=== PATIENT | female | born 1940 | race Caucasian/White ===

== ENCOUNTER 2017-04-16 10:50 | Day surgery (SDC) | payer MEDICARE ==
[2017-04-13 14:11] VITALS: BMI 27.4
[~2017-04-16 10:50] MED LIST: ALPRAZolam 0.25 MG TAB PO PRN; ALPRAZolam 0.5 MG TAB PO PRN; ASPIRIN 325 MG TAB PO STA; ATORVASTATIN 80 MG TAB PO STA; NITROGLYCERIN SL TABS 0.4 MG TAB SUBLINGUAL PRN; SODIUM CHLORIDE 0.9% 1,000 ML in EMPTY BAG 1 BAG IV ONE
[2017-04-16 11:07] VITALS: TEMP 98.1
[2017-04-16] MEDS ORDERED: ADENOSINE 3 MG/ML 2 ML VIAL IVP STA (11:08)
[2017-04-16 11:29] LABS: Anion Gap 12 mmol/L; Blood Urea Nitrogen 22 mg/dL (7-17); Carbon Dioxide 26 mmol/L (22-30); Chloride 99 mmol/L (98-107); Glucose 92 mg/dL (74-99); Non-African American GFR(MDRD) 54 (>60 ml/min/1.73 sqM); Potassium 4.7 mmol/L (3.5-5.1); Sodium 137 mmol/L (137-145)
[2017-04-16] MEDS ORDERED: SODIUM CHLORIDE 0.9% IV ONE ×6 (11:30→12:45)
[2017-04-16] MEDS ORDERED: ADENOSINE IV ONE ×6 (11:30→12:45)
[2017-04-16 11:34] LABS: Basophils % (A) 0 %; CH 30.4; CHCM 33.7; Eosinophils # (A) 0.1 k/uL (0-0.7); Eosinophils % (A) 1 %; HCT 34.5 % (34.0-46.0); HDW 2.39; HGB 12.2 gm/dL (11.4-16.0); Luc # (Auto) 0.23; Luc % (Auto) 3; Lymphocytes # (A) 1.6 k/uL (1.0-4.8); Lymphocytes % (A) 19 %; MCH 32.1 pg (25.0-35.0); MCHC 35.4 g/dL (31.0-37.0); MCV 90.5 fL (80.0-100.0); Mean Platelet Volume 7.3; Monocytes # (A) 0.4 k/uL (0-1.0); Monocytes % (A) 5 %; Neutrophils # (A) 6.4 k/uL (1.3-7.7); Neutrophils % (A) 73 %; RBC 3.82 m/uL (3.80-5.40); RDW 13.9 % (11.5-15.5); WBC 8.7 k/uL (3.8-10.6); WBC (Perox) 9.07
[2017-04-16] MEDS ORDERED: IV FLUID CONTINUATION 1,000 ML IV ONE (11:59)
[2017-04-16] MEDS ORDERED: LIDOCAINE 2% INJ 20 MG/ML (20 ML MDV) ONE (12:09)
[2017-04-16] MEDS ORDERED: fentaNYL (PF) 50 MCG/ML 2 ML AMP ONE (12:11)
[2017-04-16] MEDS ORDERED: MIDAZOLAM 2 MG/2 ML VIAL ONE (12:11)
[2017-04-16] MEDS ORDERED: LIDOCAINE 2% INJ 20 MG/ML SQ ONE (12:26)
[2017-04-16] MEDS ORDERED: fentaNYL (PF) 50 MCG/ML 2 ML AMP IV ONE (12:28)
[2017-04-16] MEDS ORDERED: MIDAZOLAM 2 MG/2 ML VIAL IV ONE (12:28)
[2017-04-16] MEDS ORDERED: ADENOSINE 90 MG in SODIUM CHLORIDE 0.9% 60 ML IVP ONE (12:44)
[2017-04-16] MEDS ORDERED: RX INFO: IV CONTRAST WAS GIVEN 1 EACH MISC MISCELLANE PRN (13:00)
[2017-04-16] MEDS ORDERED: SODIUM CHLORIDE 0.9% 1,000 ML IV SCH (13:00)
--- NOTE | 2017-04-16 13:17 | P.PCN ---
Date of Procedure: 04/16/17 Preoperative Diagnosis: Pulmonary hypertension Postoperative Diagnosis: Mild pulmonary hypertension with positive response to vasodilator Procedure(s) Performed: Implants: Indications for Procedure: Operative Findings: Description of Procedure: The patient was brought to the lab in fasting state. She was prepped and draped in the usual fashion. Patient was given IV Versed 1 mg and fentanyl 50 g. The right groin is infiltrated with lidocaine. Right femoral vein was entered using Seldinger technique. And a 6-Bhutanese catheter was left in place. Osco-Roxana catheter was advanced to the catheter and the right heart Rate was performed under fluoroscopy. Patient tolerated the procedure well. The sheath was pulled out at the end of the procedure and manual compression was applied for hemostasis. Patient was given IV infusion of adenosine to a maximum dose of 100 mics and then were cut back to 50 mics because patient started complaining of shortness of breath. Patient's symptoms resolved after termination of infusion. Hemodynamics: #1. Baseline: Right atrial pressure is 8 /5 with a mean of 4. The right ventricular pressure 36/5 Pulmonary artery pressure 36/12 with a mean of 20. Pulmonary wedge pressure showed a mean value of 10. Cardiac output at baseline was 4.5 L with index of 2.6. Blood pressure at rest was 169/60 #2. After admission infusion: Right atrial pressure was 6/7 with a mean of 4. Right ventricular pressure 23/5 in Pulmonary artery pressure was 23/13 with a mean of 19. Pulmonary wedge pressure was 6/70 with mean of 4. Cardiac output was 5.6. Blood pressure after the infusion of the adenosine was 170/60. Pulmonary artery saturations: To be included later on.
[2017-04-16 13:18] LABS: Site PA
[2017-04-16 13:23] LABS: Site RV
[2017-04-16 13:28] LABS: Site RA
[2017-04-16 15:13] VITALS: RESP 18
[2017-04-16 16:18] VITALS: BP 126/58; PULSE 64
== END 2017-04-16 17:26 | disposition home or self-care (01) ==
LOC: CATHCVL 10:50
PROVIDERS: ATTEND Internal Medicine Cardiovascular Disease
DX: I27.2 Other secondary pulmonary hypertension (principal); I25.10 Atherosclerotic heart disease of native coronary artery without angina pectoris; I10 Essential (primary) hypertension; E78.00 Pure hypercholesterolemia, unspecified; I48.91 Unspecified atrial fibrillation; E78.5 Hyperlipidemia, unspecified; E11.9 Type 2 diabetes mellitus without complications; Z95.5 Presence of coronary angioplasty implant and graft; Z79.82 Long term (current) use of aspirin; Z79.899 Other long term (current) drug therapy; Z88.6 Allergy status to analgesic agent; Z88.5 Allergy status to narcotic agent; Z88.0 Allergy status to penicillin
CPT/HCPCS: 93451; 80048; 85018; 82810; 85025; C1769 ×2; C1894; J2001; J2250; J3010; J0153

== ENCOUNTER 2019-03-14 17:16 | Observation (INO) | payer MEDICARE ==
--- NOTE | 2019-03-14 18:04 | ED ---
General Adult HPI - General Chief complaint: Chest Pain Stated complaint: chest pain Time Seen by Provider: 03/14/19 17:20 Source: patient, EMS Mode of arrival: EMS Limitations: physical limitation - History of Present Illness Initial comments: Dictation was produced using [employer] dictation software. please excuse any grammatical, word or spelling errors. Chief Complaint: 78-year-old female presents with chief complaint of epistaxis and chest pain. History of Present Illness: Patient is 78-year-old female she presents with 2 episodes of epistaxis today and episode of chest pressure. She states that early this morning she had one episode of nosebleed in the morning. Seemed to have stopped on its own. She didn't had another episode of nosebleed that lasted for several minutes but stopped. Shortly after she had episode of chest pressure with radiation to bilateral upper extremities. She did report slight diaphoresis. She states the chest symptoms lasted for several minutes and resolved. Patient has history of coronary artery disease, myocardial infarction and multiple stents. 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 The ROS documented in this emergency department record has been reviewed and confirmed by me. Those systems with pertinent positive or negative responses have been documented in the HPI. All other systems are other negative and/or noncontributory. PHYSICAL EXAM: General Impression: Alert and oriented x3, not in acute distress HEENT: Normocephalic atraumatic, extra-ocular movements intact, pupils equal and reactive to light bilaterally, mucous membranes moist. Cardiovascular: Heart regular rate and rhythm, S1&S2 audible, no murmurs, rubs or gallops Chest: Lungs clear to auscultation bilaterally, no rhonchi, no wheeze, no rales Abdomen: Bowel sounds present, abdomen soft, non-tender, non-distended, no organomegaly Musculoskeletal: Pulses present and equal in all extremities, no peripheral edema Motor: no focal deficits noted Neurological: CN II-XII grossly intact, no focal motor or sensory deficits noted Skin: Intact with no visualized rashes Psych: Normal affect and mood ED course: 78-year-old female with a chief complaint of epistaxis and chest pain signs upon arrival are within acceptable limits. Patient's well-appearing at this time. She is not expressing any ongoing epistaxis at this time. There is suspicion of a source of bleeding in the left naris. EKG is nonacute.Laboratory evaluation obtained. CBC, coag panel, metabolic panel, cardiac enzymes are negative. Chest x-ray is nonacute. Patient's well-appearing at this time. She denies any symptoms. Patient given aspirin. Given patient's history and history of present illness there is clinical concern of acute coronary syndrome. Patient be admitted for surgical needs and cardiology consultation. EKG interpretation: Ventricular rate 55, sinus bradycardia,. Interval 198, QS 112, QTc 443. No PA prolongation, no QTC prolongation, no ST or T-wave changes noted. Overall, this EKG is unremarkable - Related Data Home Medications Medication Instructions Recorded Confirmed Omeprazole [PriLOSEC] 20 mg PO AC-BRKFST 04/15/14 03/14/19 Aspirin 81 mg PO DAILY 11/22/14 03/14/19 Doxycycline Hyclate 100 mg PO DAILY 04/15/17 03/14/19 Flecainide [Tambocor] 50 mg PO Q12HR 04/15/17 03/14/19 Tofacitinib Citrate [Xeljanz Xr] 11 mg PO DAILY 04/15/17 03/14/19 Acetaminophen [Tylenol Arthritis] 650 mg PO Q8H 03/14/19 03/14/19 Allopurinol [Zyloprim] 100 mg PO DAILY 03/14/19 03/14/19 Budesonide [Pulmicort] 0.5 mg INHALATION RT-BID 03/14/19 03/14/19 Ergocalciferol [Vitamin D2 50,000 unit PO Q14D 03/14/19 03/14/19 (DRISDOL)] Metoprolol Tartrate [Lopressor] 50 mg PO DAILY 03/14/19 03/14/19 PARoxetine HCL [Paxil Cr] 25 mg PO DAILY 03/14/19 03/14/19 Previous Rx's Medication Instructions Recorded Atorvastatin [Lipitor] 80 mg PO DAILY #80 tab 11/24/14 Nitroglycerin Sl Tabs [Nitrostat] 0.4 mg SUBLINGUAL Q5M PRN #25 tab 11/24/14 Allergies Allergy/AdvReac Type Severity Reaction Status Date / Time hydrocodone bitartrate Allergy Itching Verified 03/14/19 17:40 [From Vicodin] Review of Systems ROS Statement: Those systems with pertinent positive or pertinent negative responses have been documented in the HPI. ROS Other: All systems not noted in ROS Statement are negative. Past Medical History Past Medical History: Eye Disorder, GERD/Reflux, Hyperlipidemia, Myocardial Infarction ([place]), Renal Disease, Rheumatoid Arthritis ([place]) Additional Past Medical History / Comment(s): diverticulosis,"PULMONARY HYPERTENSION"- SEE DR GARCIA'S HISTORY AND PHYSICAL FOR CARDIAC HISTORY, FREQUENT URINARY INFECTIONS Last Myocardial Infarction Date:: 09/2015 History of Any Multi-Drug Resistant Organisms: None Reported Past Surgical History: Cholecystectomy, Heart Catheterization With Stent, Hysterectomy, Orthopedic Surgery Additional Past Surgical History / Comment(s): KNEE ARTHROSCOPIC Past Anesthesia/Blood Transfusion Reactions: No Reported Reaction Date of Last Stent Placement:: 09/2015 Past Psychological History: Anxiety Smoking Status: Never smoker Past Alcohol Use History: None Reported Past Drug Use History: None Reported - Past Family History Mother Family Medical History: Hypertension Additional Family Medical History / Comment(s): heart attack Father Family Medical History: Cancer General Exam Limitations: physical limitation Course Vital Signs 03/14/19 17:25 Temperature 98.2 F Pulse Rate 56 L Respiratory 19 Rate Blood Pressure 164/147 O2 Sat by Pulse 94 L Oximetry Medical Decision Making - Lab Data Result diagrams: 03/14/19 17:59 03/14/19 17:59 Lab Results 03/14/19 03/14/19 03/14/19 Range/Units 17:59 17:59 17:59 WBC 8.5 (3.8-10.6) k/uL RBC 3.18 L (3.80-5.40) m/uL Hgb 9.9 L (11.4-16.0) gm/dL Hct 30.1 L (34.0-46.0) % MCV 94.5 (80.0-100.0) fL MCH 31.1 (25.0-35.0) pg MCHC 32.9 (31.0-37.0) g/dL RDW 15.1 (11.5-15.5) % Plt Count 313 (150-450) k/uL Neutrophils % 85 % Lymphocytes % 8 % Monocytes % 5 % Eosinophils % 1 % Basophils % 0 % Neutrophils # 7.3 (1.3-7.7) k/uL Lymphocytes # 0.7 L (1.0-4.8) k/uL Monocytes # 0.4 (0-1.0) k/uL Eosinophils # 0.1 (0-0.7) k/uL Basophils # 0.0 (0-0.2) k/uL PT 10.8 (9.0-12.0) sec INR 1.0 (<1.2) APTT 19.2 L (22.0-30.0) sec Sodium 136 L (137-145) mmol/L Potassium 5.0 (3.5-5.1) mmol/L Chloride 101 (98-107) mmol/L Carbon Dioxide 27 (22-30) mmol/L Anion Gap 8 mmol/L BUN 32 H (7-17) mg/dL Creatinine 0.96 (0.52-1.04) mg/dL Est GFR (CKD-EPI)AfAm 66 (>60 ml/min/1.73 sqM) Est GFR (CKD-EPI)NonAf 57 (>60 ml/min/1.73 sqM) Glucose 112 H (74-99) mg/dL Calcium 9.1 (8.4-10.2) mg/dL Magnesium 2.0 (1.6-2.3) mg/dL Total Bilirubin 0.6 (0.2-1.3) mg/dL AST 31 (14-36) U/L ALT 21 (9-52) U/L Alkaline Phosphatase 79 (38-126) U/L Troponin I (0.000-0.034) ng/mL Total Protein 6.6 (6.3-8.2) g/dL Albumin 4.2 (3.5-5.0) g/dL 03/14/19 Range/Units 17:59 WBC (3.8-10.6) k/uL RBC (3.80-5.40) m/uL Hgb (11.4-16.0) gm/dL Hct (34.0-46.0) % MCV (80.0-100.0) fL MCH (25.0-35.0) pg MCHC (31.0-37.0) g/dL RDW (11.5-15.5) % Plt Count (150-450) k/uL Neutrophils % % Lymphocytes % % Monocytes % % Eosinophils % % Basophils % % Neutrophils # (1.3-7.7) k/uL Lymphocytes # (1.0-4.8) k/uL Monocytes # (0-1.0) k/uL Eosinophils # (0-0.7) k/uL Basophils # (0-0.2) k/uL PT (9.0-12.0) sec INR (<1.2) APTT (22.0-30.0) sec Sodium (137-145) mmol/L Potassium (3.5-5.1) mmol/L Chloride (98-107) mmol/L Carbon Dioxide (22-30) mmol/L Anion Gap mmol/L BUN (7-17) mg/dL Creatinine (0.52-1.04) mg/dL Est GFR (CKD-EPI)AfAm (>60 ml/min/1.73 sqM) Est GFR (CKD-EPI)NonAf (>60 ml/min/1.73 sqM) Glucose (74-99) mg/dL Calcium (8.4-10.2) mg/dL Magnesium (1.6-2.3) mg/dL Total Bilirubin (0.2-1.3) mg/dL AST (14-36) U/L ALT (9-52) U/L Alkaline Phosphatase (38-126) U/L Troponin I <0.012 (0.000-0.034) ng/mL Total Protein (6.3-8.2) g/dL Albumin (3.5-5.0) g/dL Disposition Clinical Impression: Chest pain Disposition: ADMITTED IP TO THIS [facility] Condition: Fair Referrals: Yobany Chaudhry MD [Primary Care Provider] - 1-2 days Decision Time: 18:57
[2019-03-14 18:08] LABS: Basophils % (A) 0 %; Eosinophils # (A) 0.1 k/uL (0-0.7); Eosinophils % (A) 1 %; HCT 30.1 % (34.0-46.0); HGB 9.9 gm/dL (11.4-16.0); Lymphocytes # (A) 0.7 k/uL (1.0-4.8); Lymphocytes % (A) 8 %; MCH 31.1 pg (25.0-35.0); MCHC 32.9 g/dL (31.0-37.0); MCV 94.5 fL (80.0-100.0); Mean Platelet Volume 7.4; Monocytes # (A) 0.4 k/uL (0-1.0); Monocytes % (A) 5 %; Neutrophils # (A) 7.3 k/uL (1.3-7.7); Neutrophils % (A) 85 %; Platelet Count 313 k/uL (150-450); RBC 3.18 m/uL (3.80-5.40); RDW 15.1 % (11.5-15.5); WBC 8.5 k/uL (3.8-10.6)
[2019-03-14 18:19] LABS: Albumin 4.2 g/dL (3.5-5.0); Calcium 9.1 mg/dL (8.4-10.2); Total Bilirubin 0.6 mg/dL (0.2-1.3); Total Protein 6.6 g/dL (6.3-8.2)
--- NOTE | 2019-03-14 18:34 | XR ---
EXAMINATION TYPE: XR chest 2V DATE OF EXAM: 03/14/2019 COMPARISON: 11/03/2015 HISTORY: Chest pain TECHNIQUE: Frontal and lateral views of the chest are obtained. FINDINGS: There is mild coarsening of the interstitial markings. There is no pleural effusion. Bony thorax is intact. There is no gross heart failure. IMPRESSION: Pulmonary interstitial fibrosis without change. No heart failure.
[2019-03-14 18:39] LABS: Prothrombin Time 10.8 sec (9.0-12.0)
[2019-03-14 18:42] LABS: Partial Thromboplastin Time 19.2 sec (22.0-30.0)
[2019-03-14] MEDS ORDERED: ASPIRIN 81 MG PO STA (18:56)
[2019-03-14] MEDS ORDERED: NITROGLYCERIN SL TABS 0.4 MG TAB SUBLINGUAL PRN ×2 (18:57→20:11)
[2019-03-14 20:30] VITALS: BMI 30.3
[2019-03-14] MEDS: ACETAMINOPHEN TAB 325 MG TAB PO SCH (20:38)
[2019-03-14] MEDS: FLECAINIDE 50 MG TAB PO SCH (20:38)
[2019-03-15 01:28] LABS: Cholesterol 161 mg/dL (<200); HDL Cholesterol 51 mg/dL (40-60); LDL Cholesterol,Calculated 75 mg/dL (0-99); Triglycerides 174 mg/dL (<150)
[2019-03-15] MEDS: ACETAMINOPHEN TAB 325 MG TAB PO SCH ×3 (06:09→20:34)
[2019-03-15] MEDS: PANTOPRAZOLE 40 MG TABLET PO SCH (06:15)
[2019-03-15] MEDS: BUDESONIDE 0.5 MG/2 ML NEBU INHALATION SCH ×2 (07:56→20:22)
--- NOTE | 2019-03-15 08:16 | P.CRDCN ---
History of Present Illness Consult date: 03/15/19 Requesting physician: Castro Merchant Consult reason: chest pain Chief complaint: Epistaxis chest pain History of present illness: This is a pleasant 78-year-old female with history of hypertension, hyperlipidemia, diabetes, rheumatoid arthritis, coronary artery disease who underwent LAD stenting of the proximal and mid in 2014, she follows with Dr. Garcia in the office. She presents to the hospital on this admission with symptoms of chest pressure and heaviness. Prior to that patient states she had 2 episodes of nosebleeds. At the time she was experiencing a chest pressure she states that she did have some radiation to both upper arms and had some mild diaphoresis. Overall she has not been experiencing any chest discomfort at home. Chest x-ray shows pulmonary interstitial fibrosis with no acute heart failure. EKG shows a sinus bradycardia with ST T wave changes noted in the anterior lateral leads. Prior EKGs to show some similar changes in the past. On review of old records, is also noted that the patient has had atrial fibrillation in the past, currently in normal sinus rhythm. Not on anticoagulation. At the time of my examination this morning she is currently chest pain-free. Blood pressure 127/60 with a heart rate in the 60s, 96% on room air. Blood cell count 8.5, hemoglobin 9.9, platelet count 313. Sodium 136, potassium 5.0, BUN 32 and creatinine 0.9. Troponins negative 3. Past Medical History Past Medical History: Eye Disorder, GERD/Reflux, Hyperlipidemia, Myocardial Infarction ([place]), Renal Disease, Rheumatoid Arthritis ([place]) Additional Past Medical History / Comment(s): diverticulosis,"PULMONARY HYPERTENSION"- SEE DR GARCIA'S HISTORY AND PHYSICAL FOR CARDIAC HISTORY, FREQUENT URINARY INFECTIONS Last Myocardial Infarction Date:: 09/2015 History of Any Multi-Drug Resistant Organisms: None Reported Past Surgical History: Cholecystectomy, Heart Catheterization With Stent, Hysterectomy, Orthopedic Surgery Additional Past Surgical History / Comment(s): KNEE ARTHROSCOPIC Past Anesthesia/Blood Transfusion Reactions: No Reported Reaction Date of Last Stent Placement:: 09/2015 Smoking Status: Never smoker - Past Family History Mother Family Medical History: Hypertension Additional Family Medical History / Comment(s): heart attack Father Family Medical History: Cancer Medications and Allergies Home Medications Medication Instructions Recorded Confirmed Type Omeprazole [PriLOSEC] 20 mg PO AC-BRKFST 04/15/14 03/14/19 History Aspirin 81 mg PO DAILY 11/22/14 03/14/19 History Atorvastatin [Lipitor] 80 mg PO DAILY #80 tab 11/24/14 03/14/19 Rx Nitroglycerin Sl Tabs [Nitrostat] 0.4 mg SUBLINGUAL Q5M PRN #25 tab 11/24/14 03/14/19 Rx Doxycycline Hyclate 100 mg PO DAILY 04/15/17 03/14/19 History Flecainide [Tambocor] 50 mg PO Q12HR 04/15/17 03/14/19 History Tofacitinib Citrate [Xeljanz Xr] 11 mg PO DAILY 04/15/17 03/14/19 History Acetaminophen [Tylenol Arthritis] 650 mg PO Q8H 03/14/19 03/14/19 History Allopurinol [Zyloprim] 100 mg PO DAILY 03/14/19 03/14/19 History Budesonide [Pulmicort] 0.5 mg INHALATION RT-BID 03/14/19 03/14/19 History Ergocalciferol [Vitamin D2 50,000 unit PO Q14D 03/14/19 03/14/19 History (DRISDOL)] Metoprolol Tartrate [Lopressor] 50 mg PO DAILY 03/14/19 03/14/19 History PARoxetine HCL [Paxil Cr] 25 mg PO DAILY 03/14/19 03/14/19 History Allergies Allergy/AdvReac Type Severity Reaction Status Date / Time hydrocodone bitartrate Allergy Itching Verified 03/14/19 17:40 [From Vicodin] Physical Exam Vitals: Vital Signs Temp Pulse Pulse Resp BP BP Pulse Ox 03/15/19 07:55 98.4 F 63 16 127/60 96 03/15/19 04:00 57 L 18 146/75 97 03/15/19 00:00 98.1 F 55 L 18 110/58 99 03/14/19 20:00 99.2 F 55 L 18 130/59 96 03/14/19 18:30 55 L 17 127/61 96 03/14/19 18:00 114/80 97 03/14/19 17:25 98.2 F 56 L 19 164/147 94 L Intake and Output 03/14/19 03/15/19 03/15/19 22:59 06:59 14:59 Other: Voiding Method Toilet Toilet # Voids 1 1 # Bowel Movements 1 Weight 75.206 kg 71.4 kg PHYSICAL EXAMINATION: GENERAL: 78-year-old female in no acute distress at the time of my examination HEENT: Head is atraumatic, normocephalic. Pupils equal, round. Sclera anicteric. Conjunctiva are clear. Mucous membranes of the mouth are moist. Neck is supple. There is no elevated jugular venous pressure. No carotid bruit is heard. HEART EXAMINATION: Heart S1, S2 normal. No murmur or gallop heard. CHEST EXAMINATION: Lungs are clear to auscultation and precussion. No chest wall tenderness is noted on palpation or with deep breathing. ABDOMEN: Soft, nontender. Bowel sounds are heard. No organomegaly noted. EXTREMITIES: 2+ peripheral pulses with no evidence of peripheral edema and no calf tenderness noted. NEUROLOGIC patient is awake, alert and oriented 3 . Results 03/14/19 17:59 03/14/19 17:59 Cardiac Enzymes 03/14/19 03/14/19 03/15/19 Range/Units 17:59 17:59 00:09 AST 31 (14-36) U/L Troponin I <0.012 <0.012 (0.000-0.034) ng/mL 03/15/19 Range/Units 06:18 AST (14-36) U/L Troponin I <0.012 (0.000-0.034) ng/mL Coagulation 03/14/19 Range/Units 17:59 PT 10.8 (9.0-12.0) sec APTT 19.2 L (22.0-30.0) sec Lipids 03/14/19 Range/Units 17:59 Triglycerides 174 H (<150) mg/dL Cholesterol 161 (<200) mg/dL HDL Cholesterol 51 (40-60) mg/dL CBC 03/14/19 Range/Units 17:59 WBC 8.5 (3.8-10.6) k/uL RBC 3.18 L (3.80-5.40) m/uL Hgb 9.9 L (11.4-16.0) gm/dL Hct 30.1 L (34.0-46.0) % Plt Count 313 (150-450) k/uL Comprehensive Metabolic Panel 03/14/19 Range/Units 17:59 Sodium 136 L (137-145) mmol/L Potassium 5.0 (3.5-5.1) mmol/L Chloride 101 (98-107) mmol/L Carbon Dioxide 27 (22-30) mmol/L BUN 32 H (7-17) mg/dL Creatinine 0.96 (0.52-1.04) mg/dL Glucose 112 H (74-99) mg/dL Calcium 9.1 (8.4-10.2) mg/dL AST 31 (14-36) U/L ALT 21 (9-52) U/L Alkaline Phosphatase 79 (38-126) U/L Total Protein 6.6 (6.3-8.2) g/dL Albumin 4.2 (3.5-5.0) g/dL Current Medications Generic Name Dose Route Start Last Admin Trade Name Freq PRN Reason Stop Dose Admin Acetaminophen 650 mg 03/14/19 20:15 03/15/19 06:09 Tylenol Tab PO Not Given Q8H [facility] Allopurinol 100 mg 03/15/19 09:00 Zyloprim PO DAILY [facility] Aspirin 325 mg 03/15/19 09:00 Aspirin PO DAILY [facility] Atorvastatin Calcium 80 mg 03/15/19 09:00 Lipitor PO DAILY [facility] Budesonide 0.5 mg 03/15/19 08:00 03/15/19 07:56 Pulmicort INHALATION 0.5 mg RT-BID KATHARINA Administration Doxycycline Monohydrate 100 mg 03/15/19 09:00 Vibramycin PO DAILY [facility] Ergocalciferol 50,000 unit 03/15/19 09:00 Vitamin D2 PO Q14D [facility] Flecainide Acetate 50 mg 03/14/19 21:00 03/14/19 20:38 Tambocor PO 50 mg Q12HR [facility] Administration Metoprolol Tartrate 50 mg 03/15/19 09:00 Lopressor PO DAILY [facility] Nitroglycerin 0.4 mg 03/14/19 18:57 Nitrostat SUBLINGUAL Q5M PRN Chest Pain (Tofacitinib Citrate 11 mg 03/15/19 09:00 [Xeljanz Xr] 11 Mg) PO DAILY [facility] Pantoprazole Sodium 40 mg 03/15/19 07:30 03/15/19 06:15 Protonix PO 40 mg AC-BRKFST KATHARINA Administration Paroxetine HCl 20 mg 03/15/19 09:00 Paxil PO DAILY KATHARINA Intake and Output 03/14/19 03/15/19 03/15/19 22:59 06:59 14:59 Other: Voiding Method Toilet Toilet # Voids 1 1 # Bowel Movements 1 Weight 75.206 kg 71.4 kg 03/14/19 17:59 03/14/19 17:59 EKG Interpretations (text) EKG shows a sinus bradycardia with ST-T wave changes noted in the anterior lateral leads. Assessment and Plan Plan: Assessment and plan #1 symptoms of chest pressure and heaviness with radiation into bilateral upper arms, associated diaphoresis,. Troponins are negative 3. EKG shows a sinus bradycardia with ST-T wave changes noted in the anterior lateral leads #2 known history of coronary artery disease with prior proximal and mid LAD stenting in 2014 #3 hypertension #4 diabetes #5 hyperlipidemia #6 2 episodes of epistaxis, hemoglobin 9.9 #7 paroxysmal H or fibrillation, patient was noted to have atrial fibrillation on her admission in 2014. Not on anticoagulation Plan We will obtain an echocardiogram with Doppler study. Patient was advised to undergo cardiac catheterization, the risks and the benefits were explained to the patient in detail and she is willing to proceed. Further recommendations will be based on these findings and the patient's clinical course. DNP note has been reviewed, I agree with a documented findings and plan of care. Patient was seen and examined.
[2019-03-15] MEDS ORDERED: ASPIRIN 325 MG TAB PO SCH ×2 (09:00)
[2019-03-15] MEDS ORDERED: ERGOCALCIFEROL 50,000 UNIT CAP PO SCH (09:00)
[2019-03-15] MEDS ORDERED: METOPROLOL TARTRATE 50 MG TAB PO SCH (09:00)
[2019-03-15] MEDS ORDERED: SODIUM CHLORIDE 0.9% 1,000 ML in EMPTY BAG 1 BAG IV ONE (09:18)
[2019-03-15] MEDS ORDERED: NITROGLYCERIN SL TABS 0.4 MG TAB SUBLINGUAL PRN (09:18)
[2019-03-15] MEDS ORDERED: ATORVASTATIN 80 MG TAB PO STA (09:18)
[2019-03-15] MEDS ORDERED: ALPRAZolam 0.5 MG TAB PO PRN (09:18)
[2019-03-15] MEDS ORDERED: ASPIRIN 325 MG TAB PO STA (09:18)
[2019-03-15] MEDS ORDERED: ALPRAZolam 0.25 MG TAB PO PRN (09:18)
[2019-03-15] MEDS ORDERED: METOPROLOL TARTRATE 25 MG TAB PO STA (09:38)
[2019-03-15] MEDS: ALLOPURINOL 100 MG TAB PO SCH (09:47)
[2019-03-15] MEDS: FLECAINIDE 50 MG TAB PO SCH ×2 (09:47→20:34)
[2019-03-15] MEDS: ASPIRIN 81 MG PO SCH (09:47)
[2019-03-15] MEDS: DOXYCYCLINE 100 MG CAP PO SCH (09:47)
[2019-03-15] MEDS: PARoxetine 20 MG TAB PO SCH (09:48)
[2019-03-15] MEDS: ATORVASTATIN 80 MG TAB PO SCH (09:55)
[2019-03-15 13:38] LABS: Glucose,Whole Blood 101 mg/dL (75-99)
[2019-03-15 14:30] LABS: HCT 28.6 % (34.0-46.0); MCH 30.6 pg (25.0-35.0); MCHC 31.4 g/dL (31.0-37.0); MCV 97.3 fL (80.0-100.0); Mean Platelet Volume 6.8; Platelet Count 295 k/uL (150-450); RBC 2.94 m/uL (3.80-5.40); RDW 14.9 % (11.5-15.5); WBC 7.2 k/uL (3.8-10.6)
[2019-03-15] MEDS ORDERED: VERAPAMIL 2.5 MG/ML 2 ML AMP ONE (16:23)
[2019-03-15] MEDS ORDERED: LIDOCAINE 1% INJ 10MG/ML (20 ML MDV) ONE (16:23)
[2019-03-15] MEDS ORDERED: HEPARIN SODIUM 1,000 UN/ML (10ML VL) ONE (16:47)
[2019-03-15] MEDS ORDERED: fentaNYL (PF) 50 MCG/ML 2 ML AMP ONE (16:47)
--- NOTE | 2019-03-15 16:48 | HP ---
HISTORY AND PHYSICAL DATE OF ADMISSION: 03/14/2019 DATE OF SERVICE: 03/15/2019 PRESENTING COMPLAINT: Chest pain. HISTORY OF PRESENTING COMPLAINT: This is a very pleasant 78-year-old patient of Dr. Chauhdry. Chronic stable medical conditions include GERD, hyperlipidemia, rheumatoid arthritis, diverticulosis, secondary pulmonary hypertension. Patient had a coronary stent placed in 2014 and is normally active around the house. Yesterday evening she had a large bout of epistaxis and another two bouts the following morning (that is yesterday) on the day of presentation. According to her granddaughter at the bedside, large towels were soaked in the same. Yesterday late in the afternoon she was doing her laundry and she developed pain across the chest going down both the arms and broke out in a sweat. Symptoms lasted for a good 15 minutes. There was no dizziness. No lightheadedness. She does feel weak and tired and she presented to the ER. Troponins were negative. She was admitted with a diagnosis of unstable angina. REVIEW OF SYSTEMS: CONSTITUTIONAL: Tired. HEENT: Decreased hearing. RESPIRATORY: None. CARDIOVASCULAR: As above. GASTROINTESTINAL: Heartburn. GENITOURINARY: None. MUSCULOSKELETAL: Some pain in the joints. DERMATOLOGICAL: None. HEMATOLOGICAL: None. LYMPHATICS: None. PSYCHIATRY: None. NEUROLOGICAL: None. PAST MEDICAL HISTORY: 1. GERD. 2. Hyperlipidemia. 3. Rheumatoid arthritis. 4. Diverticulosis. 5. Pulmonary hypertension. 6. Coronary artery disease with stent. PAST SURGICAL HISTORY: 1. Cholecystectomy. 2. Coronary stent. 3. Hysterectomy. 4. Orthopedic surgery. SOCIAL HISTORY: No smoking. No alcohol. Lives by herself. FAMILY HISTORY: Cancer, heart attack. HOME MEDICATIONS: 1. Xeljanz XR 11 mg p.o. daily. 2. Paxil CR 25 mg p.o. daily. 3. Prilosec 20 mg p.o. with breakfast. 4. Nitrostat 0.4 sublingually q.5 p.r.n. 5. Lopressor 50 mg p.o. daily. 6. Flecainide 50 mg q.12. 7. B12 . 8. Doxycycline 100 mg p.o. daily. 9. Pulmicort 0.5 mg b.i.d. 10.Lipitor 80 mg p.o. daily. 11.Aspirin 81 mg p.o. daily. 12.Allopurinol 100 mg p.o. daily. 13.Tylenol Arthritis 650 mg q.8. ALLERGIES: VICODIN. PHYSICAL EXAMINATION: VITAL SIGNS ON PRESENTATION: Temperature 98.2, pulse 56, respiration 16, blood pressure 164/147. Repeat blood pressure was 144/80. Pulse ox 94% on room air. GENERAL APPEARANCE: Average build. Lying in bed. Awake. EYES: Pupils equal. Conjunctivae normal. HEENT: External appearance of nose and ears normal. Oral cavity normal. Decreased hearing. NECK: JVD not raised. Mass not palpable. RESPIRATORY: Effort normal. LUNGS: Fair air entry. CARDIOVASCULAR: First and second sounds normal. No edema. ABDOMEN: Soft, non-tender. Liver and spleen not palpable. LYMPHATIC: No lymph node palpable in neck or axillae. PSYCHIATRY: Alert and oriented x3. Mood and affect normal. NEUROLOGICAL: Pupils equal. Cranial nerves grossly intact. Power and sensation grossly intact. INVESTIGATIONS: White count 8.5, hemoglobin 9.9. Potassium 5.0. BUN 32, creatinine 0.96. Troponin x3 negative. EKG showing ST-segment depression in V1 through V6. Chest x-ray film, personally reviewed by me, shows cardiomegaly, questionable venous prominence. ASSESSMENT: 1. Unstable angina in a patient with known coronary artery disease who presented with severe epistaxis that was spontaneous, now resolved. 2. Acute epistaxis, now resolved. 3. Acute blood loss anemia. Hemoglobin is 9.9. I do not have a baseline, though patient's hemoglobin was 10.2 on 01/17/2019. 4. Gastroesophageal reflux disease. 5. Hyperlipidemia. 6. Rheumatoid arthritis. 7. Colonic diverticulosis. 8. Secondary pulmonary hypertension. 9. Coronary artery disease with prior history of stent. PLAN: Serial cardiac enzymes are negative. Cardiology was consulted, who is going to proceed with a cardiac catheterization. Care was discussed the patient and daughter at the bedside. Questions were answered. Will repeat a CBC this morning. MMODL / IJN: [id number] /
[2019-03-15] MEDS ORDERED: fentaNYL (PF) 50 MCG/ML 2 ML AMP IVP ONE (16:50)
[2019-03-15] MEDS ORDERED: LIDOCAINE 1% INJ 10MG/ML (20 ML MDV) SQ ONE (16:51)
[2019-03-15] MEDS ORDERED: VERAPAMIL SYRINGE (5 MG/10 ML) INTRAARTER ONE (16:52)
[2019-03-15] MEDS ORDERED: MIDAZOLAM (PF) 2 MG/2 ML VIAL IVP ONE (16:54)
[2019-03-15] MEDS ORDERED: HEPARIN SODIUM 1,000 UN/ML (10ML VL) IV ONE (17:02)
[2019-03-15] MEDS ORDERED: IOPAMIDOL-370 100ML BTL INJ ONE (17:08)
[2019-03-15] MEDS ORDERED: IV FLUID CONTINUATION 1,000 ML IV ONE (17:09)
[2019-03-15] MEDS ORDERED: SODIUM CHLORIDE 0.9% 1,000 ML IV SCH (17:15)
[2019-03-15] MEDS ORDERED: RX INFO: IV CONTRAST WAS GIVEN 1 EACH MISC MISCELLANE PRN (17:15)
--- NOTE | 2019-03-15 18:54 | CC ---
CARDIAC CATHETERIZATION REPORT Mrs. Cummings is a 78-year-old female with known history of hypertension, hyperlipidemia and a known history of coronary artery disease, status post stenting of the LAD in 2015. She presented with symptoms of chest discomfort reminding her of the symptoms she had at the time of intervention. In view of that, recommendation was made regarding cardiac catheterization. The procedure, its risks and complications were discussed with the patient, who was in full understanding and agreement. PROCEDURE DESCRIPTION: Patient was brought to the open hearth laborer in a fasting, semi-sedated state after receiving fentanyl and Benadryl and achieving moderate conscious sedated state. Using Xylocaine anesthesia and Seldinger technique, a 6-Ghanaian sheath was introduced in the right radial artery. Selective right and left coronary angiography was performed using 5- Ghanaian 3-1/2 bend right and left Radames catheters. Multiple views were taken of the coronary artery arteries, including hemiaxial views. Following that, a 5-Ghanaian tight pigtail catheter was introduced into the left ventricle and a 30-degree KNIGHT view of the left ventricle was obtained. Following that, catheter and sheath were removed. Hemostasis was obtained with deployment of a TR band. There was no immediate complication. Patient was returned to her room in stable condition. Of note, the patient received 4000 units of intravenous heparin as well as intra-arterial Verapamil. FINDINGS: LEFT MAIN: This is a large-sized vessel trifurcating into left circumflex, left anterior descending artery and ramus intermedius. Left main coronary artery has no evidence of high-grade stenosis. LEFT ANTERIOR DESCENDING ARTERY: This is a large-sized vessel reaching toward the apex, giving rise to a large diagonal branch. The stented segment in the proximal LAD is patent. It has a 10% to 20% plaque. The distal vessel has minimal intimal disease without any evidence of high-grade stenosis. LEFT CIRCUMFLEX: This is a nondominant vessel giving rise to 2 obtuse marginal branches. The left circumflex in the mid segment has intimal disease of 30% to 40% plaque without any evidence of high-grade stenosis. RAMUS INTERMEDIUS: This is a small-sized vessel that has a 50% plaque at the takeoff. The rest of the vessel has no high-grade stenosis. RIGHT CORONARY ARTERY: This is a large dominant vessel bifurcating distally into PDA and posterolateral segment and branches. The right coronary artery in mid segment has 20% to 30% plaque. There is a plaque in the PDA of mild degree. The rest of the vessel has no high-grade stenosis. LEFT VENTRICULOGRAM: Left ventriculogram was performed in 30-degree KNIGHT view and revealed normal left ventricular size and systolic function, ejection fraction 60%. There was no significant mitral regurgitation. HEMODYNAMICS: There was no gradient across the aortic valve. The left ventricular end-diastolic pressure was 10 mmHg. CONCLUSION: 1. Mild triple-vessel coronary artery disease with no evidence of re-stenosis in the stented segment of the left anterior descending coronary artery. 2. Normal left ventricular size and systolic function. RECOMMENDATIONS: In view of findings and anatomy, I have recommended continued medical therapy with aggressive coronary risk modifications that have been initiated. Those findings and recommendation were discussed with the patient and her family, who are in full understanding and agreement. Duration of procedure was 20 minutes. KIRILL / MARITA: [id number] /
[2019-03-15] MEDS: METOPROLOL TARTRATE 25 MG TAB PO SCH (20:34)
[2019-03-16] MEDS: PANTOPRAZOLE 40 MG TABLET PO SCH (06:08)
[2019-03-16] MEDS: ACETAMINOPHEN TAB 325 MG TAB PO SCH ×2 (06:08→11:29)
[2019-03-16 06:41] LABS: Calcium 8.7 mg/dL (8.4-10.2); Potassium 4.6 mmol/L (3.5-5.1)
[2019-03-16] MEDS: BUDESONIDE 0.5 MG/2 ML NEBU INHALATION SCH (07:17)
[2019-03-16] MEDS: FLECAINIDE 50 MG TAB PO SCH (09:27)
[2019-03-16] MEDS: ALLOPURINOL 100 MG TAB PO SCH (09:27)
[2019-03-16] MEDS: ASPIRIN 81 MG PO SCH (09:27)
[2019-03-16] MEDS: DOXYCYCLINE 100 MG CAP PO SCH (09:27)
[2019-03-16] MEDS: ATORVASTATIN 80 MG TAB PO SCH (09:27)
[2019-03-16] MEDS: METOPROLOL TARTRATE 25 MG TAB PO SCH (09:27)
[2019-03-16] MEDS: PARoxetine 20 MG TAB PO SCH (09:27)
[2019-03-16 11:29] VITALS: BP 105/58; PULSE 62; RESP 16; TEMP 97.9
--- NOTE | 2019-03-16 16:24 | P.PN ---
Subjective Progress Note Date: 03/16/19 This is a pleasant 78-year-old female with history of hypertension, hyperlipidemia, diabetes, rheumatoid arthritis, coronary artery disease who underwent LAD stenting of the proximal and mid in 2014, she follows with Dr. Beckham in the office. She presents to the hospital on this admission with symptoms of chest pressure and heaviness. Prior to that patient states she had 2 episodes of nosebleeds. At the time she was experiencing a chest pressure she states that she did have some radiation to both upper arms and had some mild diaphoresis. Overall she has not been experiencing any chest discomfort at home. Chest x-ray shows pulmonary interstitial fibrosis with no acute heart failure. EKG shows a sinus bradycardia with ST T wave changes noted in the anterior lateral leads. Prior EKGs to show some similar changes in the past. On review of old records, is also noted that the patient has had atrial fibrillation in the past, currently in normal sinus rhythm. Not on anticoagu lation. At the time of my examination this morning she is currently chest pain- free. Blood pressure 127/60 with a heart rate in the 60s, 96% on room air. Blood cell count 8.5, hemoglobin 9.9, platelet count 313. Sodium 136, potassium 5.0, BUN 32 and creatinine 0.9. Troponins negative 3. 03/16/2019 Patient was seen and examined this morning, doing well, denies any chest pain or difficulty in breathing. She did undergo cardiac catheterization yesterday which revealed mild triple-vessel coronary artery disease with no evidence of restenosis in the stented segment of the LAD. Today she is hemodynamically stable. Objective - Vital Signs Vital signs: Vital Signs Temp 97.9 F 03/16/19 11:29 Pulse 62 03/16/19 11:29 Resp 16 03/16/19 11:29 BP 105/58 03/16/19 11:29 Pulse Ox 97 03/16/19 11:29 Intake & Output 03/15/19 03/16/19 03/16/19 18:59 06:59 18:59 Intake Total 768.4 200 Output Total 0 Balance 768.4 200 Weight 70.9 kg Intake: IV 528.4 Sodium Chloride 0.9% 1, 428.4 000 ml In Empty Bag 1 bag @ 1 ML/KG/HR 71.4 mls/hr IV .Q14H1M ONE Rx#: [id number] Oral 240 200 Output: Urine 0 Other: Voiding Method Toilet Toilet Toilet # Voids 4 1 # Bowel Movements 2 - Exam PHYSICAL EXAMINATION: GENERAL: 78-year-old female in no acute distress at the time of my examination HEENT: Head is atraumatic, normocephalic. Pupils equal, round. Sclera anicte epifanio. Conjunctiva are clear. Mucous membranes of the mouth are moist. Neck is supple. There is no elevated jugular venous pressure.No Carotid bruit is heard. HEART EXAMINATION: Heart S1, S2 normal. No murmur or gallop heard. CHEST EXAMINATION: Lungs are clear to auscultation and precussion. No chest wall tenderness is noted on palpation or with deep breathing. ABDOMEN: Soft, nontender. Bowel sounds are heard. No organomegaly noted. EXTREMITIES: 2+ peripheral pulses with no evidence of peripheral edema and no calf tenderness noted. Right radial site clean and dry, good distal pulse. NEUROLOGIC patient is awake, alert and oriented 3 . . - Labs CBC & Chem 7: 03/15/19 14:08 03/16/19 06:14 Labs: Abnormal Lab Results - Last 24 Hours (Table) 03/16/19 Range/Units 06:14 Sodium 136 L (137-145) mmol/L BUN 25 H (7-17) mg/dL Creatinine 1.06 H (0.52-1.04) mg/dL Assessment and Plan Plan: Assessment and plan #1 symptoms of chest pressure and heaviness with radiation into bilateral upper arms, associated diaphoresis,. Troponins are negative 3. EKG shows a sinus bradycardia with ST-T wave changes noted in the anterior lateral leads #2 known history of coronary artery disease with prior proximal and mid LAD stenting in 2014 #3 hypertension #4 diabetes #5 hyperlipidemia #6 2 episodes of epistaxis, hemoglobin 9.9 #7 paroxysmal H or fibrillation, patient was noted to have atrial fibrillation on her admission in 2014. Not on anticoagulation Plan Patient did undergo cardiac catheterization which revealed mild triple-vessel coronary artery disease with a patent prior stented segment in the LAD. She may be able to go home today from cardiology's perspective, a follow-up appointment will be made in the office with Dr. francoise sterling discharge. DNP note has been reviewed, I agree with a documented findings and plan of care. Patient was seen and examined.
--- NOTE | 2019-03-17 12:21 | DS ---
DISCHARGE SUMMARY DATE OF ADMISSION: 03/15/2019 DATE OF DISCHARGE: 03/16/2019 FINAL DIAGNOSES: 1. Unstable angina in a patient with known coronary artery disease precipitated by blood loss anemia. 2. Acute epistaxis, resolved. 3. Acute blood loss anemia from severe epistaxis. 4. Gastroesophageal reflux disease. 5. Hyperlipidemia. 6. Rheumatoid arthritis. 7. Colonic diverticulosis. 8. Secondary pulmonary hypertension. 9. Coronary artery prior history of stent. PROCEDURE: Cardiac catheterization. HOSPITAL COURSE: This patient had severe epistaxis 3 episodes at home, quite a lot of loss of blood. When presented here hemoglobin was down to 9. The patient is having significant chest pain at home. Troponins were negative. Because of the presentation, some EKG changes. Patient is taken to the cardiac catheterization by Dr. Reich. No significant disease was found except for no restenosis in the stented segments. It was felt that the patient's angina was precipitated by patient's acute blood loss anemia. The patient is stable. No further episodes. PHYSICAL EXAMINATION: Temperature 97.9, pulse 62. pressure 105/58. LUNGS: Clear. CARDIOVASCULAR: First and second sounds are normal. INVESTIGATION: Hemoglobin is 9. Care was discussed with the patient. CONSULTATION: Dr. Reich from Cardiology. DISCHARGE MEDICATIONS: 1. Prilosec 20 mg before breakfast. 2. Aspirin 81 mg a day. 3. Lipitor 80 mg p.o. daily. 4. Nitrostat 0.4 sublingual q.5 p.r.n. 5. Doxycycline course. 6. Tambocor 50 mg p.o. q.12. 7. Xeljanz 11 mg p.o. daily. 8. Allopurinol 100 mg daily. 9. Pulmicort 0.5 mg b.i.d. 10.Vitamin D2 fifty thousand units p.o. q. 14 days. 11.Paxil 25 mg p.o. daily. 12.Tylenol 650 mg q.6 p.r.n. 13.Iron 65 mg 325 p.o. b.i.d. 14.Lopressor 25 p.o. b.i.d. Follow up with Dr. Chaudhry on 03/18/2019. Follow up with Dr. Beckham on 03/28/2019. MMODL / IJN: [id number] /
== END 2019-03-16 14:29 | disposition home or self-care (01) ==
LOC: EC 17:16 → 3SCARD 18:57
PROVIDERS: ADMIT Hospitalist; ATTEND Hospitalist
DX: I25.110 Atherosclerotic heart disease of native coronary artery with unstable angina pectoris (principal); K21.9 Gastro-esophageal reflux disease without esophagitis; E78.5 Hyperlipidemia, unspecified; K57.30 Diverticulosis of large intestine without perforation or abscess without bleeding; M06.9 Rheumatoid arthritis, unspecified; Z95.5 Presence of coronary angioplasty implant and graft; R04.0 Epistaxis; D62 Acute posthemorrhagic anemia; E11.9 Type 2 diabetes mellitus without complications; I10 Essential (primary) hypertension; I27.29 Other secondary pulmonary hypertension; Z87.440 Personal history of urinary (tract) infections; I25.2 Old myocardial infarction; Z79.82 Long term (current) use of aspirin; Z79.899 Other long term (current) drug therapy; Z90.710 Acquired absence of both cervix and uterus; Z90.49 Acquired absence of other specified parts of digestive tract; Z82.49 Family history of ischemic heart disease and other diseases of the circulatory system; Z80.9 Family history of malignant neoplasm, unspecified; Z88.5 Allergy status to narcotic agent
CPT/HCPCS: 99285; 36415; 94640 ×3; 94760; 93005; 93306; 93458; 83880; 80061; 80053; 80048; 83735; 84484 ×2; 85025; 85027; 85610; 85730; 71046; G0378 ×3; C1894; C1769; J2001; J3010; J1644; Q9967; J2250

== ENCOUNTER 2019-03-19 04:12 | Emergency (ER) | payer MEDICARE ==
[2019-03-19 04:21] VITALS: TEMP 97.6
[2019-03-19] MEDS ORDERED: cloNIDine HCL 0.2 MG TAB PO STA (04:29)
[2019-03-19] MEDS ORDERED: OXYMETAZOLINE 0.05% NASL SPRAY 1 SPRAY BOTTLE NASAL STA (04:29)
[2019-03-19 05:02] LABS: Basophils % (A) 0 %; Eosinophils # (A) 0.1 k/uL (0-0.7); Eosinophils % (A) 1 %; HCT 25.8 % (34.0-46.0); HGB 8.4 gm/dL (11.4-16.0); Lymphocytes # (A) 0.6 k/uL (1.0-4.8); Lymphocytes % (A) 10 %; MCH 31.4 pg (25.0-35.0); MCHC 32.7 g/dL (31.0-37.0); Mean Platelet Volume 7.4; Monocytes # (A) 0.3 k/uL (0-1.0); Monocytes % (A) 6 %; Neutrophils # (A) 4.8 k/uL (1.3-7.7); Neutrophils % (A) 80 %; Platelet Count 305 k/uL (150-450); RBC 2.69 m/uL (3.80-5.40); RDW 15.6 % (11.5-15.5)
[2019-03-19 05:12] LABS: Prothrombin Time 10.4 sec (9.0-12.0)
[2019-03-19 05:14] LABS: Partial Thromboplastin Time 20.7 sec (22.0-30.0)
--- NOTE | 2019-03-19 06:33 | ED ---
ENT HPI - General Chief complaint: ENT Stated complaint: Nosebleed Time Seen by Provider: 03/19/19 04:15 Source: patient, EMS Mode of arrival: EMS - History of Present Illness MD complaint: epistaxis Onset/Timin -: hour(s) Location: nose Severity: moderate Consistency: now resolved Improves with: none Worsens with: none - Related Data Home Medications Medication Instructions Recorded Confirmed Omeprazole [PriLOSEC] 20 mg PO AC-BRKFST 04/15/14 03/14/19 Aspirin 81 mg PO DAILY 11/22/14 03/14/19 Doxycycline Hyclate 100 mg PO DAILY 04/15/17 03/14/19 Flecainide [Tambocor] 50 mg PO Q12HR 04/15/17 03/14/19 Tofacitinib Citrate [Xeljanz Xr] 11 mg PO DAILY 04/15/17 03/14/19 Allopurinol [Zyloprim] 100 mg PO DAILY 03/14/19 03/14/19 Budesonide [Pulmicort] 0.5 mg INHALATION RT-BID 03/14/19 03/14/19 Ergocalciferol [Vitamin D2 50,000 unit PO Q14D 03/14/19 03/14/19 (DRISDOL)] PARoxetine HCL [Paxil Cr] 25 mg PO DAILY 03/14/19 03/14/19 Previous Rx's Medication Instructions Recorded Atorvastatin [Lipitor] 80 mg PO DAILY #80 tab 11/24/14 Nitroglycerin Sl Tabs [Nitrostat] 0.4 mg SUBLINGUAL Q5M PRN #25 tab 11/24/14 Acetaminophen [Acetaminophen ER] 650 mg PO Q6H PRN #1 tablet.er 03/16/19 Ferrous Sulfate [Iron (65 MG 325 mg PO BID #1 tab 03/16/19 Elemental)] Metoprolol Tartrate [Lopressor] 25 mg PO BID #0 03/16/19 Allergies Allergy/AdvReac Type Severity Reaction Status Date / Time hydrocodone bitartrate Allergy Itching Verified 03/19/19 04:21 [From Vicodin] Review of Systems ROS Statement: Those systems with pertinent positive or pertinent negative responses have been documented in the HPI. ROS Other: All systems not noted in ROS Statement are negative. Constitutional: Denies: fever, chills Eyes: Denies: eye pain, vision change ENT: Reports: epistaxis Respiratory: Denies: cough, dyspnea Cardiovascular: Denies: chest pain, palpitations, edema, syncope Gastrointestinal: Denies: abdominal pain, vomiting Neurological: Denies: headache, weakness Hematological/Lymphatic: Denies: easy bleeding Past Medical History Past Medical History: Eye Disorder, GERD/Reflux, Hyperlipidemia, Myocardial Infarction ([place]), Renal Disease, Rheumatoid Arthritis ([place]) Additional Past Medical History / Comment(s): diverticulosis,"PULMONARY H YPERTENSION"- SEE DR GARCIA'S HISTORY AND PHYSICAL FOR CARDIAC HISTORY, FREQUENT URINARY INFECTIONS Last Myocardial Infarction Date:: 09/2015 History of Any Multi-Drug Resistant Organisms: None Reported Past Surgical History: Cholecystectomy, Heart Catheterization With Stent, Hysterectomy, Orthopedic Surgery Additional Past Surgical History / Comment(s): KNEE ARTHROSCOPIC Past Anesthesia/Blood Transfusion Reactions: No Reported Reaction Date of Last Stent Placement:: 09/2015 Past Psychological History: Anxiety Smoking Status: Never smoker Past Alcohol Use History: None Reported Past Drug Use History: None Reported - Past Family History Mother Family Medical History: Hypertension Additional Family Medical History / Comment(s): heart attack Father Family Medical History: Cancer General Exam General appearance: alert, in no apparent distress Head exam: Present: atraumatic, normocephalic Eye exam: Present: normal appearance, PERRL, EOMI. Absent: scleral icterus, conjunctival injection ENT exam: Present: normal oropharynx, mucous membranes moist, other (Large clot left nare) Respiratory exam: Present: normal lung sounds bilaterally. Absent: respiratory distress, wheezes, rales, rhonchi, stridor Cardiovascular Exam: Present: regular rate, normal rhythm, normal heart sounds. Absent: systolic murmur, diastolic murmur, rubs, gallop Neurological exam: Present: alert Skin exam: Present: warm, dry, intact, normal color. Absent: rash Course Vital Signs 03/19/19 04:13 Temperature 97.6 F Pulse Rate 59 L Respiratory 19 Rate Blood Pressure 179/71 O2 Sat by Pulse 98 Oximetry Medical Decision Making - Medical Decision Making Patient is a 78-year-old woman with epistaxis. I did apply Afrin nasal spray and further pressure. Following this there was no further bleeding. I did have the patient blow clots from the left naris and no source of bleeding is visualized. There is no further bleeding. The patient is observed for a prolonged period with no bleeding. The patient does have some chronic anemia and today's level is only minimally lower. She is not currently having worse jany symptoms of anemia. Further care for epistaxis as well as return parameters are discussed. All questions answered. - Lab Data Result diagrams: 03/19/19 04:50 Lab Results 03/19/19 03/19/19 Range/Units 04:50 04:50 WBC 6.0 (3.8-10.6) k/uL RBC 2.69 L (3.80-5.40) m/uL Hgb 8.4 L (11.4-16.0) gm/dL Hct 25.8 L (34.0-46.0) % MCV 96.0 (80.0-100.0) fL MCH 31.4 (25.0-35.0) pg MCHC 32.7 (31.0-37.0) g/dL RDW 15.6 H (11.5-15.5) % Plt Count 305 (150-450) k/uL Neutrophils % 80 % Lymphocytes % 10 % Monocytes % 6 % Eosinophils % 1 % Basophils % 0 % Neutrophils # 4.8 (1.3-7.7) k/uL Lymphocytes # 0.6 L (1.0-4.8) k/uL Monocytes # 0.3 (0-1.0) k/uL Eosinophils # 0.1 (0-0.7) k/uL Basophils # 0.0 (0-0.2) k/uL PT 10.4 (9.0-12.0) sec INR 1.0 (<1.2) APTT 20.7 L (22.0-30.0) sec Disposition Clinical Impression: Epistaxis, Anemia Disposition: HOME SELF-CARE Condition: Good Instructions (If sedation given, give patient instructions): Nosebleed (ED) Is patient prescribed a controlled substance at d/c from ED?: No Referrals: Yobany Chaudhry MD [Primary Care Provider] - 1-2 days Mehran Mayberry MD [STAFF PHYSICIAN] - 1-2 days
[2019-03-19 07:01] VITALS: BP 119/58; PULSE 72; RESP 16
== END 2019-03-19 06:59 | disposition home or self-care (01) ==
LOC: EC 04:12
DX: R04.0 Epistaxis (principal); D64.9 Anemia, unspecified; K21.9 Gastro-esophageal reflux disease without esophagitis; I25.2 Old myocardial infarction; F41.9 Anxiety disorder, unspecified; M06.9 Rheumatoid arthritis, unspecified; Z79.82 Long term (current) use of aspirin; Z79.51 Long term (current) use of inhaled steroids; Z79.899 Other long term (current) drug therapy; Z88.5 Allergy status to narcotic agent; Z88.6 Allergy status to analgesic agent; Z95.5 Presence of coronary angioplasty implant and graft
CPT/HCPCS: 36415; 85025; 85610; 85730; 99283

== ENCOUNTER 2020-12-30 21:14 | Inpatient (IN) | payer MEDICARE ==
[2020-12-30] MEDS ORDERED: ASPIRIN 81 MG PO STA (21:59)
[2020-12-30] MEDS ORDERED: DILTIAZEM 5 MG/ML 5 ML VIAL IVP STA (22:03)
--- NOTE | 2020-12-30 22:05 | ED ---
General Adult HPI - General Chief complaint: Arrhythmia/Palpitations Stated complaint: Afib Time Seen by Provider: 12/30/20 21:51 Source: patient, EMS, old records reviewed Mode of arrival: EMS Limitations: no limitations - History of Present Illness Initial comments: Patient was transferred to our ED from the [facility] ED by ambulance. Per [facility] ED physician's report, the patient presented there complaining of having rapid heart palpitations for the past 4 days, and she was found to be in atrial fibrillation with a heart rate in the 150s to 180s. Per ED physician, the patient was given a dose of IV Cardizem, and her heart rate improved to 50s to 90s. Per ED physician, the patient's chest x-ray showed findings of CHF and her BNP level was elevated. 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 Patient states that her palpitations have now improved, and she denies having any symptoms at this time. Patient denies fever or chills, headache, focal neuro deficit, chest pain or pressure, dyspnea, cough or cold symptoms, dizziness, syncope, abdominal pain, nausea/vomiting/diarrhea, dysuria or urinary symptoms, leg or calf swelling or pain, or any other symptoms or complaints. - Related Data Home Medications Medication Instructions Recorded Confirmed Omeprazole [PriLOSEC] 20 mg PO AC-BRKFST 04/15/14 12/30/20 Flecainide [Tambocor] 50 mg PO Q12HR 04/15/17 12/30/20 Ergocalciferol [Vitamin D2 50,000 unit PO Q14D 03/14/19 12/30/20 (DRISDOL)] allopurinoL [Zyloprim] 100 mg PO DAILY 03/14/19 12/30/20 Aspirin 81 mg PO HS 12/30/20 12/30/20 Atorvastatin [Lipitor] 80 mg PO HS 12/30/20 12/30/20 Magnesium (Unknown Strength) 1 tab PO HS 12/30/20 12/30/20 Metoprolol Tartrate [Lopressor] 50 mg PO DAILY 12/30/20 12/30/20 Previous Rx's Medication Instructions Recorded Ferrous Sulfate [Iron (65 MG 325 mg PO BID #1 tab 03/16/19 Elemental)] Allergies Allergy/AdvReac Type Severity Reaction Status Date / Time hydrocodone bitartrate Allergy Itching Verified 12/30/20 22:24 [From Vicodin] Review of Systems ROS Statement: Those systems with pertinent positive or pertinent negative responses have been documented in the HPI. ROS Other: All systems not noted in ROS Statement are negative. Past Medical History Past Medical History: Eye Disorder, GERD/Reflux, Hyperlipidemia, Myocardial Infarction ([place]), Renal Disease, Rheumatoid Arthritis ([place]) Additional Past Medical History / Comment(s): diverticulosis,"PULMONARY HYPERTENSION"- SEE DR GARCIA'S HISTORY AND PHYSICAL FOR CARDIAC HISTORY, FREQUENT URINARY INFECTIONS Last Myocardial Infarction Date:: 09/2015 History of Any Multi-Drug Resistant Organisms: None Reported Past Surgical History: Cholecystectomy, Heart Catheterization With Stent, Hysterectomy, Orthopedic Surgery Additional Past Surgical History / Comment(s): KNEE ARTHROSCOPIC Past Anesthesia/Blood Transfusion Reactions: No Reported Reaction Date of Last Stent Placement:: 09/2015 Past Psychological History: Anxiety Past Alcohol Use History: None Reported Past Drug Use History: None Reported - Past Family History Mother Family Medical History: Hypertension Additional Family Medical History / Comment(s): heart attack Father Family Medical History: Cancer General Exam Limitations: no limitations General appearance: alert, in no apparent distress Head exam: Present: atraumatic, normocephalic Eye exam: Present: normal appearance, EOMI ENT exam: Present: mucous membranes moist Neck exam: Present: other (Trachea is in midline) Respiratory exam: Present: normal lung sounds bilaterally. Absent: respiratory distress, wheezes, rales, rhonchi, stridor Cardiovascular Exam: Present: tachycardia, irregular rhythm, normal heart sounds, other (Normal radial pulses bilaterally) GI/Abdominal exam: Present: soft. Absent: distended, tenderness, guarding Extremities exam: Absent: tenderness, pedal edema, calf tenderness Neurological exam: Present: alert, oriented X3. Absent: motor sensory deficit Psychiatric exam: Present: normal affect, normal mood Skin exam: Present: warm, dry, intact, normal color Course Vital Signs 12/30/20 12/30/20 12/30/20 21:21 22:06 22:39 Temperature 98.1 F Pulse Rate 106 H 138 H 106 H Respiratory 18 18 18 Rate Blood Pressure 120/72 108/76 108/76 O2 Sat by Pulse 98 96 98 Oximetry - Reevaluation(s) Reevaluation #1: 12/30/20 22:35 Case, H&P, EKG findings and outside hospital test results were discussed with Dr. Merchant. He accepts hospital admission. He recommends anticoagulation with IV heparin drip. He also recommends cardiology consultation. He has no further recommendations at this time. 12/30/20 23:25 Patient denies development of any new symptoms while in the ED. Patient remains in atrial fibrillation on the ekg monitor tech and her heart rate has now improved to the 90s. Patient is aware of her test results, and she agrees with hospital admission at this time. EKG Findings - EKG Comments: EKG Findings:: Atrial fibrillation with rapid ventricular response, ventricular rate of 114 bpm, normal QRS duration, normal QT interval, normal axis, inferolateral ST and T-wave abnormality Medical Decision Making - Medical Decision Making Patient's outside hospital ED records and test results were reviewed myself and a paper copy has been added to the patient's chart. Patient has been in atrial fibrillation with a labile heart rate. Patient's troponin levels have also been minimally elevated and trending upward. Patient's BNP is also elevated. Patient has been treated with IV Cardizem for rate control, and her heart rate has now improved. Patient was also treated with IV Lasix, IV heparin and oral aspirin. Will admit the patient to the hospital for further evaluation and car diac monitoring. Dr. Merchant has accepted hospital admission. - Lab Data Result diagrams: 12/30/20 22:03 12/30/20 22:03 Lab Results 12/30/20 12/30/20 12/30/20 Range/Units 22:03 22:03 22:03 WBC 9.8 (3.8-10.6) k/uL RBC 3.87 (3.80-5.40) m/uL Hgb 11.9 (11.4-16.0) gm/dL Hct 36.3 (34.0-46.0) % MCV 93.8 (80.0-100.0) fL MCH 30.8 (25.0-35.0) pg MCHC 32.8 (31.0-37.0) g/dL RDW 14.7 (11.5-15.5) % Plt Count 391 (150-450) k/uL MPV 7.1 Neutrophils % 75 % Lymphocytes % 14 % Monocytes % 6 % Eosinophils % 3 % Basophils % 0 % Neutrophils # 7.3 (1.3-7.7) k/uL Lymphocytes # 1.4 (1.0-4.8) k/uL Monocytes # 0.6 (0-1.0) k/uL Eosinophils # 0.3 (0-0.7) k/uL Basophils # 0.0 (0-0.2) k/uL PT 10.8 (9.0-12.0) sec INR 1.0 (<1.2) APTT 22.2 (22.0-30.0) sec Sodium 135 L (137-145) mmol/L Potassium 4.8 (3.5-5.1) mmol/L Chloride 100 (98-107) mmol/L Carbon Dioxide 25 (22-30) mmol/L Anion Gap 10 mmol/L BUN 16 (7-17) mg/dL Creatinine 1.02 (0.52-1.04) mg/dL Est GFR (CKD-EPI)AfAm 61 (>60 ml/min/1.73 sqM) Est GFR (CKD-EPI)NonAf 53 (>60 ml/min/1.73 sqM) Glucose 99 (74-99) mg/dL Calcium 9.2 (8.4-10.2) mg/dL Magnesium 1.9 (1.6-2.3) mg/dL Total Bilirubin 0.5 (0.2-1.3) mg/dL AST 25 (14-36) U/L ALT 12 (4-34) U/L Alkaline Phosphatase 137 H (38-126) U/L Troponin I (0.000-0.034) ng/mL Total Protein 7.4 (6.3-8.2) g/dL Albumin 3.9 (3.5-5.0) g/dL Coronavirus (PCR) (Not Detectd) 12/30/20 12/30/20 Range/Units 22:03 22:39 WBC (3.8-10.6) k/uL RBC (3.80-5.40) m/uL Hgb (11.4-16.0) gm/dL Hct (34.0-46.0) % MCV (80.0-100.0) fL MCH (25.0-35.0) pg MCHC (31.0-37.0) g/dL RDW (11.5-15.5) % Plt Count (150-450) k/uL MPV Neutrophils % % Lymphocytes % % Monocytes % % Eosinophils % % Basophils % % Neutrophils # (1.3-7.7) k/uL Lymphocytes # (1.0-4.8) k/uL Monocytes # (0-1.0) k/uL Eosinophils # (0-0.7) k/uL Basophils # (0-0.2) k/uL PT (9.0-12.0) sec INR (<1.2) APTT (22.0-30.0) sec Sodium (137-145) mmol/L Potassium (3.5-5.1) mmol/L Chloride (98-107) mmol/L Carbon Dioxide (22-30) mmol/L Anion Gap mmol/L BUN (7-17) mg/dL Creatinine (0.52-1.04) mg/dL Est GFR (CKD-EPI)AfAm (>60 ml/min/1.73 sqM) Est GFR (CKD-EPI)NonAf (>60 ml/min/1.73 sqM) Glucose (74-99) mg/dL Calcium (8.4-10.2) mg/dL Magnesium (1.6-2.3) mg/dL Total Bilirubin (0.2-1.3) mg/dL AST (14-36) U/L ALT (4-34) U/L Alkaline Phosphatase (38-126) U/L Troponin I 0.101 H* (0.000-0.034) ng/mL Total Protein (6.3-8.2) g/dL Albumin (3.5-5.0) g/dL Coronavirus (PCR) Not Detected (Not Detectd) - Radiology Data Radiology results: report reviewed (Chest x-ray: Pulmonary interstitial fibrosis, no significant change compared to old exam) Disposition Clinical Impression: Atrial fibrillation, CHF (congestive heart failure), Elevated troponin Disposition: ADMITTED IP TO THIS [facility] Condition: Stable Is patient prescribed a controlled substance at d/c from ED?: No Referrals: Yobany Chaudhry MD [Primary Care Provider] - 1-2 days Time of Disposition: 22:50
[2020-12-30] MEDS ORDERED: FUROSEMIDE 10 MG/ML 4 ML VIAL IV STA (22:13)
[2020-12-30 22:25] LABS: Basophils % (A) 0 %; Eosinophils # (A) 0.3 k/uL (0-0.7); Eosinophils % (A) 3 %; HCT 36.3 % (34.0-46.0); HGB 11.9 gm/dL (11.4-16.0); Lymphocytes # (A) 1.4 k/uL (1.0-4.8); Lymphocytes % (A) 14 %; MCH 30.8 pg (25.0-35.0); MCHC 32.8 g/dL (31.0-37.0); MCV 93.8 fL (80.0-100.0); Mean Platelet Volume 7.1; Monocytes # (A) 0.6 k/uL (0-1.0); Monocytes % (A) 6 %; Neutrophils # (A) 7.3 k/uL (1.3-7.7); Neutrophils % (A) 75 %; Platelet Count 391 k/uL (150-450); RBC 3.87 m/uL (3.80-5.40); RDW 14.7 % (11.5-15.5); WBC 9.8 k/uL (3.8-10.6)
[2020-12-30 22:42] LABS: Partial Thromboplastin Time 22.2 sec (22.0-30.0); Prothrombin Time 10.8 sec (9.0-12.0)
[2020-12-30] MEDS ORDERED: HEPARIN SODIUM,PORCINE 5,000 UNIT/ML 1 ML VIAL IV ONE (22:48)
[2020-12-30] MEDS ORDERED: HEPARIN SODIUM,PORCINE 5,000 UNIT/ML 1 ML VIAL IV PRN (22:48)
[2020-12-30 22:58] LABS: Albumin 3.9 g/dL (3.5-5.0); Calcium 9.2 mg/dL (8.4-10.2); Magnesium 1.9 mg/dL (1.6-2.3); Potassium 4.8 mmol/L (3.5-5.1); Total Bilirubin 0.5 mg/dL (0.2-1.3); Total Protein 7.4 g/dL (6.3-8.2)
[2020-12-30] MEDS ORDERED: HEPARIN SOD,PORK IN 0.45% NACL 25,000 UNIT in 0.45% NACL 1 250ML.BAG IV SCH (23:00)
--- NOTE | 2020-12-30 23:00 | XR ---
EXAMINATION TYPE: XR chest 2V DATE OF EXAM: 12/30/2020 COMPARISON: 12/30/2020 and 03/14/2019 HISTORY: Dysrhythmia TECHNIQUE: 2 views FINDINGS: There is no heart failure nor confluent pneumonic infiltrate. There is coarse interstitial density in the lungs. Heart is slightly enlarged. There are chest leads. Bony thorax is intact. IMPRESSION: Pulmonary interstitial fibrosis. No significant change compared to old exam. No gross hea rt failure.
[2020-12-31 05:40] LABS: Basophils # (A) 0.1 k/uL (0-0.2); Basophils % (A) 1 %; Eosinophils # (A) 0.3 k/uL (0-0.7); Eosinophils % (A) 3 %; HCT 40.2 % (34.0-46.0); Lymphocytes # (A) 1.5 k/uL (1.0-4.8); Lymphocytes % (A) 14 %; MCH 30.3 pg (25.0-35.0); MCHC 32.4 g/dL (31.0-37.0); MCV 93.6 fL (80.0-100.0); Mean Platelet Volume 7.1; Monocytes # (A) 0.6 k/uL (0-1.0); Monocytes % (A) 6 %; Neutrophils # (A) 7.8 k/uL (1.3-7.7); Neutrophils % (A) 75 %; Platelet Count 404 k/uL (150-450); RBC 4.29 m/uL (3.80-5.40); WBC 10.4 k/uL (3.8-10.6)
[2020-12-31 06:27] LABS: Albumin 4.2 g/dL (3.5-5.0); Calcium 9.2 mg/dL (8.4-10.2); Total Bilirubin 0.6 mg/dL (0.2-1.3); Total Protein 7.9 g/dL (6.3-8.2)
[2020-12-31] MEDS ORDERED: METOPROLOL TARTRATE 50 MG TAB PO SCH ×2 (09:00→21:00)
[2020-12-31] MEDS ORDERED: METOPROLOL TARTRATE 25 MG TAB PO STA (09:03)
[2020-12-31] MEDS: METOPROLOL TARTRATE 50 MG TAB PO SCH ×2 (10:04→20:55)
[2020-12-31] MEDS: FLECAINIDE 50 MG TAB PO SCH ×2 (10:04→20:55)
[2020-12-31] MEDS ORDERED: APIXABAN 5 MG TAB PO SCH (13:00)
--- NOTE | 2020-12-31 14:15 | P.CRDCN ---
History of Present Illness Consult date: 12/31/20 History of present illness: HISTORY OF PRESENT ILLNESS: This is a 80-year-old female with a past medical history significant for coronary artery disease with previous PCI to LAD, paroxysmal atrial fibrillation, hyperlipidemia, and GERD. Patient follows in the office with Dr. Garcia. We have been asked to see the patient in consultation for atrial fibrillation. Patient examined at the bedside. Patient reports she was experiencing palpitations intermittently over the last 2 days. She denies any shortness of breath. She denies chest pain or pressure. Patient was found to be in A. fib with RVR. The patient does have a history of atrial fibrillation however she has not been on anticoagulation. The reason is unknown. She denies history of GI bleeding or anemia. EKG reveals atrial fibrillation with RVR Chest xray pulmonary interstitial fibrosis. No gross heart failure. Laboratory data: WBC 10.4. Hemoglobin 13.0. Platelet count 404. Sodium 135. Potassium 4.0. BUN 17. Creatinine 1.15. Magnesium 1.9. Troponin 0.101. 0. 134. 0.128. Current home cardiac medications include aspirin 81 mg daily, metoprolol 50 mg daily, flecainide 50 mg twice a day, and Lipitor 80 mg daily Most recent echocardiogram obtained in 2019 revealed ejection fraction 55-60% Cardiac catheterization history: Patient underwent cardiac catheterization in 2019 revealing mild triple vessel disease REVIEW OF SYSTEMS: At the time of my exam: CONSTITUTIONAL: Denies fever or chills. HEENT: Denies blurred vision, vision changes, or eye pain. Denies hemoptysis CARDIOVASCULAR: Denies chest pain. Denies orthopnea. Denies PND. Denies palpitations RESPIRATORY: Denies shortness of breath. GASTROINTESTINAL: Denies abdominal pain. Denies nausea or vomiting. HEMATOLOGIC: Denies bleeding disorders. GENITOURINARY: Denies any blood in urine. SKIN: Denies pruitis. Denies rash. PHYSICAL EXAM: VITAL SIGNS: Reviewed. GENERAL: Well-developed in no acute distress. HEENT: Head is normocephalic. Pupils are equal, round. Sclerae anicteric. Mucous membranes of the mouth are moist. Neck supple. No JVD or thyromegaly LUNGS: Respirations even and unlabored. Lungs essentially clear to auscultation bilaterally. HEART: Irregular rate and rhythm. S1 and S2 heard. Tachycardic. ABDOMEN: Soft. Nondistended. Nontender. EXTREMITIES: Normal range of motion. No clubbing or cyanosis. Peripheral pulses intact. No lower extremity edema NEUROLOGIC: Awake and alert. Oriented x 3. ASSESSMENT: Paroxysmal atrial fibrillation with RVR Coronary artery disease with previous PCI to LAD, 2014 Abnormal troponins, secondary to A. fib with RVR, Hyperlipidemia GERD PLAN: Obtain 2-D echo to assess cardiac structure and function Discontinue IV heparin Begin Eliquis 5 mg twice a day Increase metoprolol to twice a day dosing Continue telemetry monitoring Further recommendations pending patient course Nurse practitioner note has been reviewed by physician. Signing provider agrees with the documented findings, assessment, and plan of care. Past Medical History Past Medical History: Eye Disorder, GERD/Reflux, Hyperlipidemia, Myocardial Infarction (NM), Renal Disease, Rheumatoid Arthritis (RA) Additional Past Medical History / Comment(s): Diverticulosis,"PULMONARY HYPE RTENSION"- SEE DR GARCIA'S HISTORY AND PHYSICAL FOR CARDIAC HISTORY, FREQUENT URINARY INFECTIONS Last Myocardial Infarction Date:: 09/2015 History of Any Multi-Drug Resistant Organisms: None Reported Past Surgical History: Cholecystectomy, Heart Catheterization With Stent, Hysterectomy, Orthopedic Surgery Additional Past Surgical History / Comment(s): KNEE ARTHROSCOPIC Past Anesthesia/Blood Transfusion Reactions: No Reported Reaction Date of Last Stent Placement:: 09/2015 Past Psychological History: Anxiety Smoking Status: Never smoker Past Alcohol Use History: None Reported Past Drug Use History: None Reported - Past Family History Mother Family Medical History: Hypertension Additional Family Medical History / Comment(s): heart attack Father Family Medical History: Cancer Medications and Allergies Home Medications Medication Instructions Recorded Confirmed Type Omeprazole [PriLOSEC] 20 mg PO AC-BRKFST 04/15/14 12/30/20 History Flecainide [Tambocor] 50 mg PO Q12HR 04/15/17 12/30/20 History Ergocalciferol [Vitamin D2 50,000 unit PO Q14D 03/14/19 12/30/20 History (DRISDOL)] allopurinoL [Zyloprim] 100 mg PO DAILY 03/14/19 12/30/20 History Ferrous Sulfate [Iron (65 MG 325 mg PO BID #1 tab 03/16/19 12/30/20 Rx Elemental)] Aspirin 81 mg PO HS 12/30/20 12/30/20 History Atorvastatin [Lipitor] 80 mg PO HS 12/30/20 12/30/20 History Magnesium (Unknown Strength) 1 tab PO HS 12/30/20 12/30/20 History Metoprolol Tartrate [Lopressor] 50 mg PO DAILY 12/30/20 12/30/20 History Apixaban [Eliquis] 5 mg PO BID #60 tab 12/31/20 Rx Allergies Allergy/AdvReac Type Severity Reaction Status Date / Time hydrocodone bitartrate Allergy Itching Verified 12/30/20 22:24 [From Vicodin] Physical Exam Vitals: Vital Signs Temp Pulse Pulse Resp BP BP Pulse Ox 12/31/20 08:00 98.1 F 101 H 18 130/57 95 12/31/20 04:00 97.9 F 114 H 17 116/71 94 L 12/31/20 02:00 16 12/31/20 01:24 16 12/31/20 00:30 98.1 F 104 H 16 128/74 95 12/31/20 00:03 98.2 F 98 18 105/66 98 12/30/20 22:39 106 H 18 108/76 98 12/30/20 22:06 138 H 18 108/76 96 12/30/20 21:21 98.1 F 106 H 18 120/72 98 Intake and Output 12/30/20 12/31/20 12/31/20 22:59 06:59 14:59 Intake Total 44.958 Balance 44.958 Intake: Intake, IV Titration 44.958 Amount Heparin Sod,Pork in 0.45% 44.958 NaCl 25,000 unit In 0.45 % NaCl 1 250ml.bag @ 12 UNITS/KG/HR 7.62 mls/hr IV .Q24H [facility] Rx#: [id number] Other: Voiding Method Toilet Toilet Diaper Diaper Incontinent # Voids 2 1 Weight 63.503 kg 61.9 kg Results 12/31/20 05:02 12/31/20 05:02 Cardiac Enzymes 12/30/20 12/30/20 12/31/20 Range/Units 22:03 22:03 00:51 AST 25 (14-36) U/L Troponin I 0.101 H* 0.134 H* (0.000-0.034) ng/mL 12/31/20 12/31/20 Range/Units 05:02 05:02 AST 31 (14-36) U/L Troponin I 0.128 H* (0.000-0.034) ng/mL Coagulation 12/30/20 12/31/20 Range/Units 22:03 05:02 PT 10.8 (9.0-12.0) sec APTT 22.2 54.0 H (22.0-30.0) sec CBC 12/30/20 12/31/20 Range/Units 22:03 05:02 WBC 9.8 10.4 (3.8-10.6) k/uL RBC 3.87 4.29 (3.80-5.40) m/uL Hgb 11.9 13.0 (11.4-16.0) gm/dL Hct 36.3 40.2 (34.0-46.0) % Plt Count 391 404 (150-450) k/uL Comprehensive Metabolic Panel 12/30/20 12/31/20 Range/Units 22:03 05:02 Sodium 135 L 135 L (137-145) mmol/L Potassium 4.8 4.0 (3.5-5.1) mmol/L Chloride 100 99 (98-107) mmol/L Carbon Dioxide 25 29 (22-30) mmol/L BUN 16 17 (7-17) mg/dL Creatinine 1.02 1.15 H (0.52-1.04) mg/dL Glucose 99 108 H (74-99) mg/dL Calcium 9.2 9.2 (8.4-10.2) mg/dL AST 25 31 (14-36) U/L ALT 12 13 (4-34) U/L Alkaline Phosphatase 137 H 160 H (38-126) U/L Total Protein 7.4 7.9 (6.3-8.2) g/dL Albumin 3.9 4.2 (3.5-5.0) g/dL Current Medications Generic Name Dose Route Start Last Admin Trade Name Freq PRN Reason Stop Dose Admin Apixaban 5 mg 12/31/20 13:00 Apixaban 5 Mg Tab PO BID KATHARINA Atorvastatin Calcium 80 mg 12/31/20 21:00 Atorvastatin 80 Mg Tab PO HS [facility] Flecainide Acetate 50 mg 12/31/20 09:00 12/31/20 10:04 Flecainide 50 Mg Tab PO 50 mg Q12HR KATHARINA Administration Metoprolol Tartrate 50 mg 12/31/20 10:03 12/31/20 10:04 Metoprolol Tartrate 50 Mg Tab PO 50 mg BID KATHARINA Administration Intake and Output 12/30/20 12/31/20 12/31/20 22:59 06:59 14:59 Intake Total 44.958 Balance 44.958 Intake: Intake, IV Titration 44.958 Amount Heparin Sod,Pork in 0.45% 44.958 NaCl 25,000 unit In 0.45 % NaCl 1 250ml.bag @ 12 UNITS/KG/HR 7.62 mls/hr IV .Q24H [facility] Rx#: [id number] Other: Voiding Method Toilet Toilet Diaper Diaper Incontinent # Voids 2 1 Weight 63.503 kg 61.9 kg 12/31/20 05:02 12/31/20 05:02
[2020-12-31] MEDS: APIXABAN 5 MG TAB PO SCH ×2 (15:57→20:55)
--- NOTE | 2020-12-31 20:00 | P.HPIM ---
History of Present Illness H&P Date: 12/31/20 Chief Complaint: Heart racing History of presenting complaint: This is a pleasant 80-year-old patient who follows with Dr. Chaudhry. Chronic stable medical conditions include GERD, hyperlipidemia, rheumatoid arthritis, colonic diverticulosis, secondary pulmonary hypertension, hydrocodone stent placed and is on 15th. Patient for 2 days has been noticing increasing palpitations dizziness tired rundown. Finally decided to come down to the ER. Patient's found to be in atrial fibrillation with rapid ventricular rate. Patient is given IV Cardizem and IV heparin. This morning feels a bit better. Tired. Atrial fibrillation remained uncontrolled Review of systems: GEN.: Tired EYES: None HEENT: None NECK: None RESPIRATORY: As above CARDIOVASCULAR: As above GASTROINTESTINAL: None GENITOURINARY: None MUSCULOSKELETAL: [Joint pains LYMPHATICS: None HEMATOLOGICAL: None PSYCHIATRY: Some anxiety NEUROLOGICAL: None Past medical history to include: GERD, hyperlipidemia, [place], rheumatoid arthritis, colonic diverticulosis, secondary pulmonary hypertension, coronary artery disease with stent, anxiety Social history: Does not smoke or drink alcohol. Lives alone. Physical examination: VITAL SIGNS: 98.1, 106, 18, 120/72, 98% room air GENERAL: BMI 25.8, declining in bed, slightly anxious. EYES: Pupils equal. Conjunctiva normal. HEENT: External appearance of nose and ears normal, oral cavity grossly normal. NECK: JVD not raised; masses not palpable. HEART: Heart sounds irregular; mild edema. LUNGS: Respiratory rate increased basal crackles. ABDOMEN: Soft, nontender, liver spleen not palpable, no masses palpable. PSYCH: [Alert and oriented x3; mood and affect anxious l. NEUROLOGICAL: Cranial nerves grossly intact; no facial asymmetry, power and sensation grossly intact. LYMPHATICS: No lymph nodes palpable in the axilla and neck INVESTIGATIONS, reviewed in the clinical context: White count 10.4 hemoglobin 13 platelets 404 potassium 4 creatinine 1.15 Troponin I 0.101, 0.134, 0.128 TSH 2.3 EKG tracing personally reviewed by atrial fibrillation, some ST segment depression -leads 3 aVF and leads V3 to be 6. Chest x-ray film personally reviewed by me-interstitial prominence. Reported to be no different than previous film Assessment and plan: -New onset of atrial fibrillation with a rapid ventricular rate, symptomatic. Patient on Lopressor, flecainide . Also eliquis continued -GERD continue on Prilosec -Hyperlipidemia on Lipitor -Chronic rheumatoid arthritis -Colonic diverticulosis, asymptomatic -Secondary pulmonary hypertension follow clinically -Coronary artery disease with stent with PTCA to LAD in 2014, continue with aspirin, Lopressor Lipitor Patient admitted. Cardiology consulted Given the complexity and severity of patient's condition expect the patient to be in the hospital at least for 2 overnights. Past Medical History Past Medical History: Eye Disorder, GERD/Reflux, Hyperlipidemia, Myocardial Infarction (ME), Renal Disease, Rheumatoid Arthritis (RA) Additional Past Medical History / Comment(s): Diverticulosis,"PULMONARY HYPERTENSION"- SEE DR GARCIA'S HISTORY AND PHYSICAL FOR CARDIAC HISTORY, FREQUENT URINARY INFECTIONS Last Myocardial Infarction Date:: 09/2015 History of Any Multi-Drug Resistant Organisms: None Reported Past Surgical History: Cholecystectomy, Heart Catheterization With Stent, Hysterectomy, Orthopedic Surgery Additional Past Surgical History / Comment(s): KNEE ARTHROSCOPIC Past Anesthesia/Blood Transfusion Reactions: No Reported Reaction Date of Last Stent Placement:: 09/2015 Past Psychological History: Anxiety Smoking Status: Never smoker Past Alcohol Use History: None Reported Past Drug Use History: None Reported - Past Family History Mother Family Medical History: Hypertension Additional Family Medical History / Comment(s): heart attack Father Family Medical History: Cancer Medications and Allergies Home Medications Medication Instructions Recorded Confirmed Type Omeprazole [PriLOSEC] 20 mg PO AC-BRKFST 04/15/14 12/30/20 History Flecainide [Tambocor] 50 mg PO Q12HR 04/15/17 12/30/20 History Ergocalciferol [Vitamin D2 50,000 unit PO Q14D 03/14/19 12/30/20 History (DRISDOL)] allopurinoL [Zyloprim] 100 mg PO DAILY 03/14/19 12/30/20 History Ferrous Sulfate [Iron (65 MG 325 mg PO BID #1 tab 03/16/19 12/30/20 Rx Elemental)] Aspirin 81 mg PO HS 12/30/20 12/30/20 History Atorvastatin [Lipitor] 80 mg PO HS 12/30/20 12/30/20 History Magnesium (Unknown Strength) 1 tab PO HS 12/30/20 12/30/20 History Metoprolol Tartrate [Lopressor] 50 mg PO DAILY 12/30/20 12/30/20 History Apixaban [Eliquis] 5 mg PO BID #60 tab 12/31/20 Rx Allergies Allergy/AdvReac Type Severity Reaction Status Date / Time hydrocodone bitartrate Allergy Itching Verified 12/30/20 22:24 [From Vicodin] Physical Exam Vitals: Vital Signs Temp Pulse Pulse Resp BP BP Pulse Ox 12/31/20 08:00 98.1 F 101 H 18 130/57 95 12/31/20 04:00 97.9 F 114 H 17 116/71 94 L 12/31/20 02:00 16 12/31/20 01:24 16 12/31/20 00:30 98.1 F 104 H 16 128/74 95 12/31/20 00:03 98.2 F 98 18 105/66 98 12/30/20 22:39 106 H 18 108/76 98 12/30/20 22:06 138 H 18 108/76 96 12/30/20 21:21 98.1 F 106 H 18 120/72 98 Intake and Output 12/30/20 12/31/20 12/31/20 22:59 06:59 14:59 Intake Total 44.958 Balance 44.958 Intake: Intake, IV Titration 44.958 Amount Heparin Sod,Pork in 0.45% 44.958 NaCl 25,000 unit In 0.45 % NaCl 1 250ml.bag @ 12 UNITS/KG/HR 7.62 mls/hr IV .Q24H [facility] Rx#: [id number] Other: Voiding Method Toilet Toilet Diaper Diaper Incontinent # Voids 2 1 Weight 63.503 kg 61.9 kg Results CBC & Chem 7: 12/31/20 05:02 12/31/20 05:02 Labs: Abnormal Lab Results - Last 24 Hours (Table) 12/30/20 12/30/20 12/31/20 Range/Units 22:03 22:03 00:51 Neutrophils # (1.3-7.7) k/uL APTT (22.0-30.0) sec Sodium 135 L (137-145) mmol/L Creatinine (0.52-1.04) mg/dL Glucose (74-99) mg/dL Alkaline Phosphatase 137 H (38-126) U/L Troponin I 0.101 H* 0.134 H* (0.000-0.034) ng/mL 12/31/20 12/31/20 12/31/20 Range/Units 05:02 05:02 05:02 Neutrophils # 7.8 H (1.3-7.7) k/uL APTT (22.0-30.0) sec Sodium 135 L (137-145) mmol/L Creatinine 1.15 H (0.52-1.04) mg/dL Glucose 108 H (74-99) mg/dL Alkaline Phosphatase 160 H (38-126) U/L Troponin I 0.128 H* (0.000-0.034) ng/mL 12/31/20 Range/Units 05:02 Neutrophils # (1.3-7.7) k/uL APTT 54.0 H (22.0-30.0) sec Sodium (137-145) mmol/L Creatinine (0.52-1.04) mg/dL Glucose (74-99) mg/dL Alkaline Phosphatase (38-126) U/L Troponin I (0.000-0.034) ng/mL Thrombosis Risk Factor Assmnt - Choose All That Apply Each Risk Factor Represents 3 Points: Age 75 years or older Thrombosis Risk Factor Assessment Total Risk Factor Score: 3 Thrombosis Risk Factor Assessment Level: Moderate Risk
[2020-12-31] MEDS: ATORVASTATIN 80 MG TAB PO SCH (20:55)
[2021-01-01 06:10] LABS: Glucose,Whole Blood 118 mg/dL (75-99)
--- NOTE | 2021-01-01 07:12 | CT ---
EXAMINATION TYPE: CT brain cspine wo con DATE OF EXAM: 01/01/2021 COMPARISON: CT brain April 14, 2014 HISTORY: Fall, head trauma with headache and neck pain. CT DLP: 1292.6 mGycm. Automated Exposure Control for Dose Reduction was Utilized. TECHNIQUE: CT scan of the head and cervical spine are performed without contrast. FINDINGS: There is no acute intracranial hemorrhage or midline shift identified. Mild ventricular a nd sulcal prominence. More moderate to severe low-attenuation in the periventricular deep white matte r. The calvarium is intact. Cerumen noted right external auditory canal. The globes are intact and t he visualized sinuses are clear. Cervical spine is visualized in its entirety from C1 through upper thoracic levels and demonstrates s light scoliotic curvature without evidence of acute fracture or dislocation. Prevertebral soft tissu e appears within normal limits. The C1-C2 articulation is within normal limits for images. Vertebra l body heights are maintained. [id number] multilevel disc space narrowing. Spinal canal preserv ed. Multilevel uncovertebral facet degenerative changes bilaterally on axial images. Peripheral fibro tic change noted in the visualized upper lungs. IMPRESSION: 1. There is no acute fracture or dislocation evident in the cervical spine. 2. No acute intracranial hemorrhage or midline shift is seen.
[2021-01-01] MEDS: APIXABAN 5 MG TAB PO SCH (10:00)
[2021-01-01] MEDS: METOPROLOL TARTRATE 50 MG TAB PO SCH ×2 (10:19→21:40)
[2021-01-01] MEDS: FLECAINIDE 50 MG TAB PO SCH ×3 (10:23→21:40)
--- NOTE | 2021-01-01 11:00 | ECHOF ---
Referral Reason:lv function MEASUREMENTS -------- HEIGHT: 152.4 cm WEIGHT: 61.7 kg BP: IVSd: 0.9 cm (0.6 - 1.1) LVIDd: 3.6 cm (3.9 - 5.3) LVPWd: 1.1 cm (0.6 - 1.1) IVSs: 1.3 cm LVIDs: 3.2 cm LVPWs: 1.3 cm LAESV Index (A-L): 33.36 ml/m Ao Diam: 3.1 cm (2.0 - 3.7) AV Cusp: 2.0 cm (1.5 - 2.6) MV EXCURSION: 17.007 mm (> 18.000) MV EF SLOPE: 80 mm/s (70 - 150) EPSS: 0.5 cm AR PHT: 584 ms RAP: 5.00 mmHg RVSP: 33.57 mmHg FINDINGS -------- Atrial fibrillation. This was a technically adequate study. The left ventricular size is normal. There is borderline concentric left ventricular hypertrophy. Overall left ventricular systolic function is low-normal with, an EF between 50 - 55 %. The right ventricle is normal in size. LA is midly dilated 29-33ml/m2. The right atrial size is normal. There is mild aortic valve sclerosis. There is mild aortic regurgitation. Mild mitral annular calcification present. Moderate mitral regurgitation is present. Moderate tricuspid regurgitation present. Right ventricular systolic pressure is normal at < 35 mmH g. The right ventricular systolic pressure, as measured by Doppler, is 33.57mmHg. Trace/mild (physiologic) pulmonic regurgitation. The aortic root size is normal. There is no pericardial effusion. CONCLUSIONS -------- 1. Atrial fibrillation. 2. There is borderline concentric left ventricular hypertrophy. 3. Overall left ventricular systolic function is low-normal with, an EF between 50 - 55 %. 4. LA is midly dilated 29-33ml/m2. 5. There is mild aortic valve sclerosis. 6. There is mild aortic regurgitation. 7. Mild mitral annular calcification present. 8. Moderate mitral regurgitation is present. 9. Moderate tricuspid regurgitation present. 10. Trace/mild (physiologic) pulmonic regurgitation. 11. There is no pericardial effusion. OVEREDGER: Anny Monk RDCS
--- NOTE | 2021-01-01 13:48 | P.PN ---
Subjective Progress Note Date: 01/01/21 HISTORY OF PRESENT ILLNESS: 12/31/2020 This is a 80-year-old female with a past medical history significant for coronary artery disease with previous PCI to LAD, paroxysmal atrial fib rillation, hyperlipidemia, and GERD. Patient follows in the office with Dr. Beckham. We have been asked to see the patient in consultation for atrial fibrillation. Patient examined at the bedside. Patient reports she was experiencing palpitations intermittently over the last 2 days. She denies any shortness of breath. She denies chest pain or pressure. Patient was found to be in A. fib with RVR. The patient does have a history of atrial fibrillation however she has not been on anticoagulation. The reason is unknown. She denies history of GI bleeding or anemia. EKG reveals atrial fibrillation with RVR Chest xray pulmonary interstitial fibrosis. No gross heart failure. Laboratory data: WBC 10.4. Hemoglobin 13.0. Platelet count 404. Sodium 135. Potassium 4.0. BUN 17. Creatinine 1.15. Magnesium 1.9. Troponin 0.101. 0.134. 0.128. Current home cardiac medications include aspirin 81 mg daily, metoprolol 50 mg daily, flecainide 50 mg twice a day, and Lipitor 80 mg daily Most recent echocardiogram obtained in 2019 revealed ejection fraction 55-60% Cardiac catheterization history: Patient underwent cardiac catheterization in 2019 revealing mild triple vessel disease 01/01/2021 Patient examined this morning the bedside. She denies chest pain or pressure. Denies shortness of breath. Patient remains in atrial fibrillation with mildly uncontrolled ventricular rates. Patient was started on Eliquis yesterday. According to the nurse the patient got up to the bathroom this morning and was found on the floor by nursing. Brain CT was completed without evidence of acute fracture or dislocation in the cervical spine. No hemorrhage or midline shift seen. Echocardiogram completed revealed ejection fraction 50-55%, mild aortic regurgitation, moderate mitral regurgitation, and moderate tricuspid regurgitation. PHYSICAL EXAM: VITAL SIGNS: Reviewed. GENERAL: Well-developed in no acute distress. HEENT: Head is normocephalic. Pupils are equal, round. Sclerae anicteric. Mucous membranes of the mouth are moist. Neck supple. No JVD or thyromegaly LUNGS: Respirations even and unlabored. Lungs essentially clear to auscultation bilaterally. HEART: Irregular rate and rhythm. S1 and S2 heard. ABDOMEN: Soft. Nondistended. Nontender. EXTREMITIES: Normal range of motion. No clubbing or cyanosis. Peripheral pulses intact. No lower extremity edema NEUROLOGIC: Awake and alert. Oriented x 3. ASSESSMENT: Paroxysmal atrial fibrillation with RVR Coronary artery disease with previous PCI to LAD, 2014 Abnormal troponins, secondary to A. fib with RVR, Hyperlipidemia GERD Status post fall PLAN: Continue telemetry monitoring Discontinue Eliquis secondary to patient falls Increase flecainide to 100 mg twice a day Continue metoprolol 50 mg twice a day Check orthostatic blood pressures Further recommendations pending patient course Nurse practitioner note has been reviewed by physician. Signing provider agrees with the documented findings, assessment, and plan of care. Objective - Vital Signs Vital signs: Vital Signs Temp 97.6 F 01/01/21 10:05 Pulse 123 H 01/01/21 10:15 Resp 16 01/01/21 10:05 BP 90/57 01/01/21 10:15 Pulse Ox 94 L 01/01/21 10:05 Intake & Output 12/31/20 01/01/21 01/01/21 18:59 06:59 18:59 Intake Total 480 420 Output Total 200 Balance 480 220 Weight 70 kg Intake: Oral 480 420 Output: Urine 200 Other: Voiding Method Toilet Toilet Toilet Diaper Diaper Diaper Incontinent Incontinent Incontinent # Voids 1 1 - Labs CBC & Chem 7: 12/31/20 05:02 12/31/20 05:02 Labs: Abnormal Lab Results - Last 24 Hours (Table) 01/01/21 01/01/21 Range/Units 06:10 06:48 APTT 21.5 L (22.0-30.0) sec POC Glucose (mg/dL) 118 H (75-99) mg/dL
[2021-01-01] MEDS ORDERED: ACETAMINOPHEN TAB 325 MG TAB PO STA (13:55)
[2021-01-01] MEDS ORDERED: ENOXAPARIN 40 MG/0.4 ML SYRINGE SQ SCH (16:00)
--- NOTE | 2021-01-01 20:51 | P.PN ---
Progress Note - Text Progress Note Date: 01/01/21 Chief Complaint: Heart racing History of presenting complaint: This is a pleasant 80-year-old patient who follows with Dr. Chaudhry. Chronic stable medical conditions include GERD, hyperlipidemia, rheumatoid arthritis, colonic diverticulosis, secondary pulmonary hypertension, hydrocodone stent placed and is on 15th. Patient for 2 days has been noticing increasing palpitations dizziness tired rundown. Finally decided to come down to the ER. Patient's found to be in atrial fibrillation with rapid ventricular rate. Patient is given IV Cardizem and IV heparin. This morning feels a bit better. Tired. Atrial fibrillation remained uncontrolled Admitted with uncontrolled atrial fibrillation. Atrial fibrillation. Remains on the higher side with about rate of 120s. Feels a bit tired. Patient early hours of today felt dizzy and temporally past with the bathroom. Computed tomography scan of the head was negative. Feels better this afternoon. Review of systems: Was done for constitutional, cardiovascular, GI, pulmonary. relevant finding as above Active Medications Aspirin (Aspirin 81 Mg) 81 mg PO [facility] Atorvastatin Calcium (Atorvastatin 80 Mg Tab) 80 mg PO [facility] Last Admin: 12/31/20 20:55 Dose: 80 mg Documented by: Enoxaparin Sodium (Enoxaparin 40 Mg/0.4 Ml Syringe) 40 mg SQ DAILY@1600 [facility], [facility]1983 Last Admin: 01/01/21 17:41 Dose: 40 mg Documented by: Flecainide Acetate (Flecainide 50 Mg Tab) 100 mg PO Q12HR [facility] Last Admin: 01/01/21 10:35 Dose: 100 mg Documented by: Metoprolol Tartrate (Metoprolol Tartrate 50 Mg Tab) 50 mg PO BID [facility] Last Admin: 01/01/21 10:19 Dose: 50 mg Documented by: Past medical history to include: GERD, hyperlipidemia, [place], rheumatoid arthritis, colonic diverticulosis, secondary pulmonary hypertension, coronary artery disease with stent, anxiety Social history: Does not smoke or drink alcohol. Lives alone. Physical examination: VITAL SIGNS: 98.2, 111, 16, 90/66, 95% room air GENERAL: Sitting up in bed, awake EYES: Pupils equal. Conjunctiva normal. HEENT: External appearance of nose and ears normal, oral cavity grossly normal. NECK: JVD not raised; masses not palpable. HEART: Heart sounds irregular; mild edema. LUNGS: Respiratory rate increased, improved air entry. ABDOMEN: Soft, nontender, liver spleen not palpable, no masses palpable. PSYCH: [Alert and oriented x3; mood and affect anxious l. INVESTIGATIONS, reviewed in the clinical context: White count 10.4 hemoglobin 13 platelets 404 potassium 4 creatinine 1.15 Troponin I 0.101, 0.134, 0.128 TSH 2.3 EKG tracing personally reviewed by atrial fibrillation, some ST segment depression -leads 3 aVF and leads V3 to be 6. Chest x-ray film personally reviewed by me-interstitial prominence. Reported to be no different than previous film Assessment and plan: -New onset of atrial fibrillation with a rapid ventricular rate, symptomatic.- Uncontrolled Patient on Lopressor, flecainide . [ Eliquis discontinued because of the fall] -GERD continue on Prilosec -Hyperlipidemia on Lipitor -Chronic rheumatoid arthritis -Colonic diverticulosis, asymptomatic -Secondary pulmonary hypertension follow clinically -Coronary artery disease with stent with PTCA to LAD in 2014, continue with aspirin, Lopressor Lipitor Lovenox for DVT prophylaxis. Continue current medications. Discussed with patient
[2021-01-01] MEDS ORDERED: FLECAINIDE 50 MG TAB PO SCH (21:00)
[2021-01-01] MEDS ORDERED: ASPIRIN 81 MG PO SCH (21:00)
[2021-01-01] MEDS: ATORVASTATIN 80 MG TAB PO SCH (21:41)
[2021-01-02 07:40] VITALS: BP 136/61; RESP 18; TEMP 97.8
[2021-01-02] MEDS: METOPROLOL TARTRATE 50 MG TAB PO SCH (07:41)
[2021-01-02] MEDS: FLECAINIDE 50 MG TAB PO SCH (07:41)
[2021-01-02 10:42] VITALS: PULSE 82
--- NOTE | 2021-01-02 14:00 | P.PN ---
Subjective Progress Note Date: 01/02/21 HISTORY OF PRESENT ILLNESS: 12/31/2020 This is a 80-year-old female with a past medical history significant for coronary artery disease with previous PCI to LAD, paroxysmal atrial fib rillation, hyperlipidemia, and GERD. Patient follows in the office with Dr. Beckham. We have been asked to see the patient in consultation for atrial fibrillation. Patient examined at the bedside. Patient reports she was experiencing palpitations intermittently over the last 2 days. She denies any shortness of breath. She denies chest pain or pressure. Patient was found to be in A. fib with RVR. The patient does have a history of atrial fibrillation however she has not been on anticoagulation. The reason is unknown. She denies history of GI bleeding or anemia. EKG reveals atrial fibrillation with RVR Chest xray pulmonary interstitial fibrosis. No gross heart failure. Laboratory data: WBC 10.4. Hemoglobin 13.0. Platelet count 404. Sodium 135. Potassium 4.0. BUN 17. Creatinine 1.15. Magnesium 1.9. Troponin 0.101. 0.134. 0.128. Current home cardiac medications include aspirin 81 mg daily, metoprolol 50 mg daily, flecainide 50 mg twice a day, and Lipitor 80 mg daily Most recent echocardiogram obtained in 2019 revealed ejection fraction 55-60% Cardiac catheterization history: Patient underwent cardiac catheterization in 2019 revealing mild triple vessel disease 01/01/2021 Patient examined this morning the bedside. She denies chest pain or pressure. Denies shortness of breath. Patient remains in atrial fibrillation with mildly uncontrolled ventricular rates. Patient was started on Eliquis yesterday. According to the nurse the patient got up to the bathroom this morning and was found on the floor by nursing. Brain CT was completed without evidence of acute fracture or dislocation in the cervical spine. No hemorrhage or midline shift seen. Echocardiogram completed revealed ejection fraction 50-55%, mild aortic regurgitation, moderate mitral regurgitation, and moderate tricuspid regurgitation. 01/02/2021 Patient examined this morning at the bedside. Patient denies chest pain or pressure. She denies shortness of breath. She denies palpitations. She remains in atrial fibrillation with controlled ventricular response. Orthostatic blood pressures obtained yesterday were negative. PHYSICAL EXAM: VITAL SIGNS: Reviewed. GENERAL: Well-developed in no acute distress. HEENT: Head is normocephalic. Pupils are equal, round. Sclerae anicteric. Mucous membranes of the mouth are moist. Neck supple. No JVD or thyromegaly LUNGS: Respirations even and unlabored. Lungs essentially clear to auscultation bilaterally. HEART: Irregular rate and rhythm. S1 and S2 heard. ABDOMEN: Soft. Nondistended. Nontender. EXTREMITIES: Normal range of motion. No clubbing or cyanosis. Peripheral pulses intact. No lower extremity edema NEUROLOGIC: Awake and alert. Oriented x 3. ASSESSMENT: Paroxysmal atrial fibrillation with RVR Coronary artery disease with previous PCI to LAD, 2014 Abnormal troponins, secondary to A. fib with RVR Hyperlipidemia GERD Status post fall PLAN: Continue current cardiac medications No anticoagulation secondary to falls Patient is stable for discharge home today from a cardiac standpoint. Patient to follow up outpatient. Nurse practitioner note has been reviewed by physician. Signing provider agrees with the documented findings, assessment, and plan of care. Objective - Vital Signs Vital signs: Vital Signs Temp 97.8 F 01/02/21 07:38 Pulse 77 01/02/21 08:00 Resp 18 01/02/21 07:38 BP 136/61 01/02/21 07:38 Pulse Ox 99 01/02/21 07:38 Intake & Output 01/01/21 01/02/21 01/02/21 18:59 06:59 18:59 Intake Total 1868 220 10 Output Total 200 Balance 1668 220 10 Weight 69.7 kg Intake: IV 10 20 10 Invasive Line 3 10 20 10 Oral 1858 200 Output: Urine 200 Other: Voiding Method Toilet Toilet Toilet Diaper Diaper Diaper Incontinent Incontinent Incontinent # Voids 2 2 # Bowel Movements 1 - Labs CBC & Chem 7: 12/31/20 05:02 12/31/20 05:02
--- NOTE | 2021-01-03 13:43 | CDI ---
Documentation Clarification Form Date: 01/03/21 From: Alesia Johnson Phone: Admit Date: 12/30/2020 10:46:00 PM Patient Name: Angelika Cummings Visit Number: [id number] Discharge Date: 01/02/2021 11:13:00 AM ATTENTION: The Clinical Documentation Specialists (CDI) and [facility] Coding Staff appreciate your assistance in clarifying documentation. Please respond to the clarification below the line at the bottom and electronically sign. The CDI & [facility] Coding staff will review the response and follow-up if needed. Please note: Queries are made part of the Legal Health Record. If you have any questions, please contact the author of this message via ITS. Dr. Castro Merchant, Hx of CHF/heart failure is documented in the ED note. History/Risk Factors: PAF, secondary pulm htn, RA, CAD, S/P heart stents Clinical Indicators: She received IV Lasix 40mg on 12/30 one time stat. VS/Pulse OX: P-106, R-18, BP-120/72, O2 sat-98 room air BNP: none available Echocardiogram Results: There is borderline concentric left ventricular hypertrophy. 3.Overall left ventricular systolic function is low-normal with, an EF between 50 - 55 %. 12/30/20 Chest X Ray: Pulmonary interstitial fibrosis. No significant change compared to old exam. No gross heart failure. In your professional opinion, can you please clarify the acuity and type of CHF if known? TYPE Systolic Heart Failure Diastolic Heart Failure Systolic & Diastolic Heart Failure ACUITY Acute Chronic Acute on Chronic Heart Failure Unable to Determine Other, please specify NO CHF MTDD
--- NOTE | 2021-01-03 19:16 | P.DS ---
Providers Date of admission: 12/30/20 22:46 Expected date of discharge: 01/02/21 Attending physician: Castro Merchant Consults: 12/30/20 22:37 Consult Physician Urgent Consulting Provider: Andrez Winchester Consult Reason/Comments: Atrial fibrillation, elevated troponin Do you want consulting provider notified?: Yes Primary care physician: [facility] Course: Chief Complaint: Heart racing History of presenting complaint: This is a pleasant 80-year-old patient who follows with Dr. Chaudhry. Chronic stable medical conditions include GERD, hyperlipidemia, rheumatoid arthritis, colonic diverticulosis, secondary pulmonary hypertension, hydrocodone stent placed and is on . Patient for 2 days has been noticing increasing palpitations dizziness tired rundown. Finally decided to come down to the ER. Patient's found to be in atrial fibrillation with rapid ventricular rate. Patient is given IV Cardizem and IV heparin. This morning feels a bit better. Tired. Atrial fibrillation remained uncontrolled Admitted with uncontrolled atrial fibrillation. Patient got dizzy and passed out. Had. Computed tomography scan of the head was negative. Today-feels much better. Heart rate controlled. No cardiac symptoms. Discussed with the patient. Cleared by cardiology Discussion and discharge planning more than 35 minutes Consultation: Dr. Gaspar from cardiology Past medical history to include: GERD, hyperlipidemia, [place], rheumatoid arthritis, colonic diverticulosis, secondary pulmonary hypertension, coronary artery disease with stent, anxiety Social history: Does not smoke or drink alcohol. Lives alone. Physical examination: VITAL SIGNS: 97.8, 77, 18, 136/61, 99% room air GENERAL: Sitting up in bed, awake EYES: Pupils equal. Conjunctiva normal. HEENT: External appearance of nose and ears normal, oral cavity grossly normal. NECK: JVD not raised; masses not palpable. HEART: Heart sounds irregular; mild edema. LUNGS: Respiratory rate increased, improved air entry. ABDOMEN: Soft, nontender, liver spleen not palpable, no masses palpable. PSYCH: [Alert and oriented x3; mood and affect anxious INVESTIGATIONS, reviewed in the clinical context: White count 10.4 hemoglobin 13 platelets 404 potassium 4 creatinine 1.15 Troponin I 0.101, 0.134, 0.128 TSH 2.3 EKG tracing personally reviewed by atrial fibrillation, some ST segment depression -leads 3 aVF and leads V3 to be 6. Chest x-ray film personally reviewed by me-interstitial prominence. Reported to be no different than previous film 2-D echocardiogram-year 50-55%. Moderate TR, moderate MR. Assessment and plan: -New onset of atrial fibrillation with a rapid ventricular rate, symptomatic.- Uncontrolled Patient on Lopressor, flecainide . [ Eliquis discontinued because of the fall]. Heart rate controlled by discharge -GERD continue on Prilosec -Hyperlipidemia on Lipitor -Chronic rheumatoid arthritis -Colonic diverticulosis, asymptomatic -Secondary pulmonary hypertension follow clinically -Coronary artery disease with stent with PTCA to LAD in 2014, continue with aspirin, Lopressor Lipitor -Troponin leak from uncontrolled atrial fibrillation. No acute coronary syndrome. -Moderate mitral and tricuspid regurgitation. Follow clinically Disposition: Home Patient Condition at Discharge: Stable Plan - Discharge Summary Discharge Rx Participant: No New Discharge Prescriptions: New Flecainide [Tambocor] 100 mg PO Q12HR #60 tab Continue Omeprazole [PriLOSEC] 20 mg PO AC-BRKFST allopurinoL [Zyloprim] 100 mg PO DAILY Ergocalciferol [Vitamin D2 (DRISDOL)] 50,000 unit PO Q14D Ferrous Sulfate [Iron (65 MG Elemental)] 325 mg PO BID #1 tab Atorvastatin [Lipitor] 80 mg PO HS Magnesium (Unknown Strength) 1 tab PO HS Aspirin 81 mg PO HS Changed Metoprolol Tartrate [Lopressor] 50 mg PO BID #60 tab Discontinued Flecainide [Tambocor] 50 mg PO Q12HR Discharge Medication List Omeprazole [PriLOSEC] 20 mg PO AC-BRKFST 04/15/14 [History] Ergocalciferol [Vitamin D2 (DRISDOL)] 50,000 unit PO Q14D 03/14/19 [History] allopurinoL [Zyloprim] 100 mg PO DAILY 03/14/19 [History] Ferrous Sulfate [Iron (65 MG Elemental)] 325 mg PO BID #1 tab 03/16/19 [Rx] Aspirin 81 mg PO HS 12/30/20 [History] Atorvastatin [Lipitor] 80 mg PO HS 12/30/20 [History] Magnesium (Unknown Strength) 1 tab PO HS 12/30/20 [History] Flecainide [Tambocor] 100 mg PO Q12HR #60 tab 01/02/21 [Rx] Metoprolol Tartrate [Lopressor] 50 mg PO BID #60 tab 01/02/21 [Rx] Follow up Appointment(s)/Referral(s): Yobany Chaudhry MD [Primary Care Provider] - 1-2 days (Office unavailable to answer the phone Please call to make an appointment) Elsi Beckham MD [STAFF PHYSICIAN] - 01/11/21 11:30 am Patient Instructions/Handouts: Heart Failure (DC), A-fib (Atrial Fibrillation) (DC) Discharge Disposition: HOME SELF-CARE
== END 2021-01-02 11:13 | disposition home or self-care (01) | DRG 310 ==
LOC: EC 21:14 → 3SCARD 22:46
PROVIDERS: ADMIT Hospitalist; ATTEND Hospitalist
DX: I48.0 Paroxysmal atrial fibrillation (principal); I27.29 Other secondary pulmonary hypertension; J84.10 Pulmonary fibrosis, unspecified; M06.9 Rheumatoid arthritis, unspecified; Z20.822 Contact with and (suspected) exposure to COVID-19; I08.3 Combined rheumatic disorders of mitral, aortic and tricuspid valves; I25.10 Atherosclerotic heart disease of native coronary artery without angina pectoris; E78.5 Hyperlipidemia, unspecified; I25.2 Old myocardial infarction; K57.30 Diverticulosis of large intestine without perforation or abscess without bleeding; R77.8 Other specified abnormalities of plasma proteins; K21.9 Gastro-esophageal reflux disease without esophagitis; Z79.82 Long term (current) use of aspirin; Z79.899 Other long term (current) drug therapy; Z87.440 Personal history of urinary (tract) infections; Z90.49 Acquired absence of other specified parts of digestive tract; Z95.5 Presence of coronary angioplasty implant and graft; Z90.710 Acquired absence of both cervix and uterus; Z87.19 Personal history of other diseases of the digestive system; Z87.42 Personal history of other diseases of the female genital tract; Z87.39 Personal history of other diseases of the musculoskeletal system and connective tissue; Z86.59 Personal history of other mental and behavioral disorders; Z86.69 Personal history of other diseases of the nervous system and sense organs; Z87.448 Personal history of other diseases of urinary system; Z98.890 Other specified postprocedural states; W19.XXXA Unspecified fall, initial encounter; Z88.5 Allergy status to narcotic agent; Z82.49 Family history of ischemic heart disease and other diseases of the circulatory system; Z80.9 Family history of malignant neoplasm, unspecified
CPT/HCPCS: 36415; 70450; 71046; 72125; 80053; 83735; 84443; 84484; 85025; 85610; 85730; 87635; 93005; 93306; 94760; 96374; 96375; 99285

== ENCOUNTER → 2021-07-24 | Outpatient (CLI) | payer MEDICARE ==
[2021-07-24 11:00] LABS: Basophils % (A) 0 %; Eosinophils # (A) 0.2 k/uL (0-0.7); Eosinophils % (A) 2 %; HCT 35.5 % (34.0-46.0); HGB 11.8 gm/dL (11.4-16.0); Lymphocytes # (A) 1.6 k/uL (1.0-4.8); Lymphocytes % (A) 23 %; MCH 32.9 pg (25.0-35.0); MCHC 33.2 g/dL (31.0-37.0); MCV 99.1 fL (80.0-100.0); Mean Platelet Volume 7.5; Monocytes # (A) 0.4 k/uL (0-1.0); Monocytes % (A) 5 %; Neutrophils # (A) 4.9 k/uL (1.3-7.7); Neutrophils % (A) 68 %; Platelet Count 327 k/uL (150-450); RBC 3.58 m/uL (3.80-5.40); RDW 13.4 % (11.5-15.5); WBC 7.2 k/uL (3.8-10.6)
[2021-07-24 11:51] LABS: Calcium 9.1 mg/dL (8.4-10.2); Potassium 4.8 mmol/L (3.5-5.1)
[2021-07-24 11:57] LABS: Appearance,Urine Clear (Clear); Bilirubin,Urine Negative (Negative); Blood,Urine Small (Negative); Color,Urine Yellow; Glucose,Urine (UA) Negative (Negative); Ketones,Urine Negative (Negative); Leukocyte Esterase,Urine Negative (Negative); Mucus,Urine Rare /hpf; Nitrite,Urine Negative (Negative); PH, Urine 5.5 (5.0-8.0); Protein,Urine Trace (Negative); RBC,Urine 4 /hpf (0-5); Specific Gravity,Urine 1.018 (1.001-1.035); Squamous Epithelial Cell,Urine 4 /hpf (0-4); Urobilinogen,Urine <2.0 mg/dL (<2.0); WBC,Urine <1 /hpf (0-5)
== END | disposition home or self-care (01) ==
LOC: LABPAT 10:03
PROVIDERS: ATTEND Urology
DX: Z01.812 Encounter for preprocedural laboratory examination (principal); N39.3 Stress incontinence (female) (male); R35.0 Frequency of micturition
CPT/HCPCS: 36415; 80048; 81001; 85025; 87086

== ENCOUNTER 2021-07-31 06:45 | Day surgery (SDC) | payer MEDICARE ==
[2021-07-29 15:24] VITALS: BMI 25.2
--- NOTE | 2021-07-30 19:50 | P.GSHP ---
History of Present Illness H&P Date: 07/30/21 80 yo femal e with mixed urinary incontinence with a strong component of yogi elizabeth comes for a pvs[lynx] graft to treat the yogi. she was diagnosed on history ,P/E and uds. SHe was treated for the urgency with limited success. She understands that she may need anticholinergics if the urgency persists. the risks and complications have been described. The mesh controversy has been discussed. Failure has been discussed Alternatives have been discussed. She comes for a PVS. - Constitutional Constitutional: Denies chills, Denies fever - EENT Eyes: denies blurred vision, denies pain Ears, nose, mouth and throat: Denies headache, Denies sore throat - Cardiovascular Cardiovascular: Denies chest pain, Denies shortness of breath - Respiratory Respiratory: Denies cough, Denies 7 - Gastrointestinal Gastrointestinal: Denies abdominal pain, Denies diarrhea, Denies nausea, Denies vomiting - Genitourinary (Female) Genitourinary: Denies dysuria, Denies hematuria - Genitourinary (Male) Genitourinary: Denies dysuria, Denies hematuria - Musculoskeletal Musculoskeletal: Denies myalgias - Integumentary Integumentary: Denies pruritus, Denies rash - Neurological Neurological: Denies numbness, Denies weakness - Psychiatric Psychiatric: Denies anxiety, Denies depression - Endocrine Endocrine: Denies fatigue, Denies weight change Past Medical History Past Medical History: Eye Disorder, GERD/Reflux, Hyperlipidemia, Myocardial Infarction (MS), Renal Disease, Rheumatoid Arthritis (RA) Additional Past Medical History / Comment(s): Diverticulosis,"PULMONARY HYPERTENSION"- SEE DR GARCIA'S HISTORY AND PHYSICAL FOR CARDIAC HISTORY, FREQUENT URINARY INFECTIONS Last Myocardial Infarction Date:: 09/2015 History of Any Multi-Drug Resistant Organisms: None Reported Past Surgical History: Cholecystectomy, Heart Catheterization With Stent, Hysterectomy, Orthopedic Surgery Additional Past Surgical History / Comment(s): KNEE ARTHROSCOPIC Past Anesthesia/Blood Transfusion Reactions: No Reported Reaction Date of Last Stent Placement:: 09/2015 Smoking Status: Never smoker - Past Family History Mother Family Medical History: Hypertension Additional Family Medical History / Comment(s): heart attack Father Family Medical History: Cancer Medications and Allergies Home Medications Medication Instructions Recorded Confirmed Type Omeprazole [PriLOSEC] 20 mg PO AC-BRKFST 04/15/14 07/29/21 History Ergocalciferol [Vitamin D2 50,000 unit PO Q14D 03/14/19 07/29/21 History (DRISDOL)] allopurinoL [Zyloprim] 100 mg PO DAILY 03/14/19 07/29/21 History Ferrous Sulfate [Iron (65 MG 325 mg PO BID #1 tab 03/16/19 07/29/21 Rx Elemental)] Aspirin 81 mg PO HS 12/30/20 07/29/21 History Atorvastatin [Lipitor] 80 mg PO HS 12/30/20 07/29/21 History Magnesium (Unknown Strength) 1 tab PO BID 12/30/20 07/29/21 History Flecainide [Tambocor] 100 mg PO Q12HR #60 tab 01/02/21 07/29/21 Rx Metoprolol Tartrate [Lopressor] 50 mg PO QAM 06/26/21 07/29/21 History PARoxetine HCL [Paxil] 30 mg PO DAILY 06/26/21 07/29/21 History Tofacitinib Citrate [Xeljanz Xr] 11 mg PO DAILY 06/26/21 07/29/21 History Allergies Allergy/AdvReac Type Severity Reaction Status Date / Time hydrocodone bitartrate Allergy Itching Verified 07/29/21 15:15 [From Vicodin] Surgical - Exam - General well developed, well nourished, no distress - Eyes PERRL - ENT no hearing loss - Neck trachea midline - Respiratory normal expansion, normal respiratory effort - Cardiovascular Rhythm: regular - Abdomen Abdomen: soft, non tender - Genitourinary yogi, positive blossom test. normal external genitalia, normal perineum - Neurologic normal coordination, normal sensation - Musculoskeletal normal gait, normal posture - Psychiatric oriented to time, oriented to person, oriented to place, speech is normal Assessment and Plan Assessment: Impression: Mixed urinary incontinence with a prominent stress compnent and low LPP Plan Cysto with PVS[lynx]
[~2021-07-31 06:45] MED LIST changes: -ALPRAZolam 0.25 MG TAB PO PRN; -ALPRAZolam 0.5 MG TAB PO PRN; +AMPICILLIN 1,000 MG in SODIUM CHLORIDE 0.9% 50 ML IVPB PRN; -ASPIRIN 325 MG TAB PO STA; -ATORVASTATIN 80 MG TAB PO STA; +GENTAMICIN 80 MG in SODIUM CHLORIDE 0.9% 100 ML IVPB PRN; -NITROGLYCERIN SL TABS 0.4 MG TAB SUBLINGUAL PRN; -SODIUM CHLORIDE 0.9% 1,000 ML in EMPTY BAG 1 BAG IV ONE
[2021-07-31] MEDS ORDERED: ONDANSETRON 4 MG/2 ML VIAL IVP ONE (06:50)
[2021-07-31] MEDS ORDERED: LIDOCAINE 1% (10MG/ML) FOR IV START INTRADERMA PRN (06:50)
[2021-07-31] MEDS ORDERED: DEXAMETHASONE SOD PHOSPHATE 4 MG/ML 1 ML VIAL IV ONE (06:50)
[2021-07-31] MEDS ORDERED: LACTATED RINGERS 1,000 ML IV SCH (06:50)
[2021-07-31] MEDS ORDERED: HYDROmorphone 0.5 MG/0.5 ML SYRINGE IVP PRN (07:00)
[2021-07-31] MEDS ORDERED: PROPOFOL 10 MG/ML 20 ML VIAL IV ONE (07:55)
[2021-07-31] MEDS ORDERED: fentaNYL (PF) 50 MCG/ML 2 ML AMP ONE (07:55)
[2021-07-31] MEDS ORDERED: LIDOCAINE 1% INJ 10MG/ML (20 ML MDV) ONE (07:55)
[2021-07-31] MEDS ORDERED: PHENYLEPHRINE-0.9% NACL SYG 1,000 MCG/10 ML SYRINGE ONE (07:55)
[2021-07-31] MEDS ORDERED: SUCCINYLCHOLINE CHLORIDE 100 MG/5 ML SYR IV ONE (07:55)
[2021-07-31] MEDS ORDERED: VASOPRESSIN 20 UNIT/ML 1 ML VIAL IM ONE (08:30)
[2021-07-31] MEDS ORDERED: GENTAMICIN 40 MG/ML 2 ML VIAL IRRIGATION ONE (08:32)
[2021-07-31] MEDS ORDERED: ONDANSETRON 4 MG/2 ML VIAL IVP PRN (08:48)
[2021-07-31] MEDS ORDERED: KETOROLAC 15 MG/ML 1 ML VIAL IVP PRN (08:48)
[2021-07-31] MEDS ORDERED: HYDROcodone/APAP 5-325MG 1 EACH TAB PO PRN (08:50)
--- NOTE | 2021-07-31 08:53 | P.OP ---
Date of Procedure: 07/31/21 Preoperative Diagnosis: Stress urinary incontinence, type III Postoperative Diagnosis: Same Procedure(s) Performed: Pubovaginal sling with cystoscopy Anesthesia: MARISEL Surgeon: Radu Leung Estimated Blood Loss (ml): 25 Pathology: none sent Condition: stable Disposition: PACU Indications for Procedure: The patient is 80. She has mixed urinary incontinence. Her stress component is significant with leak point pressures less than 70 cm water. She comes for a pubovaginal sling. Risks and complications of an outlined. Description of Procedure: Patient is brought to the operating suite. She is given a general endotracheal anesthesia. She's placed lithotomy position with a sterile prep and drape. The labia are sewn laterally with 2-0 silk ties. A vaginal speculum was introduced. A stent Pereira catheters introduced sterilely. The anterior vaginal mucosa is elevated off the submucosa with 10 mL of 20 mg of Pitressin and 200 mL of saline. A midline suburethral incision is made. I dissect lateral the bladder neck bilaterally. I make 2 incisions at the corner the pubis suprapubically. I passed the introducers retropubically into the vaginal space bilaterally. I removed the Pereira catheter and performed cystoscopy with a 22-Mongolian sheath to make sure there is no injury the bladder and there is none. The rest of the bladder is unremarkable. The ureteral orifices are normal I attached the graft to the introducers and pull the graft back suprapubically. The graft lay at the bladder neck nicely without kinking. I removed the redundant sheeting. I closed the vaginal incision with a running 2-0 Vicryl. I closed the suprapubic incision with 4-0 Monocryl. The labial stitches are removed. A vaginal packing with Kerlix in Neosporin is placed. The urine is clear. Blood loss is 25 mL. The patient tolerated the procedure well and was awakened and returned recovery room in good condition.
[2021-07-31] MEDS: ACETAMINOPHEN TAB 325 MG TAB PO PRN ×2 (13:13→21:24)
[2021-07-31] MEDS: allopurinoL 100 MG TAB PO SCH (16:55)
[2021-07-31] MEDS: TOFACITINIB CITRATE 11 MG PO SCH (16:56)
[2021-07-31] MEDS: FLECAINIDE 50 MG TAB PO SCH (20:12)
[2021-07-31] MEDS: DEXTROSE 5%-0.45% NACL 1,000 ML IV SCH (20:39)
[2021-07-31] MEDS ORDERED: ATORVASTATIN 80 MG TAB PO SCH (21:00)
[2021-08-01] MEDS: DEXTROSE 5%-0.45% NACL 1,000 ML IV SCH (02:20)
--- NOTE | 2021-08-01 06:31 | P.DS ---
Providers Attending physician: Radu Leung Primary care physician: [facility] Course: The patient is 80. She is type III stress urinary incontinence. She came yesterday for a pubovaginal sling. She underwent this without difficulty. She did well overnight. Her catheter is removed this morning. If she voids adequately she'll be discharged home later in the afternoon. Postoperative instructions been given. Diet is regular activities Limited. She'll take Tylenol for pain. She'll be seen in the office in one week. Her condition is good. Patient Condition at Discharge: Good Plan - Discharge Summary Discharge Rx Participant: No New Discharge Prescriptions: No Action Omeprazole [PriLOSEC] 20 mg PO AC-BRKFST allopurinoL [Zyloprim] 100 mg PO DAILY Ergocalciferol [Vitamin D2 (DRISDOL)] 50,000 unit PO Q14D Ferrous Sulfate [Iron (65 MG Elemental)] 325 mg PO BID #1 tab Atorvastatin [Lipitor] 80 mg PO HS Magnesium (Unknown Strength) 1 tab PO BID Aspirin 81 mg PO HS Flecainide [Tambocor] 100 mg PO Q12HR #60 tab Tofacitinib Citrate [Xeljanz Xr] 11 mg PO DAILY PARoxetine HCL [Paxil] 30 mg PO DAILY Metoprolol Tartrate [Lopressor] 50 mg PO QAM Discharge Medication List Omeprazole [PriLOSEC] 20 mg PO AC-BRKFST 04/15/14 [History] Ergocalciferol [Vitamin D2 (DRISDOL)] 50,000 unit PO Q14D 03/14/19 [History] allopurinoL [Zyloprim] 100 mg PO DAILY 03/14/19 [History] Ferrous Sulfate [Iron (65 MG Elemental)] 325 mg PO BID #1 tab 03/16/19 [Rx] Aspirin 81 mg PO HS 12/30/20 [History] Atorvastatin [Lipitor] 80 mg PO HS 12/30/20 [History] Magnesium (Unknown Strength) 1 tab PO BID 12/30/20 [History] Flecainide [Tambocor] 100 mg PO Q12HR #60 tab 01/02/21 [Rx] Metoprolol Tartrate [Lopressor] 50 mg PO QAM 06/26/21 [History] PARoxetine HCL [Paxil] 30 mg PO DAILY 06/26/21 [History] Tofacitinib Citrate [Xeljanz Xr] 11 mg PO DAILY 06/26/21 [History] Follow up Appointment(s)/Referral(s): Radu Leung MD [STAFF PHYSICIAN] - 1 Week Discharge Disposition: HOME SELF-CARE
[2021-08-01] MEDS ORDERED: PANTOPRAZOLE 40 MG TABLET PO SCH (07:30)
[2021-08-01] MEDS: allopurinoL 100 MG TAB PO SCH (08:01)
[2021-08-01] MEDS: FLECAINIDE 50 MG TAB PO SCH (08:02)
[2021-08-01] MEDS: TOFACITINIB CITRATE 11 MG PO SCH (08:04)
[2021-08-01 08:30] VITALS: BP 129/62; PULSE 61; RESP 17; TEMP 98.2
[2021-08-01] MEDS ORDERED: PARoxetine 10 MG TAB PO SCH (09:00)
[2021-08-01] MEDS ORDERED: METOPROLOL TARTRATE 50 MG TAB PO SCH (09:00)
[2021-08-01] MEDS: ACETAMINOPHEN TAB 325 MG TAB PO PRN (09:37)
== END 2021-08-01 13:28 | disposition home or self-care (01) ==
LOC: OR 06:45 → 6PED 08:57 → OR 08-01 13:28
PROVIDERS: ATTEND Urology
DX: N39.46 Mixed incontinence (principal); K21.9 Gastro-esophageal reflux disease without esophagitis; E78.5 Hyperlipidemia, unspecified; M10.9 Gout, unspecified; I25.2 Old myocardial infarction; N28.9 Disorder of kidney and ureter, unspecified; Z20.822 Contact with and (suspected) exposure to COVID-19; M06.9 Rheumatoid arthritis, unspecified; I27.20 Pulmonary hypertension, unspecified; Z86.711 Personal history of pulmonary embolism; Z90.49 Acquired absence of other specified parts of digestive tract; Z95.5 Presence of coronary angioplasty implant and graft; Z90.710 Acquired absence of both cervix and uterus; Z98.890 Other specified postprocedural states; Z82.49 Family history of ischemic heart disease and other diseases of the circulatory system; Z79.82 Long term (current) use of aspirin; Z79.899 Other long term (current) drug therapy; Z88.5 Allergy status to narcotic agent
CPT/HCPCS: 87635; 57288; C1771; J1580; J1100; J2405; J2001; J3010; J0290; J2370; J0330; J2704

== ENCOUNTER 2021-09-21 15:01 | Emergency (ER) | payer MEDICARE ==
[2021-09-21 16:07] VITALS: RESP 18
[2021-09-21] MEDS ORDERED: SODIUM CHLORIDE 0.9% 1,000 ML IV STA (18:00)
[2021-09-21 18:11] LABS: Basophils % (A) 0 %; Eosinophils # (A) 0.4 k/uL (0-0.7); Eosinophils % (A) 3 %; HGB 11.3 gm/dL (11.4-16.0); Lymphocytes # (A) 0.8 k/uL (1.0-4.8); Lymphocytes % (A) 5 %; MCH 31.4 pg (25.0-35.0); MCHC 33.2 g/dL (31.0-37.0); MCV 94.7 fL (80.0-100.0); Mean Platelet Volume 7.5; Monocytes # (A) 0.8 k/uL (0-1.0); Monocytes % (A) 6 %; Neutrophils # (A) 12.9 k/uL (1.3-7.7); Neutrophils % (A) 85 %; Platelet Count 382 k/uL (150-450); RBC 3.59 m/uL (3.80-5.40); RDW 13.9 % (11.5-15.5); WBC 15.1 k/uL (3.8-10.6)
--- NOTE | 2021-09-21 18:16 | ED ---
General Adult HPI - General Chief complaint: Nausea/Vomiting/Diarrhea Stated complaint: Possible UTI Time Seen by Provider: 09/21/21 16:53 Source: patient Mode of arrival: wheelchair Limitations: no limitations - History of Present Illness Initial comments: 80-year-old female presents to the emergency department accompanied by her granddaughter, for evaluation. States she was taking Cipro for a UTI that had to switch to Macrobid on Thursday due to the results of the culture and sensitivity. Patient states she had an isolated episode of chills on Thursday night patient, but has not felt like herself since. Patient's granddaughter reports they're concerned that the urinary tract infection is not getting any better on the current antibiotic regimen. Patient denies abdominal pain, flank pain, nausea, or vomiting. States she has had an increased congested cough that causes pain in her chest; reports she usually has a dry cough. Also states she has had a few episodes of loose stool over the past few days and took Imodium this morning because of it. Patient denies fever, headaches, dizziness, shortness of breath, difficulty breathing, palpitations, hematuria, dysuria, or frequency. - Related Data Home Medications Medication Instructions Recorded Confirmed Omeprazole [PriLOSEC] 20 mg PO DAILY 04/15/14 09/21/21 Ergocalciferol [Vitamin D2 50,000 unit PO Q14D 03/14/19 09/21/21 (DRISDOL)] allopurinoL [Zyloprim] 100 mg PO DAILY 03/14/19 09/21/21 Aspirin 81 mg PO HS 12/30/20 09/21/21 Atorvastatin [Lipitor] 80 mg PO HS 12/30/20 09/21/21 Metoprolol Tartrate [Lopressor] 50 mg PO DAILY 06/26/21 09/21/21 Tofacitinib Citrate [Xeljanz Xr] 11 mg PO DAILY 06/26/21 09/21/21 Flecainide [Tambocor] 50 mg PO BID 09/21/21 09/21/21 Nitrofurantoin Monohyd/M-Cryst 100 mg PO BID 09/21/21 09/21/21 [Macrobid] PARoxetine HCL [Paxil Cr] 37.5 mg PO DAILY 09/21/21 09/21/21 Previous Rx's Medication Instructions Recorded Ferrous Sulfate [Iron (65 MG 325 mg PO BID #1 tab 03/16/19 Elemental)] Allergies Allergy/AdvReac Type Severity Reaction Status Date / Time hydrocodone bitartrate Allergy Itching Verified 07/29/21 15:15 [From Vicodin] NSAIDS (Non-Steroidal AdvReac Unknown Verified 07/31/21 12:52 Anti-Inflamma Review of Systems ROS Statement: Those systems with pertinent positive or pertinent negative responses have been documented in the HPI. ROS Other: All systems not noted in ROS Statement are negative. Past Medical History Past Medical History: Eye Disorder, GERD/Reflux, Hyperlipidemia, Myocardial Infarction ([place]), Renal Disease, Rheumatoid Arthritis (RA) Additional Past Medical History / Comment(s): Diverticulosis,"PULMONARY HYPERTENSION"- SEE DR GARCIA'S HISTORY AND PHYSICAL FOR CARDIAC HISTORY, FREQUENT URINARY INFECTIONS Last Myocardial Infarction Date:: 09/2015 History of Any Multi-Drug Resistant Organisms: None Reported Past Surgical History: Cholecystectomy, Heart Catheterization With Stent, Hysterectomy, Orthopedic Surgery Additional Past Surgical History / Comment(s): KNEE ARTHROSCOPIC Past Anesthesia/Blood Transfusion Reactions: No Reported Reaction Date of Last Stent Placement:: 09/2015 Past Psychological History: Anxiety Smoking Status: Never smoker Past Alcohol Use History: None Reported Past Drug Use History: None Reported - Past Family History Mother Family Medical History: Hypertension Additional Family Medical History / Comment(s): heart attack Father Family Medical History: Cancer General Exam Limitations: no limitations (Well-developed, well-nourished female in no acute distress. Initial temperature 98.9, pulse 59, respirations 18 and blood pressure 107/64, pulse ox 93% on room air.) General appearance: alert, in no apparent distress Eye exam: Present: normal appearance, PERRL, EOMI. Absent: scleral icterus, conjunctival injection, periorbital swelling ENT exam: Present: normal exam, normal oropharynx, mucous membranes moist Neck exam: Present: normal inspection. Absent: tenderness, meningismus, lympha denopathy Respiratory exam: Present: normal lung sounds bilaterally, other (Strong, infrequent congested cough). Absent: respiratory distress, wheezes, rales, rhonchi, stridor Cardiovascular Exam: Present: regular rate, normal rhythm, bradycardia, normal heart sounds. Absent: systolic murmur, diastolic murmur, rubs, gallop, clicks GI/Abdominal exam: Present: soft, normal bowel sounds. Absent: distended, tenderness, guarding, rebound, rigid Extremities exam: Present: normal inspection, full ROM, normal capillary refill. Absent: tenderness, pedal edema, joint swelling, calf tenderness Back exam: Present: normal inspection. Absent: CVA tenderness (R), CVA tenderness (L), paraspinal tenderness, vertebral tenderness Neurological exam: Present: alert Psychiatric exam: Present: normal affect, normal mood Skin exam: Present: warm, dry, intact, normal color. Absent: rash Course Vital Signs 09/21/21 09/21/21 09/21/21 16:03 18:37 21:15 Temperature 98.9 F 98.7 F Pulse Rate 59 L 62 87 Respiratory 18 18 18 Rate Blood Pressure 107/64 115/71 145/74 O2 Sat by Pulse 93 L 90 L 97 Oximetry Medical Decision Making - Medical Decision Making 80-year-old female presents to the emergency department for evaluation of fatigue, weakness, and recent treatment for UTI. Family expresses concern that patient's UTI may be responding to oral antibiotics. Upon evaluation, patient is well-appearing, denies pain or discomfort. States she is a bit more fatigued than usual and has been having some loose stool and a few episodes of vomiting over the past couple of days. Patient does have an occasional strong cough, however she states this is normal for her. States she has not been taking her Xeljanz for the last month and suspects her RA flared up which often affects her lungs. Patient denies chest pain, shortness of breath, difficulty breathing, fever, and chills. Laboratory studies were reviewed. Leukocytosis is noted, however patient is afebrile and not tachycardic. Patient is mildly hyponatremic and was given 1 L of IV fluids. Urine specimen shows 1+ protein. Patient states she is feeling improved and would like to go home. Patient will be discharged home to follow up with her PCP for a recheck. Return parameters were discussed in detail. Patient and granddaughter verbalize understanding and agree with this plan. This patient's care was discussed with my attending Dr. Nj. - Lab Data Result diagrams: 09/21/21 18:05 09/21/21 18:05 Lab Results 09/21/21 09/21/21 09/21/21 Range/Units 18:05 18:05 18:05 WBC 15.1 H (3.8-10.6) k/uL RBC 3.59 L (3.80-5.40) m/uL Hgb 11.3 L (11.4-16.0) gm/dL Hct 34.0 (34.0-46.0) % MCV 94.7 (80.0-100.0) fL MCH 31.4 (25.0-35.0) pg MCHC 33.2 (31.0-37.0) g/dL RDW 13.9 (11.5-15.5) % Plt Count 382 (150-450) k/uL MPV 7.5 Neutrophils % 85 % Lymphocytes % 5 % Monocytes % 6 % Eosinophils % 3 % Basophils % 0 % Neutrophils # 12.9 H (1.3-7.7) k/uL Lymphocytes # 0.8 L (1.0-4.8) k/uL Monocytes # 0.8 (0-1.0) k/uL Eosinophils # 0.4 (0-0.7) k/uL Basophils # 0.0 (0-0.2) k/uL Sodium 133 L (137-145) mmol/L Potassium 4.0 (3.5-5.1) mmol/L Chloride 97 L (98-107) mmol/L Carbon Dioxide 24 (22-30) mmol/L Anion Gap 12 mmol/L BUN 15 (7-17) mg/dL Creatinine 0.96 (0.52-1.04) mg/dL Est GFR (CKD-EPI)AfAm 65 (>60 ml/min/1.73 sqM) Est GFR (CKD-EPI)NonAf 57 (>60 ml/min/1.73 sqM) Glucose 97 (74-99) mg/dL Calcium 8.8 (8.4-10.2) mg/dL Total Bilirubin 0.6 (0.2-1.3) mg/dL AST 23 (14-36) U/L ALT 12 (4-34) U/L Alkaline Phosphatase 165 H (38-126) U/L Troponin I (0.000-0.034) ng/mL Total Protein 7.6 (6.3-8.2) g/dL Albumin 4.0 (3.5-5.0) g/dL Lipase 80 (23-300) U/L Urine Color Yellow Urine Appearance Clear (Clear) Urine pH 6.0 (5.0-8.0) Ur Specific [place] 1.014 (1.001-1.035) Urine Protein 1+ H (Negative) Urine Glucose (UA) Negative (Negative) Urine Ketones Negative (Negative) Urine Blood Trace H (Negative) Urine Nitrite Negative (Negative) Urine Bilirubin Negative (Negative) Urine Urobilinogen <2.0 (<2.0) mg/dL Ur Leukocyte Esterase Negative (Negative) Urine RBC 5 (0-5) /hpf Urine WBC 1 (0-5) /hpf Coronavirus (PCR) (Not Detectd) 09/21/21 09/21/21 Range/Units 18:05 18:05 WBC (3.8-10.6) k/uL RBC (3.80-5.40) m/uL Hgb (11.4-16.0) gm/dL Hct (34.0-46.0) % MCV (80.0-100.0) fL MCH (25.0-35.0) pg MCHC (31.0-37.0) g/dL RDW (11.5-15.5) % Plt Count (150-450) k/uL MPV Neutrophils % % Lymphocytes % % Monocytes % % Eosinophils % % Basophils % % Neutrophils # (1.3-7.7) k/uL Lymphocytes # (1.0-4.8) k/uL Monocytes # (0-1.0) k/uL Eosinophils # (0-0.7) k/uL Basophils # (0-0.2) k/uL Sodium (137-145) mmol/L Potassium (3.5-5.1) mmol/L Chloride (98-107) mmol/L Carbon Dioxide (22-30) mmol/L Anion Gap mmol/L BUN (7-17) mg/dL Creatinine (0.52-1.04) mg/dL Est GFR (CKD-EPI)AfAm (>60 ml/min/1.73 sqM) Est GFR (CKD-EPI)NonAf (>60 ml/min/1.73 sqM) Glucose (74-99) mg/dL Calcium (8.4-10.2) mg/dL Total Bilirubin (0.2-1.3) mg/dL AST (14-36) U/L ALT (4-34) U/L Alkaline Phosphatase (38-126) U/L Troponin I <0.012 (0.000-0.034) ng/mL Total Protein (6.3-8.2) g/dL Albumin (3.5-5.0) g/dL Lipase (23-300) U/L Urine Color Urine Appearance (Clear) Urine pH (5.0-8.0) Ur Specific [place] (1.001-1.035) Urine Protein (Negative) Urine Glucose (UA) (Negative) Urine Ketones (Negative) Urine Blood (Negative) Urine Nitrite (Negative) Urine Bilirubin (Negative) Urine Urobilinogen (<2.0) mg/dL Ur Leukocyte Esterase (Negative) Urine RBC (0-5) /hpf Urine WBC (0-5) /hpf Coronavirus (PCR) Not Detected (Not Detectd) - EKG Data EKG shows normal: sinus rhythm Rate: bradycardia EKG Comments: EKG was obtained at 1644 and shows sinus bradycardia with first-degree AV block and right bundle branch block. Ventricular rate 58, SC interval 214, QRS duration 112, QT/QTc 460/459. - Radiology Data Radiology results: report reviewed, image reviewed Two-view chest x-ray was obtained. Report was reviewed in entirety. Impression per Dr. Neil is pulmonary interstitial infiltrates slightly increased compared to old exam that could be pulmonary fibrosis. No pleural fluid is seen to suggest heart failure. Disposition Clinical Impression: Fatigue, Weakness Disposition: HOME SELF-CARE Condition: Stable Instructions (If sedation given, give patient instructions): Weakness (ED) Additional Instructions: Continue taking antibiotic as prescribed by your PCP. Increase intake of fluids. Ambulate regularly. Follow-up with her primary care provider for a recheck on Thursday. Return to the emergency department with any new, worsening, or concerning symptoms. Is patient prescribed a controlled substance at d/c from ED?: No Referrals: Yobany Chaudhry MD [Primary Care Provider] - 1-2 days Time of Disposition: 20:58
[2021-09-21 18:25] LABS: Calcium 8.8 mg/dL (8.4-10.2); Total Bilirubin 0.6 mg/dL (0.2-1.3); Total Protein 7.6 g/dL (6.3-8.2)
[2021-09-21 18:36] LABS: Appearance,Urine Clear (Clear); Bilirubin,Urine Negative (Negative); Blood,Urine Trace (Negative); Color,Urine Yellow; Glucose,Urine (UA) Negative (Negative); Ketones,Urine Negative (Negative); Leukocyte Esterase,Urine Negative (Negative); Nitrite,Urine Negative (Negative); Protein,Urine 1+ (Negative); RBC,Urine 5 /hpf (0-5); Specific Gravity,Urine 1.014 (1.001-1.035); Urobilinogen,Urine <2.0 mg/dL (<2.0); WBC,Urine 1 /hpf (0-5)
--- NOTE | 2021-09-21 18:56 | XR ---
EXAMINATION TYPE: XR chest 2V DATE OF EXAM: 09/21/2021 COMPARISON: 12/30/2020 HISTORY: Chest pain TECHNIQUE: FINDINGS: There is coarse interstitial and nodular infiltrate throughout both lungs. Heart is top nor mal in size. There is no definite pleural effusion. There are no hilar masses. IMPRESSION: Pulmonary interstitial infiltrates slightly increased compared to old exam that could be pulmonary fibrosis. No pleural fluid seen to suggest heart failure.
[2021-09-21 21:17] VITALS: BP 145/74; PULSE 87; TEMP 98.7
== END 2021-09-21 21:17 | disposition home or self-care (01) ==
LOC: EC 15:01
DX: R53.1 Weakness (principal); R53.83 Other fatigue; Z20.822 Contact with and (suspected) exposure to COVID-19; E78.5 Hyperlipidemia, unspecified; K21.9 Gastro-esophageal reflux disease without esophagitis; I25.2 Old myocardial infarction; F41.9 Anxiety disorder, unspecified; M06.9 Rheumatoid arthritis, unspecified; Z79.82 Long term (current) use of aspirin; Z79.899 Other long term (current) drug therapy
CPT/HCPCS: 36415; 71046; 80053; 81001; 83690; 84484; 85025; 87635; 93005; 99284

== ENCOUNTER 2022-11-07 13:36 | Emergency (ER) | payer MEDICARE ==
[2022-11-07 13:54] VITALS: RESP 18
--- NOTE | 2022-11-07 15:24 | ED ---
Female Urogenital HPI <James Love - Last Filed: 11/07/22 16:43> - General Source: patient Mode of arrival: wheelchair Limitations: no limitations <Nette Nj - Last Filed: 11/11/22 01:29> - General Chief complaint: Urogenital Stated complaint: UTI Time Seen by Provider: 11/07/22 13:55 - History of Present Illness Initial comments: 82-year-old female with past history of GERD, chronic UTI, diverticulosis who presents emergency department reporting dysuria. States that she went to a clinic in [place] on november 01. They completed a urine sample that was positive for infection. They placed her on Macrobid. She took one dose and had hallucinations at night. She called the clinic and they switched her over to Cefuroxime. She completed the course of the antibiotics and still has burning with urination. She denies any vaginal itching or vaginal discharge. Denies diarrhea, constipation, black or bloody stools. No fevers she does follow with the urologist. Granddaughter states that she has been on Cipro several times for urinary tract infection. No alleviating, precipitating or modifying factors (Nette Nj) - Related Data Home Medications Medication Instructions Recorded Confirmed Omeprazole [PriLOSEC] 20 mg PO DAILY 04/15/14 09/21/21 Ergocalciferol [Vitamin D2 50,000 unit PO Q14D 03/14/19 09/21/21 (DRISDOL)] allopurinoL [Zyloprim] 100 mg PO DAILY 03/14/19 09/21/21 Aspirin 81 mg PO HS 12/30/20 09/21/21 Atorvastatin [Lipitor] 80 mg PO HS 12/30/20 09/21/21 Metoprolol Tartrate [Lopressor] 50 mg PO DAILY 06/26/21 09/21/21 Tofacitinib Citrate [Xeljanz Xr] 11 mg PO DAILY 06/26/21 09/21/21 Flecainide [Tambocor] 50 mg PO BID 09/21/21 09/21/21 Nitrofurantoin Monohyd/M-Cryst 100 mg PO BID 09/21/21 09/21/21 [Macrobid] PARoxetine HCL [Paxil Cr] 37.5 mg PO DAILY 09/21/21 09/21/21 Previous Rx's Medication Instructions Recorded Ferrous Sulfate [Iron (65 MG 325 mg PO BID #1 tab 03/16/19 Elemental)] Sulfamethox-Tmp 800-160Mg [Bactrim 1 tab PO Q12HR 7 Days #14 tab 11/07/22 DS 800-160 mg] Allergies Allergy/AdvReac Type Severity Reaction Status Date / Time hydrocodone bitartrate Allergy Itching Verified 11/07/22 13:54 [From Vicodin] NSAIDS (Non-Steroidal AdvReac Unknown Verified 11/07/22 13:54 Anti-Inflamma Review of Systems ROS Other: All systems not noted in ROS Statement are negative. <James Love - Last Filed: 11/07/22 16:43> ROS Other: All systems not noted in ROS Statement are negative. <Nette Nj - Last Filed: 11/11/22 01:29> ROS Statement: Those systems with pertinent positive or pertinent negative responses have been documented in the HPI. Past Medical History Past Medical History: Eye Disorder, GERD/Reflux, Hyperlipidemia, Myocardial Infarction ([place]), Renal Disease, Rheumatoid Arthritis (RA) Additional Past Medical History / Comment(s): Diverticulosis,"PULMONARY HYPERTENSION"- SEE DR GARCIA'S HISTORY AND PHYSICAL FOR CARDIAC HISTORY, FREQUENT URINARY INFECTIONS Last Myocardial Infarction Date:: 09/2015 History of Any Multi-Drug Resistant Organisms: None Reported Past Surgical History: Cholecystectomy, Heart Catheterization With Stent, Hysterectomy, Orthopedic Surgery Additional Past Surgical History / Comment(s): KNEE ARTHROSCOPIC Past Anesthesia/Blood Transfusion Reactions: No Reported Reaction Date of Last Stent Placement:: 09/2015 Past Psychological History: Anxiety Smoking Status: Never smoker Past Alcohol Use History: None Reported Past Drug Use History: None Reported - Past Family History Mother Family Medical History: Hypertension Additional Family Medical History / Comment(s): heart attack Father Family Medical History: Cancer <Nette Nj - Last Filed: 11/11/22 01:29> General Exam Limitations: no limitations General appearance: alert, in no apparent distress Head exam: Present: atraumatic, normocephalic, normal inspection Eye exam: Present: normal appearance, PERRL, EOMI. Absent: scleral icterus, conjunctival injection, periorbital swelling ENT exam: Present: normal exam, mucous membranes moist Neck exam: Present: normal inspection. Absent: tenderness, meningismus, lymphadenopathy Respiratory exam: Present: normal lung sounds bilaterally. Absent: respiratory distress, wheezes, rales, rhonchi, stridor Cardiovascular Exam: Present: regular rate, normal rhythm, normal heart sounds. Absent: systolic murmur, diastolic murmur, rubs, gallop, clicks GI/Abdominal exam: Present: soft, normal bowel sounds. Absent: distended, tenderness, guarding, rebound, rigid External exam: Present: normal external exam. Absent: erythema, swelling, lesions Extremities exam: Present: normal inspection, full ROM, normal capillary refill. Absent: tenderness, pedal edema, joint swelling, calf tenderness Back exam: Present: normal inspection Neurological exam: Present: alert, oriented X3, CN II-XII intact Psychiatric exam: Present: normal affect, normal mood Skin exam: Present: warm, dry, intact, normal color. Absent: rash <Nette Nj - Last Filed: 11/11/22 01:29> Course Vital Signs 11/07/22 11/07/22 13:51 16:59 Temperature 96.9 F L 97.6 F Pulse Rate 52 L 60 Respiratory 18 18 Rate Blood Pressure 124/70 140/67 O2 Sat by Pulse 95 95 Oximetry Medical Decision Making <James Love - Last Filed: 11/07/22 16:43> <Nette Nj - Last Filed: 11/11/22 01:29> - Medical Decision Making Patient was signed out to me pending results of urinalysis. I agree with the prior physician's workup and history. Analysis was obtained and is remarkable and concerning for UTI she does have wbc's, leuk esterase, positive nitrites. Urine culture was sent and is pending. I did discuss with the patient at this time and updated her as well as family members. We discussed at length, as she is not tolerating Macrobid well and is chronically on ciprofloxacin that she requires an additional antibiotic. We did discuss Bactrim, as on the patient's prior microbiology back in May 2020 showed susceptibility. We do not have a recent urinalysis or the culture results obtain an outside hospital. Dr. Nj did attempt to contact them for these results but they are not back yet at the other facility. Therefore we will send off for urine culture, with results pending. Patient does have family members with ALLERGIES to Bactrim but she has no known ALLERGIES to Bactrim. Therefore we will start her on this, however strict return precautions were discussed including signs of ALLERGIC reaction such as rash, difficulty breathing, nausea, vomiting. Patient was in agreement this plan. She'll be given a dose of Bactrim prior to discharge. Vital signs with neck supple limits. Patient is discharged in stable condition. I will provide the patient with a prescription for Bactrim. I instructed the patient to follow up with their PCP in the next 1-3 days. I explained that the patient should return to the emergency department if they experience any worsening symptoms. Strict return precautions were discussed with the patient. The patient expressed understanding of these instructions. I answered all questions that the patient had. The patient was discharged home in good condition with their prescriptions and follow up information. Diagnosis/symptom? @ -Urinary tract infection Acute, or Chronic, or Acute on Chronic? @ -Acute on chronic Uncomplicated (without systemic symptoms) or Complicated (systemic symptoms)? @ -Uncomplicated Side effects of treatment? @ -none Exacerbation, Progression, or Severe Exacerbation] @ -no Poses a threat to life or bodily function? @ -Result in worsening infection if not treated. Ultimately could result in significant morbidity and mortality if not treated. (James Love) Was pt. sent in by a medical professional or institution? @ -No Did you speak to anyone other than the patient for history? @ -Granddaughter Did you review nursing and triage notes? @ -Yes and I agree Were old charts reviewed? @ -I obtained the results of the patient's urinalysis from [facility] in [place] Differential Diagnosis? @ -Differential Abdominal Pain Women: Appendicitis, Cholecystitis, diverticulosis, ischemic bowel, pancreatitis, hepatitis, UTI, gastroenteritis, AAA, incarcerated hernia, bowel obstruction, constipation, inflammatory bowel, hepatitis, peptic ulcer disease, splenic infarction, perforated viscus, vulvitis, ovarian torsion, PID, kidney stone, placenta abruption, this is not meant to be an all-inclusive list EKG interpreted by me (3pts min.)? @ -No X-rays interpreted by me (1pt min.)? @ -No CT interpreted by me (1pt min.)? @ -No U/S interpreted by me (1pt. min.)? @ -No What testing was considered but not performed? (CT, X-rays, U/S, labs)? Why? @ None What meds were considered but not given? Why? @ -None Did you discuss the management of the patient with other professionals? @ No Did you reconcile home meds? @ -No Was smoking cessation discussed for >3mins.? @ -No Was critical care preformed (if so, how long)? @ -No Were there social determinants of health that impacted care today? How? (Homelessness, low income, unemployed, alcoholism, drug addiction, transportation, low edu. Level, literacy, decrease access to med. care, fdc, rehab)? @ -No Was there de-escalation of care discussed even if they declined? (Discuss DNR or withdrawal of care, Hospice)? @ No What co-morbidities impacted this encounter? (DM, HTN, Smoking, COPD, CAD, Cancer, CVA, Hep., AIDS, mental health diagnosis, sleep apnea, morbid obesity)? @ -Chronic UTI Was patient admitted / discharged? @ -Upon arrival patient was placed into room 10. History and physical exam was performed. Patient is unable to give a urine specimen. She does drink some water at this time. Case will be handed off to Dr. Love as the patient is unable to provide a urine sample. We will await these results (Nette Nj) - Lab Data Lab Results 11/07/22 Range/Units 15:00 Urine Color Yellow Urine Appearance Cloudy H (Clear) Urine pH 6.0 (5.0-8.0) Ur Specific [place] 1.019 (1.001-1.035) Urine Protein 1+ H (Negative) Urine Glucose (UA) Negative (Negative) Urine Ketones Negative (Negative) Urine Blood Trace H (Negative) Urine Nitrite Positive H (Negative) Urine Bilirubin Negative (Negative) Urine Urobilinogen <2.0 (<2.0) mg/dL Ur Leukocyte Esterase Large H (Negative) Urine RBC 9 H (0-5) /hpf Urine WBC >182 H (0-5) /hpf Urine WBC Clumps Moderate H (None) /hpf Ur Squamous Epith Cells 2 (0-4) /hpf Urine Bacteria Few H (None) /hpf Urine Mucus Rare H (None) /hpf Urine Yeast (Budding) Occasional H (None) /hpf Disposition Is patient prescribed a controlled substance at d/c from ED?: No Time of Disposition: 16:25 <James Love - Last Filed: 11/07/22 16:43> <Nette Nj - Last Filed: 11/11/22 01:29> Clinical Impression: UTI (urinary tract infection) Disposition: HOME SELF-CARE Condition: Good Instructions (If sedation given, give patient instructions): Urinary Tract Infection in Women (ED) Prescriptions: Sulfamethox-Tmp 800-160Mg [Bactrim DS 800-160 mg] 1 tab PO Q12HR 7 Days #14 tab Referrals: Yobany Chaudhry MD [Primary Care Provider] - 1-2 days
[2022-11-07 16:25] LABS: Appearance,Urine Cloudy (Clear); Bacteria,Urine Few /hpf; Bilirubin,Urine Negative (Negative); Blood,Urine Trace (Negative); Budding Yeast,Urine Occasional /hpf; Color,Urine Yellow; Glucose,Urine (UA) Negative (Negative); Ketones,Urine Negative (Negative); Leukocyte Esterase,Urine Large (Negative); Mucus,Urine Rare /hpf; Nitrite,Urine Positive (Negative); Protein,Urine 1+ (Negative); RBC,Urine 9 /hpf (0-5); Specific Gravity,Urine 1.019 (1.001-1.035); Squamous Epithelial Cell,Urine 2 /hpf (0-4); Urobilinogen,Urine <2.0 mg/dL (<2.0); WBC,Urine >182 /hpf (0-5)
[2022-11-07] MEDS ORDERED: SULFAMETHOX-TMP 800-160MG 1 EACH TAB PO STA (16:37)
[2022-11-07 17:00] VITALS: BP 140/67; PULSE 60; TEMP 97.6
== END 2022-11-07 17:00 | disposition home or self-care (01) ==
LOC: EC 13:36
DX: N39.0 Urinary tract infection, site not specified (principal); K21.9 Gastro-esophageal reflux disease without esophagitis; E78.5 Hyperlipidemia, unspecified; I25.2 Old myocardial infarction; F41.9 Anxiety disorder, unspecified; Z79.82 Long term (current) use of aspirin; Z79.899 Other long term (current) drug therapy; Z88.5 Allergy status to narcotic agent; Z88.6 Allergy status to analgesic agent
CPT/HCPCS: 81001; 99284

== ENCOUNTER 2023-06-14 11:50 | Inpatient (IN) | payer MEDICARE ==
[2023-06-14] MEDS ORDERED: ONDANSETRON 4 MG/2 ML VIAL IVP STA (12:20)
--- NOTE | 2023-06-14 12:23 | ED ---
General Adult HPI - General Chief complaint: Shortness of Breath Stated complaint: Flu Symptoms, JOELLE Time Seen by Provider: 06/14/23 12:04 Source: patient, family, RN notes reviewed Mode of arrival: wheelchair Limitations: no limitations - History of Present Illness Initial comments: Patient is a pleasant 82-year-old female presenting to the emergency department not feeling well. Onset of symptoms was a week ago. Patient was diagnosed with urinary tract infection around a week ago and has been on antibiotics. Patient has vomited a couple times. Patient does have cough with occasional clear sputum. No history of chronic lung disease. Patient states it hurts to take a deep breath. Patient otherwise denies dyspnea. Patient has had fatigue and myalgias. Patient states Tylenol helps with myalgias. - Related Data Home Medications Medication Instructions Recorded Confirmed Omeprazole [PriLOSEC] 20 mg PO DAILY 04/15/14 09/21/21 Ergocalciferol [Vitamin D2 50,000 unit PO Q14D 03/14/19 09/21/21 (DRISDOL)] allopurinoL [Zyloprim] 100 mg PO DAILY 03/14/19 09/21/21 Aspirin 81 mg PO HS 12/30/20 09/21/21 Atorvastatin [Lipitor] 80 mg PO HS 12/30/20 09/21/21 Metoprolol Tartrate [Lopressor] 50 mg PO DAILY 06/26/21 09/21/21 Tofacitinib Citrate [Xeljanz Xr] 11 mg PO DAILY 06/26/21 09/21/21 Flecainide [Tambocor] 50 mg PO BID 09/21/21 09/21/21 Nitrofurantoin Monohyd/M-Cryst 100 mg PO BID 09/21/21 09/21/21 [Macrobid] PARoxetine HCL [Paxil Cr] 37.5 mg PO DAILY 09/21/21 09/21/21 Previous Rx's Medication Instructions Recorded Ferrous Sulfate [Iron (65 MG 325 mg PO BID #1 tab 03/16/19 Elemental)] Sulfamethox-Tmp 800-160Mg [Bactrim 1 tab PO Q12HR 7 Days #14 tab 11/07/22 DS 800-160 mg] Allergies Allergy/AdvReac Type Severity Reaction Status Date / Time hydrocodone bitartrate Allergy Itching Verified 11/07/22 13:54 [From Vicodin] sulfamethoxazole Allergy Rash/Hives Verified 06/14/23 12:02 [From Bactrim] trimethoprim [From Bactrim] Allergy Rash/Hives Verified 06/14/23 12:02 NSAIDS (Non-Steroidal AdvReac Unknown Verified 11/07/22 13:54 Anti-Inflamma Review of Systems ROS Statement: Those systems with pertinent positive or pertinent negative responses have been documented in the HPI. ROS Other: All systems not noted in ROS Statement are negative. Constitutional: Reports: chills Eyes: Denies: eye pain ENT: Denies: ear pain Respiratory: Reports: as per HPI, cough Endocrine: Reports: fatigue Gastrointestinal: Reports: nausea, vomiting (A couple of times) Genitourinary: Reports: dysuria Musculoskeletal: Denies: back pain Skin: Denies: lesions Neurological: Denies: weakness Past Medical History Past Medical History: Eye Disorder, GERD/Reflux, Hyperlipidemia, Myocardial Infarction ([place]), Renal Disease, Rheumatoid Arthritis (RA) Additional Past Medical History / Comment(s): Diverticulosis,"PULMONARY HYPERTENSION"- SEE DR GARCIA'S HISTORY AND PHYSICAL FOR CARDIAC HISTORY, FREQUENT URINARY INFECTIONS Last Myocardial Infarction Date:: 09/2015 History of Any Multi-Drug Resistant Organisms: None Reported Past Surgical History: Cholecystectomy, Heart Catheterization With Stent, Hysterectomy, Orthopedic Surgery Additional Past Surgical History / Comment(s): KNEE ARTHROSCOPIC Past Anesthesia/Blood Transfusion Reactions: No Reported Reaction Date of Last Stent Placement:: 09/2015 Past Psychological History: Anxiety Smoking Status: Never smoker Past Alcohol Use History: None Reported Past Drug Use History: None Reported - Past Family History Mother Family Medical History: Hypertension Additional Family Medical History / Comment(s): heart attack Father Family Medical History: Cancer General Exam Limitations: no limitations General appearance: alert, in no apparent distress Head exam: Present: atraumatic Eye exam: Present: normal appearance ENT exam: Present: normal exam Neck exam: Present: normal inspection Respiratory exam: Present: normal lung sounds bilaterally Cardiovascular Exam: Present: regular rate, normal rhythm GI/Abdominal exam: Present: soft. Absent: distended, tenderness, guarding, rebound, rigid Extremities exam: Present: normal inspection. Absent: pedal edema, calf tenderness Neurological exam: Present: alert Psychiatric exam: Present: normal affect, normal mood Skin exam: Present: normal color Course Vital Signs 06/14/23 06/14/23 06/14/23 11:55 14:10 14:18 Temperature 99.4 F Pulse Rate 68 82 90 Respiratory 18 Rate Blood Pressure 138/70 O2 Sat by Pulse 92 L Oximetry EKG Findings - EKG Results: EKG: interpreted by PATSY (ST depression anterior lateral. Previous EKG reviewed dated 09/21/21 with similar findings.), sinus rhythm, normal axis, normal QRS Medical Decision Making - Medical Decision Making Was pt. sent in by a medical professional or institution (, PA, [facility], urgent care, hospital, or usp...) When possible be specific @ -No Did you speak to anyone other than the patient for history (EMS, parent, family, police, friend...)? What history was obtained from this source @ -Son is present and helps right history is patient is hard of hearing. Did you review nursing and triage notes (agree or disagree)? Why? @ -I reviewed and agree with nursing and triage notes Were old charts reviewed (outside hosp., previous admission, EMS record, old EKG, old radiological studies, urgent care reports/EKG's, usp records)? Report findings @ -No old charts were reviewed Differential Diagnosis (chest pain, altered mental status, abdominal pain women, abdominal pain men, vaginal bleeding, weakness, fever, dyspnea, syncope, headache, dizziness, GI bleed, back pain, seizure, CVA, palpatations, mental health, musculoskeletal)? @ -Differential Dyspnea: Coronary syndrome, arrhythmia, tamponade, asthma, COPD, pulmonary embolism, pneumonia, pneumothorax, pulmonary effusion, anaphylaxis, diabetic ketoacidosis, flailed chest, pulmonary contusion, diaphragmatic rupture, anemia, neuromuscular, this is not meant to be an all-inclusive list. EKG interpreted by me (3pts min.). @ -As above X-rays interpreted by me (1pt min.). @ -Chest x-ray shows some interstitial changes CT interpreted by me (1pt min.). @ -Report reviewed U/S interpreted by me (1pt. min.). @ -None done What testing was considered but not performed or refused? (CT, X-rays, U/S, labs)? Why? @ -None What meds were considered but not given or refused? Why? @ -None Did you discuss the management of the patient with other professionals (professionals i.e. DrAleyda, PA, [facility] S[facility]TER, lab, RT, psych nurse, social research assistant, patch worker, teacher, development officer, returned case inspector)? Give summary @ -Case was discussed with Dr. christiansen, who will admit covering Dr. Merchant, who admits for Dr. Chaudhry Was smoking cessation discussed for >3mins.? @ -No Was critical care preformed (if so, how long)? @ -No Were there social determinants of health that impacted care today? How? (Homelessness, low income, unemployed, alcoholism, drug addiction, transportation, low edu. Level, literacy, decrease access to med. care, long term, rehab)? @ -No Was there de-escalation of care discussed even if they declined (Discuss DNR or withdrawal of care, Hospice)? DNR status @ -No What co-morbidities impacted this encounter? (DM, HTN, Smoking, COPD, CAD, Cancer, CVA, ARF, Chemo, Hep., AIDS, mental health diagnosis, sleep apnea, morbid obesity)? @ -None Was patient admitted / discharged? Hospital course, mention meds given and route, prescriptions, significant lab abnormalities, going to OR and other pertinent info. @ -Patient reevaluated and resting comfortably in bed. Sat 93%. Patient and family updated on results and plan. Patient will be admitted with cardiac consult. Admission orders written. Undiagnosed new problem with uncertain prognosis? @ -No Drug Therapy requiring intensive monitoring for toxicity (Heparin, Nitro, Insulin, Cardizem)? @ -No Were any procedures done? @ -No Diagnosis/symptom? @ -CHF Acute, or Chronic, or Acute on Chronic? @ -Acute Uncomplicated (without systemic symptoms) or Complicated (systemic symptoms)? @ -default Side effects of treatment? @ -No Exacerbation, Progression, or Severe Exacerbation? @ -No Poses a threat to life or bodily function? How? (Chest pain, [place], [place], pneumonia, PE, COPD, DKA, ARF, appy, cholecystitis, CVA, Diverticulitis, Homicidal, Suicidal, threat to staff... and all critical care pts) @ -No - Lab Data Result diagrams: 06/14/23 12:26 06/14/23 12:26 Lab Results 08/20/23 08/20/23 08/20/23 Range/Units 12:26 12:26 12:26 WBC 15.6 H (3.8-10.6) k/uL RBC 3.47 L (3.80-5.40) m/uL Hgb 11.3 L (11.4-16.0) gm/dL Hct 34.3 (34.0-46.0) % MCV 98.9 (80.0-100.0) fL MCH 32.5 (25.0-35.0) pg MCHC 32.9 (31.0-37.0) g/dL RDW 14.2 (11.5-15.5) % Plt Count 387 (150-450) k/uL MPV 8.0 Neutrophils % 87 % Lymphocytes % 5 % Monocytes % 5 % Eosinophils % 1 % Basophils % 0 % Neutrophils # 13.6 H (1.3-7.7) k/uL Lymphocytes # 0.7 L (1.0-4.8) k/uL Monocytes # 0.8 (0-1.0) k/uL Eosinophils # 0.2 (0-0.7) k/uL Basophils # 0.0 (0-0.2) k/uL PT 10.5 (9.0-12.0) sec INR 1.0 (<1.2) APTT 25.1 (22.0-30.0) sec D-Dimer 0.93 H (<0.60) mg/L FEU Sodium 134 L (137-145) mmol/L Potassium 3.6 (3.5-5.1) mmol/L Chloride 96 L (98-107) mmol/L Carbon Dioxide 27 (22-30) mmol/L Anion Gap 11 mmol/L BUN 14 (7-17) mg/dL Creatinine 0.82 (0.52-1.04) mg/dL Est GFR (CKD-EPI)AfAm 78 (>60 ml/min/1.73 sqM) Est GFR (CKD-EPI)NonAf 67 (>60 ml/min/1.73 sqM) Glucose 105 H (74-99) mg/dL Plasma Lactic Acid Adán (0.7-2.0) mmol/L Calcium 8.7 (8.4-10.2) mg/dL Magnesium 1.7 (1.6-2.3) mg/dL Total Bilirubin 0.8 (0.2-1.3) mg/dL AST 25 (14-36) U/L ALT 18 (4-34) U/L Alkaline Phosphatase 151 H (38-126) U/L Troponin I (0.000-0.034) ng/mL NT-Pro-B Natriuret Pep 2180 pg/mL Total Protein 7.8 (6.3-8.2) g/dL Albumin 3.8 (3.5-5.0) g/dL Influenza Type A (PCR) (Not Detectd) Influenza Type B (PCR) (Not Detectd) RSV (PCR) (Not Detectd) SARS-CoV-2 (PCR) (Not Detectd) 06/14/23 06/14/23 06/14/23 Range/Units 12:26 12:26 12:26 WBC (3.8-10.6) k/uL RBC (3.80-5.40) m/uL Hgb (11.4-16.0) gm/dL Hct (34.0-46.0) % MCV (80.0-100.0) fL MCH (25.0-35.0) pg MCHC (31.0-37.0) g/dL RDW (11.5-15.5) % Plt Count (150-450) k/uL MPV Neutrophils % % Lymphocytes % % Monocytes % % Eosinophils % % Basophils % % Neutrophils # (1.3-7.7) k/uL Lymphocytes # (1.0-4.8) k/uL Monocytes # (0-1.0) k/uL Eosinophils # (0-0.7) k/uL Basophils # (0-0.2) k/uL PT (9.0-12.0) sec INR (<1.2) APTT (22.0-30.0) sec D-Dimer (<0.60) mg/L FEU Sodium (137-145) mmol/L Potassium (3.5-5.1) mmol/L Chloride (98-107) mmol/L Carbon Dioxide (22-30) mmol/L Anion Gap mmol/L BUN (7-17) mg/dL Creatinine (0.52-1.04) mg/dL Est GFR (CKD-EPI)AfAm (>60 ml/min/1.73 sqM) Est GFR (CKD-EPI)NonAf (>60 ml/min/1.73 sqM) Glucose (74-99) mg/dL Plasma Lactic Acid Adán 1.4 (0.7-2.0) mmol/L Calcium (8.4-10.2) mg/dL Magnesium (1.6-2.3) mg/dL Total Bilirubin (0.2-1.3) mg/dL AST (14-36) U/L ALT (4-34) U/L Alkaline Phosphatase (38-126) U/L Troponin I <0.012 (0.000-0.034) ng/mL NT-Pro-B Natriuret Pep pg/mL Total Protein (6.3-8.2) g/dL Albumin (3.5-5.0) g/dL Influenza Type A (PCR) Not Detected (Not Detectd) Influenza Type B (PCR) Not Detected (Not Detectd) RSV (PCR) Not Detected (Not Detectd) SARS-CoV-2 (PCR) Not Detected (Not Detectd) Disposition Clinical Impression: Congestive heart failure Disposition: ADMITTED IP TO THIS HOSP Is patient prescribed a controlled substance at d/c from ED?: No Referrals: Yobany Chaudhry MD [Primary Care Provider] - 1-2 days Time of Disposition: 15:27
[2023-06-14 12:40] LABS: Basophils % (A) 0 %; Eosinophils # (A) 0.2 k/uL (0-0.7); Eosinophils % (A) 1 %; HCT 34.3 % (34.0-46.0); HGB 11.3 gm/dL (11.4-16.0); Lymphocytes # (A) 0.7 k/uL (1.0-4.8); Lymphocytes % (A) 5 %; MCH 32.5 pg (25.0-35.0); MCHC 32.9 g/dL (31.0-37.0); MCV 98.9 fL (80.0-100.0); Monocytes # (A) 0.8 k/uL (0-1.0); Monocytes % (A) 5 %; Neutrophils # (A) 13.6 k/uL (1.3-7.7); Neutrophils % (A) 87 %; Platelet Count 387 k/uL (150-450); RBC 3.47 m/uL (3.80-5.40); RDW 14.2 % (11.5-15.5); WBC 15.6 k/uL (3.8-10.6)
--- NOTE | 2023-06-14 12:46 | XR ---
EXAMINATION TYPE: XR chest 2V DATE OF EXAM: 06/14/2023 12:38 PM COMPARISON: Chest radiographs from 09/21/2021 TECHNIQUE: XR chest 2V Frontal and lateral views of the chest. CLINICAL INDICATION:Female, 82 years old with history of difficulty breathing; FINDINGS: Lungs/Pleura: No pleural effusion or pneumothorax. Similar coarse interstitial nodular infiltrates th roughout both lungs. Pulmonary vascularity: Unremarkable. Heart/mediastinum: Cardiomediastinal silhouette is prominent in size. Atherosclerotic calcifications are seen in the aorta. Musculoskeletal: No acute osseous pathology. Degenerative changes of the thoracic spine. Other findings: Cholecystectomy clips in the right upper quadrant. IMPRESSION: Overall similar pulmonary interstitial infiltrates from prior examination 2020 likely representing pu lmonary fibrotic changes.
[2023-06-14 12:47] LABS: ALT 18 U/L (4-34); AST 25 U/L (14-36); African American GFR (CKD) 78 (>60 ml/min/1.73 sqM); Albumin 3.8 g/dL (3.5-5.0); Alkaline Phosphatase 151 U/L (38-126); Anion Gap 11 mmol/L; Blood Urea Nitrogen 14 mg/dL (7-17); Calcium 8.7 mg/dL (8.4-10.2); Carbon Dioxide 27 mmol/L (22-30); Chloride 96 mmol/L (98-107); Glucose 105 mg/dL (74-99); Magnesium 1.7 mg/dL (1.6-2.3); Non-African American GFR(CKD) 67 (>60 ml/min/1.73 sqM); Potassium 3.6 mmol/L (3.5-5.1); Sodium 134 mmol/L (137-145); Total Bilirubin 0.8 mg/dL (0.2-1.3); Total Protein 7.8 g/dL (6.3-8.2)
[2023-06-14 12:54] LABS: Partial Thromboplastin Time 25.1 sec (22.0-30.0); Prothrombin Time 10.5 sec (9.0-12.0)
[2023-06-14 12:56] LABS: NT-Pro-B-Type Natriuretic Pept 2180 pg/mL
[2023-06-14] MEDS ORDERED: IPRATROPIUM-ALBUTEROL 3 ML NEB INHALATION STA (13:38)
--- NOTE | 2023-06-14 14:27 | CT ---
EXAMINATION TYPE: CT angio chest CT DLP: 192.8 mGycm, Automated exposure control for dose reduction was used. DATE OF EXAM: 06/14/2023 2:08 PM COMPARISON: Chest radiograph from same day. CLINICAL INDICATION:Female, 82 years old with history of dyspnea; PE TECHNIQUE/CONTRAST: CTA scan of the thorax is performed with IV Contrast, patient injected with 55 mL of Isovue 370, MIP images are created and reviewed these are created on a separate workstation.. FINDINGS: Pulmonary Artery: There is no evidence for a filling defect within the pulmonary vasculature to sugge st acute pulmonary embolism. The pulmonary artery is at the upper limits of normal measuring 32 mm. Lungs/Pleura: Intralobular septal thickening throughout the lungs. Trace bilateral pleural effusions. No focal consolidation. No evidence of focal consolidation, pleural effusion or pneumothorax. Airway: Large airways are patent. Heart: The heart is mildly enlarged for size. Vasculature: No evidence of aortic aneurysm. Mediastinum: No gross evidence of adenopathy. Musculoskeletal: No acute osseous abnormalities Soft Tissues: Unremarkable. Lower neck: No significant findings. Upper Abdomen: No significant findings. IMPRESSION: 1. No evidence of pulmonary embolism. 2. Cardiomegaly with pulmonary vascular congestion and trace bilateral pleural effusions correlate fo r congestive heart failure.
[2023-06-14 15:31] LABS: Appearance,Urine Cloudy (Clear); Bacteria,Urine Moderate /hpf; Bilirubin,Urine Negative (Negative); Blood,Urine Trace (Negative); Color,Urine Yellow; Glucose,Urine (UA) Negative (Negative); Ketones,Urine Negative (Negative); Leukocyte Esterase,Urine Moderate (Negative); Mucus,Urine Occasional /hpf; Nitrite,Urine Negative (Negative); Protein,Urine 1+ (Negative); RBC,Urine 3 /hpf (0-5); Specific Gravity,Urine 1.039 (1.001-1.035); Squamous Epithelial Cell,Urine 19 /hpf (0-4); Urobilinogen,Urine <2.0 mg/dL (<2.0); WBC,Urine 22 /hpf (0-5)
[2023-06-14] MEDS: FUROSEMIDE 10 MG/ML 4 ML VIAL IV SCH (16:06)
[2023-06-14] MEDS: NITROGLYCERIN OINT 1 INCH/GM PACKET TOPICAL SCH ×2 (18:36→23:58)
[2023-06-14] MEDS: FLECAINIDE 50 MG TAB PO SCH (21:48)
[2023-06-14] MEDS ORDERED: diphenhydrAMINE 25 MG CAP PO PRN (22:48)
[2023-06-14] MEDS: HEPARIN SODIUM,PORCINE 5,000 UNIT/ML 1 ML VIAL SQ SCH (23:59)
[2023-06-15] MEDS ORDERED: POTASSIUM CHLORIDE ER 20 MEQ TAB.ER PO STA (00:25)
[2023-06-15] MEDS ORDERED: Potassium Replacement Protocol 1 EACH MISC MISCELLANE PRN (00:26)
--- NOTE | 2023-06-15 00:35 | P.HPIM ---
History of Present Illness H&P Date: 06/14/23 Chief Complaint: Shortness of breath and generalized weakness/fatigue Patient is a 82-year-old female with known history of hyperlipidemia, history of [place], coronary artery disease history of stent placement, rheumatoid arthritis, pulmonary hypertension and anxiety presents to ER with complaints of flulike symptoms and difficulty breathing and not feeling well. She has been having shortness of breath for the past 1 week. Does have a cough and congestion with clear to whitish sputum production. Increased leg swelling. She was started on antibiotics for urinary tract infection in the home in the form of nitrofurantoin. Patient also vomited couple of times at home. Patient is also complaining of generalized weakness and myalgias. Chest x-ray showed overall similar pulmonary interstitial infiltrates from prior examination in 2020 likely representing pulmonary fibrotic changes. CTA chest showed cardiomegaly with pulmonary vascular congestion and trace bilateral pleural effusions correlate for CHF. EKG showed sinus rhythm with possible left atrial enlargement. Laboratory data showed WBC 15.6 hemoglobin 11.3 and platelets 387. D-dimer level 0.93 Sodium 134 potassium 3.6, chloride 96 bicarb is 27 BUN 14 and creatinine 0.8 and blood sugar 105 Magnesium 1.7, alk phos 151 and troponin less than 0.012 and proBNP 2180 Urinalysis showed cloudy with 1+ protein trace blood nitrite negative and moderate leukocyte esterase with elevated WBCs. Influenza A, B, RSV and COVID-19 PCR not detected. Echocardiogram on 12/31/2020 showed borderline concentric left ventricular hypertrophy and ejection fraction 53%. LA is mildly dilated. Moderate MR and moderate tricuspid regurgitation. Right ventricular systolic pressure is normal at less than 35 mmHg. Review of Systems Constitutional: Patient denies any fever or chills. Patient does have generalized weakness. Abdomen: Patient did have nausea and episode of vomiting at home. No abdominal pain or diarrhea. Cardiovascular: Patient denies any chest pain. Patient does have short of breat h no palpitations. Respiratory: patient does have cough and congestion shortness of breath. No sp utum production. Neurologic: Patient denied any numbness or tingling headache. Complete review of systems could not be obtained from the patient. Patient is somewhat poor historian. Past Medical History Past Medical History: Eye Disorder, GERD/Reflux, Hyperlipidemia, Myocardial Infarction ([place]), Renal Disease, Rheumatoid Arthritis (RA) Additional Past Medical History / Comment(s): Diverticulosis,"PULMONARY HYPERTENSION"- SEE DR GARCIA'S HISTORY AND PHYSICAL FOR CARDIAC HISTORY, FREQUENT URINARY INFECTIONS Last Myocardial Infarction Date:: 09/2015 History of Any Multi-Drug Resistant Organisms: None Reported Past Surgical History: Cholecystectomy, Heart Catheterization With Stent, Hysterectomy, Orthopedic Surgery Additional Past Surgical History / Comment(s): KNEE ARTHROSCOPIC Past Anesthesia/Blood Transfusion Reactions: No Reported Reaction Date of Last Stent Placement:: 09/2015 Past Psychological History: Anxiety Smoking Status: Never smoker Past Alcohol Use History: None Reported Past Drug Use History: None Reported - Past Family History Mother Family Medical History: Hypertension Additional Family Medical History / Comment(s): heart attack Father Family Medical History: Cancer Medications and Allergies Home Medications Medication Instructions Recorded Confirmed Type Omeprazole [PriLOSEC] 20 mg PO AC-BRKFST 04/15/14 06/14/23 History allopurinoL [Zyloprim] 100 mg PO DAILY 03/14/19 06/14/23 History Atorvastatin [Lipitor] 80 mg PO DAILY 12/30/20 06/14/23 History Metoprolol Tartrate [Lopressor] 50 mg PO DAILY 06/26/21 06/14/23 History Flecainide [Tambocor] 50 mg PO BID 09/21/21 06/14/23 History Nitrofurantoin Monohyd/M-Cryst 100 mg PO Q12H 09/21/21 06/14/23 History [Macrobid] PARoxetine HCL [Paxil Cr] 37.5 mg PO DAILY 09/21/21 06/14/23 History Ergocalciferol [Vitamin D2 (1250 1,250 mcg PO Q30D 06/14/23 06/14/23 History Mcg = 10533 Iu)] Fluconazole [Diflucan] 200 mg PO DIRECTED 06/14/23 06/14/23 History Allergies Allergy/AdvReac Type Severity Reaction Status Date / Time hydrocodone bitartrate Allergy Itching Verified 06/14/23 16:03 [From Vicodin] sulfamethoxazole Allergy Rash/Hives Verified 06/14/23 16:03 [From Bactrim] trimethoprim [From Bactrim] Allergy Rash/Hives Verified 06/14/23 16:03 NSAIDS (Non-Steroidal AdvReac Unknown Verified 06/14/23 16:03 Anti-Inflamma Physical Exam Vitals: Vital Signs Temp Pulse Resp BP Pulse Ox 06/14/23 20:14 87 18 111/65 95 06/14/23 16:00 84 18 119/65 92 L 06/14/23 14:18 90 06/14/23 14:10 82 06/14/23 11:55 99.4 F 68 18 138/70 92 L Intake and Output 06/14/23 06/14/23 06/14/23 06:59 14:59 22:59 Other: Weight 68.039 kg PHYSICAL EXAMINATION: Patient is lying in the bed comfortably, no acute distress, awake alert and oriented x2-3... HEENT: Normocephalic. Neck is supple. Pupils reactive. Nostrils clear. Oral ca vity is moist. Neck reveals no JVD, carotid bruits, or thyromegaly. CHEST EXAMINATION: Trachea is central. Symmetrical expansion. Bibasilar diminished sounds. No wheezing or rhonchi. Nonlabored breathing.. CARDIAC: Normal S1, S2 with no gallops. No murmurs ABDOMEN: Soft. Bowel sounds present. Nontender. No organomegaly. No abdominal bruits. Extremities: Bilateral trace edema. No clubbing or cyanosis Neurologically awake, alert, oriented x23 with well-coordinated movements. No gross focal deficits noted Skin: No rash or skin lesions. Psychiatric: Coperative. Could not be assessed completely. Musculoskeletal: No joint swelling or deformity. Normal range of motion. Results CBC & Chem 7: 06/14/23 12:26 06/14/23 12:26 Labs: Abnormal Lab Results - Last 24 Hours (Table) 06/14/23 06/14/23 06/14/23 Range/Units 12:26 12:26 12:26 WBC 15.6 H (3.8-10.6) k/uL RBC 3.47 L (3.80-5.40) m/uL Hgb 11.3 L (11.4-16.0) gm/dL Neutrophils # 13.6 H (1.3-7.7) k/uL Lymphocytes # 0.7 L (1.0-4.8) k/uL D-Dimer 0.93 H (<0.60) mg/L FEU Sodium (137-145) mmol/L Chloride (98-107) mmol/L Glucose (74-99) mg/dL Alkaline Phosphatase (38-126) U/L Urine Appearance Cloudy H (Clear) Ur Specific [place] 1.039 H (1.001-1.035) Urine Protein 1+ H (Negative) Urine Blood Trace H (Negative) Ur Leukocyte Esterase Moderate H (Negative) Urine WBC 22 H (0-5) /hpf Ur Squamous Epith Cells 19 H (0-4) /hpf Urine Bacteria Moderate H (None) /hpf Urine Mucus Occasional H (None) /hpf 06/14/23 Range/Units 12:26 WBC (3.8-10.6) k/uL RBC (3.80-5.40) m/uL Hgb (11.4-16.0) gm/dL Neutrophils # (1.3-7.7) k/uL Lymphocytes # (1.0-4.8) k/uL D-Dimer (<0.60) mg/L FEU Sodium 134 L (137-145) mmol/L Chloride 96 L (98-107) mmol/L Glucose 105 H (74-99) mg/dL Alkaline Phosphatase 151 H (38-126) U/L Urine Appearance (Clear) Ur Specific [place] (1.001-1.035) Urine Protein (Negative) Urine Blood (Negative) Ur Leukocyte Esterase (Negative) Urine WBC (0-5) /hpf Ur Squamous Epith Cells (0-4) /hpf Urine Bacteria (None) /hpf Urine Mucus (None) /hpf Thrombosis Risk Factor Assmnt - DVT/VTE Prophylaxis DVT/VTE Prophylaxis: Pharmacologic Prophylaxis ordered Assessment and Plan Assessment: Shortness of breath secondary to acute CHF exacerbation. CTA showed trace pleural effusions and pulmonary vascular congestion. Generalized weakness and fatigue Acute urinary tract infection. Recently diagnosed and is on antibiotics, nitrofurantoin at home. Elevated D-dimer level. 0.93. No evidence of PE as per CTA. Coronary artery disease with history of of stent placement Jacinta Hyperlipidemia Rheumatoid arthritis Anxiety DVT prophylaxis with heparin subcu GI prophylaxis on PPI Plan: Patient will be continued on telemetry monitoring. Continue with IV Lasix 40 mg twice daily and will be continued on home medications including metoprolol and flecainide. Cardiology was consulted for evaluation. Patient will be continued on ceftriaxone and follow-up urine culture report. Replace magnesium and potassium. Symptomatic management for nausea and continue with PPI and DVT prophylaxis. Continue to follow closely. Monitor renal function. Time with Patient: Greater than 30
[2023-06-15] MEDS: MAGNESIUM SULFATE-D5W PMX 1 GM in DEXTROSE/WATER 1 100ML.BAG IVPB SCH ×2 (02:15→05:48)
[2023-06-15] MEDS: FUROSEMIDE 10 MG/ML 4 ML VIAL IV SCH ×2 (03:59→14:57)
[2023-06-15] MEDS: NITROGLYCERIN OINT 1 INCH/GM PACKET TOPICAL SCH (06:21)
[2023-06-15] MEDS: PANTOPRAZOLE 40 MG TABLET PO SCH (06:44)
[2023-06-15 08:11] LABS: Basophils % (A) 0 %; Eosinophils # (A) 0.7 k/uL (0-0.7); Eosinophils % (A) 5 %; HGB 10.5 gm/dL (11.4-16.0); Lymphocytes # (A) 1.6 k/uL (1.0-4.8); Lymphocytes % (A) 12 %; MCH 32.1 pg (25.0-35.0); MCHC 32.9 g/dL (31.0-37.0); MCV 97.8 fL (80.0-100.0); Mean Platelet Volume 7.7; Monocytes # (A) 0.8 k/uL (0-1.0); Monocytes % (A) 6 %; Neutrophils # (A) 9.9 k/uL (1.3-7.7); Neutrophils % (A) 75 %; Platelet Count 363 k/uL (150-450); RBC 3.27 m/uL (3.80-5.40); RDW 14.2 % (11.5-15.5); WBC 13.2 k/uL (3.8-10.6)
[2023-06-15 08:27] LABS: African American GFR (CKD) 72 (>60 ml/min/1.73 sqM); Blood Urea Nitrogen 13 mg/dL (7-17); Calcium 8.5 mg/dL (8.4-10.2); Carbon Dioxide 28 mmol/L (22-30); Glucose 109 mg/dL (74-99); Non-African American GFR(CKD) 62 (>60 ml/min/1.73 sqM)
[2023-06-15] MEDS: HEPARIN SODIUM,PORCINE 5,000 UNIT/ML 1 ML VIAL SQ SCH ×2 (08:32→16:00)
[2023-06-15] MEDS: METOPROLOL TARTRATE 50 MG TAB PO SCH (08:33)
[2023-06-15] MEDS: PARoxetine 10 MG TAB PO SCH (08:33)
[2023-06-15] MEDS: ATORVASTATIN 80 MG TAB PO SCH (08:33)
[2023-06-15] MEDS: FLECAINIDE 50 MG TAB PO SCH (08:33)
[2023-06-15] MEDS: allopurinoL 100 MG TAB PO SCH (08:33)
[2023-06-15 08:50] LABS: Anion Gap 8 mmol/L; Chloride 94 mmol/L (98-107); Sodium 130 mmol/L (137-145)
[2023-06-15 08:56] LABS: Potassium 4.3 mmol/L (3.5-5.1)
--- NOTE | 2023-06-15 11:46 | P.CRDCN ---
History of Present Illness History of present illness: HISTORY OF PRESENT ILLNESS: This is a 82-year-old female with a past medical history significant for coronary artery disease, atrial fibrillation, hypertension, and hyperlipidemia. Patient follows in the office with Dr. Royal. We have been asked to see the patient in consultation for congestive heart failure. Patient examined at the bedside. Patient presents to the hospital with a chief complaint of chest pain or pressure. She reports she has been coughing a lot at home. She has been started on IV antibiotics. Vital signs are stable. * EKG reveals sinus mechanism with no signs of acute ischemia * Chest xray overall similiar pulmonary interstitial infiltrates from prior examination 2020 likely representing pulmonary fibrotic changes * Laboratory data: WBC 13.2. Hemoglobin 10.5. Platelet count 363. Sodium 130. Potassium 4.3. Magnesium 1.7. Troponin negative 1. ProBNP 2180. * Current home cardiac medications include Lipitor 80mg daily, Flecainide 50mg BID, metoprolol tartrate 50 mg daily * Most recent echocardiogram obtained in December 2020 revealed ejection fraction 50-55%, mild aortic regurgitation, moderate MR, moderate TR * Cardiac catheterization history: February 2019 revealing mild triple vessel coronary artery disease with no evidence of restenosis in the stented segment of the left anterior descending artery. REVIEW OF SYSTEMS: At the time of my exam: CONSTITUTIONAL: Denies fever or chills. HEENT: Denies blurred vision, vision changes, or eye pain. Denies hemoptysis CARDIOVASCULAR: Denies chest pain. Denies orthopnea. Denies PND. Denies palpitations RESPIRATORY: Denies shortness of breath. GASTROINTESTINAL: Denies abdominal pain. Denies nausea or vomiting. HEMATOLOGIC: Denies bleeding disorders. GENITOURINARY: Denies any blood in urine. SKIN: Denies pruitis. Denies rash. PHYSICAL EXAM: VITAL SIGNS: Reviewed. GENERAL: Well-developed in no acute distress. HEENT: Head is normocephalic. Pupils are equal, round. Sclerae anicteric. Mucous membranes of the mouth are moist. Neck supple. No JVD or thyromegaly LUNGS: Respirations even and unlabored. Lungs with expiratory wheezing noted HEART: Regular rate and rhythm. S1 and S2 heard. ABDOMEN: Soft. Nondistended. Nontender. EXTREMITIES: Normal range of motion. No clubbing or cyanosis. Peripheral pulses intact. No lower extremity edema NEUROLOGIC: Awake and alert. Oriented x 3. ASSESSMENT: Shortness of breath Possible pneumonia Acute heart failure with preserved EF Mild nonobstructive coronary artery disease Paroxysmal atrial fibrillation, not on anticoagulation due to bleeding Hypertension Hyperlipidemia Valvular heart disease PLAN: Obtain 2D echo to assess cardiac structure and function Resume home cardiac medications Continue IV lasix 40mg IV Q12 hours Daily weights, accurate I&O, and monitoring of kidney function Check procalcitonin Further recommendations pending patient's course Nurse practitioner note has been reviewed by physician. Signing provider agrees with the documented findings, assessment, and plan of care. Past Medical History Past Medical History: Eye Disorder, GERD/Reflux, Hyperlipidemia, Myocardial Infarction ([place]), Renal Disease, Rheumatoid Arthritis (RA) Additional Past Medical History / Comment(s): Diverticulosis,"PULMONARY HYPERTENSION"- SEE DR GARCIA'S HISTORY AND PHYSICAL FOR CARDIAC HISTORY, FREQUENT URINARY INFECTIONS Last Myocardial Infarction Date:: 09/2015 History of Any Multi-Drug Resistant Organisms: None Reported Past Surgical History: Cholecystectomy, Heart Catheterization With Stent, Hysterectomy, Orthopedic Surgery Additional Past Surgical History / Comment(s): KNEE ARTHROSCOPIC Past Anesthesia/Blood Transfusion Reactions: No Reported Reaction Date of Last Stent Placement:: 09/2015 Past Psychological History: Anxiety Smoking Status: Never smoker Past Alcohol Use History: None Reported Past Drug Use History: None Reported - Past Family History Mother Family Medical History: Hypertension Additional Family Medical History / Comment(s): heart attack Father Family Medical History: Cancer Medications and Allergies Home Medications Medication Instructions Recorded Confirmed Type Omeprazole [PriLOSEC] 20 mg PO AC-BRKFST 04/15/14 06/14/23 History allopurinoL [Zyloprim] 100 mg PO DAILY 03/14/19 06/14/23 History Atorvastatin [Lipitor] 80 mg PO DAILY 12/30/20 06/14/23 History Metoprolol Tartrate [Lopressor] 50 mg PO DAILY 06/26/21 06/14/23 History Flecainide [Tambocor] 50 mg PO BID 09/21/21 06/14/23 History Nitrofurantoin Monohyd/M-Cryst 100 mg PO Q12H 09/21/21 06/14/23 History [Macrobid] PARoxetine HCL [Paxil Cr] 37.5 mg PO DAILY 09/21/21 06/14/23 History Ergocalciferol [Vitamin D2 (1250 1,250 mcg PO Q30D 06/14/23 06/14/23 History Mcg = 97230 Iu)] Fluconazole [Diflucan] 200 mg PO DIRECTED 06/14/23 06/14/23 History Allergies Allergy/AdvReac Type Severity Reaction Status Date / Time hydrocodone bitartrate Allergy Itching Verified 06/14/23 16:03 [From Vicodin] sulfamethoxazole Allergy Rash/Hives Verified 06/14/23 16:03 [From Bactrim] trimethoprim [From Bactrim] Allergy Rash/Hives Verified 06/14/23 16:03 NSAIDS (Non-Steroidal AdvReac Unknown Verified 06/14/23 16:03 Anti-Inflamma Physical Exam Vitals: Vital Signs Temp Pulse Pulse Resp BP BP Pulse Ox 06/15/23 11:14 54 L 17 111/58 91 L 06/15/23 08:31 97.5 F L 82 17 109/80 91 L 06/15/23 03:57 20 142/72 06/15/23 00:03 81 18 148/75 93 L 06/14/23 21:00 83 18 135/70 90 L 06/14/23 20:14 87 18 111/65 95 06/14/23 16:00 84 18 119/65 92 L 06/14/23 14:18 90 06/14/23 14:10 82 06/14/23 11:55 99.4 F 68 18 138/70 92 L Intake and Output 06/14/23 06/15/23 06/15/23 22:59 06:59 14:59 Other: Voiding Method External Catheter Results 06/15/23 07:49 06/15/23 07:49 Cardiac Enzymes 06/14/23 06/14/23 Range/Units 12:26 12:26 AST 25 (14-36) U/L Troponin I <0.012 (0.000-0.034) ng/mL Coagulation 06/14/23 Range/Units 12:26 PT 10.5 (9.0-12.0) sec APTT 25.1 (22.0-30.0) sec CBC 06/14/23 06/15/23 Range/Units 12:26 07:49 WBC 15.6 H 13.2 H (3.8-10.6) k/uL RBC 3.47 L 3.27 L (3.80-5.40) m/uL Hgb 11.3 L 10.5 L (11.4-16.0) gm/dL Hct 34.3 32.0 L (34.0-46.0) % Plt Count 387 363 (150-450) k/uL Comprehensive Metabolic Panel 06/14/23 06/15/23 Range/Units 12:26 07:49 Sodium 134 L 130 L (137-145) mmol/L Potassium 3.6 4.3 (3.5-5.1) mmol/L Chloride 96 L 94 L (98-107) mmol/L Carbon Dioxide 27 28 (22-30) mmol/L BUN 14 13 (7-17) mg/dL Creatinine 0.82 0.88 (0.52-1.04) mg/dL Glucose 105 H 109 H (74-99) mg/dL Calcium 8.7 8.5 (8.4-10.2) mg/dL AST 25 (14-36) U/L ALT 18 (4-34) U/L Alkaline Phosphatase 151 H (38-126) U/L Total Protein 7.8 (6.3-8.2) g/dL Albumin 3.8 (3.5-5.0) g/dL Current Medications Generic Name Dose Route Start Last Admin Trade Name Freq PRN Reason Stop Dose Admin Allopurinol 100 mg 06/15/23 09:00 06/15/23 08:33 Allopurinol 100 Mg Tab PO 100 mg DAILY KATHARINA Administration Atorvastatin Calcium 80 mg 06/15/23 09:00 06/15/23 08:33 Atorvastatin 80 Mg Tab PO 80 mg DAILY KATHARINA Administration Diphenhydramine HCl 25 mg 06/14/23 22:48 06/14/23 23:07 Diphenhydramine 25 Mg Cap PO 25 mg HS PRN Administration Insomnia Furosemide 40 mg 06/14/23 15:30 06/15/23 03:59 Furosemide 10 Mg/Ml 4 Ml Vial IV 40 mg Q12H KATHARINA Administration Heparin Sodium (Porcine) 5,000 unit 06/15/23 00:00 06/15/23 08:32 Heparin Sodium,Porcine 5,000 Unit/Ml 1 Ml Vial SQ 5,000 unit Q8HR KATHARINA Administration Ceftriaxone Sodium 1 gm/ 50 mls @ 100 mls/hr 06/14/23 21:00 06/15/23 08:33 Sodium Chloride IVPB 100 mls/hr Q24HR KATHARINA Administration Protocol Metoprolol Tartrate 50 mg 06/15/23 09:00 06/15/23 08:33 Metoprolol Tartrate 50 Mg Tab PO 50 mg DAILY KATHARINA Administration Miscellaneous Information 1 each 06/15/23 00:26 Potassium Replacement Protocol 1 Each Misc MISCELLANE DAILY PRN Per Protocol Protocol Pantoprazole Sodium 40 mg 06/15/23 07:30 06/15/23 06:44 Pantoprazole 40 Mg Tablet PO Not Given AC-BRKFST KATHARINA Paroxetine HCl 30 mg 06/15/23 09:00 06/15/23 08:33 Paroxetine 10 Mg Tab PO 30 mg DAILY KATHARINA Administration Intake and Output 06/14/23 06/15/23 06/15/23 22:59 06:59 14:59 Other: Voiding Method External Catheter 06/15/23 07:49 06/15/23 07:49
--- NOTE | 2023-06-15 17:48 | P.PN ---
Progress Note - Text Progress Note Date: 06/15/23 Hospital course Patient is a 82-year-old female with known history of hyperlipidemia, history of [place], coronary artery disease history of stent placement, rheumatoid arthritis, pulmonary hypertension and anxiety presents to ER with complaints of flulike symptoms and difficulty breathing and not feeling well. She has been having shortness of breath for the past 1 week. Does have a cough and congestion with clear to whitish sputum production. Increased leg swelling. She was started on antibiotics for urinary tract infection in the home in the form of nitrofurantoin. Patient also vomited couple of times at home. Patient is also complaining of generalized weakness and myalgias. Chest x-ray showed overall similar pulmonary interstitial infiltrates from prior examination in 2020 likely representing pulmonary fibrotic changes. CTA chest showed cardiomegaly with pulmonary vascular congestion and trace bilateral pleural effusions correlate for CHF. EKG showed sinus rhythm with possible left atrial enlargement. Laboratory data showed WBC 15.6 hemoglobin 11.3 and platelets 387. D-dimer level 0.93 Sodium 134 potassium 3.6, chloride 96 bicarb is 27 BUN 14 and creatinine 0.8 and blood sugar 105 Magnesium 1.7, alk phos 151 and troponin less than 0.012 and proBNP 2180 Urinalysis showed cloudy with 1+ protein trace blood nitrite negative and moderate leukocyte esterase with elevated WBCs. Influenza A, B, RSV and COVID-19 PCR not detected. Echocardiogram on 12/31/2020 showed borderline concentric left ventricular hypertrophy and ejection fraction 53%. LA is mildly dilated. Moderate MR and moderate tricuspid regurgitation. Right ventricular systolic pressure is normal at less than 35 mmHg. 06/15/2023: I assumed care of the patient today. Congested cough. Some shortness of breath. Feeling a bit better since presentation. Decreased edema. Did tolerate some diet. On IV Lasix and IV ceftriaxone. Past medical history to include: GERD, hyperlipidemia, MO, rheumatoid arthritis, colonic diverticulosis, secondary pulmonary hypertension, coronary artery disease with stent, anxiety Social history: Does not smoke or drink alcohol. Lives alone. Physical examination: VITAL SIGNS: 7.5, 56, 18, 1 26 x 63, 91% room air GENERAL: Laying in bed, tired EYES: Pupils equal. Conjunctiva normal. HEENT: External appearance of nose and ears normal, oral cavity grossly normal. NECK: JVD not raised; masses not palpable. HEART: Heart sounds irregular; no edema. LUNGS: Respiratory rate increased, creased breath sound some coarse breath sounds ABDOMEN: Soft, nontender, liver spleen not palpable, no masses palpable. PSYCH: [Alert and oriented x3; mood and affect normal INVESTIGATIONS, reviewed in the clinical context: June 15: White count 13.2 hemoglobin 10.5 sodium 1:30 potassium 4.3 creatinine 0.8 date UA positive for leukoesterase, WBC Influenza type A, B, RSV, COVID-19: Not detected Chest CTA: No evidence of pulmonary embolism. Cardiomegaly with pulmonary congestion. Trace pleural effusion. Assessment and plan: -Acute congestive heart failure exacerbation from diastolic dysfunction EF 55% IV Lasix 40 mg every 12 -Paroxysmal atrial fibrillation, currently in sinus rhythm Lopressor 50 mg daily. -Acute UTI with cystitis. Diagnosed outpatient. Was on nitrofurantoin at home. IV ceftriaxone -Acute tracheal bronchitis IV ceftriaxone -GERD Protonix -Hyponatremia, from patient being on Lasix and decreased oral intake Encourage oral intake -Hyperlipidemia on Lipitor -Chronic rheumatoid arthritis -Colonic diverticulosis, asymptomatic -Secondary pulmonary hypertension follow clinically -Coronary artery disease with stent with PTCA to LAD , Lopressor Lipitor . -Moderate mitral and tricuspid regurgitation. Follow clinically Discussed with patient. Check pro calcitonin. Continue with IV Lasix and ceftriaxone.
[2023-06-15] MEDS ORDERED: NITROGLYCERIN OINT 1 INCH/GM PACKET TOPICAL SCH (18:00)
[2023-06-15] MEDS: ALBUTEROL NEBULIZED 2.5 MG/3 ML INHALATION SCH ×2 (18:25→20:17)
[2023-06-15] MEDS ORDERED: ENOXAPARIN 40 MG/0.4 ML SYRINGE SQ SCH (21:00)
[2023-06-16] MEDS: FUROSEMIDE 10 MG/ML 4 ML VIAL IV SCH ×2 (04:13→16:10)
[2023-06-16] MEDS: PANTOPRAZOLE 40 MG TABLET PO SCH (06:37)
[2023-06-16] MEDS: ALBUTEROL NEBULIZED 2.5 MG/3 ML INHALATION SCH ×3 (09:19→20:21)
[2023-06-16] MEDS: METOPROLOL TARTRATE 50 MG TAB PO SCH (09:20)
[2023-06-16] MEDS: ATORVASTATIN 80 MG TAB PO SCH (09:20)
[2023-06-16] MEDS: allopurinoL 100 MG TAB PO SCH (09:20)
[2023-06-16] MEDS: PARoxetine 10 MG TAB PO SCH (09:20)
[2023-06-16 09:59] LABS: African American GFR (CKD) 45 (>60 ml/min/1.73 sqM); Anion Gap 14 mmol/L; Blood Urea Nitrogen 16 mg/dL (7-17); Calcium 8.8 mg/dL (8.4-10.2); Carbon Dioxide 25 mmol/L (22-30); Chloride 94 mmol/L (98-107); Glucose 127 mg/dL (74-99); Non-African American GFR(CKD) 39 (>60 ml/min/1.73 sqM); Potassium 3.8 mmol/L (3.5-5.1); Sodium 133 mmol/L (137-145)
--- NOTE | 2023-06-16 12:32 | CA ---
Transthoracic Echo Report Name: Angelika Cummings Age: 82 Gender: F : 1940 Exam Date: 06/16/2023 08:24 Exam Location: [facility] Ht (in): 60 Wt (lb): 150 Ordering Physician: Charlotte Christina Attending/Referring Phys: [id number], [facility] [employer] Ronn Mcnamara Procedure CPT: Indications: LV function, CHF Cardiac Hx: Technical Quality: Fair Contrast 1: Total Dose (mL): Contrast 2: Total Dose (mL): MEASUREMENTS (Male / Female) Normal Values 2D ECHO LV Diastolic Diameter PLAX 2.9 cm 4.2 - 5.9 / 3.9 - 5.3 cm LV Systolic Diameter PLAX 1.9 cm IVS Diastolic Thickness 1.0 cm 0.6 - 1.0 / 0.6 - 0.9 cm LVPW Diastolic Thickness 0.9 cm 0.6 - 1.0 / 0.6 - 0.9 cm LV Relative Wall Thickness 0.6 RV Internal Dim ED PLAX 2.6 cm LVOT Diameter 1.9 cm Aortic Root Diameter 3.0 cm LA Systolic Diameter LX 3.3 cm 3.0 - 4.0 / 2.7 - 3.8 cm LV Diastolic Volume MOD BP 43.6 cm??? 67 - 155 / 56 - 104 cm??? LV Systolic Volume MOD BP 19.6 cm??? 22 - 58 / 19 - 49 cm??? LV Ejection Fraction MOD BP 55.0 % >= 55 % LV Cardiac Index MOD BP 946.5 cm???/min???m??? LV Diastolic Volume MOD 4C 48.6 cm??? LV Systolic Volume MOD 4C 22.2 cm??? LV Ejection Fraction MOD 4C 54.2 % LV Cardiac Index MOD 4C 1041.0 cm???/min???m??? LV Diastolic Length 4C 6.8 cm LV Systolic Length 4C 5.6 cm LV Diastolic Volume MOD 2C 35.9 cm??? LV Systolic Volume MOD 2C 16.3 cm??? LV Ejection Fraction MOD 2C 54.7 % LV Cardiac Index MOD 2C 776.2 cm???/min???m??? LV Diastolic Length 2C 6.2 cm LV Systolic Length 2C 5.2 cm LA Volume 37.9 cm??? 18 - 58 / 22 - 52 cm??? Ascending Aorta Diameter 3.2 cm DOPPLER AV Peak Velocity 165.2 cm/s AV Peak Gradient 10.9 mmHg AI Peak Velocity 436.9 cm/s AI Peak Gradient 76.3 mmHg AI Pressure Half Time 627.0 ms LVOT Peak Velocity 105.0 cm/s LVOT Peak Gradient 4.4 mmHg AV Area Cont Eq pk 1.8 cm??? MV Peak Velocity 108.5 cm/s MV Peak Gradient 4.7 mmHg MV Mean Velocity 55.6 cm/s MV Mean Gradient 1.5 mmHg MV Velocity Time Integral 40.6 cm MR Peak Velocity 285.8 cm/s MR Peak Gradient 32.7 mmHg Mitral E Point Velocity 67.0 cm/s Mitral A Point Velocity 84.8 cm/s Mitral E to A Ratio 0.8 MV Deceleration Time 393.6 ms MV E' Velocity 3.8 cm/s Mitral E to MV E' Ratio 17.5 TR Peak Velocity 273.1 cm/s TR Peak Gradient 29.8 mmHg Right Ventricular Systolic Press 35.0 mmHg PV Peak Velocity 134.0 cm/s PV Peak Gradient 7.2 mmHg FINDINGS Left Ventricle Normal LV size and wall thickness. Left ventricular ejection fraction is estimated at 50-55 %. Right Ventricle Normal right ventricular size. RVSP=41mmhg. Right Atrium Normal right atrial size. Left Atrium Normal left atrial size. LA volume index= 23ml/m2 Mitral Valve Structurally normal mitral valve. Mild MR. Aortic Valve Mild AV calcification. Moderate AI. Tricuspid Valve Structurally normal tricuspid valve. Pulmonic Valve Pulmonic valve not well visualized. Trace PI. Pericardium Normal pericardium. Aorta Normal size aortic root and proximal ascending aorta. CONCLUSIONS Normal LV size and systolic function and moderate aortic regurgitation Previewed by: Dr. Danilo Mariano MD (Electronically Signed) Final Date: 16 June 2023 12:31
--- NOTE | 2023-06-16 14:51 | P.PN ---
Progress Note - Text Progress Note Date: 06/16/23 Hospital course Patient is a 82-year-old female with known history of hyperlipidemia, history of [place], coronary artery disease history of stent placement, rheumatoid arthritis, pulmonary hypertension and anxiety presents to ER with complaints of flulike symptoms and difficulty breathing and not feeling well. She has been having shortness of breath for the past 1 week. Does have a cough and congestion with clear to whitish sputum production. Increased leg swelling. She was started on antibiotics for urinary tract infection in the home in the form of nitrofurantoin. Patient also vomited couple of times at home. Patient is also complaining of generalized weakness and myalgias. Chest x-ray showed overall similar pulmonary interstitial infiltrates from prior examination in 2020 likely representing pulmonary fibrotic changes. CTA chest showed cardiomegaly with pulmonary vascular congestion and trace bilateral pleural effusions correlate for CHF. EKG showed sinus rhythm with possible left atrial enlargement. Laboratory data showed WBC 15.6 hemoglobin 11.3 and platelets 387. D-dimer level 0.93 Sodium 134 potassium 3.6, chloride 96 bicarb is 27 BUN 14 and creatinine 0.8 and blood sugar 105 Magnesium 1.7, alk phos 151 and troponin less than 0.012 and proBNP 2180 Urinalysis showed cloudy with 1+ protein trace blood nitrite negative and moderate leukocyte esterase with elevated WBCs. Influenza A, B, RSV and COVID-19 PCR not detected. Echocardiogram on 12/31/2020 showed borderline concentric left ventricular hypertrophy and ejection fraction 53%. LA is mildly dilated. Moderate MR and moderate tricuspid regurgitation. Right ventricular systolic pressure is normal at less than 35 mmHg. 06/15/2023: I assumed care of the patient today. Congested cough. Some shortness of breath. Feeling a bit better since presentation. Decreased edema. Did tolerate some diet. On IV Lasix and IV ceftriaxone. 06/16/2023: Congested cough. No expectoration. Breathing better. IV Lasix. Feeling better. Eating better. Past medical history to include: GERD, hyperlipidemia, RI, rheumatoid arthritis, colonic diverticulosis, secondary pulmonary hypertension, coronary artery disease with stent, anxiety Social history: Does not smoke or drink alcohol. Lives alone. Physical examination: VITAL SIGNS: 97.9, 57, 17, 11 3 x 69, 93% on room air GENERAL: Laying in bed, tired EYES: Pupils equal. Conjunctiva normal. HEENT: External appearance of nose and ears normal, oral cavity grossly normal. NECK: JVD not raised; masses not palpable. HEART: Heart sounds irregular; no edema. LUNGS: Respiratory rate increased, decreased breath sound , some right basilar crackles ABDOMEN: Soft, nontender, liver spleen not palpable, no masses palpable. PSYCH: [Alert and oriented x3; mood and affect normal INVESTIGATIONS, reviewed in the clinical context: June 16: Sodium 133 potassium 3.8 creatinine 1.3 2-D echocardiogram: EF 50-55%. Moderate aortic regurgitation. June 15: White count 13.2 hemoglobin 10.5 sodium 1:30 potassium 4.3 creatinine 0.8 date UA positive for leukoesterase, WBC Influenza type A, B, RSV, COVID-19: Not detected Chest CTA: No evidence of pulmonary embolism. Cardiomegaly with pulmonary congestion. Trace pleural effusion. Assessment and plan: -Acute congestive heart failure exacerbation from diastolic dysfunction EF 55%: Some improvement IV Lasix 40 mg every 12 -Paroxysmal atrial fibrillation, currently in sinus rhythm Lopressor 50 mg daily. -Acute UTI with cystitis. Diagnosed outpatient. Was on nitrofurantoin at home. IV ceftriaxone -Acute tracheal bronchitis IV ceftriaxone -GERD Protonix -Hyponatremia, from patient being on Lasix and decreased oral intake Encourage oral intake -Hyperlipidemia on Lipitor -Chronic rheumatoid arthritis -Colonic diverticulosis, asymptomatic -Secondary pulmonary hypertension follow clinically -Coronary artery disease with stent with PTCA to LAD , Lopressor Lipitor . -Moderate mitral and tricuspid regurgitation. Follow clinically Continue current medications. Check labs tomorrow morning. Repeat x-ray.
--- NOTE | 2023-06-16 15:48 | XR ---
EXAMINATION TYPE: XR chest 2V DATE OF EXAM: 06/16/2023 COMPARISON: 06/14/2023 TECHNIQUE: PA and lateral views submitted. HISTORY: Shortness of breath FINDINGS: No pneumothorax. There are tiny bilateral effusions and diffuse pattern.. Mild cardiomegaly. Surgical clips in the upper abdomen. Osseous structures demonstrate hypertrophic and degenerative changes of the spine. IMPRESSION: 1. Correlate for mild CHF or interstitial pneumonitis likely superimposed on a background of chronic interstitial pulmonary fibrosis.
--- NOTE | 2023-06-16 17:20 | P.PN ---
Subjective Progress Note Date: 06/16/23 Subjective and objective: Patient is seen and examined at bedside. She is feeling much better since time of admission. Her shortness of breath is much better. She is difficult to communicate due to hearing impairment. On exam she has crackles in bilateral lung laws. Her echo showed an EF of 50% with RVSP 44 mmHg, moderate aortic insufficiency. Creatinine is 1.3 today. Yesterday was 0.88. ASSESSMENT: Shortness of breath Possible pneumonia Acute heart failure with preserved EF Mild nonobstructive coronary artery disease Paroxysmal atrial fibrillation, not on anticoagulation due to bleeding Hypertension Hyperlipidemia Valvular heart disease PLAN: Oral Lasix due to uptrending creatinine. Recheck creatinine tomorrow Obtain chest x-ray tomorrow to evaluate fluid status She is on metoprolol xl 50 mg daily, atorvastatin. His creatinine stabilizes tomorrow, we'll start lisinopril. Possible discharge after tomorrow with outpatient follow-up with cardiology HISTORY OF PRESENT ILLNESS: This is a 82-year-old female with a past medical history significant for coronary artery disease, atrial fibrillation, hypertension, and hyperlipidemia. Patient follows in the office with Dr. Royal. We have been asked to see the patient in consultation for congestive heart failure. Patient examined at the bedside. Patient presents to the hospital with a chief complaint of chest pain or pressure. She reports she has been coughing a lot at home. She has been started on IV antibiotics. Vital signs are stable. * EKG reveals sinus mechanism with no signs of acute ischemia * Chest xray overall similiar pulmonary interstitial infiltrates from prior examination 2020 likely representing pulmonary fibrotic changes * Laboratory data: WBC 13.2. Hemoglobin 10.5. Platelet count 363. Sodium 130. Potassium 4.3. Magnesium 1.7. Troponin negative 1. ProBNP 2180. * Current home cardiac medications include Lipitor 80mg daily, Flecainide 50mg BID, metoprolol tartrate 50 mg daily * Most recent echocardiogram obtained in December 2020 revealed ejection fraction 50-55%, mild aortic regurgitation, moderate MR, moderate TR * Cardiac catheterization history: February 2019 revealing mild triple vessel coronary artery disease with no evidence of restenosis in the stented segment of the left anterior descending artery. REVIEW OF SYSTEMS: At the time of my exam: CONSTITUTIONAL: Denies fever or chills. HEENT: Denies blurred vision, vision changes, or eye pain. Denies hemoptysis CARDIOVASCULAR: Denies chest pain. Denies orthopnea. Denies PND. Denies palpitations RESPIRATORY: Denies shortness of breath. GASTROINTESTINAL: Denies abdominal pain. Denies nausea or vomiting. HEMATOLOGIC: Denies bleeding disorders. GENITOURINARY: Denies any blood in urine. SKIN: Denies pruitis. Denies rash. PHYSICAL EXAM: VITAL SIGNS: Reviewed. GENERAL: Well-developed in no acute distress. HEENT: Head is normocephalic. Pupils are equal, round. Sclerae anicteric. Mucous membranes of the mouth are moist. Neck supple. No JVD or thyromegaly LUNGS: Respirations even and unlabored. Lungs with expiratory wheezing noted HEART: Regular rate and rhythm. S1 and S2 heard. ABDOMEN: Soft. Nondistended. Nontender. EXTREMITIES: Normal range of motion. No clubbing or cyanosis. Peripheral pulses intact. No lower extremity edema NEUROLOGIC: Awake and alert. Oriented x 3. Objective - Vital Signs Vital signs: Vital Signs Temp 98.3 F 06/16/23 16:09 Pulse 54 L 06/16/23 16:09 Resp 17 06/16/23 16:09 BP 114/65 06/16/23 16:09 Pulse Ox 94 L 06/16/23 16:09 FiO2 21 06/16/23 09:19 Intake & Output 06/15/23 06/16/23 06/16/23 18:59 06:59 18:59 Intake Total 218 Balance 218 Weight 55.7 kg 55.7 kg Intake: Oral 218 Other: Voiding Method External Catheter External Catheter Toilet # Voids 1 1 2 # Bowel Movements 1 1 - Labs CBC & Chem 7: 06/15/23 07:49 06/16/23 08:22 Labs: Abnormal Lab Results - Last 24 Hours (Table) 06/15/23 06/16/23 06/16/23 Range/Units 07:49 08:22 08:22 Sodium 133 L (137-145) mmol/L Chloride 94 L (98-107) mmol/L Creatinine 1.30 H (0.52-1.04) mg/dL Glucose 127 H (74-99) mg/dL Procalcitonin 0.21 H 0.22 H (0.02-0.09) ng/mL Microbiology - Last 24 Hours (Table) 06/14/23 12:26 Urine Culture - Preliminary Urine,Voided Gram Neg Bacilli
[2023-06-16] MEDS ORDERED: ENOXAPARIN 30 MG/0.3 ML SYRINGE SQ SCH (21:00)
[2023-06-17] MEDS: FUROSEMIDE 10 MG/ML 4 ML VIAL IV SCH ×2 (03:16→20:10)
[2023-06-17] MEDS: PANTOPRAZOLE 40 MG TABLET PO SCH (06:28)
[2023-06-17] MEDS: PARoxetine 10 MG TAB PO SCH (08:01)
[2023-06-17] MEDS: METOPROLOL TARTRATE 50 MG TAB PO SCH ×2 (08:01→20:09)
[2023-06-17] MEDS: allopurinoL 100 MG TAB PO SCH (08:01)
[2023-06-17] MEDS: ATORVASTATIN 80 MG TAB PO SCH (08:01)
[2023-06-17] MEDS: ALBUTEROL NEBULIZED 2.5 MG/3 ML INHALATION SCH ×3 (09:31→21:32)
[2023-06-17 10:20] LABS: African American GFR (CKD) 45 (>60 ml/min/1.73 sqM); Anion Gap 15 mmol/L; Blood Urea Nitrogen 17 mg/dL (7-17); Calcium 8.4 mg/dL (8.4-10.2); Carbon Dioxide 28 mmol/L (22-30); Chloride 90 mmol/L (98-107); Glucose 166 mg/dL (74-99); Non-African American GFR(CKD) 39 (>60 ml/min/1.73 sqM); Potassium 3.5 mmol/L (3.5-5.1); Sodium 133 mmol/L (137-145)
[2023-06-17] MEDS ORDERED: ONDANSETRON 4 MG/2 ML VIAL IVP PRN (11:26)
--- NOTE | 2023-06-17 13:25 | P.PN ---
Subjective HISTORY OF PRESENT ILLNESS: This is a 82-year-old female with a past medical history significant for coronary artery disease, atrial fibrillation, hypertension, and hyperlipidemia. Patient follows in the office with Dr. Royal. We have been asked to see the patient in consultation for congestive heart failure. Patient examined at the bedside. Patient presents to the hospital with a chief complaint of chest pain or pressure. She reports she has been coughing a lot at home. She has been started on IV antibiotics. Vital signs are stable. * EKG reveals sinus mechanism with no signs of acute ischemia * Chest xray overall similiar pulmonary interstitial infiltrates from prior examination 2020 likely representing pulmonary fibrotic changes * Laboratory data: WBC 13.2. Hemoglobin 10.5. Platelet count 363. Sodium 130. Potassium 4.3. Magnesium 1.7. Troponin negative 1. ProBNP 2180. * Current home cardiac medications include Lipitor 80mg daily, Flecainide 50mg BID, metoprolol tartrate 50 mg daily * Most recent echocardiogram obtained in December 2020 revealed ejection fraction 50-55%, mild aortic regurgitation, moderate MR, moderate TR * Cardiac catheterization history: February 2019 revealing mild triple vessel coronary artery disease with no evidence of restenosis in the stented segment of the left anterior descending artery. 06/16/2023 Patient is seen and examined at bedside. She is feeling much better since time of admission. Her shortness of breath is much better. She is difficult to com municate due to hearing impairment. Her echo showed an EF of 50% with RVSP 44 mmHg, moderate aortic insufficiency. 06/17/2023 Patient examined this afternoon at the bedside. Patient currently denies chest pain or pressure. She denies shortness of breath. Patient remains on IV lasix. Creatinine today 1.29. Chest x-ray performed yesterday evening reveals mild CHF or interstitial pneumonitis likely superimposed on a background of chronic interstitial pulmonary fibrosis. PHYSICAL EXAM: VITAL SIGNS: Reviewed. GENERAL: Well-developed in no acute distress. HEENT: Head is normocephalic. Pupils are equal, round. Sclerae anicteric. Mucous membranes of the mouth are moist. Neck supple. No JVD or thyromegaly LUNGS: Respirations even and unlabored. Lungs diminished bilaterally with crackles bilaterally HEART: Regular rate and rhythm. S1 and S2 heard. ABDOMEN: Soft. Nondistended. Nontender. EXTREMITIES: Normal range of motion. No clubbing or cyanosis. Peripheral pulses intact. No lower extremity edema NEUROLOGIC: Awake and alert. Oriented x 3. ASSESSMENT: Shortness of breath Possible pneumonia Acute heart failure with preserved EF Mild nonobstructive coronary artery disease Paroxysmal atrial fibrillation, not on anticoagulation due to bleeding in the past Hypertension Hyperlipidemia Valvular heart disease with moderate aortic insufficiency Acute kidney injury PLAN: Continue current cardiac medications Continue IV diuretics. Monitor kidney function. Repeat in AM. Will transition to oral Bumex 1mg daily starting tomorrow Increase metoprolol to 50mg BID Discussed anticoagulation with patient who is agreeable to beginning Eliquis. Will start 2.5mg BID Further recommendations pending patient's course Nurse practitioner note has been reviewed by physician. Signing provider agrees with the documented findings, assessment, and plan of care. Objective - Vital Signs Vital signs: Vital Signs Temp 98.1 F 06/17/23 08:06 Pulse 60 06/17/23 11:40 Resp 20 06/17/23 11:40 BP 124/61 06/17/23 11:40 Pulse Ox 91 L 06/17/23 11:40 FiO2 21 06/17/23 09:32 Intake & Output 06/16/23 06/17/23 06/17/23 18:59 06:59 18:59 Intake Total 578 90 Output Total 250 400 250 Balance 328 -400 -160 Weight 55.7 kg 57.2 kg Intake: Oral 578 90 Output: Urine 250 400 250 Other: Voiding Method Toilet Toilet Toilet # Voids 2 1 # Bowel Movements 1 - Labs CBC & Chem 7: 06/15/23 07:49 06/17/23 09:03 Labs: Abnormal Lab Results - Last 24 Hours (Table) 06/16/23 06/17/23 Range/Units 08:22 09:03 Sodium 133 L (137-145) mmol/L Chloride 90 L (98-107) mmol/L Creatinine 1.29 H (0.52-1.04) mg/dL Glucose 166 H (74-99) mg/dL Procalcitonin 0.22 H (0.02-0.09) ng/mL Microbiology - Last 24 Hours (Table) 06/14/23 12:26 Urine Culture - Final Urine,Voided Klebsiella pneumoniae
--- NOTE | 2023-06-17 15:46 | CT ---
EXAMINATION TYPE: CT chest wo con DATE OF EXAM: 06/17/2023 COMPARISON: 06/14/2023, CT abdomen 11/03/2015 HISTORY: Possible pulmonary fibrosis. CT DLP: 624.2 mGycm. Automated Exposure Control for Dose Reduction was Utilized. TECHNIQUE: CT scan of the thorax is performed without IV contrast. FINDINGS: LUNGS: there is interlobular septal thickening with subsegmental consolidation most typical of atele ctasis bilaterally. Apical pleural thickening is stable. Pulmonary apical pleural nodule on the left 3 mm apical nodule on the right subpleural. There are mul tiple additional subpleural less than 5 mm nodules. There is central and basilar bronchiectasis. 1 to 2 mm density within the right mainstem bronchus characterize. Was not present on the previous CT sca n and may represent retained secretion. Correlate relatively. Findings too small to characterize. There is no pleural effusion or pneumothorax seen. The tracheobronchial tree is patent. MEDIASTINUM: Lack of IV contrast is noted to limit evaluation for mediastinal and especially hilar ad enopathy. There are no definitive greater than 1 cm hilar or mediastinal lymph nodes. Heart is marked ly enlarged and there is dense coronary artery calcium dictation. Aorta measures 4 cm in greatest dim ension compatible with mild aneurysmal dilation and there is calcification near the aortic valve. OTHER: Thickening and nodularity of the bilateral adrenal glands most likely in the bases without mitul noma. Post cystectomy changes. There is a small hiatal hernia. IMPRESSION: 1. Findings are suggestive of pulmonary fibrosis. Favor UIP type. 2. Cardiomegaly with dense coronary artery calcification. 3. Multiple 5 mm or less predominantly subpleural nodules are likely benign but could be followed on short-term 6 month follow-up. 4. Hyperdense subcentimeter left renal lesion most likely on the basis of a high proteinaceous or hem orrhagic Bosniak classification II benign cyst. Retrospectively stable dating back to 2015 CT of the abdomen and pelvis. 5. Tiny punctate 1 to 2 mm densities within the airway between the trachea and right mainstem bronchu s are too small to characterize may represent tiny areas of secretions. 6. Ascending aorta measures 4 cm compatible mild aneurysmal dilation.
--- NOTE | 2023-06-17 19:00 | P.PN ---
Progress Note - Text Progress Note Date: 06/17/23 Hospital course Patient is a 82-year-old female with known history of hyperlipidemia, history of MN, coronary artery disease history of stent placement, rheumatoid arthritis, pulmonary hypertension and anxiety presents to ER with complaints of flulike symptoms and difficulty breathing and not feeling well. She has been having shortness of breath for the past 1 week. Does have a cough and congestion with clear to whitish sputum production. Increased leg swelling. She was started on antibiotics for urinary tract infection in the home in the form of nitrofurantoin. Patient also vomited couple of times at home. Patient is also complaining of generalized weakness and myalgias. Chest x-ray showed overall similar pulmonary interstitial infiltrates from prior examination in 2020 likely representing pulmonary fibrotic changes. CTA chest showed cardiomegaly with pulmonary vascular congestion and trace bilateral pleural effusions correlate for CHF. EKG showed sinus rhythm with possible left atrial enlargement. Laboratory data showed WBC 15.6 hemoglobin 11.3 and platelets 387. D-dimer level 0.93 Sodium 134 potassium 3.6, chloride 96 bicarb is 27 BUN 14 and creatinine 0.8 and blood sugar 105 Magnesium 1.7, alk phos 151 and troponin less than 0.012 and proBNP 2180 Urinalysis showed cloudy with 1+ protein trace blood nitrite negative and moderate leukocyte esterase with elevated WBCs. Influenza A, B, RSV and COVID-19 PCR not detected. Echocardiogram on 12/31/2020 showed borderline concentric left ventricular hypertrophy and ejection fraction 53%. LA is mildly dilated. Moderate MR and moderate tricuspid regurgitation. Right ventricular systolic pressure is normal at less than 35 mmHg. 06/15/2023: I assumed care of the patient today. Congested cough. Some shortness of breath. Feeling a bit better since presentation. Decreased edema. Did tolerate some diet. On IV Lasix and IV ceftriaxone. 06/16/2023: Congested cough. No expectoration. Breathing better. IV Lasix. Feeling better. Eating better. 06/17/2023: Does feel tired. Creatinine is up but leveled off. Based on patient's chest auscultation, suspected pulmonary fibrosis. High resolution computed tomography scan chest was ordered. Computed tomography scan did come back confirming pulmonary fibrosis. Lasix should be scaled back. Active Medications Albuterol Sulfate (Albuterol Nebulized 2.5 Mg/3 Ml) 2.5 mg INHALATION RT-TID [facility] Last Admin: 06/17/23 11:52 Dose: 2.5 mg Allopurinol (Allopurinol 100 Mg Tab) 100 mg PO DAILY [facility] Last Admin: 06/17/23 08:01 Dose: 100 mg Apixaban (Apixaban 2.5 Mg Tablet) 2.5 mg PO BID [facility]; Protocol Atorvastatin Calcium (Atorvastatin 80 Mg Tab) 80 mg PO DAILY [facility] Last Admin: 06/17/23 08:01 Dose: 80 mg Diphenhydramine HCl (Diphenhydramine 25 Mg Cap) 25 mg PO HS PRN PRN Reason: Insomnia Last Admin: 06/14/23 23:07 Dose: 25 mg Furosemide (Furosemide 10 Mg/Ml 4 Ml Vial) 40 mg IV Q12HR [facility]ATHARINA Ceftriaxone Sodium 1 gm/ (Sodium Chloride) 50 mls @ 100 mls/hr IVPB Q24HR [facility]; Protocol Last Admin: 06/17/23 08:01 Dose: 100 mls/hr Metoprolol Tartrate (Metoprolol Tartrate 50 Mg Tab) 50 mg PO BID [facility] Miscellaneous Information (Potassium Replacement Protocol 1 Each Misc) 1 each MISCELLANE DAILY PRN; Protocol PRN Reason: Per Protocol Ondansetron HCl (Ondansetron 4 Mg/2 Ml Vial) 4 mg IVP Q6HR PRN PRN Reason: Nausea And Vomiting Last Admin: 06/17/23 11:34 Dose: 4 mg Pantoprazole Sodium (Pantoprazole 40 Mg Tablet) 40 mg PO AC-BRKFST [facility] Last Admin: 06/17/23 06:28 Dose: 40 mg Paroxetine HCl (Paroxetine 10 Mg Tab) 30 mg PO DAILY [facility] Last Admin: 06/17/23 08:01 Dose: 30 mg Past medical history to include: GERD, hyperlipidemia, MN, rheumatoid arthritis, colonic diverticulosis, secondary pulmonary hypertension, coronary artery disease with stent, anxiety Social history: Does not smoke or drink alcohol. Lives alone. Physical examination: VITAL SIGNS: 97.6, 67, 18, 11 9 x 70, 92% room air GENERAL: Laying in bed, tired EYES: Pupils equal. Conjunctiva normal. HEENT: External appearance of nose and ears normal, oral cavity grossly normal. NECK: JVD not raised; masses not palpable. HEART: Heart sounds irregular; no edema. LUNGS: Respiratory rate increased, decreased breath sound , some right basilar crackles ABDOMEN: Soft, nontender, liver spleen not palpable, no masses palpable. PSYCH: [Alert and oriented x3; mood and affect normal INVESTIGATIONS, reviewed in the clinical context: CT chest high resolution: Pulmonary fibrosis June 17: Sodium 133 potassium 3.5 creatinine 1.29 procalcitonin 0.16 June 16: Sodium 133 potassium 3.8 creatinine 1.3 2-D echocardiogram: EF 50-55%. Moderate aortic regurgitation. June 15: White count 13.2 hemoglobin 10.5 sodium 1:30 potassium 4.3 creatinine 0.8 date UA positive for leukoesterase, WBC Influenza type A, B, RSV, COVID-19: Not detected Chest CTA: No evidence of pulmonary embolism. Cardiomegaly with pulmonary congestion. Trace pleural effusion. Assessment and plan: -Acute congestive heart failure exacerbation from diastolic dysfunction EF 55%: Improvement IV Lasix 40 mg every 12. Being followed by cardiology -Paroxysmal atrial fibrillation, currently in sinus rhythm Lopressor 50 mg daily. -Pulmonary fibrosis on computed tomography scan.: New diagnosis We'll give a short burst of IV steroids. Follow-up with pulmonary. -Acute UTI with cystitis. Diagnosed outpatient. Was on nitrofurantoin at home. IV ceftriaxone -Acute tracheal bronchitis IV ceftriaxone -GERD Protonix -Hyponatremia, from patient being on Lasix and decreased oral intake Encourage oral intake -Hyperlipidemia on Lipitor -Chronic rheumatoid arthritis -Colonic diverticulosis, asymptomatic -Secondary pulmonary hypertension follow clinically -Coronary artery disease with stent with PTCA to LAD , Lopressor Lipitor . -Moderate mitral and tricuspid regurgitation. Follow clinically IV Solu-Medrol. IV Lasix could be scaled back.
[2023-06-17] MEDS: APIXABAN 2.5 MG TABLET PO SCH (20:09)
[2023-06-17] MEDS: methylPREDNISolone SOD SUCCI 40 MG/ML 1 ML VIAL IV SCH (20:34)
[2023-06-17 21:06] LABS: Glucose,Whole Blood 102 mg/dL (70-110)
[2023-06-18] MEDS: methylPREDNISolone SOD SUCCI 40 MG/ML 1 ML VIAL IV SCH ×3 (03:52→21:29)
[2023-06-18] MEDS: PANTOPRAZOLE 40 MG TABLET PO SCH (06:37)
[2023-06-18 06:48] LABS: Glucose,Whole Blood 163 mg/dL (70-110)
[2023-06-18 07:44] LABS: African American GFR (CKD) 38 (>60 ml/min/1.73 sqM); Anion Gap 11 mmol/L; Blood Urea Nitrogen 21 mg/dL (7-17); Carbon Dioxide 29 mmol/L (22-30); Chloride 91 mmol/L (98-107); Glucose 144 mg/dL (74-99); Non-African American GFR(CKD) 33 (>60 ml/min/1.73 sqM); Potassium 4.5 mmol/L (3.5-5.1); Sodium 131 mmol/L (137-145)
[2023-06-18] MEDS: PARoxetine 10 MG TAB PO SCH (08:47)
[2023-06-18] MEDS: FUROSEMIDE 10 MG/ML 4 ML VIAL IV SCH (08:47)
[2023-06-18] MEDS: METOPROLOL TARTRATE 50 MG TAB PO SCH ×2 (08:47→21:29)
[2023-06-18] MEDS: ATORVASTATIN 80 MG TAB PO SCH (08:47)
[2023-06-18] MEDS: APIXABAN 2.5 MG TABLET PO SCH ×2 (08:47→21:29)
[2023-06-18] MEDS: allopurinoL 100 MG TAB PO SCH (08:47)
[2023-06-18] MEDS: ALBUTEROL NEBULIZED 2.5 MG/3 ML INHALATION SCH ×3 (09:18→22:01)
[2023-06-18 11:36] LABS: Glucose,Whole Blood 156 mg/dL (70-110)
[2023-06-18 13:59] VITALS: BMI 24.5
[2023-06-18 16:22] LABS: Glucose,Whole Blood 172 mg/dL (70-110)
--- NOTE | 2023-06-18 17:35 | P.PN ---
Progress Note - Text Progress Note Date: 06/18/23 Hospital course Patient is a 82-year-old female with known history of hyperlipidemia, history of PA, coronary artery disease history of stent placement, rheumatoid arthritis, pulmonary hypertension and anxiety presents to ER with complaints of flulike symptoms and difficulty breathing and not feeling well. She has been having shortness of breath for the past 1 week. Does have a cough and congestion with clear to whitish sputum production. Increased leg swelling. She was started on antibiotics for urinary tract infection in the home in the form of nitrofurantoin. Patient also vomited couple of times at home. Patient is also complaining of generalized weakness and myalgias. Chest x-ray showed overall similar pulmonary interstitial infiltrates from prior examination in 2020 likely representing pulmonary fibrotic changes. CTA chest showed cardiomegaly with pulmonary vascular congestion and trace bilateral pleural effusions correlate for CHF. EKG showed sinus rhythm with possible left atrial enlargement. Laboratory data showed WBC 15.6 hemoglobin 11.3 and platelets 387. D-dimer level 0.93 Sodium 134 potassium 3.6, chloride 96 bicarb is 27 BUN 14 and creatinine 0.8 and blood sugar 105 Magnesium 1.7, alk phos 151 and troponin less than 0.012 and proBNP 2180 Urinalysis showed cloudy with 1+ protein trace blood nitrite negative and moderate leukocyte esterase with elevated WBCs. Influenza A, B, RSV and COVID-19 PCR not detected. Echocardiogram on 12/31/2020 showed borderline concentric left ventricular hypertrophy and ejection fraction 53%. LA is mildly dilated. Moderate MR and moderate tricuspid regurgitation. Right ventricular systolic pressure is normal at less than 35 mmHg. 06/15/2023: I assumed care of the patient today. Congested cough. Some shortness of breath. Feeling a bit better since presentation. Decreased edema. Did tolerate some diet. On IV Lasix and IV ceftriaxone. 06/16/2023: Congested cough. No expectoration. Breathing better. IV Lasix. Feeling better. Eating better. 06/17/2023: Does feel tired. Creatinine is up but leveled off. Based on patient's chest auscultation, suspected pulmonary fibrosis. High resolution computed tomography scan chest was ordered. Computed tomography scan did come back confirming pulmonary fibrosis. Lasix should be scaled back. 06/18/2023: Feeling much better. On IV Solu-Medrol for pulmonary fibrosis. Creatinine 1.48. Discussed with Dr. Kaur from cardiology. Hold Lasix today. Repeat labs tomorrow. Discussed with patient. Possibly discharge tomorrow depending on labs. Active Medications Albuterol Sulfate (Albuterol Nebulized 2.5 Mg/3 Ml) 2.5 mg INHALATION RT-TID [facility] Last Admin: 06/18/23 14:54 Dose: 2.5 mg Allopurinol (Allopurinol 100 Mg Tab) 100 mg PO DAILY [facility] Last Admin: 06/18/23 08:47 Dose: 100 mg Apixaban (Apixaban 2.5 Mg Tablet) 2.5 mg PO BID [facility]; Protocol Last Admin: 06/18/23 08:47 Dose: 2.5 mg Atorvastatin Calcium (Atorvastatin 80 Mg Tab) 80 mg PO DAILY [facility] Last Admin: 06/18/23 08:47 Dose: 80 mg Diphenhydramine HCl (Diphenhydramine 25 Mg Cap) 25 mg PO HS PRN PRN Reason: Insomnia Last Admin: 06/14/23 23:07 Dose: 25 mg Ceftriaxone Sodium 1 gm/ (Sodium Chloride) 50 mls @ 100 mls/hr IVPB Q24HR [facility]; Protocol Last Admin: 06/18/23 08:47 Dose: 100 mls/hr Methylprednisolone Sodium Succinate (Methylprednisolone Sod Succi 40 Mg/Ml 1 Ml Vial) 40 mg IV Q8H [facility] Last Admin: 06/18/23 13:12 Dose: 40 mg Metoprolol Tartrate (Metoprolol Tartrate 50 Mg Tab) 50 mg PO BID [facility] Last Admin: 06/18/23 08:47 Dose: 50 mg Miscellaneous Information (Potassium Replacement Protocol 1 Each Misc) 1 each MISCELLANE DAILY PRN; Protocol PRN Reason: Per Protocol Ondansetron HCl (Ondansetron 4 Mg/2 Ml Vial) 4 mg IVP Q6HR PRN PRN Reason: Nausea And Vomiting Last Admin: 06/17/23 11:34 Dose: 4 mg Pantoprazole Sodium (Pantoprazole 40 Mg Tablet) 40 mg PO AC-BRKFST [facility] Last Admin: 06/18/23 06:37 Dose: 40 mg Paroxetine HCl (Paroxetine 10 Mg Tab) 30 mg PO DAILY [facility] Last Admin: 06/18/23 08:47 Dose: 30 mg Past medical history to include: GERD, hyperlipidemia, PA, rheumatoid arthritis, colonic diverticulosis, secondary pulmonary hypertension, coronary artery disease with stent, anxiety Social history: Does not smoke or drink alcohol. Lives alone. Physical examination: VITAL SIGNS: 97.8, 67, 16, 10 3 x 69, 93% room air GENERAL: In bed, comfortable EYES: Pupils equal. Conjunctiva normal. HEENT: External appearance of nose and ears normal, oral cavity grossly normal. NECK: JVD not raised; masses not palpable. HEART: Heart sounds irregular; no edema. LUNGS: Respiratory rate normal, decreased breath sound , right basilar crackles ABDOMEN: Soft, nontender, liver spleen not palpable, no masses palpable. PSYCH: [Alert and oriented x3; mood and affect normal INVESTIGATIONS, reviewed in the clinical context: June 18: Sodium 131 potassium 4.5 BUN [address] chest high resolution: Pulmonary fibrosis June 17: Sodium 133 potassium 3.5 creatinine 1.29 procalcitonin 0.16 June 16: Sodium 133 potassium 3.8 creatinine 1.3 2-D echocardiogram: EF 50-55%. Moderate aortic regurgitation. June 15: White count 13.2 hemoglobin 10.5 sodium 1:30 potassium 4.3 creatinine 0.8 date UA positive for leukoesterase, WBC Influenza type A, B, RSV, COVID-19: Not detected Chest CTA: No evidence of pulmonary embolism. Cardiomegaly with pulmonary congestion. Trace pleural effusion. Assessment and plan: -Acute congestive heart failure exacerbation from diastolic dysfunction EF 55%: Stabilized Hold Lasix currently for renal function. -Paroxysmal atrial fibrillation, currently in sinus rhythm Lopressor 50 mg twice a day -Pulmonary fibrosis on computed tomography scan.: New diagnosis IV Solu-Medrol. Follow-up with pulmonary. -Acute UTI with cystitis. Diagnosed outpatient. Was on nitrofurantoin at home. IV ceftriaxone -Acute kidney injury, prerenal from diuretics: New diagnosis Admission creatinine 0.8. Today 1.48. Hold Lasix -Acute tracheal bronchitis IV ceftriaxone -GERD Protonix -Hyponatremia, from patient being on Lasix and decreased oral intake Encourage oral intake -Hyperlipidemia on Lipitor -Chronic rheumatoid arthritis -Colonic diverticulosis, asymptomatic -Secondary pulmonary hypertension follow clinically -Coronary artery disease with stent with PTCA to LAD , Lopressor Lipitor . -Moderate mitral and tricuspid regurgitation. Follow clinically IV Solu-Medrol. Hold Lasix. Discussed with cardiology. Repeat labs in the morning. Discussed with patient.
[2023-06-18] MEDS ORDERED: SODIUM CHLORIDE 0.45% 1,000 ML IV SCH (17:45)
[2023-06-18 20:05] LABS: Glucose,Whole Blood 210 mg/dL (70-110)
[2023-06-19 00:28] VITALS: TEMP 98.3
[2023-06-19] MEDS: methylPREDNISolone SOD SUCCI 40 MG/ML 1 ML VIAL IV SCH ×2 (05:12→12:14)
[2023-06-19] MEDS: PANTOPRAZOLE 40 MG TABLET PO SCH (05:13)
[2023-06-19 06:09] LABS: Glucose,Whole Blood 151 mg/dL (70-110)
[2023-06-19 09:21] VITALS: RESP 16
[2023-06-19] MEDS: allopurinoL 100 MG TAB PO SCH (09:30)
[2023-06-19] MEDS: APIXABAN 2.5 MG TABLET PO SCH (09:30)
[2023-06-19] MEDS: ATORVASTATIN 80 MG TAB PO SCH (09:30)
[2023-06-19] MEDS: METOPROLOL TARTRATE 50 MG TAB PO SCH (09:30)
[2023-06-19] MEDS: ALBUTEROL NEBULIZED 2.5 MG/3 ML INHALATION SCH ×2 (10:12→12:54)
[2023-06-19 11:33] LABS: Glucose,Whole Blood 165 mg/dL (70-110)
--- NOTE | 2023-06-19 11:44 | P.PN ---
Subjective Progress Note Date: 06/18/23 Subjective and objective: Patient is seen and examined at bedside. She is feeling much better since time of admission. Her shortness of breath is much better. She is difficult to communicate due to hearing impairment. She does not appear fluid overloaded. She does not have any lower extremity edema PHYSICAL EXAM: VITAL SIGNS: Reviewed. GENERAL: Well-developed in no acute distress. HEENT: Head is normocephalic. Pupils are equal, round. Sclerae anicteric. Mucous membranes of the mouth are moist. Neck supple. No JVD or thyromegaly LUNGS: Respirations even and unlabored. Lungs with expiratory wheezing noted HEART: Regular rate and rhythm. S1 and S2 heard. ABDOMEN: Soft. Nondistended. Nontender. EXTREMITIES: Normal range of motion. No clubbing or cyanosis. Peripheral pulses intact. No lower extremity edema NEUROLOGIC: Awake and alert. Oriented x 3. On exam she has crackles in bilateral lung laws. Her echo showed an EF of 50% with RVSP 44 mmHg, moderate aortic insufficiency. Creatinine is 1.4 today. Yesterday was 1.3 On admission is was 0.8 ASSESSMENT: Shortness of breath Possible pneumonia Acute heart failure with preserved EF Mild nonobstructive coronary artery disease Paroxysmal atrial fibrillation, Hypertension Hyperlipidemia Valvular heart disease PLAN: Patient's shortness of breath and chest x-ray finding is most consistent with pulmonary fibrosis. This was discussed with her hospitalist. Because of her uptrending creatinine with diuretic therapy and on during the assessment as she does not appear fluid overloaded, we will discontinue her diuretics. After detailed discussion with the patient, we started her on Eliquis 2.5 mg twice a day She is on metoprolol xl 50 mg daily, atorvastatin. She is hemodynamically stable otherwise. She is okay to be discharged from chronic standpoint HISTORY OF PRESENT ILLNESS: This is a 82-year-old female with a past medical history significant for coronary artery disease, atrial fibrillation, hypertension, and hyperlipidemia. Patient follows in the office with Dr. Royal. We have been asked to see the patient in consultation for congestive heart failure. Patient examined at the bedside. Patient presents to the hospital with a chief complaint of chest pain or pressure. She reports she has been coughing a lot at home. She has been started on IV antibiotics. Vital signs are stable. * EKG reveals sinus mechanism with no signs of acute ischemia * Chest xray overall similiar pulmonary interstitial infiltrates from prior examination 2020 likely representing pulmonary fibrotic changes * Laboratory data: WBC 13.2. Hemoglobin 10.5. Platelet count 363. Sodium 130. Potassium 4.3. Magnesium 1.7. Troponin negative 1. ProBNP 2180. * Current home cardiac medications include Lipitor 80mg daily, Flecainide 50mg BID, metoprolol tartrate 50 mg daily * Most recent echocardiogram obtained in December 2020 revealed ejection fraction 50-55%, mild aortic regurgitation, moderate MR, moderate TR * Cardiac catheterization history: February 2019 revealing mild triple vessel coronary artery disease with no evidence of restenosis in the stented segment of the left anterior descending artery. Objective - Vital Signs Vital signs: Vital Signs Temp 98.3 F 06/19/23 00:00 Pulse 62 06/19/23 10:20 Resp 16 06/19/23 08:00 BP 116/54 06/19/23 08:00 Pulse Ox 91 L 06/19/23 10:12 FiO2 21 06/19/23 10:12 Intake & Output 06/18/23 06/19/23 06/19/23 18:59 06:59 18:59 Intake Total 838 118 Output Total 575 Balance 263 118 Weight 57 kg 58.8 kg Intake: Oral 838 118 Output: Urine 575 Other: Voiding Method Toilet Toilet Toilet # Voids 1 - Labs CBC & Chem 7: 06/15/23 07:49 06/18/23 06:46 Labs: Abnormal Lab Results - Last 24 Hours (Table) 06/18/23 06/18/23 06/19/23 Range/Units 16:20 20:03 06:08 POC Glucose (mg/dL) 172 H 210 H 151 H (70-110) mg/dL 06/19/23 Range/Units 11:31 POC Glucose (mg/dL) 165 H (70-110) mg/dL
[2023-06-19] MEDS: PARoxetine 10 MG TAB PO SCH (12:15)
[2023-06-19 12:16] VITALS: BP 141/65; PULSE 61
[2023-06-19 12:25] LABS: African American GFR (CKD) 34 (>60 ml/min/1.73 sqM); Anion Gap 13 mmol/L; Blood Urea Nitrogen 37 mg/dL (7-17); Calcium 8.5 mg/dL (8.4-10.2); Carbon Dioxide 26 mmol/L (22-30); Chloride 88 mmol/L (98-107); Glucose 195 mg/dL (74-99); Non-African American GFR(CKD) 30 (>60 ml/min/1.73 sqM); Potassium 4.5 mmol/L (3.5-5.1); Sodium 127 mmol/L (137-145)
--- NOTE | 2023-06-19 12:37 | P.PN ---
Subjective HISTORY OF PRESENT ILLNESS: This is a 82-year-old female with a past medical history significant for coronary artery disease, atrial fibrillation, hypertension, and hyperlipidemia. Patient follows in the office with Dr. Royal. We have been asked to see the patient in consultation for congestive heart failure. Patient examined at the bedside. Patient presents to the hospital with a chief complaint of chest pain or pressure. She reports she has been coughing a lot at home. She has been started on IV antibiotics. Vital signs are stable. * EKG reveals sinus mechanism with no signs of acute ischemia * Chest xray overall similiar pulmonary interstitial infiltrates from prior examination 2020 likely representing pulmonary fibrotic changes * Laboratory data: WBC 13.2. Hemoglobin 10.5. Platelet count 363. Sodium 130. Potassium 4.3. Magnesium 1.7. Troponin negative 1. ProBNP 2180. * Current home cardiac medications include Lipitor 80mg daily, Flecainide 50mg BID, metoprolol tartrate 50 mg daily * Most recent echocardiogram obtained in December 2020 revealed ejection fraction 50-55%, mild aortic regurgitation, moderate MR, moderate TR * Cardiac catheterization history: February 2019 revealing mild triple vessel coronary artery disease with no evidence of restenosis in the stented segment of the left anterior descending artery. 06/16/2023 Patient is seen and examined at bedside. She is feeling much better since time of admission. Her shortness of breath is much better. She is difficult to com municate due to hearing impairment. Her echo showed an EF of 50% with RVSP 44 mmHg, moderate aortic insufficiency. 06/17/2023 Patient examined this afternoon at the bedside. Patient currently denies chest pain or pressure. She denies shortness of breath. Patient remains on IV lasix. Creatinine today 1.29. Chest x-ray performed yesterday evening reveals mild CHF or interstitial pneumonitis likely superimposed on a background of chronic interstitial pulmonary fibrosis. 06/19/2023 Patient examined this morning at the bedside. Patient denies chest pain or pressure. She denies shortness of breath. Vital signs are stable. She is hoping to be discharged home today. PHYSICAL EXAM: VITAL SIGNS: Reviewed. GENERAL: Well-developed in no acute distress. HEENT: Head is normocephalic. Pupils are equal, round. Sclerae anicteric. Mucous membranes of the mouth are moist. Neck supple. No JVD or thyromegaly LUNGS: Respirations even and unlabored. Lungs diminished bilaterally with crackles bilaterally HEART: Regular rate and rhythm. S1 and S2 heard. ABDOMEN: Soft. Nondistended. Nontender. EXTREMITIES: Normal range of motion. No clubbing or cyanosis. Peripheral pulses intact. No lower extremity edema NEUROLOGIC: Awake and alert. Oriented x 3. ASSESSMENT: Shortness of breath Possible pneumonia Acute heart failure with preserved EF Mild nonobstructive coronary artery disease Paroxysmal atrial fibrillation, not on anticoagulation due to bleeding in the past Hypertension Hyperlipidemia Valvular heart disease with moderate aortic insufficiency Acute kidney injury PLAN: Continue current cardiac medications Recommend to continue to hold diuretics at discharge Stable for discharge from a cardiac standpoint Further recommendations pending patient's course We have started on anti-cognition Eliquis 2.5 mg twice a day. We have explained the risk factors and indications for systemic and atrial fibrillation. Risk factor including bleeding and possibly . She understands the risks and indications and would like to continue systemic anticoagulation Nurse practitioner note has been reviewed by physician. Signing provider agrees with the documented findings, assessment, and plan of care. Objective - Vital Signs Vital signs: Vital Signs Temp 98.3 F 06/19/23 00:00 Pulse 61 06/19/23 12:00 Resp 16 06/19/23 12:00 BP 141/65 06/19/23 12:00 Pulse Ox 92 L 06/19/23 12:00 FiO2 21 06/19/23 10:12 Intake & Output 06/18/23 06/19/23 06/19/23 18:59 06:59 18:59 Intake Total 838 118 Output Total 575 Balance 263 118 Weight 57 kg 58.8 kg Intake: Oral 838 118 Output: Urine 575 Other: Voiding Method Toilet Toilet Toilet # Voids 1 - Labs CBC & Chem 7: 06/15/23 07:49 06/19/23 12:04 Labs: Abnormal Lab Results - Last 24 Hours (Table) 06/18/23 06/18/23 06/19/23 Range/Units 16:20 20:03 06:08 Sodium (137-145) mmol/L Chloride (98-107) mmol/L BUN (7-17) mg/dL Creatinine (0.52-1.04) mg/dL Glucose (74-99) mg/dL POC Glucose (mg/dL) 172 H 210 H 151 H (70-110) mg/dL 06/19/23 06/19/23 Range/Units 10:28 11:31 Sodium 127 L (137-145) mmol/L Chloride 88 L (98-107) mmol/L BUN 37 H (7-17) mg/dL Creatinine 1.62 H (0.52-1.04) mg/dL Glucose 195 H (74-99) mg/dL POC Glucose (mg/dL) 165 H (70-110) mg/dL
[2023-06-19 13:21] LABS: African American GFR (CKD) 35 (>60 ml/min/1.73 sqM); Anion Gap 12 mmol/L; Blood Urea Nitrogen 37 mg/dL (7-17); Calcium 8.7 mg/dL (8.4-10.2); Carbon Dioxide 26 mmol/L (22-30); Chloride 89 mmol/L (98-107); Glucose 131 mg/dL (74-99); Non-African American GFR(CKD) 31 (>60 ml/min/1.73 sqM); Potassium 4.5 mmol/L (3.5-5.1); Sodium 127 mmol/L (137-145)
--- NOTE | 2023-06-19 17:57 | P.DS ---
Providers Date of admission: 06/14/23 15:27 Expected date of discharge: 06/19/23 Attending physician: Castro Merchant Consults: 06/14/23 15:27 Consult Physician Routine Consulting Provider: Andrez Winchester Consult Reason/Comments: chf Do you want consulting provider notified?: Yes Primary care physician: [facility] Course: Hospital course Patient is a 82-year-old female with known history of hyperlipidemia, history of MT, coronary artery disease history of stent placement, rheumatoid arthritis, pulmonary hypertension and anxiety presents to ER with complaints of flulike symptoms and difficulty breathing and not feeling well. She has been having shortness of breath for the past 1 week. Does have a cough and congestion with clear to whitish sputum production. Increased leg swelling. She was started on antibiotics for urinary tract infection in the home in the form of nitrofurantoin. Patient also vomited couple of times at home. Patient is also complaining of generalized weakness and myalgias. Chest x-ray showed overall similar pulmonary interstitial infiltrates from prior examination in 2020 likely representing pulmonary fibrotic changes. CTA chest showed cardiomegaly with pulmonary vascular congestion and trace bilateral pleural effusions correlate for CHF. EKG showed sinus rhythm with possible left atrial enlargement. Laboratory data showed WBC 15.6 hemoglobin 11.3 and platelets 387. D-dimer level 0.93 Sodium 134 potassium 3.6, chloride 96 bicarb is 27 BUN 14 and creatinine 0.8 and blood sugar 105 Magnesium 1.7, alk phos 151 and troponin less than 0.012 and proBNP 2180 Urinalysis showed cloudy with 1+ protein trace blood nitrite negative and moderate leukocyte esterase with elevated WBCs. Influenza A, B, RSV and COVID-19 PCR not detected. Echocardiogram on 12/31/2020 showed borderline concentric left ventricular hypertrophy and ejection fraction 53%. LA is mildly dilated. Moderate MR and moderate tricuspid regurgitation. Right ventricular systolic pressure is normal at less than 35 mmHg. 06/15/2023: I assumed care of the patient today. Congested cough. Some shortness of breath. Feeling a bit better since presentation. Decreased edema. Did tolerate some diet. On IV Lasix and IV ceftriaxone. 06/16/2023: Congested cough. No expectoration. Breathing better. IV Lasix. Feeling better. Eating better. 06/17/2023: Does feel tired. Creatinine is up but leveled off. Based on patient's chest auscultation, suspected pulmonary fibrosis. High resolution computed tomography scan chest was ordered. Computed tomography scan did come back confirming pulmonary fibrosis. Lasix should be scaled back. 06/18/2023: Feeling much better. On IV Solu-Medrol for pulmonary fibrosis. Creatinine 1.48. Discussed with Dr. Kaur from cardiology. Hold Lasix today. Repeat labs tomorrow. Discussed with patient. Possibly discharge tomorrow depending on labs. 06/19/2023: Doing much better. Very keen to go home. Currently Lasix held. He'll follow-up with cardiology in the office, to see the need for further diuretics. Creatinine started to taper off at 1.57. Discussed with patient. Follow-up with Dr. Wolfe from pulmonary fibrosis. Prednisone taper. Discussion and discharge planning more than 35 minutes Past medical history to include: GERD, hyperlipidemia, MT, rheumatoid arthritis, colonic diverticulosis, sec ondary pulmonary hypertension, coronary artery disease with stent, anxiety Social history: Does not smoke or drink alcohol. Lives alone. Physical examination: VITAL SIGNS: Afebrile, 62, 16, 141/65, 92% room air GENERAL: comfortable EYES: Pupils equal. Conjunctiva normal. HEENT: External appearance of nose and ears normal, oral cavity grossly normal. NECK: JVD not raised; masses not palpable. HEART: Heart sounds irregular; no edema. LUNGS: Respiratory rate normal, decreased breath sound , right basilar crackles ABDOMEN: Soft, nontender, liver spleen not palpable, no masses palpable. PSYCH: [Alert and oriented x3; mood and affect normal INVESTIGATIONS, reviewed in the clinical context: June 19: Sodium 127 potassium 4.5 BUN 37 creatinine 1.57 June 18: Sodium 131 potassium 4.5 BUN [address] chest high resolution: Pulmonary fibrosis June 17: Sodium 133 potassium 3.5 creatinine 1.29 procalcitonin 0.16 June 16: Sodium 133 potassium 3.8 creatinine 1.3 2-D echocardiogram: EF 50-55%. Moderate aortic regurgitation. June 15: White count 13.2 hemoglobin 10.5 sodium 1:30 potassium 4.3 creatinine 0.8 date UA positive for leukoesterase, WBC Influenza type A, B, RSV, COVID-19: Not detected Chest CTA: No evidence of pulmonary embolism. Cardiomegaly with pulmonary congestion. Trace pleural effusion. Assessment and plan: -Acute congestive heart failure exacerbation from diastolic dysfunction EF 55%: Stabilized Hold Lasix currently for renal function. Follow-up with wily E outpatient -Paroxysmal atrial fibrillation, currently in sinus rhythm Lopressor 50 mg twice a day. Eliquis -Pulmonary fibrosis on computed tomography scan.: Prednisone taper. Follow with Dr. Wolfe outpatient. -Acute UTI with cystitis. Diagnosed outpatient. Was on nitrofurantoin at home. IV ceftriaxone. Completed course -Acute kidney injury, prerenal from diuretics: New diagnosis Admission creatinine 0.8. Today 1.57. Lasix held -Acute tracheal bronchitis: Improved IV ceftriaxone-discontinue -GERD Protonix -Hyponatremia, from patient being on Lasix and decreased oral intake Encourage oral intake -Hyperlipidemia on Lipitor -Chronic rheumatoid arthritis -Colonic diverticulosis, asymptomatic -Secondary pulmonary hypertension follow clinically -Coronary artery disease with stent with PTCA to LAD , Lopressor Lipitor . -Moderate mitral and tricuspid regurgitation. Follow clinically Disposition: Home Labs: BNP: 3-4 days Plan - Discharge Summary Discharge Rx Participant: No New Discharge Prescriptions: New predniSONE 10 mg PO DAILY #30 tab Albuterol Sulfate [Albuterol Sulfate Hfa] 1 puff PO Q4-6H #8.5 gm Apixaban [Eliquis] 2.5 mg PO BID #60 tab Continue Omeprazole [PriLOSEC] 20 mg PO AC-BRKT allopurinoL [Zyloprim] 100 mg PO DAILY Atorvastatin [Lipitor] 80 mg PO DAILY PARoxetine HCL [Paxil Cr] 37.5 mg PO DAILY Ergocalciferol [Vitamin D2 (1250 Mcg = 83965 Iu)] 1,250 mcg PO Q30D Changed Metoprolol Tartrate [Lopressor] 50 mg PO BID #60 tab Discontinued Flecainide [Tambocor] 50 mg PO BID Nitrofurantoin Monohyd/M-Cryst [Macrobid] 100 mg PO Q12H Fluconazole [Diflucan] 200 mg PO DIRECTED Discharge Medication List Omeprazole [PriLOSEC] 20 mg PO AC-BRKFST 04/15/14 [History] allopurinoL [Zyloprim] 100 mg PO DAILY 03/14/19 [History] Atorvastatin [Lipitor] 80 mg PO DAILY 12/30/20 [History] PARoxetine HCL [Paxil Cr] 37.5 mg PO DAILY 09/21/21 [History] Ergocalciferol [Vitamin D2 (1250 Mcg = 74104 Iu)] 1,250 mcg PO Q30D 06/14/23 [History] Albuterol Sulfate [Albuterol Sulfate Hfa] 1 puff PO Q4-6H #8.5 gm 06/19/23 [Rx] Apixaban [Eliquis] 2.5 mg PO BID #60 tab 06/19/23 [Rx] Metoprolol Tartrate [Lopressor] 50 mg PO BID #60 tab 06/19/23 [Rx] predniSONE 10 mg PO DAILY #30 tab 06/19/23 [Rx] Follow up Appointment(s)/Referral(s): Gomez Kaur MD [Medical Doctor] - 06/25/23 9:00 am Yobany Chaudhry MD [Primary Care Provider] - 1-2 days Teodora Wolfe MD [STAFF PHYSICIAN] - 1 Week Patient Instructions/Handouts: Heart Failure (ER), A-fib (Atrial Fibrillation) (DC) Discharge Disposition: HOME SELF-CARE
== END 2023-06-19 15:10 | disposition home or self-care (01) | DRG 291 ==
LOC: EC 11:50 → 3SCARD 15:27
PROVIDERS: ADMIT Hospitalist; ATTEND Hospitalist
DX: I11.0 Hypertensive heart disease with heart failure (principal); I50.33 Acute on chronic diastolic (congestive) heart failure; J18.9 Pneumonia, unspecified organism; N17.9 Acute kidney failure, unspecified; F41.9 Anxiety disorder, unspecified; R79.1 Abnormal coagulation profile; H91.90 Unspecified hearing loss, unspecified ear; I08.3 Combined rheumatic disorders of mitral, aortic and tricuspid valves; G47.00 Insomnia, unspecified; I25.10 Atherosclerotic heart disease of native coronary artery without angina pectoris; I25.2 Old myocardial infarction; I27.29 Other secondary pulmonary hypertension; I48.0 Paroxysmal atrial fibrillation; J20.9 Acute bronchitis, unspecified; K21.9 Gastro-esophageal reflux disease without esophagitis; J84.10 Pulmonary fibrosis, unspecified; M06.9 Rheumatoid arthritis, unspecified; T50.2X5A Adverse effect of carbonic-anhydrase inhibitors, benzothiadiazides and other diuretics, initial encounter; N30.90 Cystitis, unspecified without hematuria; Z28.311 Partially vaccinated for COVID-19; Z20.822 Contact with and (suspected) exposure to COVID-19; Z79.82 Long term (current) use of aspirin; Z79.899 Other long term (current) drug therapy; Z82.49 Family history of ischemic heart disease and other diseases of the circulatory system; Z95.5 Presence of coronary angioplasty implant and graft; Z71.3 Dietary counseling and surveillance; Z88.6 Allergy status to analgesic agent; Z88.5 Allergy status to narcotic agent; Z88.2 Allergy status to sulfonamides
CPT/HCPCS: 36415; 71046; 71250; 71275; 80048; 80053; 81001; 83605; 83735; 83880; 84145; 84484; 85025; 85379; 85610; 85730; 87077; 87086; 87186; 87636; 93005; 93306; 94640; 94760; 96365; 96375; 96376; 99285

== ENCOUNTER 2025-01-05 11:47 | Observation (INO) | payer MEDICARE ==
[2025-01-05 12:20] LABS: Basophils # (A) 0.1 k/uL (0-0.2); Basophils % (A) 1 %; Eosinophils # (A) 0.3 k/uL (0-0.7); Eosinophils % (A) 3 %; HCT 35.1 % (34.0-46.0); HGB 10.9 gm/dL (11.4-16.0); Lymphocytes # (A) 0.9 k/uL (1.0-4.8); Lymphocytes % (A) 9 %; MCH 30.2 pg (25.0-35.0); MCHC 31.1 g/dL (31.0-37.0); Mean Platelet Volume 7.2; Monocytes # (A) 0.6 k/uL (0-1.0); Monocytes % (A) 6 %; Neutrophils # (A) 7.7 k/uL (1.3-7.7); Neutrophils % (A) 79 %; Platelet Count 460 k/uL (150-450); RBC 3.62 m/uL (3.80-5.40); RDW 14.7 % (11.5-15.5); WBC 9.8 k/uL (3.8-10.6)
--- NOTE | 2025-01-05 12:30 | ED ---
General Adult HPI - General Chief complaint: Recheck/Abnormal Lab/Rx Stated complaint: Abn labs Time Seen by Provider: 01/05/25 12:16 Source: patient, family, RN notes reviewed Mode of arrival: wheelchair Limitations: physical limitation (Hard of hearing as well as poor historian) - History of Present Illness Initial comments: Patient is an 84-year-old female present to the emergency department with son with concerns for not feeling well. Onset of symptoms was a couple of days ago. Patient has been vomiting with decreased oral intake. Patient feels not well and has a difficult time describing her symptoms. Majority of history comes from the son. Chart was reviewed from visit and lab work done yesterday and today from primary care physician. Patient did have CT scan done as well. - Related Data Home Medications Medication Instructions Recorded Confirmed Omeprazole [PriLOSEC] 20 mg PO DAILY 04/15/14 01/05/25 allopurinoL [Zyloprim] 100 mg PO DAILY 03/14/19 01/05/25 Atorvastatin [Lipitor] 80 mg PO DAILY 12/30/20 01/05/25 PARoxetine HCL [Paxil Cr] 37.5 mg PO DAILY 09/21/21 01/05/25 Ergocalciferol [Vitamin D2 (1250 1,250 mcg PO Q30D 06/14/23 01/05/25 Mcg = 04996 Iu)] Aspirin EC [Ecotrin Low Dose] 81 mg PO DAILY 01/05/25 01/05/25 Iron (Unknown Dose) 1 tab PO BID 01/05/25 01/05/25 Isosorbide Mononitrate ER [Imdur] 30 mg PO DAILY 01/05/25 01/05/25 Metoprolol Succinate (ER) [Toprol 50 mg PO DAILY 01/05/25 01/05/25 Xl] Previous Rx's Medication Instructions Recorded Apixaban [Eliquis] 2.5 mg PO BID #60 tab 06/19/23 Allergies Allergy/AdvReac Type Severity Reaction Status Date / Time hydrocodone bitartrate Allergy Itching Verified 01/05/25 15:11 [From Vicodin] sulfamethoxazole Allergy Rash/Hives Verified 01/05/25 15:11 [From Bactrim] trimethoprim [From Bactrim] Allergy Rash/Hives Verified 01/05/25 15:11 NSAIDS (Non-Steroidal AdvReac Unknown Verified 01/05/25 15:11 Anti-Inflamma Review of Systems ROS Statement: Those systems with pertinent positive or pertinent negative responses have been documented in the HPI. ROS Other: All systems not noted in ROS Statement are negative. Constitutional: Denies: fever Eyes: Denies: eye pain ENT: Denies: ear pain Gastrointestinal: Reports: nausea, vomiting Genitourinary: Reports: dysuria Past Medical History Past Medical History: Eye Disorder, GERD/Reflux, Hyperlipidemia, Myocardial Infarction ([place]), Renal Disease, Rheumatoid Arthritis ([place]) Additional Past Medical History / Comment(s): Diverticulosis,"PULMONARY HYPERTENSION"- SEE DR GARCIA'S HISTORY AND PHYSICAL FOR CARDIAC HISTORY, FREQUENT URINARY INFECTIONS Last Myocardial Infarction Date:: 09/2015 History of Any Multi-Drug Resistant Organisms: None Reported Past Surgical History: Cholecystectomy, Heart Catheterization With Stent, Hysterectomy, Orthopedic Surgery Additional Past Surgical History / Comment(s): KNEE ARTHROSCOPIC Past Anesthesia/Blood Transfusion Reactions: No Reported Reaction Date of Last Stent Placement:: 09/2015 Past Psychological History: Anxiety Smoking Status: Never smoker Past Alcohol Use History: None Reported Past Drug Use History: None Reported - Past Family History Mother Family Medical History: Hypertension Additional Family Medical History / Comment(s): heart attack Father Family Medical History: Cancer General Exam Limitations: no limitations General appearance: alert, in no apparent distress Head exam: Present: normocephalic Eye exam: Present: normal appearance Neck exam: Present: normal inspection Respiratory exam: Present: normal lung sounds bilaterally Cardiovascular Exam: Present: regular rate, normal rhythm GI/Abdominal exam: Present: soft. Absent: tenderness Extremities exam: Present: normal inspection. Absent: pedal edema, calf tenderness Neurological exam: Present: alert Psychiatric exam: Present: normal affect, normal mood Skin exam: Present: normal color Course Vital Signs 01/05/25 01/05/25 01/05/25 11:47 12:21 13:35 Temperature 98.0 F 97.8 F Pulse Rate 64 58 L Pulse Rate [ 61 Bilateral Test Evaluator ] Respiratory 18 16 Rate Blood Pressure 145/63 129/79 O2 Sat by Pulse 93 L 94 L Oximetry 01/05/25 01/05/25 14:11 15:39 Temperature Pulse Rate 56 L 58 L Pulse Rate [ Bilateral Test Evaluator ] Respiratory 18 18 Rate Blood Pressure 136/65 O2 Sat by Pulse 94 L 95 Oximetry - Reevaluation(s) Reevaluation #1: 01/05/25 14:36 Troponin still pending. Lab called and states they are still working on it. EKG Findings - EKG Results: EKG: interpreted by [facility] ([facility]. Prominent T waves. Borderline ST depression. Previous EKGs reviewed including 06/14/[address] depression.), sinus rhythm, normal axis Medical Decision Making - Medical Decision Making Was pt. sent in by a medical professional or institution (, PA, FEED MILL MANAGER, urgent care, hospital, or [facility]...) When possible be specific @ -Patient was sent in by Dr. Chaudhry Did you speak to anyone other than the patient for history (EMS, parent, family, police, friend...)? What history was obtained from this source @ -Family is present and helps provide history including concerns regarding patient as patient is a poor historian Did you review nursing and triage notes (agree or disagree)? Why? @ -I reviewed and agree with nursing and triage notes Were old charts reviewed (outside hosp., previous admission, EMS record, old EKG, old radiological studies, urgent care reports/EKG's, [facility] records)? Report findings @ -Chart reviewed from Dr. Chaudhry office including EKG radiology reports and lab work ports Differential Diagnosis (chest pain, altered mental status, abdominal pain women, abdominal pain men, vaginal bleeding, weakness, fever, dyspnea, syncope, headache, dizziness, GI bleed, back pain, seizure, CVA, palpatations, mental health, musculoskeletal)? @ -Differential Chest Pain: Stable Angina, Unstable Angina, STEMI, NSTEMI Aortic Dissection, Pneumothorax, Musculoskeletal, Esophageal Spasm GERD, Cholecystitis, Pancreatitis, Zoster, this is not meant to be an all-inclusive list. EKG interpreted by me (3pts min.). @ -As above X-rays interpreted by me (1pt min.). @ -Chest x-ray shows chronic changes CT interpreted by me (1pt min.). @ -None done U/S interpreted by me (1pt. min.). @ -None done What testing was considered but not performed or refused? (CT, X-rays, U/S, labs)? Why? @ -None What meds were considered but not given or refused? Why? @ -None Did you discuss the management of the patient with other professionals (professionals i.e. DrAleyda, PA, FEED MILL MANAGER, lab, RT, psych nurse, social staff worker, emergency veterinary technician, teacher, project officer, ed case manager)? Give summary @ -Case was discussed with Dr. Merchant will admit covering Dr. Chaudhry Was smoking cessation discussed for >3mins.? @ -No Was critical care preformed (if so, how long)? @ -No Were there social determinants of health that impacted care today? How? (Homelessness, low income, unemployed, alcoholism, drug addiction, transportation, low edu. Level, literacy, decrease access to med. care, custodial, rehab)? @ -No Was there de-escalation of care discussed even if they declined (Discuss DNR or withdrawal of care, Hospice)? DNR status @ -No What co-morbidities impacted this encounter? (DM, HTN, Smoking, COPD, CAD, Cancer, CVA, ARF, Chemo, Hep., AIDS, mental health diagnosis, sleep apnea, morbid obesity)? @ -None Was patient admitted / discharged? Hospital course, mention meds given and route, prescriptions, significant lab abnormalities, going to OR and other pertinent info. @ -Patient presents with concern with vomiting and abnormal cardiac evaluation as an outpatient. EKG remains with some changes however troponin has improved. Patient reevaluated. Patient and family updated. Patient will be admitted with cardiac consult. Admission orders written. Undiagnosed new problem with uncertain prognosis? @ -No Drug Therapy requiring intensive monitoring for toxicity (Heparin, Nitro, Insulin, Cardizem)? @ -No Were any procedures done? @ -No Diagnosis/symptom? @ -Vomiting, EKG changes Acute, or Chronic, or Acute on Chronic? @ -Acute, acute Uncomplicated (without systemic symptoms) or Complicated (systemic symptoms)? @ -Default Side effects of treatment? @ -No Exacerbation, Progression, or Severe Exacerbation? @ -No Poses a threat to life or bodily function? How? (Chest pain, [place], [place], pneumonia, PE, COPD, DKA, ARF, appy, cholecystitis, CVA, Diverticulitis, Homicidal, Suicidal, threat to staff... and all critical care pts) @ -Threat to cardiac function - Lab Data Result diagrams: 01/05/25 12:05 01/05/25 12:05 Lab Results 01/05/25 01/05/25 01/05/25 Range/Units 12:05 12:05 12:05 WBC 9.8 (3.8-10.6) k/uL RBC 3.62 L (3.80-5.40) m/uL Hgb 10.9 L (11.4-16.0) gm/dL Hct 35.1 (34.0-46.0) % MCV 97.0 (80.0-100.0) fL MCH 30.2 (25.0-35.0) pg MCHC 31.1 (31.0-37.0) g/dL RDW 14.7 (11.5-15.5) % Plt Count 460 H (150-450) k/uL MPV 7.2 Neutrophils % 79 % Lymphocytes % 9 % Monocytes % 6 % Eosinophils % 3 % Basophils % 1 % Neutrophils # 7.7 (1.3-7.7) k/uL Lymphocytes # 0.9 L (1.0-4.8) k/uL Monocytes # 0.6 (0-1.0) k/uL Eosinophils # 0.3 (0-0.7) k/uL Basophils # 0.1 (0-0.2) k/uL PT 11.9 (10.0-12.5) sec INR 1.1 (<1.2) APTT 26.1 (22.0-30.0) sec Sodium 135 L (137-145) mmol/L Potassium 3.8 (3.5-5.1) mmol/L Chloride 94 L (98-107) mmol/L Carbon Dioxide 31 H (22-30) mmol/L Anion Gap 10 mmol/L BUN 13 (7-17) mg/dL Creatinine 0.92 (0.52-1.04) mg/dL Est GFR (CKD-EPI)AfAm 67 (>60 ml/min/1.73 sqM) Est GFR (CKD-EPI)NonAf 58 (>60 ml/min/1.73 sqM) Glucose 98 (74-99) mg/dL Calcium 8.9 (8.4-10.2) mg/dL Total Bilirubin 0.7 (0.2-1.3) mg/dL AST 20 (14-36) U/L ALT 10 (4-34) U/L Alkaline Phosphatase 157 H (38-126) U/L Troponin I (0.000-0.034) ng/mL NT-Pro-B Natriuret Pep pg/mL Total Protein 7.7 (6.3-8.2) g/dL Albumin 3.7 (3.5-5.0) g/dL 01/05/25 01/05/25 Range/Units 12:05 12:30 WBC (3.8-10.6) k/uL RBC (3.80-5.40) m/uL Hgb (11.4-16.0) gm/dL Hct (34.0-46.0) % MCV (80.0-100.0) fL MCH (25.0-35.0) pg MCHC (31.0-37.0) g/dL RDW (11.5-15.5) % Plt Count (150-450) k/uL MPV Neutrophils % % Lymphocytes % % Monocytes % % Eosinophils % % Basophils % % Neutrophils # (1.3-7.7) k/uL Lymphocytes # (1.0-4.8) k/uL Monocytes # (0-1.0) k/uL Eosinophils # (0-0.7) k/uL Basophils # (0-0.2) k/uL PT (10.0-12.5) sec INR (<1.2) APTT (22.0-30.0) sec Sodium (137-145) mmol/L Potassium (3.5-5.1) mmol/L Chloride (98-107) mmol/L Carbon Dioxide (22-30) mmol/L Anion Gap mmol/L BUN (7-17) mg/dL Creatinine (0.52-1.04) mg/dL Est GFR (CKD-EPI)AfAm (>60 ml/min/1.73 sqM) Est GFR (CKD-EPI)NonAf (>60 ml/min/1.73 sqM) Glucose (74-99) mg/dL Calcium (8.4-10.2) mg/dL Total Bilirubin (0.2-1.3) mg/dL AST (14-36) U/L ALT (4-34) U/L Alkaline Phosphatase (38-126) U/L Troponin I 0.018 (0.000-0.034) ng/mL NT-Pro-B Natriuret Pep 2560 pg/mL Total Protein (6.3-8.2) g/dL Albumin (3.5-5.0) g/dL Disposition Clinical Impression: Vomiting, Acute electrocardiogram changes Disposition: ADMITTED IP TO THIS HOSP Is patient prescribed a controlled substance at d/c from ED?: No Referrals: Yobany Chaudhry MD [Primary Care Provider] - 1-2 days Time of Disposition: 16:04
[2025-01-05 12:37] LABS: ALT 10 U/L (4-34); AST 20 U/L (14-36); African American GFR (CKD) 67 (>60 ml/min/1.73 sqM); Albumin 3.7 g/dL (3.5-5.0); Alkaline Phosphatase 157 U/L (38-126); Anion Gap 10 mmol/L; Blood Urea Nitrogen 13 mg/dL (7-17); Calcium 8.9 mg/dL (8.4-10.2); Carbon Dioxide 31 mmol/L (22-30); Chloride 94 mmol/L (98-107); Glucose 98 mg/dL (74-99); INR 1.1 (<1.2); Non-African American GFR(CKD) 58 (>60 ml/min/1.73 sqM); Partial Thromboplastin Time 26.1 sec (22.0-30.0); Potassium 3.8 mmol/L (3.5-5.1); Prothrombin Time 11.9 sec (10.0-12.5); Sodium 135 mmol/L (137-145); Total Bilirubin 0.7 mg/dL (0.2-1.3); Total Protein 7.7 g/dL (6.3-8.2)
--- NOTE | 2025-01-05 13:06 | XR ---
EXAMINATION TYPE: XR chest 2V DATE OF EXAM: 01/05/2025 CLINICAL INDICATION: Female, 84 years old with history of Elevated Trop, TECHNIQUE: Frontal and lateral views of the chest are obtained. COMPARISON: Chest CT June 17, 2023 FINDINGS: Chronic parenchymal fibrosis bilaterally is redemonstrated. There is no focal air space op acity, pleural effusion, or pneumothorax seen. Persistent cardiomegaly. Cholecystectomy clips are re demonstrated. The osseous structures are intact. IMPRESSION: Cardiomegaly and chronic parenchymal fibrosis again seen. No suspicious new acute pulmona ry process. [facility], , 01/05/2025 1:04 PM
[2025-01-05] MEDS ORDERED: NALOXONE 0.4 MG/ML 1 ML VIAL IV PRN (16:04)
[2025-01-05] MEDS: PANTOPRAZOLE 40 MG/10 ML VIAL IV SCH (16:13)
[2025-01-05] MEDS: SODIUM CHLORIDE 0.9% 1,000 ML IV SCH (16:18)
[2025-01-05 17:03] LABS: Appearance,Urine Cloudy (Clear); Bacteria,Urine Many /hpf; Bilirubin,Urine Negative (Negative); Blood,Urine Small (Negative); Budding Yeast,Urine Occasional /hpf; Color,Urine Yellow; Glucose,Urine (UA) Negative (Negative); Ketones,Urine Negative (Negative); Leukocyte Esterase,Urine Large (Negative); Mucus,Urine Rare /hpf; Nitrite,Urine Positive (Negative); Protein,Urine 1+ (Negative); RBC,Urine 10 /hpf (0-5); Squamous Epithelial Cell,Urine 5 /hpf (0-4); Urobilinogen,Urine <2.0 mg/dL (<2.0); WBC,Urine 135 /hpf (0-5)
[2025-01-05] MEDS ORDERED: IRON PO SCH (21:00)
[2025-01-06] MEDS ORDERED: ALPRAZolam 0.5 MG TAB PO PRN (08:07)
[2025-01-06] MEDS ORDERED: ALPRAZolam 0.25 MG TAB PO PRN (08:07)
[2025-01-06] MEDS ORDERED: NITROGLYCERIN SL TABS 0.4 MG TAB SUBLINGUAL PRN ×2 (08:07→13:34)
[2025-01-06 08:13] LABS: ALT 5 U/L (8-44); AST 19 U/L (13-35); Albumin 3.2 g/dL (3.8-4.9); Albumin/Globulin Ratio 0.94 Ratio (1.60-3.17); Alkaline Phosphatase 136 U/L (41-126); BUN/Creat Ratio 11.78 Ratio (12.00-20.00); Blood Urea Nitrogen 10.6 mg/dL (9.0-27.0); Calcium 8.6 mg/dL (8.7-10.3); Carbon Dioxide 27.8 mmol/L (21.6-31.8); Chloride 99 mmol/L (96-109); Globulin 3.4 g/dL (1.6-3.3); Glucose 89 mg/dL (70-110); Potassium 3.4 mmol/L (3.5-5.5); Sodium 138 mmol/L (135-145); Total Bilirubin 0.5 mg/dL (0.3-1.2); Total Protein 6.6 g/dL (6.2-8.2)
[2025-01-06 08:35] LABS: Basophils # (A) 0.05 X 10*3/uL (0.00-0.10); Basophils % (A) 0.6 %; Eosinophils # (A) 0.23 X 10*3/uL (0.04-0.35); Eosinophils % (A) 2.6 %; HCT 30.8 % (37.2-46.3); HGB 9.9 g/dL (12.0-15.0); Lymphocytes # (A) 1.26 X 10*3/uL (0.90-5.00); Lymphocytes % (A) 14.2 %; MCH 30.8 pg (27.0-32.0); MCHC 32.1 g/dL (32.0-37.0); Mean Platelet Volume 9.8 FL (9.5-12.2); Monocytes # (A) 0.92 X 10*3/uL (0.20-1.00); Monocytes % (A) 10.3 %; NRBC Per 100 WBC 0 X 10*3/uL (0.00-0.01); Neutrophils # (A) 6.39 X 10*3/uL (1.80-7.70); Neutrophils % (A) 71.9 %; Platelet Count 409 X 10*3/uL (140-440); RBC 3.21 X 10*6/uL (4.10-5.20); RDW 14.9 % (11.5-14.5); WBC 8.89 X 10*3/uL (4.50-10.00)
[2025-01-06] MEDS: METOPROLOL SUCCINATE (ER) 50 MG TAB.ER.24H PO SCH (08:49)
[2025-01-06] MEDS: allopurinoL 100 MG TAB PO SCH (08:49)
[2025-01-06] MEDS: ISOSORBIDE MONONITRATE ER 30 MG TAB.ER.24H PO SCH (08:49)
[2025-01-06] MEDS: PANTOPRAZOLE 40 MG TABLET PO SCH (08:50)
[2025-01-06] MEDS: ASPIRIN 81 MG PO SCH (08:50)
[2025-01-06] MEDS: ATORVASTATIN 80 MG TAB PO STA (08:50)
[2025-01-06] MEDS: ATORVASTATIN 80 MG TAB PO SCH (08:51)
[2025-01-06] MEDS: ASPIRIN 325 MG TAB PO STA (08:51)
[2025-01-06] MEDS: SODIUM CHLORIDE 0.9% 1,000 ML in EMPTY BAG 1 BAG IV SCH ×2 (08:51→14:57)
--- NOTE | 2025-01-06 09:09 | P.CRDCN ---
History of Present Illness History of present illness: HISTORY OF PRESENT ILLNESS: This is a 84-year-old female with a past medical history significant for coronary artery disease with previous stenting, atrial fibrillation, and hyperlipidemia. Patient follows in the office with Dr. Royal. We have been asked to see the patient in consultation for EKG changes. Patient examined at the bedside. Patient is a poor historian and is also hard of hearing. There is no family present at the time of examination. Patient states she was at home and was coughing and then had an episode of vomiting afterwards. She does report having some bilateral arm pain. She denied having any chest pain. Patient initially presented to [facility] and was found to have abnormal EKG and was transferred to [facility] for further evaluation. DIAGNOSTICS: - EKG reveals sinus mechanism with deep T wave inversions in lead I, aVL, and V1. T wave inversions in lead II, V3V4. ST depression in V5V6.. - Chest xray cardiomegaly and chronic parenchymal fibrosis. No suspicious no acute finding.. - Laboratory data: WBC 9.8. Hemoglobin 10.9. Platelet count 460. Sodium 135. Potassium 3.8. BUN 13. Creatinine 0.92. Troponin negative x 3. proBNP 2560. - Current home cardiac medications include Imdur 30 mg daily, Eliquis 2.5 mg twice a day, metoprolol succinate 50 mg daily, atorvastatin 80 mg daily, and aspirin 81 mg daily. - Most recent echocardiogram obtained in May 2023 revealed ejection fraction 50 to 55%, moderate aortic regurgitation - Cardiac catheterization history: February 2019 revealing mild triple-vessel CAD with no evidence of restenosis in the stented segment of the LAD. Normal left ventricular size and systolic function REVIEW OF SYSTEMS: At the time of my exam: CONSTITUTIONAL: Denies fever or chills. HEENT: Denies blurred vision, vision changes, or eye pain. Denies hemoptysis CARDIOVASCULAR: Denies chest pain. Denies orthopnea. Denies PND. Denies palpitations RESPIRATORY: Denies shortness of breath. GASTROINTESTINAL: Denies abdominal pain. Denies nausea or vomiting. HEMATOLOGIC: Denies bleeding disorders. GENITOURINARY: Denies any blood in urine. SKIN: Denies pruitis. Denies rash. PHYSICAL EXAM: VITAL SIGNS: Reviewed. GENERAL: Well-developed in no acute distress. HEENT: Head is normocephalic. Pupils are equal, round. Sclerae anicteric. Mucous membranes of the mouth are moist. Neck supple. No JVD or thyromegaly LUNGS: Respirations even and unlabored. Lungs essentially clear to auscultation bilaterally. HEART: Regular rate and rhythm. S1 and S2 heard. ABDOMEN: Soft. Nondistended. Nontender. EXTREMITIES: Normal range of motion. No clubbing or cyanosis. Peripheral pulses intact. No lower extremity edema NEUROLOGIC: Awake and alert. Oriented x 3. ASSESSMENT: Generalized weakness and malaise Decreased oral intake with nausea and vomiting Abnormal EKG with diffuse T wave inversions concerning for ischemia with bilateral arm pain Abnormal UA/urinary tract infection Coronary artery disease with previous stenting of the LAD Paroxysmal atrial fibrillation Hyperlipidemia Moderate aortic regurgitation PLAN: Repeat EKG Obtain 2D echo to assess cardiac structure and function Resume home cardiac medications Hold Eliquis Patient to undergo cardiac catheterization today with Dr. Royal Further recommendations pending patient course Nurse practitioner note has been reviewed by physician. Signing provider agrees with the documented findings, assessment, and plan of care documented by [employer] as a scribe. Past Medical History Past Medical History: Eye Disorder, GERD/Reflux, Hyperlipidemia, Myocardial Infarction ([place]), Renal Disease, Rheumatoid Arthritis (RA) Additional Past Medical History / Comment(s): Diverticulosis,"PULMONARY HYPERTENSION"- SEE DR GARCIA'S HISTORY AND PHYSICAL FOR CARDIAC HISTORY, FREQUENT URINARY INFECTIONS Last Myocardial Infarction Date:: 09/2015 History of Any Multi-Drug Resistant Organisms: None Reported Past Surgical History: Cholecystectomy, Heart Catheterization With Stent, Hysterectomy, Orthopedic Surgery Additional Past Surgical History / Comment(s): KNEE ARTHROSCOPIC Past Anesthesia/Blood Transfusion Reactions: No Reported Reaction Date of Last Stent Placement:: 09/2015 Past Psychological History: Anxiety Smoking Status: Never smoker Past Alcohol Use History: None Reported Past Drug Use History: None Reported - Past Family History Mother Family Medical History: Hypertension Additional Family Medical History / Comment(s): heart attack Father Family Medical History: Cancer Medications and Allergies Home Medications Medication Instructions Recorded Confirmed Type Omeprazole [PriLOSEC] 20 mg PO DAILY 04/15/14 01/05/25 History allopurinoL [Zyloprim] 100 mg PO DAILY 03/14/19 01/05/25 History Atorvastatin [Lipitor] 80 mg PO DAILY 12/30/20 01/05/25 History PARoxetine HCL [Paxil Cr] 37.5 mg PO DAILY 09/21/21 01/05/25 History Ergocalciferol [Vitamin D2 (1250 1,250 mcg PO Q30D 06/14/23 01/05/25 History Mcg = 29926 Iu)] Apixaban [Eliquis] 2.5 mg PO BID #60 tab 06/19/23 01/05/25 Rx Aspirin EC [Ecotrin Low Dose] 81 mg PO DAILY 01/05/25 01/05/25 History Iron (Unknown Dose) 1 tab PO BID 01/05/25 01/05/25 History Isosorbide Mononitrate ER [Imdur] 30 mg PO DAILY 01/05/25 01/05/25 History Metoprolol Succinate (ER) [Toprol 50 mg PO DAILY 01/05/25 01/05/25 History Xl] Allergies Allergy/AdvReac Type Severity Reaction Status Date / Time hydrocodone bitartrate Allergy Itching Verified 01/05/25 15:11 [From Vicodin] sulfamethoxazole Allergy Rash/Hives Verified 01/05/25 15:11 [From Bactrim] trimethoprim [From Bactrim] Allergy Rash/Hives Verified 01/05/25 15:11 NSAIDS (Non-Steroidal AdvReac Unknown Verified 01/05/25 15:11 Anti-Inflamma Physical Exam Vitals: Vital Signs Temp Pulse Pulse Pulse Resp BP BP 01/06/25 07:00 98.2 F 71 15 195/75 01/06/25 04:22 168/74 01/06/25 02:00 97.9 F 75 17 184/74 01/05/25 22:12 98.5 F 70 17 161/80 01/05/25 21:42 98.6 F 68 95 H 157/78 01/05/25 19:37 68 18 157/87 01/05/25 18:00 98.5 F 70 18 137/80 01/05/25 15:39 58 L 18 136/65 01/05/25 14:11 56 L 18 01/05/25 13:35 97.8 F 58 L 16 129/79 01/05/25 12:21 61 01/05/25 11:47 98.0 F 64 18 145/63 Pulse Ox 01/06/25 07:00 94 L 01/06/25 04:22 01/06/25 02:00 94 L 01/05/25 22:12 96 01/05/25 21:42 01/05/25 19:37 94 L 01/05/25 18:00 95 01/05/25 15:39 95 01/05/25 14:11 94 L 01/05/25 13:35 94 L 01/05/25 12:21 01/05/25 11:47 93 L Intake and Output 01/05/25 01/06/25 01/06/25 22:59 06:59 14:59 Other: # Voids 3 Weight 50.349 kg Results 01/06/25 03:15 01/06/25 03:15 Cardiac Enzymes 01/05/25 01/05/25 01/05/25 Range/Units 12:05 12:05 17:36 AST 20 (14-36) U/L Troponin I 0.018 0.017 (0.000-0.034) ng/mL 01/05/25 Range/Units 20:18 AST (14-36) U/L Troponin I 0.016 (0.000-0.034) ng/mL Coagulation 01/05/25 Range/Units 12:05 PT 11.9 (10.0-12.5) sec APTT 26.1 (22.0-30.0) sec CBC 01/05/25 Range/Units 12:05 WBC 9.8 (3.8-10.6) k/uL RBC 3.62 L (3.80-5.40) m/uL Hgb 10.9 L (11.4-16.0) gm/dL Hct 35.1 (34.0-46.0) % Plt Count 460 H (150-450) k/uL Comprehensive Metabolic Panel 01/05/25 Range/Units 12:05 Sodium 135 L (137-145) mmol/L Potassium 3.8 (3.5-5.1) mmol/L Chloride 94 L (98-107) mmol/L Carbon Dioxide 31 H (22-30) mmol/L BUN 13 (7-17) mg/dL Creatinine 0.92 (0.52-1.04) mg/dL Glucose 98 (74-99) mg/dL Calcium 8.9 (8.4-10.2) mg/dL AST 20 (14-36) U/L ALT 10 (4-34) U/L Alkaline Phosphatase 157 H (38-126) U/L Total Protein 7.7 (6.3-8.2) g/dL Albumin 3.7 (3.5-5.0) g/dL Current Medications Generic Name Dose Route Start Last Admin Trade Name Freq PRN Reason Stop Dose Admin Allopurinol 100 mg 01/06/25 09:00 Allopurinol 100 Mg Tab PO DAILY [facility] Aspirin 81 mg 01/06/25 09:00 Aspirin 81 Mg PO DAILY [facility] Atorvastatin Calcium 80 mg 01/06/25 09:00 Atorvastatin 80 Mg Tab PO DAILY [facility] Ergocalciferol 1,250 mcg 01/24/25 09:00 Ergocalciferol 1,250 Mcg (50,000 Iu) Capsule PO Q30D [facility] Sodium Chloride 1,000 mls @ 75 mls/hr 01/05/25 16:15 01/06/25 05:09 Saline 0.9% IV 75 mls/hr .[id number] KATHARINA Administration Isosorbide Mononitrate 30 mg 01/06/25 09:00 Isosorbide Mononitrate Er 30 Mg Tab.Er.24h PO DAILY [facility] Metoprolol Succinate 50 mg 01/06/25 09:00 Metoprolol Succinate (Er) 50 Mg Tab.Er.24h PO DAILY [facility] Naloxone HCl 0.2 mg 01/05/25 16:04 Naloxone 0.4 Mg/Ml 1 Ml Vial IV Q2M PRN Opioid Reversal Ondansetron HCl 4 mg 01/05/25 16:04 Ondansetron 4 Mg/2 Ml Vial IVP Q8HR PRN Nausea And Vomiting Pantoprazole Sodium 40 mg 01/05/25 16:15 01/05/25 16:13 Pantoprazole 40 Mg/10 Ml Vial IV 40 mg DAILY KATHARINA Administration Pantoprazole Sodium 40 mg 01/06/25 07:30 Pantoprazole 40 Mg Table[place] PO 0730 [facility] Paroxetine HCl 30 mg 01/06/25 09:00 Paroxetine 10 Mg Tab PO DAILY KATHARINA Intake and Output 01/05/25 01/06/25 01/06/25 22:59 06:59 14:59 Other: # Voids 3 Weight 50.349 kg 01/05/25 12:05 01/05/25 12:05
[2025-01-06] MEDS: PARoxetine 10 MG TAB PO SCH (09:45)
[2025-01-06 10:45] LABS: Glucose,Whole Blood 89 mg/dL (70-110)
[2025-01-06] MEDS: VERAPAMIL SYRINGE (5 MG/10 ML) INTRAARTER ONE (11:58)
[2025-01-06] MEDS: MIDAZOLAM 2 MG/2 ML VIAL IVP ONE (11:58)
[2025-01-06] MEDS: LIDOCAINE 1% INJ 10MG/ML (20 ML MDV) SQ ONE (11:58)
[2025-01-06] MEDS: fentaNYL (PF) 50 MCG/1 ML VIAL IVP ONE (11:58)
[2025-01-06] MEDS: HEPARIN SODIUM 1,000 UN/ML (10ML VL) IVP ONE (12:05)
[2025-01-06] MEDS: SODIUM CHLORIDE 0.9% 1,000 ML IV ONE (12:08)
[2025-01-06] MEDS: HEPARIN SODIUM,PORCINE (1 ML) 2,500 UNIT in SODIUM CHLORIDE 0.9% 250 ML IRRIGATION PRN (12:09)
[2025-01-06] MEDS: HEPARIN SODIUM,PORCINE 10,000 UNIT in SODIUM CHLORIDE 0.9% 1,000 ML IRRIGATION PRN (12:09)
[2025-01-06] MEDS: TICAGRELOR 90 MG TAB PO ONE (12:27)
[2025-01-06] MEDS: IOPAMIDOL-370 100ML BTL INJ ONE (12:53)
[2025-01-06] MEDS: IOPAMIDOL-300 100ML BTL INJ ONE (13:29)
[2025-01-06] MEDS ORDERED: RX INFO: IV CONTRAST WAS GIVEN 1 EACH MISC MISCELLANE PRN (13:34)
[2025-01-06] MEDS ORDERED: ATROPINE SULFATE 0.1 MG/ML 10ML SYRINGE IV PRN (13:34)
[2025-01-06] MEDS ORDERED: MAG HYDROX/AL HYDROX/SIMETH 30 ML CUP PO PRN (13:34)
[2025-01-06] MEDS ORDERED: ZOLPIDEM 5 MG TAB PO PRN (13:34)
--- NOTE | 2025-01-06 14:18 | P.PCN ---
Date of Procedure: 01/06/25 Operative Findings: PERCUTANEOUS CORONARY INTERVENTION Performing physician Andrez Winchester M.D. Procedure Performed: 1. Successful stenting of the mid LAD using 3.0 x 38 mm Xience drug-eluting stent with an excellent angiographic results. 2. Adjunctive use of IVUS and lithotripsy balloon Indication: Symptomatic 84-year-old female patient with abnormal EKG concerning for ischemia Approach: Right radial artery Complications: None Level of Sedation: Moderate with a sedation length of 80 minutes Procedure Discussion: Please refer to diagnostic heart catheterization was performed by Dr. Royal earlier today with anticoagulation was initiated using heparin with continuous ACT monitoring with subsequently I did engage the left main using JL 3.5 guiding catheter. I did wire the LAD using a whisper wire. IVUS was performed of the LAD and showed a diameter around 3 mm to 3.25 mm. The artery was also calcified. Balloon angioplasty was attempted using 2.5 mm and 3 mm noncompliant balloon. After that there was some area where the balloon was not fully expanded. I decided to use shockwave balloon. I did balloon angioplasty using 3 mm shockwave balloon. After that attempting advancing 3.0 x 38 mm stent was unsuccessful in spite of using GuideLiner and double wire. After the shockwave balloon we asked the flow in the diagonal branch with attempting ballooning the diagonal was unsuccessful. At that point probably we lifted the struts and that the reason the stent was not able to be delivered. I did balloon in the LAD at that point using 2.0 mm balloon and then 2.5 mm balloon and then 3.5 mm balloon. After that I was able to advance a 3.0 x 38 mm stent where the stent was posi tioned under fluoroscopy guidance and deployed under fluoroscopy guidance and postdilated using 3.5 mm NC balloon. Final angiogram showed good angiographic results with sluggish flow in the diagonal branch. The procedure was completed with no complication Postprocedure Management: 1. Dual antiplatelet therapy using aspirin and Brilinta for at least 12-month 2. Aggressive cholesterol control 3. Risk factors modification
[2025-01-06] MEDS: ONDANSETRON 4 MG/2 ML VIAL IVP PRN (19:46)
[2025-01-06] MEDS: TICAGRELOR 90 MG TAB PO SCH (19:46)
[2025-01-06 20:24] VITALS: RESP 17
--- NOTE | 2025-01-06 20:25 | CA ---
Transthoracic Echo Report Name: Angelika Cummings Age: 84 Gender: F : 1940 Exam Date: 01/06/2025 11:06 Exam Location: [facility] Ht (in): 62 Wt (lb): 111 Ordering Physician: Charlotte Christina Attending/Referring Phys: [id number], [facility] Prost[facility]ist Fawn Faustin RDCS Procedure CPT: Indications: LV function, abnormal EKG, hx CAD Cardiac Hx: Technical Quality: Fair Contrast 1: Total Dose (mL): Contrast 2: Total Dose (mL): MEASUREMENTS (Male / Female) Normal Values 2D ECHO LV Diastolic Diameter PLAX 4.0 cm 4.2 - 5.9 / 3.9 - 5.3 cm LV Systolic Diameter PLAX 2.9 cm IVS Diastolic Thickness 1.0 cm 0.6 - 1.0 / 0.6 - 0.9 cm LVPW Diastolic Thickness 0.8 cm 0.6 - 1.0 / 0.6 - 0.9 cm LV Relative Wall Thickness 0.5 LVOT Diameter 1.8 cm LV Diastolic Volume MOD BP 74.9 cm??? 67 - 155 / 56 - 104 cm??? LV Systolic Volume MOD BP 27.4 cm??? 22 - 58 / 19 - 49 cm??? LV Ejection Fraction MOD BP 63.5 % >= 55 % LV Cardiac Index MOD BP 2052.4 cm???/min???m??? LV Diastolic Volume MOD 4C 69.7 cm??? LV Systolic Volume MOD 4C 27.9 cm??? LV Ejection Fraction MOD 4C 60.0 % LV Cardiac Index MOD 4C 1806.5 cm???/min???m??? LV Diastolic Length 4C 6.5 cm LV Systolic Length 4C 5.3 cm LV Diastolic Volume MOD 2C 76.2 cm??? LV Systolic Volume MOD 2C 26.4 cm??? LV Ejection Fraction MOD 2C 65.3 % LV Cardiac Index MOD 2C 2147.8 cm???/min???m??? LV Diastolic Length 2C 6.9 cm LV Systolic Length 2C 5.2 cm LA Volume 59.2 cm??? 18 - 58 / 22 - 52 cm??? LA Volume Index 39.9 cm???/m??? 16 - 28 cm???/m??? Ascending Aorta Diameter 3.6 cm DOPPLER AV Peak Velocity 183.6 cm/s AV Peak Gradient 13.5 mmHg AV Mean Velocity 126.2 cm/s AV Mean Gradient 6.9 mmHg AV Velocity Time Integral 33.5 cm AI Peak Velocity 420.2 cm/s AI Peak Gradient 70.6 mmHg AI Pressure Half Time 561.8 ms LVOT Peak Velocity 115.1 cm/s LVOT Peak Gradient 5.3 mmHg LVOT Velocity Time Integral 20.6 cm LVOT Stroke Volume 52.9 cm??? LVOT Stroke Volume Index 35.5 ml/m??? LVOT Cardiac Index 2282.0 cm???/min???m??? AV Area Cont Eq vti 1.6 cm??? AV Area Cont Eq pk 1.6 cm??? MV Area PHT 2.5 cm??? Mitral E Point Velocity 40.8 cm/s Mitral A Point Velocity 64.8 cm/s Mitral E to A Ratio 0.6 MV Deceleration Time 308.7 ms TR Peak Velocity 253.1 cm/s TR Peak Gradient 25.6 mmHg Right Atrial Pressure 5.0 mmHg Pulmonary Artery Systolic Pressu 30.6 mmHg Right Ventricular Systolic Press 30.6 mmHg PV Peak Velocity 98.2 cm/s PV Peak Gradient 3.9 mmHg FINDINGS Left Ventricle Left ventricular ejection fraction is estimated at 60 %. Mildly increased septal wall thickness. Left ventricular cavity size normal. No obvious regional wall motion abnormalities. Right Ventricle Normal right ventricular size and function. Right ventricular systolic pressure within normal limits. Right Atrium Normal right atrial size. Left Atrium Mildly increased left atrial volume. Mitral Valve Mitral valve thickened. No evidence for mitral valve prolapse. No mitral stenosis. Trace to mild mitral regurgitation. Aortic Valve Trileaflet aortic valve. Diffuse thickening (sclerosis) of the aortic valve cusps without reduced excursion. No aortic stenosis. Gkix-ea-elxtipos aortic regurgitation. Tricuspid Valve Structurally normal tricuspid valve. No tricuspid stenosis. Moderate tricuspid regurgitation. Pulmonic Valve Structurally normal pulmonic valve. No pulmonic stenosis. Trace pulmonic regurgitation. Pericardium No pericardial effusion. Aorta Normal size aortic root and proximal ascending aorta. CONCLUSIONS Normal LV systolic function Mild to moderate aortic regurgitation. The aortic valve is sclerotic No pericardial effusion Previewed by: Dr. Andrez Winchester MD (Electronically Signed) Final Date: 06 January 2025:24
[2025-01-06] MEDS: ACETAMINOPHEN TAB 500 MG TAB PO PRN (21:29)
--- NOTE | 2025-01-06 21:46 | P.HPIM ---
History of Present Illness H&P Date: 01/06/25 Chief Complaint: Not feeling well 84-year-old female, follows with Dr. Chaudhry with known history of hyperlipidemia, history of KS, coronary artery disease history of stent placement, rheumatoid arthritis, pulmonary hypertension, pulmonary fibrosis Patient was brought into the ER with the son with patient not feeling well. Symptoms present for about 2 days. Patient had been throwing up with decreased oral intake. Patient not good with history. Prior history of CAD with stent. Review of systems: GEN.: Tired EYES: None HEENT: None NECK: None RESPIRATORY: None CARDIOVASCULAR: None GASTROINTESTINAL: None GENITOURINARY: None MUSCULOSKELETAL: None LYMPHATICS: None HEMATOLOGICAL: None PSYCHIATRY: [Forgetful NEUROLOGICAL: None Past medical history to include: GERD, hyperlipidemia, KS, rheumatoid arthritis, colonic diverticulosis, secondary pulmonary hypertension, coronary artery disease with stent, anxiety pulmonary fibrosis Social history: Does not smoke or drink alcohol. Lives alone. Physical examination: VITAL SIGNS: 98.2, 68, 15, 138 x 68, 96% room air GENERAL: BMI 20.3 laying in bed a bit confused. EYES: Pupils equal. Conjunctiva jackyln l. HEENT: External appearance of nose and ears normal, oral cavity grossly normal. NECK: JVD not raised; masses not palpable. HEART: First and second heart sounds are normal; no edema. LUNGS:[ Respiratory rate normal; basal crackles. ABDOMEN: Soft, nontender, liver spleen not palpable, no masses palpable. PSYCH: Awake but can only answer simple questions. Not able to really give any details of the history l. MUSCULOSKELETAL:No Clubbing/cyanosis;muscles-grossly intact. OA NEUROLOGICAL: Cranial nerves grossly intact; no facial asymmetry, power and sensation grossly intact. LYMPHATICS: No lymph nodes palpable in the axilla and neck INVESTIGATIONS, reviewed in the clinical context: 2D echo: EF 60%. Sclerosis of the arctic valve. Mild to moderate AR. Moderate TR. January 06: White count 8.8 hemoglobin 9.9 platelets 409 sodium 138 potassium 3.4 creatinine 0.9 Troponin I 0.017, 0.016 proBNP 2560 EKG tracing personally reviewed by me-flipped T waves in 1 aVL V1. And flipped T waves V4 V5 V6 Chest x-ray film personally reviewed by me-cardiomegaly. Fibrotic changes Previous testing CT chest high resolution: Pulmonary fibrosis Assessment and plan: -Atypical unstable angina. Patient has T wave changes. Not feeling well. For cardiac catheterization -Acute congestive heart failure exacerbation from diastolic dysfunction EF 55%: Stabilized Hold Lasix currently for renal function. Follow-up with cartilage E outpatient -Paroxysmal atrial fibrillation, currently in sinus rhythm Toprol-XL 50. Eliquis -Chronic pulmonary fibrosis -GERD Protonix -Hyperlipidemia on Lipitor -Chronic rheumatoid arthritis -Colonic diverticulosis, asymptomatic -Secondary pulmonary hypertension follow clinically -Coronary artery disease with prior stents , Lopressor Lipitor aspirin . -Moderate mitral and tricuspid regurgitation. Follow clinically Patient is going for cardiac catheterization. Home medications resumed. Past Medical History Past Medical History: Eye Disorder, GERD/Reflux, Hyperlipidemia, Myocardial Infarction (KS), Renal Disease, Rheumatoid Arthritis (RA) Additional Past Medical History / Comment(s): Diverticulosis,"PULMONARY HYPERTENSION"- SEE DR GARCIA'S HISTORY AND PHYSICAL FOR CARDIAC HISTORY, FREQUENT URINARY INFECTIONS Last Myocardial Infarction Date:: 09/2015 History of Any Multi-Drug Resistant Organisms: None Reported Past Surgical History: Cholecystectomy, Heart Catheterization With Stent, Hysterectomy, Orthopedic Surgery Additional Past Surgical History / Comment(s): KNEE ARTHROSCOPIC Past Anesthesia/Blood Transfusion Reactions: No Reported Reaction Date of Last Stent Placement:: 09/2015 Past Psychological History: Anxiety Smoking Status: Never smoker Past Alcohol Use History: None Reported Past Drug Use History: None Reported - Past Family History Mother Family Medical History: Hypertension Additional Family Medical History / Comment(s): heart attack Father Family Medical History: Cancer Medications and Allergies Home Medications Medication Instructions Recorded Confirmed Type Omeprazole [PriLOSEC] 20 mg PO DAILY 04/15/14 01/05/25 History allopurinoL [Zyloprim] 100 mg PO DAILY 03/14/19 01/05/25 History Atorvastatin [Lipitor] 80 mg PO DAILY 12/30/20 01/05/25 History PARoxetine HCL [Paxil Cr] 37.5 mg PO DAILY 09/21/21 01/05/25 History Ergocalciferol [Vitamin D2 (1250 1,250 mcg PO Q30D 06/14/23 01/05/25 History Mcg = 87437 Iu)] Apixaban [Eliquis] 2.5 mg PO BID #60 tab 06/19/23 01/05/25 Rx Aspirin EC [Ecotrin Low Dose] 81 mg PO DAILY 01/05/25 01/05/25 History Iron (Unknown Dose) 1 tab PO BID 01/05/25 01/05/25 History Isosorbide Mononitrate ER [Imdur] 30 mg PO DAILY 01/05/25 01/05/25 History Metoprolol Succinate (ER) [Toprol 50 mg PO DAILY 01/05/25 01/05/25 History Xl] Allergies Allergy/AdvReac Type Severity Reaction Status Date / Time hydrocodone bitartrate Allergy Itching Verified 01/05/25 15:11 [From Vicodin] sulfamethoxazole Allergy Rash/Hives Verified 01/05/25 15:11 [From Bactrim] trimethoprim [From Bactrim] Allergy Rash/Hives Verified 01/05/25 15:11 NSAIDS (Non-Steroidal AdvReac Unknown Verified 01/05/25 15:11 Anti-Inflamma Physical Exam Vitals: Vital Signs Temp Pulse Pulse Pulse Resp BP BP 01/06/25 10:35 68 138/68 01/06/25 07:00 98.2 F 71 15 195/75 01/06/25 04:22 168/74 01/06/25 02:00 97.9 F 75 17 184/74 01/05/25 22:12 98.5 F 70 17 161/80 01/05/25 21:42 98.6 F 68 95 H 157/78 01/05/25 19:37 68 18 157/87 01/05/25 18:00 98.5 F 70 18 137/80 01/05/25 15:39 58 L 18 136/65 01/05/25 14:11 56 L 18 01/05/25 13:35 97.8 F 58 L 16 129/79 01/05/25 12:21 61 01/05/25 11:47 98.0 F 64 18 145/63 Pulse Ox 01/06/25 10:35 96 01/06/25 07:00 94 L 01/06/25 04:22 01/06/25 02:00 94 L 01/05/25 22:12 96 01/05/25 21:42 01/05/25 19:37 94 L 01/05/25 18:00 95 01/05/25 15:39 95 01/05/25 14:11 94 L 01/05/25 13:35 94 L 01/05/25 12:21 01/05/25 11:47 93 L Intake and Output 01/05/25 01/06/25 01/06/25 22:59 06:59 14:59 Other: Voiding Method Toilet # Voids 3 Weight 50.349 kg Results CBC & Chem 7: 01/06/25 03:15 01/06/25 03:15 Labs: Abnormal Lab Results - Last 24 Hours (Table) 01/05/25 01/05/25 01/05/25 Range/Units 12:05 12:05 12:29 RBC 3.62 L (3.80-5.40) m/uL Hgb 10.9 L (11.4-16.0) gm/dL Hct (37.2-46.3) % RDW (11.5-14.5) % Plt Count 460 H (150-450) k/uL Lymphocytes # 0.9 L (1.0-4.8) k/uL Sodium 135 L (137-145) mmol/L Potassium (3.5-5.5) mmol/L Chloride 94 L (98-107) mmol/L Carbon Dioxide 31 H (22-30) mmol/L BUN/Creatinine Ratio (12.00-20.00) Ratio Calcium (8.7-10.3) mg/dL ALT (8-44) U/L Alkaline Phosphatase 157 H (38-126) U/L Albumin (3.8-4.9) g/dL Globulin (1.6-3.3) g/dL Albumin/Globulin Ratio (1.60-3.17) Ratio Urine Appearance Cloudy H (Clear) Urine Protein 1+ H (Negative) Urine Blood Small H (Negative) Urine Nitrite Positive H (Negative) Ur Leukocyte Esterase Large H (Negative) Urine RBC 10 H (0-5) /hpf Urine WBC 135 H (0-5) /hpf Ur Squamous Epith Cells 5 H (0-4) /hpf Urine Bacteria Many H (None) /hpf Urine Mucus Rare H (None) /hpf Urine Yeast (Budding) Occasional H (None) /hpf 01/06/25 01/06/25 Range/Units 03:15 03:15 RBC 3.21 L (3.80-5.40) m/uL Hgb 9.9 L (11.4-16.0) gm/dL Hct 30.8 L (37.2-46.3) % RDW 14.9 H (11.5-14.5) % Plt Count (150-450) k/uL Lymphocytes # (1.0-4.8) k/uL Sodium (137-145) mmol/L Potassium 3.4 L (3.5-5.5) mmol/L Chloride (98-107) mmol/L Carbon Dioxide (22-30) mmol/L BUN/Creatinine Ratio 11.78 L (12.00-20.00) Ratio Calcium 8.6 L (8.7-10.3) mg/dL ALT 5 L (8-44) U/L Alkaline Phosphatase 136 H (38-126) U/L Albumin 3.2 L (3.8-4.9) g/dL Globulin 3.4 H (1.6-3.3) g/dL Albumin/Globulin Ratio 0.94 L (1.60-3.17) Ratio Urine Appearance (Clear) Urine Protein (Negative) Urine Blood (Negative) Urine Nitrite (Negative) Ur Leukocyte Esterase (Negative) Urine RBC (0-5) /hpf Urine WBC (0-5) /hpf Ur Squamous Epith Cells (0-4) /hpf Urine Bacteria (None) /hpf Urine Mucus (None) /hpf Urine Yeast (Budding) (None) /hpf Thrombosis Risk Factor Assmnt - Choose All That Apply Any of the Below Risk Factors Present?: Yes Other Risk Factors: Yes Each Risk Factor Represents 3 Points: Age 75 years or older Other congenital or acquired thrombophilia - If yes, enter type in comment: No Thrombosis Risk Factor Assessment Total Risk Factor Score: 3 Thrombosis Risk Factor Assessment Level: Moderate Risk
--- NOTE | 2025-01-06 23:08 | CC ---
CARDIAC CATHETERIZATION REPORT INDICATION: Unstable angina. PROCEDURE NOTE: After obtaining informed consent, left heart catheterization and coronary angiogram were performed via the right radial artery using standard Radames catheters. The patient has renal insufficiency and I gave her a bolus of IV fluids. The patient received verapamil and heparin per protocol, had moderate conscious sedation. Total sedation time was 15 minutes. Right atrial artery access was obtained using Seldinger technique. A 6-Slovak sheath was placed. Catheters and wires were floated into the ascending aorta under fluoroscopic guidance. FINDINGS: 1. Hemodynamics: Left ventricular end-diastolic pressure is 4 to 6 mm. There is no significant gradient across the aortic valve. 2. Left ventriculogram: Left ventriculogram is not performed. 3. Angiographic data: Right coronary artery was subselectively engaged shows mild nonobstructive plaque in the proximal portion. Left main coronary artery appears calcified, but is free of significant stenosis. Divides into left anterior descending coronary artery and circumflex coronary artery. Circumflex coronary artery shows mild to moderate atherosclerotic plaque. LAD was previously stented and there is an area of 80% to 90% stenosis in the proximal LAD. CONCLUSIONS: 80% to 90% stenosis involving proximal LAD. PLAN: Angiographic data was reviewed by Dr. Winchester, the on-call gray mixing operator, who will proceed with angioplasty with stent placement of LAD. The patient understands that it is a high-risk angioplasty due to this calcified vessels and prior percutaneous intervention. MMODL / IJN: [id number] /
[2025-01-07 06:48] LABS: African American GFR (CKD) 83 (>60 ml/min/1.73 sqM); Non-African American GFR(CKD) 72 (>60 ml/min/1.73 sqM)
[2025-01-07] MEDS: APIXABAN 2.5 MG TABLET PO SCH (08:28)
--- NOTE | 2025-01-07 09:48 | P.PN ---
Subjective HISTORY OF PRESENT ILLNESS: This is a 84-year-old female with a past medical history significant for coronary artery disease with previous stenting, atrial fibrillation, and hyperlipidemia. Patient follows in the office with Dr. Royal. We have been asked to see the patient in consultation for EKG changes. Patient examined at the bedside. Patient is a poor historian and is also hard of hearing. There is no family present at the time of examination. Patient states she was at home and was coughing and then had an episode of vomiting afterwards. She does report having some bilateral arm pain. She denied having any chest pain. Patient timoteo nguyễn presented to [facility] and was found to have abnormal EKG and was transferred to [facility] for further evaluation. DIAGNOSTICS: - EKG reveals sinus mechanism with deep T wave inversions in lead I, aVL, and V1. T wave inversions in lead II, V3V4. ST depression in V5V6.. - Chest xray cardiomegaly and chronic parenchymal fibrosis. No suspicious no acute finding.. - Laboratory data: WBC 9.8. Hemoglobin 10.9. Platelet count 460. Sodium 135. Potassium 3.8. BUN 13. Creatinine 0.92. Troponin negative x 3. proBNP 2560. - Current home cardiac medications include Imdur 30 mg daily, Eliquis 2.5 mg twice a day, metoprolol succinate 50 mg daily, atorvastatin 80 mg daily, and aspirin 81 mg daily. - Most recent echocardiogram obtained in May 2023 revealed ejection fraction 50 to 55%, moderate aortic regurgitation - Cardiac catheterization history: February 2019 revealing mild triple-vessel CAD with no evidence of restenosis in the stented segment of the LAD. Normal left ventricular size and systolic function 01/07/2025 Patient is status post cardiac catheterization with Dr. Royal yesterday revealing 80 to 90% stenosis involving the proximal LAD. She underwent stenting by Dr. Winchester. Patient examined this morning at the bedside. Patient currently denies chest pain or pressure. She denies shortness of breath. Echocardiogram performed revealing ejection fraction 60%, no obvious regional wall motion abnormalities, mild to moderate AR, moderate TR, and trace to mild MR. PHYSICAL EXAM: VITAL SIGNS: Reviewed. GENERAL: Well-developed in no acute distress. HEENT: Head is normocephalic. Pupils are equal, round. Sclerae anicteric. Mucous membranes of the mouth are moist. Neck supple. No JVD or thyromegaly LUNGS: Respirations even and unlabored. Lungs essentially clear to auscultation bilaterally. HEART: Regular rate and rhythm. S1 and S2 heard. ABDOMEN: Soft. Nondistended. Nontender. EXTREMITIES: Normal range of motion. No clubbing or cyanosis. Peripheral pulses intact. No lower extremity edema NEUROLOGIC: Awake and alert. Oriented x 3. ASSESSMENT: Generalized weakness and malaise Decreased oral intake with nausea and vomiting Abnormal EKG with diffuse T wave inversions concerning for ischemia with bilateral arm pain, status post cardiac catheterization with stenting to the proximal LAD Abnormal UA/urinary tract infection Coronary artery disease with previous stenting of the LAD Paroxysmal atrial fibrillation Hyperlipidemia Moderate aortic regurgitation PLAN: Resume Eliquis. Continue dual antiplatelet therapy with aspirin and Brilinta. After 1 week discontinue aspirin and continue on Brilinta and Eliquis. Continue additional cardiac medications Patient may be discharged home today from a cardiac standpoint Patient to follow-up postdischarge with Dr. Royal Further recommendations pending patient course Nurse practitioner note has been reviewed by physician. Signing provider agrees with the documented findings, assessment, and plan of care documented by CHIEF CONTRACT OFFICER as a scribe. Objective - Vital Signs Vital signs: Vital Signs Temp 97.3 F L 01/07/25 02:00 Pulse 69 01/07/25 02:00 Resp 17 01/07/25 02:00 BP 163/74 01/07/25 02:00 Pulse Ox 94 L 01/07/25 02:00 FiO2 Intake & Output 01/06/25 01/07/25 01/07/25 18:59 06:59 18:59 Intake Total 200 Balance 200 Intake: IV 200 Other: Voiding Method Toilet Toilet # Voids 3 2 # Bowel Movements 1 1 - Labs CBC & Chem 7: 01/06/25 03:15 01/07/25 06:08 Labs: Abnormal Lab Results - Last 24 Hours (Table) 01/06/25 01/06/25 Range/Units 03:15 03:15 RBC 3.21 L (4.10-5.20) X 10*6/uL Hgb 9.9 L (12.0-15.0) g/dL Hct 30.8 L (37.2-46.3) % RDW 14.9 H (11.5-14.5) % Potassium 3.4 L (3.5-5.5) mmol/L BUN/Creatinine Ratio 11.78 L (12.00-20.00) Ratio Calcium 8.6 L (8.7-10.3) mg/dL ALT 5 L (8-44) U/L Alkaline Phosphatase 136 H (41-126) U/L Albumin 3.2 L (3.8-4.9) g/dL Globulin 3.4 H (1.6-3.3) g/dL Albumin/Globulin Ratio 0.94 L (1.60-3.17) Ratio
[2025-01-07 10:19] VITALS: TEMP 97.9
[2025-01-07 12:29] VITALS: BP 116/65; PULSE 65
[2025-01-07 13:38] VITALS: BMI 20.2
--- NOTE | 2025-01-07 19:10 | P.DS ---
Providers Date of admission: 01/05/25 16:06 Expected date of discharge: 01/07/25 Attending physician: Castro Merchant Consults: 01/05/25 16:04 Consult Physician Routine Consulting Provider: Sergio Royal Consult Reason/Comments: ekg changes Do you want consulting provider notified?: Yes 01/06/25 13:35 Consult Physician Routine Consulting Provider: [facility] Consult Reason/Comments: Post Interventional Patient Do you want consulting provider notified?: Already Contacted Primary care physician: Yobany Chaudhry [facility] Hospital Course: Chief Complaint: Not feeling well 84-year-old female, follows with Dr. Chaudhry with known history of hyperlipidemia, history of NE, coronary artery disease history of stent placement, rheumatoid arthritis, pulmonary hypertension, pulmonary fibrosis Patient was brought into the ER with the son with patient not feeling well. Symptoms present for about 2 days. Patient had been throwing up with decreased oral intake. Patient not good with history. Prior history of CAD with stent. January 07: Patient yesterday underwent cardiac catheterization by Dr. Winchester and had a stent placed to mid LAD. Today patient doing well. No chest pain or shortness of breath. Cleared by cardiology for discharge. Follow-up with Dr. Roger Royal. Patient does live with her son. Patient is underlying cognitive impairment Past medical history to include: GERD, hyperlipidemia, NE, rheumatoid arthritis, colonic diverticulosis, secondary pulmonary hypertension, coronary artery disease with stent, anxiety pulmonary fibrosis Social history: Does not smoke or drink alcohol. Lives alone. Physical examination: VITAL SIGNS: 97.9, 63, 17, 116 x 65, 97% room air GENERAL: BMI 20.3 comfortable EYES: Pupils equal. Conjunctiva jacklyn l. HEENT: External appearance of nose and ears normal, oral cavity grossly normal. NECK: JVD not raised; masses not palpable. HEART: First and second heart sounds are normal; no edema. LUNGS:[ Respiratory rate normal; basal crackles. ABDOMEN: Soft, nontender, liver spleen not palpable, no masses palpable. PSYCH: Awake but can only answer simple questions. Not able to really give any details of the history l. MUSCULOSKELETAL:No Clubbing/cyanosis;muscles-grossly intact. OA INVESTIGATIONS, reviewed in the clinical context: 2D echo: EF 60%. Sclerosis of the arctic valve. Mild to moderate AR. Moderate TR. January 06: White count 8.8 hemoglobin 9.9 platelets 409 sodium 138 potassium 3.4 creatinine 0.9 Troponin I 0.017, 0.016 proBNP 2560 EKG tracing personally reviewed by me-flipped T waves in 1 aVL V1. And flipped T waves V4 V5 V6 Chest x-ray film personally reviewed by me-cardiomegaly. Fibrotic changes Previous testing CT chest high resolution: Pulmonary fibrosis Assessment and plan: -Atypical unstable angina. Patient has T wave changes. Not feeling well. For cardiac catheterization -CAD with cardiac catheterization with stent to the LAD, [place] Dr. Winchester [Patient has a prior history of CAD with stents] -Chronic congestive heart failure exacerbation from diastolic dysfunction EF 55%: Stable -Paroxysmal atrial fibrillation, currently in sinus rhythm Toprol-XL 50. Eliquis -Chronic pulmonary fibrosis -Moderate cognitive impairment likely from underlying Alzheimer's dementia -GERD Protonix -Hyperlipidemia on Lipitor -Chronic rheumatoid arthritis -Colonic diverticulosis, asymptomatic -Mild to moderate mitral and moderate tricuspid regurgitation. Follow clinically Disposition: Home with son Past Medical History Past Medical History: Eye Disorder, GERD/Reflux, Hyperlipidemia, Myocardial Infarction (NE), Renal Disease, Rheumatoid Arthritis (RA) Additional Past Medical History / Comment(s): Diverticulosis,"PULMONARY HYPERTENSION"- SEE DR GARCIA'S HISTORY AND PHYSICAL FOR CARDIAC HISTORY, FREQUENT URINARY INFECTIONS Last Myocardial Infarction Date:: 09/2015 History of Any Multi-Drug Resistant Organisms: None Reported Past Surgical History: Cholecystectomy, Heart Catheterization With Stent, Hysterectomy, Orthopedic Surgery Additional Past Surgical History / Comment(s): KNEE ARTHROSCOPIC Past Anesthesia/Blood Transfusion Reactions: No Reported Reaction Date of Last Stent Placement:: 09/2015 Past Psychological History: Anxiety Smoking Status: Never smoker Past Alcohol Use History: None Reported Past Drug Use History: None Reported Plan - Discharge Summary Discharge Rx Participant: No New Discharge Prescriptions: New Ticagrelor [Brilinta] 90 mg PO BID #60 tab Nitroglycerin Sl Tabs [Nitrostat] 0.4 mg SUBLINGUAL Q5M PRN #30 tab PRN Reason: Chest Pain Continue Omeprazole [PriLOSEC] 20 mg PO DAILY allopurinoL [Zyloprim] 100 mg PO DAILY Atorvastatin [Lipitor] 80 mg PO DAILY Aspirin EC [Ecotrin Low Dose] 81 mg PO DAILY PARoxetine HCL [Paxil Cr] 37.5 mg PO DAILY Ergocalciferol [Vitamin D2 (1250 Mcg = 26797 Iu)] 1,250 mcg PO Q30D Apixaban [Eliquis] 2.5 mg PO BID #60 tab Isosorbide Mononitrate ER [Imdur] 30 mg PO DAILY Metoprolol Succinate (ER) [Toprol XL] 50 mg PO DAILY Iron (Unknown Dose) 1 tab PO BID Discharge Medication List Omeprazole [PriLOSEC] 20 mg PO DAILY 04/15/14 [History] allopurinoL [Zyloprim] 100 mg PO DAILY 03/14/19 [History] Atorvastatin [Lipitor] 80 mg PO DAILY 12/30/20 [History] PARoxetine HCL [Paxil Cr] 37.5 mg PO DAILY 09/21/21 [History] Ergocalciferol [Vitamin D2 (1250 Mcg = 85074 Iu)] 1,250 mcg PO Q30D 06/14/23 [History] Apixaban [Eliquis] 2.5 mg PO BID #60 tab 06/19/23 [Rx] Aspirin EC [Ecotrin Low Dose] 81 mg PO DAILY 01/05/25 [History] Iron (Unknown Dose) 1 tab PO BID 01/05/25 [History] Isosorbide Mononitrate ER [Imdur] 30 mg PO DAILY 01/05/25 [History] Metoprolol Succinate (ER) [Toprol XL] 50 mg PO DAILY 01/05/25 [History] Nitroglycerin Sl Tabs [Nitrostat] 0.4 mg SUBLINGUAL Q5M PRN #30 tab 01/07/25 [Rx] Ticagrelor [Brilinta] 90 mg PO BID #60 tab 01/07/25 [Rx] Follow up Appointment(s)/Referral(s): Yobany Chaudhry MD [Primary Care Provider] - 1-2 days Sergio Royal MD [STAFF PHYSICIAN] - 2 Weeks Patient Instructions/Handouts: *Surgery [facility] - After Heart Catheterization - 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 After 1 week discontinue aspirin and continue only on Brilinta and Eliquis Discharge Disposition: HOME SELF-CARE
[2025-01-24] MEDS ORDERED: ERGOCALCIFEROL 1,250 MCG (50,000 IU) CAPSULE PO SCH (09:00)
== END 2025-01-07 15:02 | disposition home or self-care (01) ==
LOC: EC 11:47 → 6NMEDSUR 16:06
PROVIDERS: ADMIT Hospitalist; ATTEND Hospitalist
DX: I25.110 Atherosclerotic heart disease of native coronary artery with unstable angina pectoris (principal); I25.2 Old myocardial infarction; I27.29 Other secondary pulmonary hypertension; I48.0 Paroxysmal atrial fibrillation; I50.33 Acute on chronic diastolic (congestive) heart failure; I08.3 Combined rheumatic disorders of mitral, aortic and tricuspid valves; J84.10 Pulmonary fibrosis, unspecified; K21.9 Gastro-esophageal reflux disease without esophagitis; E78.5 Hyperlipidemia, unspecified; K57.30 Diverticulosis of large intestine without perforation or abscess without bleeding; M06.9 Rheumatoid arthritis, unspecified; N28.9 Disorder of kidney and ureter, unspecified; N39.0 Urinary tract infection, site not specified; Z79.01 Long term (current) use of anticoagulants; Z79.82 Long term (current) use of aspirin; Z79.899 Other long term (current) drug therapy
CPT/HCPCS: 96374; 99285; 36415; 93005; 93306; 92978; 93458; 92972; 83880; 80053 ×2; 82565; 84484; 85025 ×2; 85610; 85730; 81001; 87086; 87077; 87186; 71046; G0378 ×3; C9600; J2250; J1644 ×3; J2405; J2003; Q9967 ×2; J3010; J2470

== ENCOUNTER 2025-02-16 21:29 | Inpatient (IN) | payer MEDICARE ==
--- NOTE | 2025-02-16 22:07 | ED ---
General Adult HPI - General Chief complaint: Chest Pain Stated complaint: chest pain Time Seen by Provider: 02/16/25 21:31 Source: EMS Mode of arrival: EMS - History of Present Illness Initial comments: Dictation was produced using [employer] dictation software. please excuse any gramma tical, word or spelling errors. Chief Complaint: 84-year-old female presents with chest pain History of Present Illness: Patient is 84-year-old female presents emergency department chest pain. Patient has history of coronary artery disease A-fib. States that she had some sharp chest pain that radiated to her back. En route to the emergency department her pain resolved. His present illness is limited due to significant difficulty with hearing. The ROS documented in this emergency department record has been reviewed and confirmed by me. Those systems with pertinent positive or negative responses have been documented in the HPI. All other systems are other negative and/or noncontributory. - Related Data Home Medications Medication Instructions Recorded Confirmed Omeprazole [PriLOSEC] 20 mg PO DAILY 04/15/14 01/05/25 allopurinoL [Zyloprim] 100 mg PO DAILY 03/14/19 01/05/25 Atorvastatin [Lipitor] 80 mg PO DAILY 12/30/20 01/05/25 PARoxetine HCL [Paxil Cr] 37.5 mg PO DAILY 09/21/21 01/05/25 Ergocalciferol [Vitamin D2 (1250 1,250 mcg PO Q30D 06/14/23 01/05/25 Mcg = 71771 Iu)] Aspirin EC [Ecotrin Low Dose] 81 mg PO DAILY 01/05/25 01/05/25 Iron (Unknown Dose) 1 tab PO BID 01/05/25 01/05/25 Isosorbide Mononitrate ER [Imdur] 30 mg PO DAILY 01/05/25 01/05/25 Metoprolol Succinate (ER) [Toprol 50 mg PO DAILY 01/05/25 01/05/25 XL] Previous Rx's Medication Instructions Recorded Apixaban [Eliquis] 2.5 mg PO BID #60 tab 06/19/23 Nitroglycerin Sl Tabs [Nitrostat] 0.4 mg SUBLINGUAL Q5M PRN #30 tab 01/07/25 Ticagrelor [Brilinta] 90 mg PO BID #60 tab 01/07/25 Allergies Allergy/AdvReac Type Severity Reaction Status Date / Time hydrocodone bitartrate Allergy Itching Verified 02/16/25 21:39 [From Vicodin] sulfamethoxazole Allergy Rash/Hives Verified 02/16/25 21:39 [From Bactrim] trimethoprim [From Bactrim] Allergy Rash/Hives Verified 02/16/25 21:39 NSAIDS (Non-Steroidal AdvReac Unknown Verified 02/16/25 21:39 Anti-Inflamma Review of Systems ROS Statement: Those systems with pertinent positive or pertinent negative responses have been documented in the HPI. ROS Other: All systems not noted in ROS Statement are negative. Past Medical History Past Medical History: Eye Disorder, GERD/Reflux, Hyperlipidemia, Myocardial Infarction (MA), Renal Disease, Rheumatoid Arthritis (RA) Additional Past Medical History / Comment(s): Diverticulosis,"PULMONARY HYPERTENSION"- SEE DR GARCIA'S HISTORY AND PHYSICAL FOR CARDIAC HISTORY, FREQUENT URINARY INFECTIONS Last Myocardial Infarction Date:: 09/2015 History of Any Multi-Drug Resistant Organisms: None Reported Past Surgical History: Cholecystectomy, Heart Catheterization With Stent, Hysterectomy, Orthopedic Surgery Additional Past Surgical History / Comment(s): KNEE ARTHROSCOPIC Past Anesthesia/Blood Transfusion Reactions: No Reported Reaction Date of Last Stent Placement:: 09/2015 Past Psychological History: Anxiety Smoking Status: Never smoker Past Alcohol Use History: None Reported Past Drug Use History: None Reported - Past Family History Mother Family Medical History: Hypertension Additional Family Medical History / Comment(s): heart attack Father Family Medical History: Cancer General Exam - General Exam Comments Initial Comments: PHYSICAL EXAM: General Impression: Alert and oriented x3, not in acute distress HEENT: Normocephalic atraumatic, extra-ocular movements intact, pupils equal and reactive to light bilaterally, mucous membranes moist. Cardiovascular: Heart regular rate and rhythm Chest: Able to complete full sentences, no retractions, no tachypnea Abdomen: abdomen soft, non-tender, non-distended, no organomegaly Musculoskeletal: Pulses present and equal in all extremities, no peripheral edema Motor: no focal deficits noted Neurological: CN II-XII grossly intact, no focal motor or sensory deficits noted Skin: Intact with no visualized rashes Psych: Normal affect and mood Course Vital Signs 02/16/25 21:32 Temperature 98.3 F Pulse Rate 110 H Respiratory 18 Rate Blood Pressure 131/86 O2 Sat by Pulse 95 Oximetry EKG Findings - EKG Comments: EKG Findings:: My EKG interpretation: Ventricular rate 119, A-fib, QRS 90, QTc 426. No QTC prolongation, no ST or T-wave changes noted. Medical Decision Making - Medical Decision Making Was pt. sent in by a medical professional or institution (, [facility], [facility], urgent care, hospital, or correction...) When possible be specific @ -No Did you speak to anyone other than the patient for history (EMS, parent, family, police, friend...)? What history was obtained from this source @ -No Did you review nursing and triage notes (agree or disagree)? Why? @ -I reviewed and agree with nursing and triage notes Were old charts reviewed (outside hosp., previous admission, EMS record, old EKG, old radiological studies, urgent care reports/EKG's, correction records)? Report findings @ -No old charts were reviewed Differential Diagnosis (chest pain, altered mental status, abdominal pain women, abdominal pain men, vaginal bleeding, musculoskeletal, weakness, fever, dyspnea, syncope, headache, dizziness, GI bleed, back pain, seizure, CVA, palpatations, mental health)? @ -Differential Chest Pain: Stable Angina, Unstable Angina, STEMI, NSTEMI Aortic Dissection, Pneumothorax, Musculoskeletal, Esophageal Spasm GERD, Cholecystitis, Pancreatitis, Zoster, this is not meant to be an all-inclusive list. EKG interpreted by me (3pts min.). @ -See above X-rays interpreted by me (1pt min.). @ -Chest x-ray shows mild pulmonary edema and pulmonary fibrosis similar to previous x-rays CT interpreted by me (1pt min.). @ -None done U/S interpreted by me (1pt. min.). @ -None done What testing was considered but not performed or refused? (CT, X-rays, U/S, labs)? Why? @ -None What meds were considered but not given or refused? Why? @ -None Was smoking cessation discussed for >3mins.? @ -No Were there social determinants of health that impacted care today? How? (Homelessness, low income, unemployed, alcoholism, drug addiction, transportation, low edu. Level, literacy, decrease access to med. care, long-term, rehab)? @ -No Was there de-escalation of care discussed even if they declined (Discuss DNR or withdrawal of care, Hospice)? DNR status @ -No What co-morbidities impacted this encounter? (DM, HTN, Smoking, COPD, CAD, Cancer, CVA, ARF, Chemo, Hep., AIDS, mental health diagnosis, sleep apnea, morbid obesity)? @ -Myocardial infarction Was patient admitted / discharged? Hospital course, mention meds given and route, prescriptions, significant lab abnormalities, going to OR and other pertinent info. @ -84-year-old female with atypical chest pain with typical features. Patient asymptomatic at the bedside had atypical chest pain. EKG is unremarkable. Vital signs are stable. Patient well-appearing with negative physical exam. Laboratory evaluation obtained with hypokalemic kalemia of 2.5 and hy pomagnesemia 1.5. Rest of CBC metabolic panel is unremarkable. Chest x-ray is nonacute. Patient has significant risk factors will be admitted for cardiology consultation, cardiac monitoring and serial troponins. Patient's troponin is elevated 1.250. This is significantly elevated from patient's usual baseline. Clinical presentation concerning for NSTEMI. Patient started on heparin will be admitted. Case discussed with hospitalist for admission Did you discuss the management of the patient with other professionals (professionals i.e. , PA, DIAMOND SELECTOR, lab, RT, psych nurse, case management social worker, jewelry technician, teacher, assistant chief nursing officer, correctional casework specialist)? Give summary @ -Case discussed with hospitalist for admission Was critical care preformed (if so, how long)? @ -No Undiagnosed new problem with uncertain prognosis? @ -No Drug Therapy requiring intensive monitoring for toxicity (Heparin, Nitro, Insulin, Cardizem)? @ -No Were any procedures done? @ -No Diagnosis/symptom? Acute, or Chronic, or Acute on Chronic? Uncomplicated (without systemic symptoms) or Complicated (systemic symptoms)? @ -Chest pain, electrolyte derangement Side effects of treatment? @ -No Exacerbation, Progression, or Severe Exacerbation? @ -No Poses a threat to life or bodily function? How? (Chest pain, USA, MA, pneumonia, PE, COPD, DKA, ARF, appy, cholecystitis, CVA, Diverticulitis, Homicidal, Suicidal, threat to staff... and all critical care pts) @ -yes - Lab Data Result diagrams: 02/16/25 21:44 02/16/25 21:44 Lab Results 02/16/25 02/16/25 02/16/25 Range/Units 21:44 21:44 21:44 WBC 11.70 H (4.50-10.00) 10*3/uL RBC 3.11 L (4.10-5.20) 10*6/uL Hgb 9.8 L (12.0-15.0) g/dL Hct 28.8 L (37.2-46.3) % MCV 92.6 (80.0-97.0) fL MCH 31.5 (27.0-32.0) pg MCHC 34.0 (32.0-37.0) g/dL Plt Count 408 (140-440) 10*3/uL MPV 9.5 (9.5-12.2) fL Immature Gran % (Auto) 0.3 % Neutrophils % 76.7 % Lymphocytes % 13.6 % Monocytes % 7.6 % Eosinophils % 1.5 % Basophils % 0.3 % Immature Gran # 0.04 (0.00-0.04) 10*3/uL Neutrophils # 8.96 H (1.80-7.70) 10*3/uL Lymphocytes # 1.59 (0.90-5.00) 10*3/uL Monocytes # 0.89 (0.20-1.00) 10*3/uL Eosinophils # 0.18 (0.04-0.35) 10*3/uL Basophils # 0.04 (0.00-0.10) 10*3/uL PT 13.1 H (10.0-12.5) sec INR 1.2 H (<1.2) APTT 27.9 (22.0-30.0) sec Sodium 135 L (137-145) mmol/L Potassium 2.5 L* (3.5-5.1) mmol/L Chloride 99 (98-107) mmol/L Carbon Dioxide 23 (22-30) mmol/L Anion Gap 13 mmol/L BUN 13 (7-17) mg/dL Creatinine 0.81 (0.52-1.04) mg/dL Est GFR (CKD-EPI)AfAm 78 (>60 ml/min/1.73 sqM) Est GFR (CKD-EPI)NonAf 68 (>60 ml/min/1.73 sqM) Glucose 99 (74-99) mg/dL Calcium 8.6 (8.4-10.2) mg/dL Magnesium 1.5 L (1.6-2.3) mg/dL Total Bilirubin 0.5 (0.2-1.3) mg/dL AST 24 (14-36) U/L ALT 10 (4-34) U/L Alkaline Phosphatase 151 H (38-126) U/L Troponin I (0.000-0.034) ng/mL Total Protein 7.0 (6.3-8.2) g/dL Albumin 3.3 L (3.5-5.0) g/dL 02/16/25 Range/Units 21:44 WBC (4.50-10.00) 10*3/uL RBC (4.10-5.20) 10*6/uL Hgb (12.0-15.0) g/dL Hct (37.2-46.3) % MCV (80.0-97.0) fL MCH (27.0-32.0) pg MCHC (32.0-37.0) g/dL Plt Count (140-440) 10*3/uL MPV (9.5-12.2) fL Immature Gran % (Auto) % Neutrophils % % Lymphocytes % % Monocytes % % Eosinophils % % Basophils % % Immature Gran # (0.00-0.04) 10*3/uL Neutrophils # (1.80-7.70) 10*3/uL Lymphocytes # (0.90-5.00) 10*3/uL Monocytes # (0.20-1.00) 10*3/uL Eosinophils # (0.04-0.35) 10*3/uL Basophils # (0.00-0.10) 10*3/uL PT (10.0-12.5) sec INR (<1.2) APTT (22.0-30.0) sec Sodium (137-145) mmol/L Potassium (3.5-5.1) mmol/L Chloride (98-107) mmol/L Carbon Dioxide (22-30) mmol/L Anion Gap mmol/L BUN (7-17) mg/dL Creatinine (0.52-1.04) mg/dL Est GFR (CKD-EPI)AfAm (>60 ml/min/1.73 sqM) Est GFR (CKD-EPI)NonAf (>60 ml/min/1.73 sqM) Glucose (74-99) mg/dL Calcium (8.4-10.2) mg/dL Magnesium (1.6-2.3) mg/dL Total Bilirubin (0.2-1.3) mg/dL AST (14-36) U/L ALT (4-34) U/L Alkaline Phosphatase (38-126) U/L Troponin I 1.250 H* (0.000-0.034) ng/mL Total Protein (6.3-8.2) g/dL Albumin (3.5-5.0) g/dL Disposition Clinical Impression: NSTEMI (non-ST elevated myocardial infarction) Disposition: ADMITTED IP TO THIS HOSP Condition: Serious Referrals: None,Stated [REFERRING] - 1-2 days Decision Time: 22:53
[2025-02-16 22:09] LABS: Basophils # (A) 0.04 10*3/uL (0.00-0.10); Basophils % (A) 0.3 %; Eosinophils # (A) 0.18 10*3/uL (0.04-0.35); Eosinophils % (A) 1.5 %; HCT 28.8 % (37.2-46.3); HGB 9.8 g/dL (12.0-15.0); Lymphocytes # (A) 1.59 10*3/uL (0.90-5.00); Lymphocytes % (A) 13.6 %; MCH 31.5 pg (27.0-32.0); MCV 92.6 fL (80.0-97.0); Mean Platelet Volume 9.5 fL (9.5-12.2); Monocytes # (A) 0.89 10*3/uL (0.20-1.00); Monocytes % (A) 7.6 %; Neutrophils # (A) 8.96 10*3/uL (1.80-7.70); Neutrophils % (A) 76.7 %; Platelet Count 408 10*3/uL (140-440); RBC 3.11 10*6/uL (4.10-5.20); RDW 15.1 % (11.5-14.5)
[2025-02-16 22:27] LABS: INR 1.2 (<1.2)
[2025-02-16 22:28] LABS: Partial Thromboplastin Time 27.9 sec (22.0-30.0); Prothrombin Time 13.1 sec (10.0-12.5)
[2025-02-16 22:29] LABS: ALT 10 U/L (4-34); AST 24 U/L (14-36); African American GFR (CKD) 78 (>60 ml/min/1.73 sqM); Albumin 3.3 g/dL (3.5-5.0); Alkaline Phosphatase 151 U/L (38-126); Anion Gap 13 mmol/L; Blood Urea Nitrogen 13 mg/dL (7-17); Calcium 8.6 mg/dL (8.4-10.2); Carbon Dioxide 23 mmol/L (22-30); Chloride 99 mmol/L (98-107); Glucose 99 mg/dL (74-99); Magnesium 1.5 mg/dL (1.6-2.3); Non-African American GFR(CKD) 68 (>60 ml/min/1.73 sqM); Sodium 135 mmol/L (137-145); Total Bilirubin 0.5 mg/dL (0.2-1.3)
[2025-02-16 22:32] LABS: Potassium 2.5 mmol/L (3.5-5.1)
--- NOTE | 2025-02-16 22:42 | XR ---
EXAMINATION TYPE: XR chest 2V DATE OF EXAM: 02/16/2025 10:07 PM COMPARISON: 01/05/2025 CLINICAL INDICATION: Female, 84 years old with history of Chest Pain, TECHNIQUE: XR chest 2V view(s) obtained. FINDINGS: The heart size is normal. The pulmonary vasculature is normal. Chronic lung markings appears stable. IMPRESSION: 1. No acute pulmonary process. 2. Chronic appearing changes are stable. [facility], , 02/16/2025 10:40 PM
[2025-02-16] MEDS: MAGNESIUM SULFATE-D5W PMX 1 GM in DEXTROSE/WATER 1 100ML.BAG IVPB SCH (22:51)
[2025-02-16] MEDS: POTASSIUM CHLORIDE 40 MEQ in WATER FOR INJECTION 1 100ML.BAG IVPB STA (22:59)
[2025-02-16] MEDS: ASPIRIN 81 MG PO STA (23:00)
[2025-02-16] MEDS: HEPARIN SOD,PORK IN 0.45% NACL 25,000 UNIT in 0.45% NACL 1 250ML.BAG IV SCH (23:26)
[2025-02-16] MEDS: HEPARIN SODIUM 1,000 UN/ML (10ML VL) IV ONE (23:28)
[2025-02-16] MEDS: POTASSIUM CHLORIDE ER 20 MEQ TAB.ER PO STA (23:31)
--- NOTE | 2025-02-16 23:57 | P.HPIM ---
History of Present Illness H&P Date: 02/16/25 Patient is a 84-year-old female with A-fib (on Eliquis), GERD, hyperlipidemia, CAD status post stent x2 in December 2024, CKD stage 3, rheumatoid arthritis, anxiety here for evaluation of chest pain. Patient reported that she began to have chest pain at around 7 PM today that was substernal with radiation to the back without 5 out of 10 intensity. She reported that the pain only lasted for a few minutes and was relieved with rest. At the time of evaluation, patient reported she is not experiencing the chest pain. She denied palpitations, shortness of breath, productive cough, extremity swelling, focal weakness, abdominal pain, fever, chills, recent illness. She was hospitalized recently in December 2024 for typical unstable angina with catheterization and stent placement. On admission: Vitals: Temperature 98.3 F, pulse rate 110, blood pressure 131/86, O2 saturation 95% on room air Labs: WBC 11.7, hemoglobin 9.8, MCV 92.6, sodium 135, potassium 2.5, bicarb 23, BUN 13, creatinine 0.81, magnesium 1.5, calcium 8.6. Troponin elevated at 1.250. Liver enzymes normal limits. Coagulation panel showed PT 13.1 and INR 1.2, PTT 27.9. Imaging: EKG independently interpreted showed sinus tachycardia with a rate of 119 bpm, notable PACs and PVC, left axis deviation, nonspecific ST-T changes with T wave inversions in leads V1 to V6, QTc 426 MS. Chest x-ray showed no acute cardiopulmonary process. ED documentation reviewed. Aspirin, heparin initiated in the ED. 2 g magnesium IVPB and 40 mEq potassium IVPB given in the ED. Review of systems: Pertinent positives and negatives as discussed in HPI, a complete review of systems was performed and all other systems are negative. Social history: Tobacco: Denies history of tobacco use Alcohol: Denies alcohol intake history Recreational drugs: Denies history of recreational or illicit drugs Travel: No recent prolonged travel Physical examination: Vital signs reviewed General: non toxic, no distress, appears at stated age, room air Derm: no unusual rashes/lesions, warm Head: atraumatic, normocephalic, symmetric Eyes: EOMI, anicteric sclera, pupils equal round reactive to light ENT: Nose and ears atraumatic Neck: No cervical lymphadenopathy, trachea midline, supple Mouth: no lip lesion, mucus membranes moist Cardiovascular: S1S2 reg with some skipped beats, no murmur Lungs: CTA bilateral, no rhonchi, no rales, no accessory muscle use Abdominal: soft, nondistended, nontender to palpation, no guarding Ext: muscle strength 5 out of 5 in all 4 extremities grossly, no gross muscle atrophy, no contractures, positive dorsalis pedis pulse bilateral, no edema Neuro: CN II-XI grossly intact, no gross focal neuro deficits Psych: Alert and oriented x 3, appropriate affect and mood Assessment/Plan: 84-year-old female with CAD status post stent placement x 2 and A-fib here for evaluation no chest pain. Elevated troponin noted on labs. Concerning for NSTEMI. The patient is admitted with an anticipated greater than 2 midnight stay for evaluation of NSTEMI Active: #. NSTEMI -Troponin 1.25 - EKG independently interpreted showed sinus tachycardia with a rate of 119 bpm, notable PACs and PVC, left axis deviation, nonspecific ST-T changes with T wave inversions in leads V1 to V6, QTc 426 MS. -Cardiac monitoring -Supplemental oxygen as needed -Heart healthy diet -Trend troponin -EKG as needed -Nitroglycerin prn for chest pain. 0.4 mg PO -Given aspirin 325 mg once in the ED -Continue with aspirin 81 mg daily -Continue lipitor 80 mg daily -Maintain Mag >2 and K >4 -Cardiology consulted #. Hypokalemia -Potassium 2.5 on admission - 40 mEq potassium chloride IVPB given in the ED - Give additional 40 mEq potassium chloride p.o. - Recheck potassium #. Hypomagnesemia - Magnesium 1.5 on admission - Magnesium 2 g IVPB given in the ED - Give additional 3 g of magnesium IVPB - Check magnesium in the morning Chronic Conditions: #. GERD #. Hyperlipidemia #. Iron deficiency anemia #. CAD status post stent in December 2024 #. Rheumatoid arthritis #. Anxiety -Resume home medications once reconciled F: Oral intake E: Monitor magnesium and potassium N: Heart healthy diet. N.p.o. after midnight A: Ambulate as needed DVT ppx: Heparin drip CODE STATUS: Full Discussed with: Patient Anticipated discharge place: Home Valerie Shoemaker MD PGY-1 Internal Medicine Dictation was produced using 7fgame dictation software. please excuse any grammatical, word or spelling errors. I have seen and evaluated the patient today. Discussed with the resident and agree with the residents finding and plan as documented in the resident's note. 84-year-old female who presented to the hospital complaining of chest pain. She had a recent stent placement in December 2024 and is currently on aspirin, clopi dogrel for dual antiplatelet therapy. In addition she has Joanne abnormality with hypokalemia and hypomagnesemia suspected from? Poor oral intake. She is not on any diuretics. Past Medical History Past Medical History: Eye Disorder, GERD/Reflux, Hyperlipidemia, Myocardial Infarction ([place]), Renal Disease, Rheumatoid Arthritis (RA) Additional Past Medical History / Comment(s): Diverticulosis,"PULMONARY HYPERTENSION"- SEE DR GARCIA'S HISTORY AND PHYSICAL FOR CARDIAC HISTORY, FREQUENT URINARY INFECTIONS Last Myocardial Infarction Date:: 09/2015 History of Any Multi-Drug Resistant Organisms: None Reported Past Surgical History: Cholecystectomy, Heart Catheterization With Stent, Hysterectomy, Orthopedic Surgery Additional Past Surgical History / Comment(s): KNEE ARTHROSCOPIC Past Anesthesia/Blood Transfusion Reactions: No Reported Reaction Date of Last Stent Placement:: 09/2015 Past Psychological History: Anxiety Smoking Status: Never smoker Past Alcohol Use History: None Reported Past Drug Use History: None Reported - Past Family History Mother Family Medical History: Hypertension Additional Family Medical History / Comment(s): heart attack Father Family Medical History: Cancer Medications and Allergies Home Medications Medication Instructions Recorded Confirmed Type Omeprazole [PriLOSEC] 20 mg PO DAILY 04/15/14 01/05/25 History allopurinoL [Zyloprim] 100 mg PO DAILY 03/14/19 01/05/25 History Atorvastatin [Lipitor] 80 mg PO DAILY 12/30/20 01/05/25 History PARoxetine HCL [Paxil Cr] 37.5 mg PO DAILY 09/21/21 01/05/25 History Ergocalciferol [Vitamin D2 (1250 1,250 mcg PO Q30D 06/14/23 01/05/25 History Mcg = 47444 Iu)] Apixaban [Eliquis] 2.5 mg PO BID #60 tab 06/19/23 01/05/25 Rx Aspirin EC [Ecotrin Low Dose] 81 mg PO DAILY 01/05/25 01/05/25 History Iron (Unknown Dose) 1 tab PO BID 01/05/25 01/05/25 History Isosorbide Mononitrate ER [Imdur] 30 mg PO DAILY 01/05/25 01/05/25 History Metoprolol Succinate (ER) [Toprol 50 mg PO DAILY 01/05/25 01/05/25 History XL] Nitroglycerin Sl Tabs [Nitrostat] 0.4 mg SUBLINGUAL Q5M PRN #30 tab 01/07/25 Rx Ticagrelor [Brilinta] 90 mg PO BID #60 tab 01/07/25 Rx Allergies Allergy/AdvReac Type Severity Reaction Status Date / Time hydrocodone bitartrate Allergy Itching Verified 02/16/25 21:39 [From Vicodin] sulfamethoxazole Allergy Rash/Hives Verified 02/16/25 21:39 [From Bactrim] trimethoprim [From Bactrim] Allergy Rash/Hives Verified 02/16/25 21:39 NSAIDS (Non-Steroidal AdvReac Unknown Verified 02/16/25 21:39 Anti-Inflamma Physical Exam Vitals: Vital Signs Temp Pulse Resp BP Pulse Ox 02/16/25 21:32 98.3 F 110 H 18 131/86 95 Intake and Output 02/16/25 02/16/25 02/17/25 14:59 22:59 06:59 Other: Weight 50.802 kg Results CBC & Chem 7: 02/16/25 21:44 02/16/25 21:44 Labs: Abnormal Lab Results - Last 24 Hours (Table) 02/16/25 02/16/25 02/16/25 Range/Units 21:44 21:44 21:44 WBC 11.70 H (4.50-10.00) 10*3/uL RBC 3.11 L (4.10-5.20) 10*6/uL Hgb 9.8 L (12.0-15.0) g/dL Hct 28.8 L (37.2-46.3) % Neutrophils # 8.96 H (1.80-7.70) 10*3/uL PT 13.1 H (10.0-12.5) sec INR 1.2 H (<1.2) Sodium 135 L (137-145) mmol/L Potassium 2.5 L* (3.5-5.1) mmol/L Magnesium 1.5 L (1.6-2.3) mg/dL Alkaline Phosphatase 151 H (38-126) U/L Troponin I (0.000-0.034) ng/mL Albumin 3.3 L (3.5-5.0) g/dL 02/16/25 Range/Units 21:44 WBC (4.50-10.00) 10*3/uL RBC (4.10-5.20) 10*6/uL Hgb (12.0-15.0) g/dL Hct (37.2-46.3) % Neutrophils # (1.80-7.70) 10*3/uL PT (10.0-12.5) sec INR (<1.2) Sodium (137-145) mmol/L Potassium (3.5-5.1) mmol/L Magnesium (1.6-2.3) mg/dL Alkaline Phosphatase (38-126) U/L Troponin I 1.250 H* (0.000-0.034) ng/mL Albumin (3.5-5.0) g/dL
[2025-02-17] MEDS: MAGNESIUM SULFATE-D5W PMX 1 GM in DEXTROSE/WATER 1 100ML.BAG IVPB SCH (00:35)
[2025-02-17] MEDS: ACETAMINOPHEN TAB 325 MG TAB PO PRN (01:05)
[2025-02-17 06:57] LABS: African American GFR (CKD) 74 (>60 ml/min/1.73 sqM); Anion Gap 11 mmol/L; Blood Urea Nitrogen 11 mg/dL (7-17); Calcium 8.6 mg/dL (8.4-10.2); Carbon Dioxide 23 mmol/L (22-30); Chloride 106 mmol/L (98-107); Glucose 92 mg/dL (74-99); Magnesium 2.4 mg/dL (1.6-2.3); Non-African American GFR(CKD) 64 (>60 ml/min/1.73 sqM); Potassium 2.9 mmol/L (3.5-5.1); Sodium 140 mmol/L (137-145)
[2025-02-17] MEDS ORDERED: ASPIRIN 325 MG TAB PO SCH (09:00)
[2025-02-17] MEDS ORDERED: NON FORMULARY DRUG (Aspirin Ec 81 MG Tablet) PO SCH (09:00)
[2025-02-17] MEDS ORDERED: ALPRAZolam 0.25 MG TAB PO PRN (10:01)
[2025-02-17] MEDS ORDERED: NITROGLYCERIN SL TABS 0.4 MG TAB SUBLINGUAL PRN (10:01)
[2025-02-17] MEDS ORDERED: ASPIRIN 81 MG PO SCH (10:45)
[2025-02-17] MEDS: ASPIRIN 81 MG PO ONE (10:46)
[2025-02-17] MEDS: ATORVASTATIN 80 MG TAB PO STA (10:47)
[2025-02-17] MEDS: SODIUM CHLORIDE 0.9% 1,000 ML IV SCH (10:47)
[2025-02-17 11:15] LABS: Chol/HDL Ratio 2.63 Ratio; VLDL Calculation 19.04 mg/dL (5.00-40.00)
[2025-02-17 11:19] LABS: Glucose,Whole Blood 101 mg/dL (70-110)
--- NOTE | 2025-02-17 11:50 | P.PN ---
Subjective Progress Note Date: 02/17/25 Hospital Course: 84-year-old female with past medical history of CAD with stents 12/2024, paroxy smal A-fib on Eliquis, HLD, moderate aortic regurgitation, hyperlipidemia, CKD3, RA, who presented to the ER on 02/12/2025 for evaluation of chest pain. Patient reported that she began to have chest pain at around 7 PM today that was substernal with radiation to the back without 5 out of 10 intensity. She reported that the pain only lasted for a few minutes and was relieved with rest. At the time of evaluation, patient reported she is not experiencing the chest pain. She denied palpitations, shortness of breath, productive cough, extremity swelling, focal weakness, abdominal pain, fever, chills, recent illness. She was hospitalized recently in December 2024 for typical unstable angina with ca theterization and stent placement. Troponin elevated at 1.250. Liver enzymes normal limits. Coagulation panel showed PT 13.1 and INR 1.2, PTT 27.9. Imaging: EKG independently interpreted showed sinus tachycardia with a rate of 119 bpm, notable PACs and PVC, left axis deviation, nonspecific ST-T changes with T wave inversions in leads V1 to V6, QTc 426 MS. Chest x-ray showed no acute cardiopulmonary process. Admitted as inpatient for further evaluation of chest pain, was started on heparin drip, cardiology consulted, recommended to proceed with PCI, scheduled for this afternoon. She was chest pain-free this morning, no shortness of breath, feeling at baseline, patient is hard of hearing. Pertinent positives and negatives as discussed above, a complete review of systems was performed and all other systems are negative. Vitals Signs Reviewed. General: [nontoxic], [no distress], [appears at stated age] Derm: [warm], [dry] Head: [atraumatic], [normocephalic], [symmetric] Eyes: [EOMI], [no lid lag], [anicteric sclera] Mouth: [no lip lesion], [mucus membranes moist] Cardiovascular: [S1S2 reg], [ murmur] Lungs: [CTA bilateral], [no rhonchi, no rales] , [no accessory muscle use] Abdominal: [soft], [ nontender to palpation], [no guarding], [no appreciable organomegaly] Ext: [no gross muscle atrophy], [no edema], [no contractures] Neuro: [ CN II-XI grossly intact], [no focal neuro deficits] Psych: [Alert], [oriented], [appropriate affect] Assessment and Plan: NSTEMI CAD status post stents Moderate aortic regurg Hyperlipidemia - Allergy consulted, appreciate recommendations. Plan for PCI this afternoon -Continue telemetry -Continue nitro as needed for chest pain 0.4 p.o. -Continue aspirin 81 mg p.o. daily, Plavix 75 p.o. daily -Continue Lipitor 80 mg daily -Continue Toprol-XL 50 mg p.o. daily, Imdur 30 mg p.o. daily -Monitor electrolytes daily, goal magnesium above 2 and potassium above 4 Hypokalemia on admission Hypomagnesemia -Potassium was replaced, repeat potassium 2.9, was provided with another 40 mEq -Repeat potassium in the morning and this afternoon -Magnesium replaced on admission, improved, monitor magnesium daily Paroxysmal A-fib on Eliquis -Holding home Eliquis, currently on heparin drip GERD: Continue home omeprazole 20 mg Iron deficiency anemia RA Anxiety: Continue home paroxetine 37.5 mg daily : DVT ppx: [Heparin Code status: Full code Anticipated discharge place: TBD Anticipated discharge time:TBD Objective - Vital Signs Vital signs: Vital Signs Temp 98 F 02/17/25 11:40 Pulse 85 02/17/25 11:40 Resp 18 02/17/25 11:40 BP 135/79 02/17/25 11:40 Pulse Ox 94 L 02/17/25 11:40 FiO2 Intake & Output 02/16/25 02/17/25 02/17/25 18:59 06:59 18:59 Intake Total 10 Balance 10 Weight 50.5 kg Intake: IV 10 Invasive Line 1 10 Other: Voiding Method Bedside Commode # Voids 2 1 # Bowel Movements 2 - Labs CBC & Chem 7: 02/16/25 21:44 02/17/25 05:39 Labs: Abnormal Lab Results - Last 24 Hours (Table) 02/16/25 02/16/25 02/16/25 Range/Units 21:44 21:44 21:44 WBC 11.70 H (4.50-10.00) 10*3/uL RBC 3.11 L (4.10-5.20) 10*6/uL Hgb 9.8 L (12.0-15.0) g/dL Hct 28.8 L (37.2-46.3) % Neutrophils # 8.96 H (1.80-7.70) 10*3/uL PT 13.1 H (10.0-12.5) sec INR 1.2 H (<1.2) APTT (22.0-30.0) sec Sodium 135 L (137-145) mmol/L Potassium 2.5 L* (3.5-5.1) mmol/L Magnesium 1.5 L (1.6-2.3) mg/dL Alkaline Phosphatase 151 H (38-126) U/L Troponin I (0.000-0.034) ng/mL Albumin 3.3 L (3.5-5.0) g/dL HDL Cholesterol (40.00-60.00) mg/dL 02/16/25 02/16/25 02/17/25 Range/Units 21:44 23:19 03:03 WBC (4.50-10.00) 10*3/uL RBC (4.10-5.20) 10*6/uL Hgb (12.0-15.0) g/dL Hct (37.2-46.3) % Neutrophils # (1.80-7.70) 10*3/uL PT (10.0-12.5) sec INR (<1.2) APTT (22.0-30.0) sec Sodium (137-145) mmol/L Potassium (3.5-5.1) mmol/L Magnesium (1.6-2.3) mg/dL Alkaline Phosphatase (38-126) U/L Troponin I 1.250 H* 1.410 H* 1.450 H* (0.000-0.034) ng/mL Albumin (3.5-5.0) g/dL HDL Cholesterol (40.00-60.00) mg/dL 02/17/25 02/17/25 02/17/25 Range/Units 05:39 05:39 05:39 WBC (4.50-10.00) 10*3/uL RBC (4.10-5.20) 10*6/uL Hgb (12.0-15.0) g/dL Hct (37.2-46.3) % Neutrophils # (1.80-7.70) 10*3/uL PT (10.0-12.5) sec INR (<1.2) APTT 50.5 H (22.0-30.0) sec Sodium (137-145) mmol/L Potassium 2.9 L (3.5-5.1) mmol/L Magnesium 2.4 H (1.6-2.3) mg/dL Alkaline Phosphatase (38-126) U/L Troponin I (0.000-0.034) ng/mL Albumin (3.5-5.0) g/dL HDL Cholesterol 38.00 L (40.00-60.00) mg/dL
--- NOTE | 2025-02-17 12:01 | P.CRDCN ---
History of Present Illness Consult date: 02/17/25 Reason for Consult (text): NSTEMI History of present illness: This is an 84-year-old female with past medical history of paroxysmal atrial fibrillation, coronary artery disease status post angioplasty of the proximal LAD, hypertension, hyperlipidemia. We have been asked to evaluate the patient for NSTEMI. Patient had episode of chest pain yesterday with radiation of the pain to her back. No radiation to her left arm or jaw. She also had some nausea with it. She is not sure how long it lasted but it started while she was laying down. She thought it was related to her stomach but the pain was in the midsternal area. She has apparently stopped taking her Imdur for couple days because her son was not able to obtain it from the pharmacy as they would not give him the medication. Patient denies chest pain now. Patient is very di fficult to communicate with due to significant [place]. Patient had a recent hospitalization 01/05 - 01/07/2025 and underwent cardiac catheterization which revealed 80 to 90% stenosis involving the proximal LAD and subsequently had stent placed by Dr. Winchester. Patient has had subsequent follow-up in the office with Dr. Estes and patient was switched from Brilinta to Plavix and was supposed to stop aspirin so patient would be on Plavix and Eliquis moving forward. Patient has been started on a heparin drip. Blood pressure 135/83, heart rate 100, pulse ox 94% on room air. -EKG: Atrial fibrillation at 119 bpm -Chest x-ray: -Laboratory studies: WBC 11.7, hemoglobin 9.8. Sodium 140, potassium 2.9, BUN 11, creatinine 0.85, magnesium initially 1.5. Troponin 1.25, 1.41, 1.45. Triglycerides 95, cholesterol 100, LDL 43. -Home cardiac medications: Eliquis 5 mg twice daily, aspirin 81 mg daily, Plavix 75 mg daily, atorvastatin 80 mg daily, Imdur 30 mg daily, metoprolol succinate 50 mg daily, Nitrostat as needed. - Review Of Systems: At the time of my exam: CONSTITUTIONAL: Denies fever or chills. HEENT: Denies blurred vision, vision changes, or eye pain. Denies hemoptysis CARDIOVASCULAR: Denies chest pain. Denies orthopnea. Denies PND. Denies palpitations RESPIRATORY: Denies shortness of breath. GASTROINTESTINAL: Denies abdominal pain. Denies nausea or vomiting. HEMATOLOGIC: Denies bleeding disorders. GENITOURINARY: Denies any blood in urine. SKIN: Denies puritis. Denies rash. Physical examination: Gen: This is 84-year-old female in no acute distress. VS: reviewed HEENT: Head is atraumatic, normocephalic. Pupils equal, round. Sclerae is anicteric. NECK: Supple. No JVD. LUNGS: Clear to auscultation. No wheezes or rhonchi. No intercostal retractions. HEART: Regular rate and rhythm. No murmur. ABDOMEN: Soft No tenderness. EXTREMITIES: No pedal edema. No calf tenderness. NEUROLOGICAL: Patient is awake, alert and oriented x3. Assessment: NSTEMI Coronary artery disease with previous stenting of the LAD followed by stent to the proximal LAD on 01/06/2025 Paroxysmal atrial fibrillation with controlled ventricular rate Hyperlipidemia Moderate aortic regurgitation Anemia Plan: Resume patient's home cardiac medications Continue heparin drip and hold Eliquis Schedule patient for cardiac catheterization today with Dr. Lizbet Estrella Further recommendations to follow based upon clinical course Thank you kindly for this consultation. Nurse practitioner note has been reviewed, I agree with documented findings and plan of care. Patient was seen and examined. Past Medical History Past Medical History: Eye Disorder, GERD/Reflux, Hyperlipidemia, Myocardial Infarction ([place]), Renal Disease, Rheumatoid Arthritis (RA) Additional Past Medical History / Comment(s): Diverticulosis,"PULMONARY HYPERTENSION"- SEE DR GARCIA'S HISTORY AND PHYSICAL FOR CARDIAC HISTORY, FREQUENT URINARY INFECTIONS Last Myocardial Infarction Date:: 09/2015 History of Any Multi-Drug Resistant Organisms: None Reported Past Surgical History: Cholecystectomy, Heart Catheterization With Stent, Hysterectomy, Orthopedic Surgery Additional Past Surgical History / Comment(s): KNEE ARTHROSCOPIC Past Anesthesia/Blood Transfusion Reactions: No Reported Reaction Date of Last Stent Placement:: 09/2015 Past Psychological History: Anxiety Smoking Status: Never smoker Past Alcohol Use History: None Reported Past Drug Use History: None Reported - Past Family History Mother Family Medical History: Hypertension Additional Family Medical History / Comment(s): heart attack Father Family Medical History: Cancer Medications and Allergies Home Medications Medication Instructions Recorded Confirmed Type Omeprazole [PriLOSEC] 20 mg PO DAILY 04/15/14 02/17/25 History allopurinoL [Zyloprim] 100 mg PO DAILY 03/14/19 02/17/25 History Atorvastatin [Lipitor] 80 mg PO DAILY@1700 12/30/20 02/17/25 History PARoxetine HCL [Paxil Cr] 37.5 mg PO DAILY 09/21/21 02/17/25 History Ergocalciferol [Vitamin D2 (1250 1,250 mcg PO Q30D 06/14/23 02/17/25 History Mcg = 59375 Iu)] Aspirin EC [Ecotrin Low Dose] 81 mg PO DAILY 01/05/25 02/17/25 History Iron (Unknown Dose) 1 tab PO BID 01/05/25 02/17/25 History Isosorbide Mononitrate ER [Imdur] 30 mg PO DAILY 01/05/25 02/17/25 History Metoprolol Succinate (ER) [Toprol 50 mg PO DAILY 01/05/25 02/17/25 History XL] Nitroglycerin Sl Tabs [Nitrostat] 0.4 mg SUBLINGUAL Q5M PRN #30 tab 01/07/25 02/17/25 Rx Apixaban [Eliquis] 5 mg PO BID 02/17/25 02/17/25 History Clopidogrel [Plavix] 75 mg PO DAILY 02/17/25 02/17/25 History Allergies Allergy/AdvReac Type Severity Reaction Status Date / Time hydrocodone bitartrate Allergy Itching/Does Verified 02/17/25 07:22 [From Vicodin] not like how it makes her feel sulfamethoxazole Allergy Rash/Hives Verified 02/17/25 07:22 [From Bactrim] trimethoprim [From Bactrim] Allergy Rash/Hives Verified 02/17/25 07:22 NSAIDS (Non-Steroidal AdvReac pt can't Verified 02/17/25 07:22 Anti-Inflamma take due to kidney issues Physical Exam Vitals: Vital Signs Temp Pulse Pulse Resp BP BP Pulse Ox 02/17/25 08:06 97.7 F 95 17 138/70 96 02/17/25 04:05 97.7 F 90 18 166/89 95 02/17/25 00:10 97.9 F 98 20 149/56 97 02/16/25 23:50 93 18 119/72 97 02/16/25 21:32 98.3 F 110 H 18 131/86 95 Intake and Output 02/16/25 02/17/25 02/17/25 22:59 06:59 14:59 Intake Total 10 Balance 10 Intake: IV 10 Invasive Line 1 10 Other: # Voids 2 # Bowel Movements 2 Weight 50.802 kg 50.5 kg Results 02/16/25 21:44 02/17/25 05:39 Cardiac Enzymes 02/16/25 02/16/25 02/16/25 Range/Units 21:44 21:44 23:19 AST 24 (14-36) U/L Troponin I 1.250 H* 1.410 H* (0.000-0.034) ng/mL 02/17/25 Range/Units 03:03 AST (14-36) U/L Troponin I 1.450 H* (0.000-0.034) ng/mL Coagulation 02/16/25 02/17/25 Range/Units 21:44 05:39 PT 13.1 H (10.0-12.5) sec APTT 27.9 50.5 H (22.0-30.0) sec CBC 02/16/25 Range/Units 21:44 WBC 11.70 H (4.50-10.00) 10*3/uL RBC 3.11 L (4.10-5.20) 10*6/uL Hgb 9.8 L (12.0-15.0) g/dL Hct 28.8 L (37.2-46.3) % Plt Count 408 (140-440) 10*3/uL Comprehensive Metabolic Panel 02/16/25 02/17/25 Range/Units 21:44 05:39 Sodium 135 L 140 (137-145) mmol/L Potassium 2.5 L* 2.9 L (3.5-5.1) mmol/L Chloride 99 106 (98-107) mmol/L Carbon Dioxide 23 23 (22-30) mmol/L BUN 13 11 (7-17) mg/dL Creatinine 0.81 0.85 (0.52-1.04) mg/dL Glucose 99 92 (74-99) mg/dL Calcium 8.6 8.6 (8.4-10.2) mg/dL AST 24 (14-36) U/L ALT 10 (4-34) U/L Alkaline Phosphatase 151 H (38-126) U/L Total Protein 7.0 (6.3-8.2) g/dL Albumin 3.3 L (3.5-5.0) g/dL Current Medications Generic Name Dose Route Start Last Admin Trade Name Freq PRN Reason Stop Dose Admin Acetaminophen 650 mg 02/17/25 00:50 02/17/25 01:05 Acetaminophen Tab 325 Mg Tab PO 650 mg Q6HR PRN Administration Fever and/ or Pain Allopurinol 100 mg 02/17/25 09:00 Allopurinol 100 Mg Tab PO DAILY [facility] Aspirin 81 mg 02/17/25 09:00 Aspirin 81 Mg PO DAILY [facility] Atorvastatin Calcium 80 mg 02/17/25 17:00 Atorvastatin 80 Mg Tab PO DAILY@1700 [facility] Heparin Sodium (Porcine) 0 unit 02/16/25 22:51 Heparin Sodium 1,000 Un/Ml (10ml Vl) IV PER PROTOCOL PRN Low PTT Protocol Heparin Sodium/Sodium Chloride 250 mls @ 6.096 mls/hr 02/16/25 23:00 02/16/25 23:26 25,000 unit/ Sodium Chloride IV 12 units/kg/hr .Q24H KATHARINA 6.096 mls/hr Administration Protocol 12 UNITS/KG/HR Isosorbide Mononitrate 30 mg 02/17/25 09:00 Isosorbide Mononitrate Er 30 Mg Tab.Er.24h PO DAILY [facility] Metoprolol Succinate 50 mg 02/17/25 09:00 Metoprolol Succinate (Er) 50 Mg Tab.Er.24h PO DAILY [facility] Nitroglycerin 0.4 mg 02/16/25 22:53 Nitroglycerin Sl Tabs 0.4 Mg Tab SUBLINGUAL Q5M PRN Chest Pain Pantoprazole Sodium 40 mg 02/18/25 07:30 Pantoprazole 40 Mg Tablet PO AC-[id number] [facility] Paroxetine HCl 30 mg 02/17/25 09:00 Paroxetine 10 Mg Tab PO DAILY [facility] Potassium Chloride 40 meq 02/17/25 08:00 Potassium Chloride Er 20 Meq Tab.Er PO 02/17/25 10:01 Q2HR KATHARINA Intake and Output 02/16/25 02/17/25 02/17/25 22:59 06:59 14:59 Intake Total 10 Balance 10 Intake: IV 10 Invasive Line 1 10 Other: # Voids 2 # Bowel Movements 2 Weight 50.802 kg 50.5 kg 02/16/25 21:44 02/17/25 05:39
[2025-02-17] MEDS: LIDOCAINE 1% INJ 10MG/ML (20 ML MDV) SQ ONE (12:05)
[2025-02-17] MEDS: VERAPAMIL SYRINGE (5 MG/10 ML) INTRAARTER ONE (12:07)
[2025-02-17] MEDS: ASPIRIN 325 MG TAB PO STA (12:07)
[2025-02-17] MEDS: POTASSIUM CHLORIDE ER 20 MEQ TAB.ER PO SCH (12:07)
[2025-02-17] MEDS: allopurinoL 100 MG TAB PO SCH (12:07)
[2025-02-17] MEDS: ASPIRIN 81 MG PO SCH (12:07)
[2025-02-17] MEDS: PARoxetine 10 MG TAB PO SCH (12:08)
[2025-02-17] MEDS: ISOSORBIDE MONONITRATE ER 30 MG TAB.ER.24H PO SCH (12:08)
[2025-02-17] MEDS: CLOPIDOGREL 75 MG TAB PO SCH (12:08)
[2025-02-17] MEDS: METOPROLOL SUCCINATE (ER) 50 MG TAB.ER.24H PO SCH (12:08)
[2025-02-17] MEDS: MIDAZOLAM 2 MG/2 ML VIAL IVP ONE (12:09)
[2025-02-17] MEDS: fentaNYL (PF) 50 MCG/ML 2 ML AMP IVP ONE (12:10)
[2025-02-17] MEDS: IV FLUID CONTINUATION 800 ML IV ONE (13:02)
[2025-02-17] MEDS: IOPAMIDOL-370 100ML BTL INJ ONE (13:08)
[2025-02-17] MEDS: ATORVASTATIN 80 MG TAB PO SCH (13:36)
--- NOTE | 2025-02-17 15:51 | P.GSCN ---
History of Present Illness Consult date: 02/17/25 Reason for Consult: Coronary artery disease Requesting physician: Andrez Winchester History of present illness: This is an 84-year-old female who follows outpatient with nurse practitioner Kalani García for internal medicine as well as Dr. Royal for cardiology. She has a previous medical history of coronary artery disease with previous PCI to the LAD, hypertension, hyperlipidemia, paroxysmal atrial fibrillation on El iquis for anticoagulation, chronic kidney disease stage III, pulmonary hypertension, and lifelong non-smoker. Apparently she was hospitalized in December with chest pain. At that time she underwent heart catheterization with PCI to the LAD by Dr. Winchester. She was discharged home on dual antiplatelet therapy along with Eliquis. Upon follow-up with cardiology aspirin was stopped, patient was to continue on Plavix and Eliquis. Last night she presented to [facility] emergency room with complaints of chest pain along with feeling like her heart was pounding hard with ambulation. Troponins were drawn and were elevated and patient was ruled in for non-STEMI. She was recommended to undergo heart catheterization again which was completed today demonstrating tight proximal LAD disease. Consultation was placed to Dr. Vinson for surgical revascularization recommendations. Of note, she had a transthoracic echocardiogram completed during her admission in December demonstrating normal left ventricular systolic function with EF 60%, no regional wall motion abnormalities, trace to mild mitral regurgitation, mild to moderate aortic insufficiency, moderate tricuspid regurgitation. Review of Systems Review of systems was completed and was negative except as noted All systems: negative - Cardiovascular Reports as per HPI, Reports chest pain Past Medical History Past Medical History: Coronary Artery Disease (CAD), Chest Pain / Angina, Eye Disorder, GERD/Reflux, Hyperlipidemia, Hypertension, Myocardial Infarction ([place]), Renal Disease, Rheumatoid Arthritis (RA) Additional Past Medical History / Comment(s): Diverticulosis,"PULMONARY HYPERTENSION", FREQUENT URINARY INFECTIONS Last Myocardial Infarction Date:: 09/2015 History of Any Multi-Drug Resistant Organisms: None Reported Past Surgical History: Cholecystectomy, Heart Catheterization With Stent, Hysterectomy, Orthopedic Surgery Additional Past Surgical History / Comment(s): KNEE ARTHROSCOPIC Past Anesthesia/Blood Transfusion Reactions: No Reported Reaction Date of Last Stent Placement:: 09/2015 Past Psychological History: Anxiety Smoking Status: Never smoker Past Alcohol Use History: None Reported Past Drug Use History: None Reported - Past Family History Mother Family Medical History: Hypertension Additional Family Medical History / Comment(s): heart attack Father Family Medical History: Cancer Medications and Allergies Home Medications Medication Instructions Recorded Confirmed Type Omeprazole [PriLOSEC] 20 mg PO DAILY 04/15/14 02/17/25 History allopurinoL [Zyloprim] 100 mg PO DAILY 03/14/19 02/17/25 History Atorvastatin [Lipitor] 80 mg PO DAILY@1700 12/30/20 02/17/25 History PARoxetine HCL [Paxil Cr] 37.5 mg PO DAILY 09/21/21 02/17/25 History Ergocalciferol [Vitamin D2 (1250 1,250 mcg PO Q30D 06/14/23 02/17/25 History Mcg = 83018 Iu)] Aspirin EC [Ecotrin Low Dose] 81 mg PO DAILY 01/05/25 02/17/25 History Iron (Unknown Dose) 1 tab PO BID 01/05/25 02/17/25 History Isosorbide Mononitrate ER [Imdur] 30 mg PO DAILY 01/05/25 02/17/25 History Metoprolol Succinate (ER) [Toprol 50 mg PO DAILY 01/05/25 02/17/25 History XL] Nitroglycerin Sl Tabs [Nitrostat] 0.4 mg SUBLINGUAL Q5M PRN #30 tab 01/07/25 02/17/25 Rx Apixaban [Eliquis] 5 mg PO BID 02/17/25 02/17/25 History Clopidogrel [Plavix] 75 mg PO DAILY 02/17/25 02/17/25 History Allergies Allergy/AdvReac Type Severity Reaction Status Date / Time hydrocodone bitartrate Allergy Itching/Does Verified 02/17/25 07:22 [From Vicodin] not like how it makes her feel sulfamethoxazole Allergy Rash/Hives Verified 02/17/25 07:22 [From Bactrim] trimethoprim [From Bactrim] Allergy Rash/Hives Verified 02/17/25 07:22 NSAIDS (Non-Steroidal AdvReac pt can't Verified 02/17/25 07:22 Anti-Inflamma take due to kidney issues Surgical - Exam Vital Signs Temp Pulse Resp BP Pulse Ox 98.3 F 110 H 18 131/86 95 02/16/25 21:32 02/16/25 21:32 02/16/25 21:32 02/16/25 21:32 02/16/25 21:32 CONSTITUTIONAL: Awake and alert, appears comfortable, cooperative, well- developed, well-nourished, no pain, no acute distress EYES: Pupils equal, round, reactive to light, normal ocular movement ENT: Moist mucous membranes without oral lesions present, very hard of hearing NECK: No masses, no bruits, trachea midline RESPIRATORY: Lungs sounds clear to auscultation bilaterally. Respirations even, nonlabored. Currently on room air with oxygen saturation 94%. Strong cough. No chest wall deformities. No clubbing or cyanosis present CARDIOVASCULAR: S1, S2 present. Regular rate and rhythm, sinus rhythm on telemetry. Palpable peripheral pulses bilaterally. No edema present. No calf pain or tenderness noted. No significant lower extremity varicosities noted GASTROINTESTINAL: Abdomen soft, nontender, nondistended without masses or o rganomegaly noted. There is no rebound or guarding present. Active bowel sounds present 4 quadrants. GENITOURINARY: Deferred INTEGUMENTARY: Skin is warm and dry with evidence of good perfusion. NEUROLOGIC: Cranial nerves II through XII intact, normal coordination, no obvious motor or sensory deficits, speech is normal MUSKULOSKELETAL: Able to move all extremities, strength equal bilaterally, normal posture PSYCHIATRIC: Alert and oriented to person place and time, appropriate affect, intact judgment and insight CLINICAL FRAILTY SCORE 5 Results - Labs 02/16/25 21:44 02/17/25 05:39 Abnormal Lab Results - Last 24 Hours (Table) 02/16/25 02/16/25 02/16/25 Range/Units 21:44 21:44 21:44 WBC 11.70 H (4.50-10.00) 10*3/uL RBC 3.11 L (4.10-5.20) 10*6/uL Hgb 9.8 L (12.0-15.0) g/dL Hct 28.8 L (37.2-46.3) % Neutrophils # 8.96 H (1.80-7.70) 10*3/uL PT 13.1 H (10.0-12.5) sec INR 1.2 H (<1.2) APTT (22.0-30.0) sec Sodium 135 L (137-145) mmol/L Potassium 2.5 L* (3.5-5.1) mmol/L Magnesium 1.5 L (1.6-2.3) mg/dL Alkaline Phosphatase 151 H (38-126) U/L Troponin I (0.000-0.034) ng/mL Albumin 3.3 L (3.5-5.0) g/dL HDL Cholesterol (40.00-60.00) mg/dL 02/16/25 02/16/25 02/17/25 Range/Units 21:44 23:19 03:03 WBC (4.50-10.00) 10*3/uL RBC (4.10-5.20) 10*6/uL Hgb (12.0-15.0) g/dL Hct (37.2-46.3) % Neutrophils # (1.80-7.70) 10*3/uL PT (10.0-12.5) sec INR (<1.2) APTT (22.0-30.0) sec Sodium (137-145) mmol/L Potassium (3.5-5.1) mmol/L Magnesium (1.6-2.3) mg/dL Alkaline Phosphatase (38-126) U/L Troponin I 1.250 H* 1.410 H* 1.450 H* (0.000-0.034) ng/mL Albumin (3.5-5.0) g/dL HDL Cholesterol (40.00-60.00) mg/dL 02/17/25 02/17/25 02/17/25 Range/Units 05:39 05:39 05:39 WBC (4.50-10.00) 10*3/uL RBC (4.10-5.20) 10*6/uL Hgb (12.0-15.0) g/dL Hct (37.2-46.3) % Neutrophils # (1.80-7.70) 10*3/uL PT (10.0-12.5) sec INR (<1.2) APTT 50.5 H (22.0-30.0) sec Sodium (137-145) mmol/L Potassium 2.9 L (3.5-5.1) mmol/L Magnesium 2.4 H (1.6-2.3) mg/dL Alkaline Phosphatase (38-126) U/L Troponin I (0.000-0.034) ng/mL Albumin (3.5-5.0) g/dL HDL Cholesterol 38.00 L (40.00-60.00) mg/dL Diabetes panel 02/16/25 02/17/25 02/17/25 Range/Units 21:44 05:39 05:39 Sodium 135 L 140 (137-145) mmol/L Potassium 2.5 L* 2.9 L (3.5-5.1) mmol/L Chloride 99 106 (98-107) mmol/L Carbon Dioxide 23 23 (22-30) mmol/L BUN 13 11 (7-17) mg/dL Creatinine 0.81 0.85 (0.52-1.04) mg/dL Glucose 99 92 (74-99) mg/dL Calcium 8.6 8.6 (8.4-10.2) mg/dL AST 24 (14-36) U/L ALT 10 (4-34) U/L Alkaline Phosphatase 151 H (38-126) U/L Total Protein 7.0 (6.3-8.2) g/dL Albumin 3.3 L (3.5-5.0) g/dL Triglycerides 95.20 (0.00-149.00) mg/dL HDL Cholesterol 38.00 L (40.00-60.00) mg/dL Thyroid panel 02/17/25 Range/Units 05:39 TSH 0.860 (0.465-4.680) mIU/L Calcium panel 02/16/25 02/17/25 Range/Units 21:44 05:39 Calcium 8.6 8.6 (8.4-10.2) mg/dL Albumin 3.3 L (3.5-5.0) g/dL Pituitary panel 02/16/25 02/17/25 02/17/25 Range/Units 21:44 05:39 05:39 Sodium 135 L 140 (137-145) mmol/L Potassium 2.5 L* 2.9 L (3.5-5.1) mmol/L Chloride 99 106 (98-107) mmol/L Carbon Dioxide 23 23 (22-30) mmol/L BUN 13 11 (7-17) mg/dL Creatinine 0.81 0.85 (0.52-1.04) mg/dL Glucose 99 92 (74-99) mg/dL Calcium 8.6 8.6 (8.4-10.2) mg/dL TSH 0.860 (0.465-4.680) mIU/L Adrenal panel 02/16/25 02/17/25 Range/Units 21:44 05:39 Sodium 135 L 140 (137-145) mmol/L Potassium 2.5 L* 2.9 L (3.5-5.1) mmol/L Chloride 99 106 (98-107) mmol/L Carbon Dioxide 23 23 (22-30) mmol/L BUN 13 11 (7-17) mg/dL Creatinine 0.81 0.85 (0.52-1.04) mg/dL Glucose 99 92 (74-99) mg/dL Calcium 8.6 8.6 (8.4-10.2) mg/dL Total Bilirubin 0.5 (0.2-1.3) mg/dL AST 24 (14-36) U/L ALT 10 (4-34) U/L Alkaline Phosphatase 151 H (38-126) U/L Total Protein 7.0 (6.3-8.2) g/dL Albumin 3.3 L (3.5-5.0) g/dL - Imaging Chest x-ray: report reviewed, image reviewed EKG: image reviewed Additional studies: Heart catheterization films reviewed with Dr. Vinson Assessment and Plan Assessment: Coronary artery disease with previous stent to the LAD, non-STEMI this admission Chest pain, secondary to above History of coronary artery disease with recent PCI to the LAD Hypertension Hyperlipidemia Paroxysmal atrial fibrillation on Eliquis for anticoagulation Chronic kidney disease stage III Pulmonary hypertension Lifelong non-smoker Medical debility, walks with a walker Plan: The patient was seen and examined with Dr. Vinson. Chart/diagnostics reviewed. The usual perioperative course of open-heart surgery was discussed with the patient and her family, risks and benefits were reviewed, all questions were answered. Patient would be considered high risk for surgical revascularization as she is very frail, has very limited mobility, and has very poor nutritional status as patient and family admits she does not eat very much. With further discussion between the patient and her family they do not feel she would recover from open heart surgery and would prefer stenting option. Will be discussed with Dr. Winchester. Recommend continuing to maximize therapy with antiplatelet therapy due to PCI along with Eliquis due to PAF, continue statin, beta-[place]. Medical management of other comorbidities per internal medicine, cardiology. Thank you Dr. Winchester for this consult. Please call us with any further questions. I have personally seen and examined the patient, performed the documentation and the assessment and plan as written. Number of minutes spent on the visit: 30. MICHELLE Banda
[2025-02-17] MEDS ORDERED: ATORVASTATIN 40 MG TAB PO SCH (21:00)
[2025-02-18] MEDS: HEPARIN SODIUM 1,000 UN/ML (10ML VL) IV PRN (00:18)
[2025-02-18] MEDS: PANTOPRAZOLE 40 MG TABLET PO SCH (05:23)
[2025-02-18] MEDS ORDERED: HEPARIN SODIUM,PORCINE (1 ML) 2,500 UNIT in SODIUM CHLORIDE 0.9% 250 ML IRRIGATION PRN (07:00)
[2025-02-18] MEDS ORDERED: HEPARIN SODIUM,PORCINE 10,000 UNIT in SODIUM CHLORIDE 0.9% 1,000 ML IRRIGATION PRN (07:00)
[2025-02-18 07:24] LABS: Basophils # (A) 0.07 10*3/uL (0.00-0.10); Basophils % (A) 0.7 %; Eosinophils % (A) 3.1 %; HCT 26.9 % (37.2-46.3); HGB 8.6 g/dL (12.0-15.0); Lymphocytes # (A) 1.29 10*3/uL (0.90-5.00); Lymphocytes % (A) 13.3 %; MCV 97.1 fL (80.0-97.0); Mean Platelet Volume 9.5 fL (9.5-12.2); Monocytes # (A) 0.67 10*3/uL (0.20-1.00); Monocytes % (A) 6.9 %; Neutrophils # (A) 7.34 10*3/uL (1.80-7.70); Neutrophils % (A) 75.6 %; Platelet Count 360 10*3/uL (140-440); RBC 2.77 10*6/uL (4.10-5.20); RDW 15.9 % (11.5-14.5); WBC 9.71 10*3/uL (4.50-10.00)
[2025-02-18 07:59] LABS: African American GFR (CKD) 81 (>60 ml/min/1.73 sqM); Anion Gap 9 mmol/L; Blood Urea Nitrogen 9 mg/dL (7-17); Calcium 8.3 mg/dL (8.4-10.2); Carbon Dioxide 22 mmol/L (22-30); Chloride 106 mmol/L (98-107); Glucose 83 mg/dL (74-99); Magnesium 1.8 mg/dL (1.6-2.3); Non-African American GFR(CKD) 70 (>60 ml/min/1.73 sqM); Potassium 4.3 mmol/L (3.5-5.1); Sodium 137 mmol/L (137-145)
--- NOTE | 2025-02-18 10:31 | P.PN ---
Subjective Progress Note Date: 02/18/25 HPI: This lady underwent cardiac cath yesterday which revealed ostial LAD stenosis of 90%. She had previous stenting of mid LAD. She was advised surgical evaluation and yesterday she was seen by cardiac surgery and they felt that patient is frail and the risk for surgery is high and advised percutaneous intervention. Patient is comfortable no chest pain at this time she is unable heparin aspirin and Plavix. She will have PCI of LAD which is a high risk procedure given the ostial nature of disease location. Dr. Winchester will perform the procedure on Thursday but if she has more symptoms we will do it sooner. I explained this to the patient vitals are stable no JVD S1-S2 heard normally short systolic murmur noted lungs reveal bilateral decent air entry abdomen in the lower EXTR exam is unremarkable. PHYSICIAL EXAM: Vitals are stable no JVD S1-S2 heard normally rhythm is regular short systolic murmur lungs reveal improved air entry abdomen and lower EXTR exam is unremarkable. IMPRESSION: 1. Progression of CAD with ostial LAD disease. 2. Recent stenting of mid LAD. 3. Paroxysmal atrial fibrillation maintaining sinus rhythm. 4.. 5.. RECOMMENDATIONS: Continue current medications including dual antiplatelet therapy, IV heparin and PCI of ostial LAD on Thursday by Dr. Winchester. We will hold Eliquis for now and explained to the patient that the procedure is high risk she understands all details and wishes to proceed.. Objective - Vital Signs Vital signs: Vital Signs Temp 98.1 F 02/17/25 20:00 Pulse 64 02/18/25 04:00 Resp 16 02/18/25 04:00 BP 132/82 02/18/25 04:00 Pulse Ox 95 02/18/25 04:00 FiO2 Intake & Output 02/17/25 02/18/25 02/18/25 18:59 06:59 18:59 Intake Total 469.728 581.961 Balance 469.728 581.961 Weight 50.5 kg Intake: IV 120 Invasive Line 1 20 Intake, IV Titration 109.728 41.961 Amount Heparin Sod,Pork in 0.45% 109.728 41.961 NaCl 25,000 unit In 0.45 % NaCl 1 250ml.bag @ 12 UNITS/KG/HR 6.096 mls/hr IV .Q24H [facility] Rx#: [id number] Oral 240 540 Other: Voiding Method Toilet Toilet Diaper Diaper Incontinent Incontinent External Catheter # Voids 1 2 # Bowel Movements 1 - Labs CBC & Chem 7: 02/18/25 06:48 02/18/25 06:48 Labs: Abnormal Lab Results - Last 24 Hours (Table) 02/17/25 02/17/25 02/18/25 Range/Units 05:39 23:13 06:48 RBC 2.77 L (4.10-5.20) 10*6/uL Hgb 8.6 L (12.0-15.0) g/dL Hct 26.9 L (37.2-46.3) % MCV 97.1 H (80.0-97.0) fL APTT 33.9 H (22.0-30.0) sec Calcium (8.4-10.2) mg/dL HDL Cholesterol 38.00 L (40.00-60.00) mg/dL 02/18/25 02/18/25 Range/Units 06:48 06:48 RBC (4.10-5.20) 10*6/uL Hgb (12.0-15.0) g/dL Hct (37.2-46.3) % MCV (80.0-97.0) fL APTT 41.5 H (22.0-30.0) sec Calcium 8.3 L (8.4-10.2) mg/dL HDL Cholesterol (40.00-60.00) mg/dL
--- NOTE | 2025-02-18 11:25 | P.PN ---
Subjective Progress Note Date: 02/18/25 84-year-old female with A-fib (on Eliquis), GERD, hyperlipidemia, CKD stage III, CAD status post stent x2 in December 2024, CKD stage 3, rheumatoid arthritis, anxiety here for evaluation of chest pain. Patient reported that she began to have chest pain at around 7 PM today that was substernal with radiation to the back without 5 out of 10 intensity. She reported that the pain only lasted for a few minutes and was relieved with rest. At the time of evaluation, patient reported she is not experiencing the chest pain. She was hospitalized recently in December 2024 for typical unstable angina with catheterization and stent placement. She underwent extensive evaluation in the ED. Temperature 98.3 F, pulse rate 110, blood pressure 131/86, O2 saturation 95% on room air. WBC 11.7, hemoglobin 9.8, MCV 92.6, sodium 135, potassium 2.5, bicarb 23, BUN 13, creatinine 0.81, magnesium 1.5, calcium 8.6. Troponin elevated at 1.250. Liver enzymes normal limits. Coagulation panel showed PT 13.1 and INR 1.2, PTT 27.9. EKG showed sinus tachycardia with a rate of 119 bpm, notable PACs and PVC, left axis deviation, nonspecific ST-T changes with T wave inversions in leads V1 to V6, QTc 426 MS. Chest x-ray showed no acute cardiopulmonary process. Patient was admitted for further workup and Cardiology evaluation. Trop 1.25, 1.41, 1.45. Cardiology consulted, underwent cardiac cath showing tight proximal LAD disease. CT surgery consulted, recommending no surgical intervention and medical management. 02/18 Patient was seen and examined. Sleeping comfortably. No complaints. CBC and BMP significant for RBC 2.77, Hg 8.6, Hct 26.9, MCV 97.1, Ca 8.3. Mag 1.8. APTT 41.5. Maintained on heparin drip at 14 units/kg/hr. General: non toxic, no distress, appears older than stated age Derm: warm, dry Head: atraumatic, normocephalic, symmetric Mouth: no lip lesion, mucus membranes moist Cardiovascular: S1 S2 reg. No murmur. Lungs: Clear to auscultation bilaterally, no accessory muscle use Ext: no gross muscle atrophy, no edema, no contractures Neuro: No focal neurologic deficits. Psych: Alert and oriented. Based on my assessment of this patient, this patient meets a high complexity level of care. NSTEMI: Continue heparin drip and monitor APTT. ASA 81 mg PO QD. Plavix 75 mg PO QD. Lipitor 80 mg PO QD. Metoprolol 50 mg PO QD. Imdur 30 mg PO QD. Nitro 0.4 mg SL PRN. Telemetry monitoring. Plans for PCI on Thursday. Cardiology on board. Paroxysmal A-fib on Eliquis: Holding home Eliquis. Heparin drip as above. Metoprolol as above. GERD: Protonix 40 mg PO QD. Iron deficiency anemia: Transfuse if Hg < 7. Anxiety: Paroxetine 37.5 mg PO QD. Gout: Allopurinol 100 mg PO QD. GERD: Protonix 40 mg PO QD. Rheumatoid Arthritis Resolved: Hypokalemia, Hypomagnesemia CODE STATUS: FULL CODE DVT Prophylaxis: Heparin drip. GI Prophylaxis: Protonix PO Designated medical POA if patient is not able to make medical decisions for themselves: I have reviewed the following recruiting and selection consultant notes: CT surgery, Cardiology. I have reviewed the results of the following tests: CBC, BMP, APTT. I have ordered the following tests: Daily APTT while on heparin infusion. I have discussed the care of this patient with the following independent historian: DIEGO. I have independently interpreted the following test below: I have discussed the management of this patient with the following physician: Objective - Vital Signs Vital signs: Vital Signs Temp 98.1 F 02/17/25 20:00 Pulse 64 02/18/25 04:00 Resp 16 02/18/25 04:00 BP 132/82 02/18/25 04:00 Pulse Ox 95 02/18/25 04:00 FiO2 Intake & Output 02/17/25 02/18/25 02/18/25 18:59 06:59 18:59 Intake Total 469.728 581.961 Balance 469.728 581.961 Weight 50.5 kg Intake: IV 120 Invasive Line 1 20 Intake, IV Titration 109.728 41.961 Amount Heparin Sod,Pork in 0.45% 109.728 41.961 NaCl 25,000 unit In 0.45 % NaCl 1 250ml.bag @ 12 UNITS/KG/HR 6.096 mls/hr IV .Q24H [facility] Rx#: [id number] Oral 240 540 Other: Voiding Method Toilet Toilet Diaper Diaper Incontinent Incontinent External Catheter # Voids 1 2 # Bowel Movements 1 - Labs CBC & Chem 7: 02/18/25 06:48 02/18/25 06:48 Labs: Abnormal Lab Results - Last 24 Hours (Table) 02/17/25 02/17/25 02/18/25 Range/Units 05:39 23:13 06:48 RBC 2.77 L (4.10-5.20) 10*6/uL Hgb 8.6 L (12.0-15.0) g/dL Hct 26.9 L (37.2-46.3) % MCV 97.1 H (80.0-97.0) fL APTT 33.9 H (22.0-30.0) sec Calcium (8.4-10.2) mg/dL HDL Cholesterol 38.00 L (40.00-60.00) mg/dL 02/18/25 02/18/25 Range/Units 06:48 06:48 RBC (4.10-5.20) 10*6/uL Hgb (12.0-15.0) g/dL Hct (37.2-46.3) % MCV (80.0-97.0) fL APTT 41.5 H (22.0-30.0) sec Calcium 8.3 L (8.4-10.2) mg/dL HDL Cholesterol (40.00-60.00) mg/dL
[2025-02-19] MEDS: NITROGLYCERIN SL TABS 0.4 MG TAB SUBLINGUAL PRN (02:01)
[2025-02-19 07:47] LABS: Basophils # (A) 0.05 10*3/uL (0.00-0.10); Basophils % (A) 0.5 %; Eosinophils # (A) 0.34 10*3/uL (0.04-0.35); Eosinophils % (A) 3.3 %; HCT 28.9 % (37.2-46.3); HGB 9.3 g/dL (12.0-15.0); Lymphocytes # (A) 1.83 10*3/uL (0.90-5.00); Lymphocytes % (A) 17.5 %; MCH 31.4 pg (27.0-32.0); MCHC 32.2 g/dL (32.0-37.0); MCV 97.6 fL (80.0-97.0); Monocytes # (A) 0.84 10*3/uL (0.20-1.00); Monocytes % (A) 8.1 %; Neutrophils # (A) 7.32 10*3/uL (1.80-7.70); Neutrophils % (A) 70.1 %; Platelet Count 367 10*3/uL (140-440); RBC 2.96 10*6/uL (4.10-5.20); RDW 15.9 % (11.5-14.5); WBC 10.43 10*3/uL (4.50-10.00)
[2025-02-19 08:31] LABS: African American GFR (CKD) 78 (>60 ml/min/1.73 sqM); Anion Gap 8 mmol/L; Blood Urea Nitrogen 10 mg/dL (7-17); Calcium 8.7 mg/dL (8.4-10.2); Carbon Dioxide 23 mmol/L (22-30); Chloride 106 mmol/L (98-107); Glucose 88 mg/dL (74-99); Magnesium 1.7 mg/dL (1.6-2.3); Non-African American GFR(CKD) 68 (>60 ml/min/1.73 sqM); Potassium 4.1 mmol/L (3.5-5.1); Sodium 137 mmol/L (137-145)
--- NOTE | 2025-02-19 09:13 | P.PN ---
Subjective Progress Note Date: 02/19/25 HPI: This lady underwent cardiac cath on Thursday which revealed ostial LAD stenosis of 90%. She had previous stenting of mid LAD. She was advised surgical evaluation and she was seen by cardiac surgery and they felt that patient is frail and the risk for surgery is high and advised percutaneous intervention. This patient had discomfort in the chest 1 episode last night with precordial ST depression but the pain resolved completely she is asymptomatic troponin level is pending. She is on a heparin drip. Patient is comfortable no chest pain at this time she is on IV heparin aspirin and Plavix. She will have PCI of LAD which is a high risk procedure given the ostial nature of disease location. Dr. Winchester will perform the procedure on Thursday but if she has more symptoms we will do it sooner. I explained this to the patient vitals are stable no JVD S1-S2 heard normally short systolic murmur noted lungs reveal bilateral decent air entry abdomen in the lower EXTR exam is unremarkable. Labs are pending at this time in terms of renal function. PHYSICIAL EXAM: Vitals are stable no JVD S1-S2 heard normally rhythm is regular short systolic murmur lungs reveal improved air entry abdomen and lower EXTR exam is unremarkable. IMPRESSION: 1. Progression of CAD with ostial LAD disease. 2. Recent stenting of mid LAD. 3. Paroxysmal atrial fibrillation maintaining sinus rhythm. 4.. 5.. RECOMMENDATIONS: Continue current medications including dual antiplatelet therapy, IV heparin and PCI of ostial LAD on Thursday by Dr. Winchester. We will hold Eliquis for now and explained to the patient that the procedure is high risk she understands all details and wishes to proceed.. Objective - Vital Signs Vital signs: Vital Signs Temp 98.0 F 02/18/25 20:00 Pulse 59 L 02/19/25 04:00 Resp 16 02/19/25 04:00 BP 113/56 02/19/25 04:00 Pulse Ox 90 L 02/19/25 04:00 FiO2 Intake & Output 02/18/25 02/19/25 02/19/25 18:59 06:59 18:59 Intake Total 360 958.985 53.814 Balance 360 958.985 53.814 Weight 53.5 kg Intake: Intake, IV Titration 178.985 53.814 Amount Heparin Sod,Pork in 0.45% 178.985 53.814 NaCl 25,000 unit In 0.45 % NaCl 1 250ml.bag @ 12 UNITS/KG/HR 6.096 mls/hr IV .Q24H [facility] Rx#: [id number] Oral 360 780 Other: Voiding Method Toilet Toilet # Voids 1 1 # Bowel Movements 1 - Labs CBC & Chem 7: 02/19/25 07:14 02/19/25 07:14 Labs: Abnormal Lab Results - Last 24 Hours (Table) 02/19/25 02/19/25 Range/Units 07:14 07:14 WBC 10.43 H (4.50-10.00) 10*3/uL RBC 2.96 L (4.10-5.20) 10*6/uL Hgb 9.3 L (12.0-15.0) g/dL Hct 28.9 L (37.2-46.3) % MCV 97.6 H (80.0-97.0) fL Immature Gran # 0.05 H (0.00-0.04) 10*3/uL APTT 35.0 H (22.0-30.0) sec
--- NOTE | 2025-02-19 11:18 | P.PN ---
Subjective Progress Note Date: 02/19/25 84-year-old female with A-fib (on Eliquis), GERD, hyperlipidemia, CKD stage III, CAD status post stent x2 in December 2024, CKD stage 3, rheumatoid arthritis, anxiety here for evaluation of chest pain. Patient reported that she began to have chest pain at around 7 PM today that was substernal with radiation to the back without 5 out of 10 intensity. She reported that the pain only lasted for a few minutes and was relieved with rest. At the time of evaluation, patient reported she is not experiencing the chest pain. She was hospitalized recently in December 2024 for typical unstable angina with catheterization and stent placement. She underwent extensive evaluation in the ED. Temperature 98.3 F, pulse rate 110, blood pressure 131/86, O2 saturation 95% on room air. WBC 11.7, hemoglobin 9.8, MCV 92.6, sodium 135, potassium 2.5, bicarb 23, BUN 13, creatinine 0.81, magnesium 1.5, calcium 8.6. Troponin elevated at 1.250. Liver enzymes normal limits. Coagulation panel showed PT 13.1 and INR 1.2, PTT 27.9. EKG showed sinus tachycardia with a rate of 119 bpm, notable PACs and PVC, left axis deviation, nonspecific ST-T changes with T wave inversions in leads V1 to V6, QTc 426 MS. Chest x-ray showed no acute cardiopulmonary process. Patient was admitted for further workup and Cardiology evaluation. Trop 1.25, 1.41, 1.45. Cardiology consulted, underwent cardiac cath showing tight proximal LAD disease. CT surgery consulted, recommending no surgical intervention and medical management. 02/18 Patient was seen and examined. Sleeping comfortably. No complaints. CBC and BMP significant for RBC 2.77, Hg 8.6, Hct 26.9, MCV 97.1, Ca 8.3. Mag 1.8. APTT 41.5. Maintained on heparin drip at 14 units/kg/hr. 02/19 Patient was seen and examined. No chest pain. CBC and BMP significant for WBC 10.43, RBC 2.96, Hg 9.3, Hct 28.9, MCV 97.6. Mag 1.7. APTT 35. Trop 0.549. Maintained on heparin drip at 14 units/kg/hr. General: non toxic, no distress, appears older than stated age Derm: warm, dry Head: atraumatic, normocephalic, symmetric Mouth: no lip lesion, mucus membranes moist Cardiovascular: S1 S2 reg. No murmur. Lungs: Clear to auscultation bilaterally, no accessory muscle use Ext: no gross muscle atrophy, no edema, no contractures Neuro: No focal neurologic deficits. Psych: Alert and oriented. Based on my assessment of this patient, this patient meets a high complexity level of care. NSTEMI: Continue heparin drip and monitor APTT. ASA 81 mg PO QD. Plavix 75 mg PO QD. Lipitor 80 mg PO QD. Metoprolol 50 mg PO QD. Imdur 30 mg PO QD. Nitro 0.4 mg SL PRN. Telemetry monitoring. Plans for PCI on Thursday. Cardiology on board. Paroxysmal A-fib on Eliquis: Holding home Eliquis. Heparin drip as above. Metoprolol as above. GERD: Protonix 40 mg PO QD. Iron deficiency anemia: Transfuse if Hg < 7. Anxiety: Paroxetine 37.5 mg PO QD. Gout: Allopurinol 100 mg PO QD. GERD: Protonix 40 mg PO QD. Rheumatoid Arthritis Resolved: Hypokalemia, Hypomagnesemia Plans for PCI on 02/20. CODE STATUS: FULL CODE DVT Prophylaxis: Heparin drip. GI Prophylaxis: Protonix PO Designated medical POA if patient is not able to make medical decisions for themselves: I have reviewed the following oracle hyperion consultant notes: Cardiology. I have reviewed the results of the following tests: CBC, BMP, APTT. I have ordered the following tests: Daily APTT while on heparin infusion. I have discussed the care of this patient with the following independent historian: I have independently interpreted the following test below: I have discussed the management of this patient with the following physician: Objective - Vital Signs Vital signs: Vital Signs Temp 98.0 F 02/18/25 20:00 Pulse 59 L 02/19/25 04:00 Resp 16 02/19/25 04:00 BP 113/56 02/19/25 04:00 Pulse Ox 90 L 02/19/25 04:00 FiO2 Intake & Output 02/18/25 02/19/25 02/19/25 18:59 06:59 18:59 Intake Total 360 958.985 Balance 360 958.985 Weight 53.5 kg Intake: Intake, IV Titration 178.985 Amount Heparin Sod,Pork in 0.45% 178.985 NaCl 25,000 unit In 0.45 % NaCl 1 250ml.bag @ 12 UNITS/KG/HR 6.096 mls/hr IV .Q24H [facility] Rx#: [id number] Oral 360 780 Other: Voiding Method Toilet Toilet # Voids 1 1 # Bowel Movements 1 - Labs CBC & Chem 7: 02/19/25 07:14 02/19/25 07:14 Labs: Abnormal Lab Results - Last 24 Hours (Table) 02/19/25 02/19/25 Range/Units 07:14 07:14 WBC 10.43 H (4.50-10.00) 10*3/uL RBC 2.96 L (4.10-5.20) 10*6/uL Hgb 9.3 L (12.0-15.0) g/dL Hct 28.9 L (37.2-46.3) % MCV 97.6 H (80.0-97.0) fL Immature Gran # 0.05 H (0.00-0.04) 10*3/uL APTT 35.0 H (22.0-30.0) sec
[2025-02-19] MEDS: ALPRAZolam 0.5 MG TAB PO PRN (20:31)
--- NOTE | 2025-02-20 05:25 | CC ---
CARDIAC CATHETERIZATION REPORT INDICATION: Gvy-AZ-yldsbsk elevation [place]. PROCEDURE NOTE: After obtaining informed consent, left heart catheterization and coronary angiogram were performed via the right radial artery using standard Ardames catheters. The patient tolerated the procedure well without any obvious immediate complications. Total sedation time was 18 minutes. Right radial artery access was obtained using Seldinger technique, 6-Guinean sheath was placed. Catheters and wires were floated into the ascending aorta under fluoroscopic guidance. The patient received verapamil per protocol. I opted not to give any more heparin as the patient was on heparin up until 11:45. FINDINGS: 1. Hemodynamics: Left ventricular end-diastolic pressure is 5 mmHg. There is no significant gradient across the aortic valve. 2. Left ventriculogram is not performed. 3. Angiographic data: a.Right coronary artery shows mild diffuse nonobstructive disease. The left main coronary artery is a normal-sized vessel, divides into left anterior descending coronary artery and circumflex coronary artery. In the ostium of the LAD, there is a 90% focal stenosis. This is proximal to the previous stent. Ostium of the circumflex coronary artery also has a 70% to 80% stenosis. Both these are new compared to the angiogram done in December of 2024. CONCLUSION: Severe proximal LAD and circumflex coronary artery stenosis in an 84-year-old lady who is frail. I am going to have Dr. Winchester, day guard, who performed her previous angioplasty, review the angiographic data, and advise on revascularization. MMODL / IJN: [id number] /
[2025-02-20] MEDS: ASPIRIN 81 MG PO STA (07:41)
[2025-02-20] MEDS: IV FLUID CONTINUATION 600 ML IV ONE (07:48)
[2025-02-20] MEDS: MIDAZOLAM 2 MG/2 ML VIAL IVP ONE (08:04)
[2025-02-20] MEDS: LIDOCAINE 1% INJ 10MG/ML (20 ML MDV) SQ ONE (08:05)
[2025-02-20] MEDS: VERAPAMIL SYRINGE (5 MG/10 ML) INTRAARTER ONE (08:07)
[2025-02-20] MEDS: HEPARIN SODIUM 1,000 UN/ML (10ML VL) IVP ONE (08:15)
[2025-02-20] MEDS: HEPARIN SODIUM,PORCINE 10,000 UNIT in SODIUM CHLORIDE 0.9% 1,000 ML IRRIGATION ONE (08:50)
[2025-02-20] MEDS: HEPARIN SODIUM,PORCINE (1 ML) 2,500 UNIT in SODIUM CHLORIDE 0.9% 250 ML IRRIGATION ONE (08:50)
[2025-02-20] MEDS: FUROSEMIDE 10 MG/ML 4 ML VIAL IVP ONE (09:06)
[2025-02-20] MEDS: NITROGLYCERIN 1000MCG/10ML SYRINGE INTRACORON ONE (09:14)
[2025-02-20] MEDS: niCARdipine Syringe (1,000 mcg/10 mL) INTRACORON ONE (09:14)
[2025-02-20] MEDS: MORPHINE SULFATE 4 MG/ML SYRINGE IVP ONE (09:14)
[2025-02-20] MEDS: TICAGRELOR 90 MG TAB PO ONE (09:21)
[2025-02-20] MEDS: IOPAMIDOL-370 100ML BTL INJ ONE (09:22)
[2025-02-20] MEDS ORDERED: RX INFO: IV CONTRAST WAS GIVEN 1 EACH MISC MISCELLANE PRN (09:25)
[2025-02-20] MEDS ORDERED: ATROPINE SULFATE 0.1 MG/ML 10ML SYRINGE IV PRN (09:25)
[2025-02-20] MEDS ORDERED: ZOLPIDEM 5 MG TAB PO PRN (09:25)
[2025-02-20] MEDS: ASPIRIN 325 MG TAB PO STA (10:48)
--- NOTE | 2025-02-20 13:31 | P.PCN ---
Date of Procedure: 02/20/25 Operative Findings: PERCUTANEOUS CORONARY INTERVENTION Performing physician Andrez Winchester M.D. Procedure Performed: 1. Successful stenting of the distal left main and proximal LAD using 4.0 x 18 mm Xience drug-eluting stent with an excellent angiographic results. 2. Adjunctive use of IVUS and ultrasound-guided access of the right radial artery Indication: Acute non-ST elevation myocardial infarction. Please refer to prior heart catheterization was performed last week Approach: Right radial artery Complications: None Level of Sedation: Moderate with a sedation length of 64 minutes Procedure Discussion: After obtaining informed consent the patient was brought to the cardiac Sales Engagement Executive with right radial artery was cannulated using micropuncture technique under ultrasound guidance a micropuncture wire passed easily then I placed a 6 Hungarian 11 cm sheath at the right radial artery and give the patient 2 mg of verapamil intra-arterial and heparin IV with continuous ACT monitoring. Subsequently I did engage the left main using JL 3.5 guiding catheter. I did wired the left circumflex using a whisper wire and the LAD using a run-through wire. IVUS was attempted to advance but it went only to the proximal LAD and showed a diameter around 3.5 to 4 mm and the left main 4.5 to 5 mm. Both arteries were not very calcified. Attempting advancing 3.5 score flex and noncompliant balloon was unsuccessful but was successful using 3.5 semicompliant balloon with I did balloon angioplasty of the LAD and left main. Attempting advancing 3.5 mm NC balloon was unsuccessful but was successful using GuideLiner and with that I had to pull the wire from the left circumflex coronary artery. After that I was able to advance a 4.0 x 18 mm stent where the stent was positioned under fluoroscopy guidance and deployed under fluoroscopy guidance. The stent was postdilated using 5 mm NC balloon. Final IVUS and angiogram showed good results and the procedure was completed with no complication with ELIZABETH III flow in the left circumflex which was jailed by the stent Postprocedure Management: 1. Dual antiplatelet therapy with the changing to Plavix into high potent antiplatelet using Brilinta 2. Cholesterol control 3. Risk factors modification
--- NOTE | 2025-02-20 14:58 | P.PN ---
Subjective Progress Note Date: 02/20/25 84-year-old female with A-fib (on Eliquis), GERD, hyperlipidemia, CKD stage III, CAD status post stent x2 in December 2024, CKD stage 3, rheumatoid arthritis, anxiety here for evaluation of chest pain. Patient reported that she began to have chest pain at around 7 PM today that was substernal with radiation to the back without 5 out of 10 intensity. She reported that the pain only lasted for a few minutes and was relieved with rest. At the time of evaluation, patient reported she is not experiencing the chest pain. She was hospitalized recently in December 2024 for typical unstable angina with catheterization and stent placement. She underwent extensive evaluation in the ED. Temperature 98.3 F, pulse rate 110, blood pressure 131/86, O2 saturation 95% on room air. WBC 11.7, hemoglobin 9.8, MCV 92.6, sodium 135, potassium 2.5, bicarb 23, BUN 13, creatinine 0.81, magnesium 1.5, calcium 8.6. Troponin elevated at 1.250. Liver enzymes normal limits. Coagulation panel showed PT 13.1 and INR 1.2, PTT 27.9. EKG showed sinus tachycardia with a rate of 119 bpm, notable PACs and PVC, left axis deviation, nonspecific ST-T changes with T wave inversions in leads V1 to V6, QTc 426 MS. Chest x-ray showed no acute cardiopulmonary process. Patient was admitted for further workup and Cardiology evaluation. Trop 1.25, 1.41, 1.45. Cardiology consulted, underwent cardiac cath showing tight proximal LAD disease. CT surgery consulted, recommending no surgical intervention and medical management. 02/18 Patient was seen and examined. Sleeping comfortably. No complaints. CBC and BMP significant for RBC 2.77, Hg 8.6, Hct 26.9, MCV 97.1, Ca 8.3. Mag 1.8. APTT 41.5. Maintained on heparin drip at 14 units/kg/hr. 02/19 Patient was seen and examined. No chest pain. CBC and BMP significant for WBC 10.43, RBC 2.96, Hg 9.3, Hct 28.9, MCV 97.6. Mag 1.7. APTT 35. Trop 0.549. Maintained on heparin drip at 14 units/kg/hr. 02/20 Patient was seen and examined. No chest pain. Underwent successful stenting of the distal left main and proximal LAD this morning with Dr. Winchester. APTT 47.5. General: non toxic, no distress, appears older than stated age Derm: warm, dry Head: atraumatic, normocephalic, symmetric Mouth: no lip lesion, mucus membranes moist Cardiovascular: S1 S2 reg. No murmur. Lungs: Clear to auscultation bilaterally, no accessory muscle use Ext: no gross muscle atrophy, no edema, no contractures Neuro: No focal neurologic deficits. Psych: Alert and oriented. Based on my assessment of this patient, this patient meets a high complexity level of care. NSTEMI: ASA 81 mg PO QD. Brilinta 90 mg PO BID. Lipitor 80 mg PO QD. Metoprolol 50 mg PO QD. Imdur 30 mg PO QD. Nitro 0.4 mg SL PRN. Telemetry monitoring. Cardiology on board. Paroxysmal A-fib on Eliquis: Metoprolol as above. Restart Eliquis 5 mg PO BID tonight. GERD: Protonix 40 mg PO QD. Iron deficiency anemia: Transfuse if Hg < 7. Anxiety: Paroxetine 37.5 mg PO QD. Gout: Allopurinol 100 mg PO QD. GERD: Protonix 40 mg PO QD. Rheumatoid Arthritis Resolved: Hypokalemia, Hypomagnesemia CODE STATUS: FULL CODE DVT Prophylaxis: Eliquis. GI Prophylaxis: Protonix PO Designated medical POA if patient is not able to make medical decisions for themselves: I have reviewed the following storage consultant notes: Cardiology. I have reviewed the results of the following tests: APTT. I have ordered the following tests: CBC and BMP in the AM. I have discussed the care of this patient with the following independent historian: Family at bedside. I have independently interpreted the following test below: I have discussed the management of this patient with the following physician: Objective - Vital Signs Vital signs: Vital Signs Temp 97.6 F 02/20/25 12:00 Pulse 61 02/20/25 12:00 Resp 18 02/20/25 14:00 BP 108/62 02/20/25 12:00 Pulse Ox 95 02/20/25 12:00 FiO2 Intake & Output 02/19/25 02/20/25 02/20/25 18:59 06:59 18:59 Intake Total 490.114 240 302 Balance 490.114 240 302 Intake: IV 302 Intake, IV Titration 132.114 Amount Heparin Sod,Pork in 0.45% 132.114 NaCl 25,000 unit In 0.45 % NaCl 1 250ml.bag @ 12 UNITS/KG/HR 6.096 mls/hr IV .Q24H [facility] Rx#: [id number] Oral 358 240 Other: Voiding Method Toilet Toilet Toilet # Voids 1 1 - Labs CBC & Chem 7: 02/19/25 07:14 02/19/25 07:14 Labs: Abnormal Lab Results - Last 24 Hours (Table) 02/19/25 02/20/25 Range/Units 15:13 00:22 APTT 36.8 H 47.5 H (22.0-30.0) sec
[2025-02-20] MEDS: TICAGRELOR 90 MG TAB PO SCH (19:53)
[2025-02-20] MEDS: APIXABAN 2.5 MG TABLET PO SCH (19:53)
[2025-02-21] MEDS ORDERED: HEPARIN SODIUM,PORCINE 10,000 UNIT in SODIUM CHLORIDE 0.9% 1,000 ML IRRIGATION PRN (07:00)
[2025-02-21] MEDS ORDERED: HEPARIN SODIUM,PORCINE (1 ML) 2,500 UNIT in SODIUM CHLORIDE 0.9% 250 ML IRRIGATION PRN (07:00)
[2025-02-21 07:52] LABS: Basophils # (A) 0.05 10*3/uL (0.00-0.10); Basophils % (A) 0.4 %; Eosinophils # (A) 0.26 10*3/uL (0.04-0.35); HCT 26.8 % (37.2-46.3); HGB 8.8 g/dL (12.0-15.0); Lymphocytes % (A) 9.9 %; MCH 31.4 pg (27.0-32.0); MCHC 32.8 g/dL (32.0-37.0); MCV 95.7 fL (80.0-97.0); Mean Platelet Volume 9.6 fL (9.5-12.2); Monocytes # (A) 0.92 10*3/uL (0.20-1.00); Neutrophils # (A) 10.51 10*3/uL (1.80-7.70); Neutrophils % (A) 80.2 %; Platelet Count 342 10*3/uL (140-440)
[2025-02-21 08:06] LABS: African American GFR (CKD) 88 (>60 ml/min/1.73 sqM); Anion Gap 10 mmol/L; Blood Urea Nitrogen 15 mg/dL (7-17); Calcium 8.6 mg/dL (8.4-10.2); Carbon Dioxide 24 mmol/L (22-30); Chloride 102 mmol/L (98-107); Glucose 90 mg/dL (74-99); Non-African American GFR(CKD) 77 (>60 ml/min/1.73 sqM); Potassium 3.7 mmol/L (3.5-5.1); Sodium 136 mmol/L (137-145)
[2025-02-21 09:12] VITALS: RESP 17; TEMP 97.5
[2025-02-21 11:04] VITALS: BMI 21.2
[2025-02-21] MEDS: MAG HYDROX/AL HYDROX/SIMETH 30 ML CUP PO PRN (11:25)
[2025-02-21 11:31] VITALS: BP 101/66; PULSE 72
--- NOTE | 2025-02-21 11:52 | P.DS ---
Providers Date of admission: 02/16/25 22:55 Expected date of discharge: 02/21/25 Attending physician: Elroy Rodgers MD Consults: 02/16/25 22:53 Consult Physician Urgent Consulting Provider: Surendra Leonard Consult Reason/Comments: nstemi Do you want consulting provider notified?: Yes 02/17/25 13:10 Consult Physician Routine Consulting Provider: Alphonse Vinson Consult Reason/Comments: CABG eval Do you want consulting provider notified?: Yes 02/20/25 09:25 Consult Physician Routine Consulting Provider: [facility] Consult Reason/Comments: Post Interventional Patient Do you want consulting provider notified?: Already Contacted [facility]: 84-year-old female with A-fib (on Eliquis), GERD, hyperlipidemia, CKD stage III, CAD status post stent x2 in December 2024, CKD stage 3, rheumatoid arthritis, anxiety here for evaluation of chest pain. Patient reported that she began to have chest pain at around 7 PM today that was substernal with radiation to the back without 5 out of 10 intensity. She reported that the pain only lasted for a few minutes and was relieved with rest. At the time of evaluation, patient reported she is not experiencing the chest pain. She was hospitalized recently in December 2024 for typical unstable angina with catheterization and stent placement. She underwent extensive evaluation in the ED. Temperature 98.3 F, pulse rate 110, blood pressure 131/86, O2 saturation 95% on room air. WBC 11.7, hemoglobin 9.8, MCV 92.6, sodium 135, potassium 2.5, bicarb 23, BUN 13, creatinine 0.81, magnesium 1.5, calcium 8.6. Troponin elevated at 1.250. Liver enzymes normal limits. Coagulation panel showed PT 13.1 and INR 1.2, PTT 27.9. EKG showed sinus tachycardia with a rate of 119 bpm, notable PACs and PVC, left axis deviation, nonspecific ST-T changes with T wave inversions in leads V1 to V6, QTc 426 MS. Chest x-ray showed no acute cardiopulmonary process. Patient was admitted for further workup and Cardiology evaluation. Trop 1.25, 1.41, 1.45. Cardiology consulted, underwent cardiac cath showing tight proximal LAD disease. CT surgery consulted, recommending no surgical intervention and medical management. 02/18 Patient was seen and examined. Sleeping comfortably. No complaints. CBC and BMP significant for RBC 2.77, Hg 8.6, Hct 26.9, MCV 97.1, Ca 8.3. Mag 1.8. APTT 41.5. Maintained on heparin drip at 14 units/kg/hr. 02/19 Patient was seen and examined. No chest pain. CBC and BMP significant for WBC 10.43, RBC 2.96, Hg 9.3, Hct 28.9, MCV 97.6. Mag 1.7. APTT 35. Trop 0.549. Maintained on heparin drip at 14 units/kg/hr. 02/20 Patient was seen and examined. No chest pain. Underwent successful stenting of the distal left main and proximal LAD this morning with Dr. Winchester. APTT 47.5. 02/21 Patient was seen and examined. No chest pain. Discussed with Charlotte MILLER, cleared for discharge. CBC and BMP significant for WBC 13.1, RBC 2.8, Hg 8.8, Hct 26.8, Na 136, Discharge Plans: Prescription for Eliquis 2.5 mg PO BID (lowered dose) and Brilinta 90 mg PO BID sent to pharmacy. Follow up with PCP within 1-2 days and Cardiology within 1 week of discharge. General: non toxic, no distress, appears older than stated age Derm: warm, dry Head: atraumatic, normocephalic, symmetric Mouth: no lip lesion, mucus membranes moist Cardiovascular: S1 S2 reg. No murmur. Lungs: Clear to auscultation bilaterally, no accessory muscle use Ext: no gross muscle atrophy, no edema, no contractures Neuro: No focal neurologic deficits. Psych: Alert and oriented. Discharge Diagnosis: NSTEMI Paroxysmal A-fib on Eliquis GERD Iron deficiency anemia Anxiety Gout GERD Rheumatoid Arthritis Resolved: Hypokalemia, Hypomagnesemia This complex discharge took 35 minutes to complete. Patient Condition at Discharge: Stable Plan - Discharge Summary Discharge Rx Participant: No New Discharge Prescriptions: New Ticagrelor [Brilinta] 90 mg PO BID #60 tab Apixaban [Eliquis] 2.5 mg PO BID #60 tab Continue Omeprazole [PriLOSEC] 20 mg PO DAILY allopurinoL [Zyloprim] 100 mg PO DAILY Atorvastatin [Lipitor] 80 mg PO DAILY@1700 Aspirin EC [Ecotrin Low Dose] 81 mg PO DAILY PARoxetine HCL [Paxil Cr] 37.5 mg PO DAILY Ergocalciferol [Vitamin D2 (1250 Mcg = 91442 Iu)] 1,250 mcg PO Q30D Isosorbide Mononitrate ER [Imdur] 30 mg PO DAILY Metoprolol Succinate (ER) [Toprol XL] 50 mg PO DAILY Iron (Unknown Dose) 1 tab PO BID Nitroglycerin Sl Tabs [Nitrostat] 0.4 mg SUBLINGUAL Q5M PRN #30 tab PRN Reason: Chest Pain Discontinued Clopidogrel [Plavix] 75 mg PO DAILY Apixaban [Eliquis] 5 mg PO BID Discharge Medication List Omeprazole [PriLOSEC] 20 mg PO DAILY 04/15/14 [History] allopurinoL [Zyloprim] 100 mg PO DAILY 03/14/19 [History] Atorvastatin [Lipitor] 80 mg PO DAILY@1700 12/30/20 [History] PARoxetine HCL [Paxil Cr] 37.5 mg PO DAILY 09/21/21 [History] Ergocalciferol [Vitamin D2 (1250 Mcg = 54857 Iu)] 1,250 mcg PO Q30D 06/14/23 [History] Aspirin EC [Ecotrin Low Dose] 81 mg PO DAILY 01/05/25 [History] Iron (Unknown Dose) 1 tab PO BID 01/05/25 [History] Isosorbide Mononitrate ER [Imdur] 30 mg PO DAILY 01/05/25 [History] Metoprolol Succinate (ER) [Toprol XL] 50 mg PO DAILY 01/05/25 [History] Nitroglycerin Sl Tabs [Nitrostat] 0.4 mg SUBLINGUAL Q5M PRN #30 tab 01/07/25 [Rx] Apixaban [Eliquis] 2.5 mg PO BID #60 tab 02/21/25 [Rx] Ticagrelor [Brilinta] 90 mg PO BID #60 tab 02/21/25 [Rx] Follow up Appointment(s)/Referral(s): None,Stated [REFERRING] - 1-2 days Sergio Royal MD [STAFF PHYSICIAN] - 1 Week Activity/Diet/Wound Care/Special Instructions: Diet: Cardiac Discharge Disposition: HOME SELF-CARE
--- NOTE | 2025-02-21 12:33 | P.PN ---
Subjective HISTORY OF PRESENT ILLNESS: This is an 84-year-old female who is status post stenting of the distal left main and proximal LAD. Patient examined Samman at bedside. Patient currently denies chest pain or pressure. She denies shortness of breath. Right radial cath site with pulse noted with ecchymosis. PHYSICAL EXAM: VITAL SIGNS: Reviewed. GENERAL: Well-developed in no acute distress. NECK: Supple. No JVD or thyromegaly LUNGS: Respirations even and unlabored. Lungs essentially clear to auscultation bilaterally. HEART: Regular rate and rhythm. S1 and S2 heard. EXTREMITIES: Normal range of motion. No clubbing or cyanosis. Peripheral pulses intact. No lower extremity edema ASSESSMENT: NSTEMI Coronary artery disease with previous stenting of the LAD followed by stent to the proximal LAD on 01/06/2025 Status post stenting of distal left main and proximal LAD 02/20/2025 Paroxysmal atrial fibrillation with controlled ventricular rate Hyperlipidemia Moderate aortic regurgitation Anemia PLAN: Continue dual antiplatelet therapy with aspirin and Brilinta Continue anticoagulation with Eliquis Continue high intensity statin. LDL goal less than 70. Continue additional cardiac medications Patient is stable for discharge today from a cardiac standpoint Nurse practitioner note has been reviewed by physician. Signing provider agrees with the documented findings, assessment, and plan of care documented by SOCIAL SERVICE ASSISTANT as a scribe. Objective - Vital Signs Vital signs: Vital Signs Temp 97.5 F L 02/21/25 11:28 Pulse 72 02/21/25 11:28 Resp 17 02/21/25 11:28 BP 101/66 02/21/25 11:28 Pulse Ox 97 02/21/25 11:28 FiO2 Intake & Output 02/20/25 02/21/25 02/21/25 18:59 06:59 18:59 Intake Total 852 250 Balance 852 250 Weight 52.8 kg 52.8 kg Intake: IV 302 10 Invasive Line 1 10 Oral 550 240 Other: Voiding Method Toilet Toilet Toilet # Voids 3 1 - Labs CBC & Chem 7: 02/21/25 07:40 02/21/25 07:40 Labs: Abnormal Lab Results - Last 24 Hours (Table) 02/21/25 02/21/25 Range/Units 07:40 07:40 WBC 13.10 H (4.50-10.00) 10*3/uL RBC 2.80 L (4.10-5.20) 10*6/uL Hgb 8.8 L (12.0-15.0) g/dL Hct 26.8 L (37.2-46.3) % Immature Gran # 0.06 H (0.00-0.04) 10*3/uL Neutrophils # 10.51 H (1.80-7.70) 10*3/uL Sodium 136 L (137-145) mmol/L
== END 2025-02-21 13:58 | disposition home or self-care (01) | DRG 322 ==
LOC: EC 21:29 → 3SCARD 22:55
PROVIDERS: ADMIT Internal Medicine; ATTEND Internal Medicine
PROC: 4A023N7 Measurement of Cardiac Sampling and Pressure, Left Heart, Percutaneous Approach (ICD-10-PCS; 2025-02-17)
PROC: B2111ZZ Fluoroscopy of Multiple Coronary Arteries using Low Osmolar Contrast (ICD-10-PCS; 2025-02-17)
PROC: B240ZZ3 Ultrasonography of Single Coronary Artery, Intravascular (ICD-10-PCS; 2025-02-20)
PROC: 027034Z Dilation of Coronary Artery, One Artery with Drug-eluting Intraluminal Device, Percutaneous Approach (ICD-10-PCS; principal; 2025-02-20 07:30)
DX: I21.4 Non-ST elevation (NSTEMI) myocardial infarction (principal); I27.20 Pulmonary hypertension, unspecified; D63.1 Anemia in chronic kidney disease; M06.9 Rheumatoid arthritis, unspecified; N18.30 Chronic kidney disease, stage 3 unspecified; I12.9 Hypertensive chronic kidney disease with stage 1 through stage 4 chronic kidney disease, or unspecified chronic kidney disease; I35.1 Nonrheumatic aortic (valve) insufficiency; I48.0 Paroxysmal atrial fibrillation; D50.9 Iron deficiency anemia, unspecified; E78.5 Hyperlipidemia, unspecified; I25.10 Atherosclerotic heart disease of native coronary artery without angina pectoris; K21.9 Gastro-esophageal reflux disease without esophagitis; F41.9 Anxiety disorder, unspecified; M10.9 Gout, unspecified; E87.6 Hypokalemia; R00.0 Tachycardia, unspecified; K57.90 Diverticulosis of intestine, part unspecified, without perforation or abscess without bleeding; E83.42 Hypomagnesemia; I25.2 Old myocardial infarction; I49.3 Ventricular premature depolarization; R54 Age-related physical debility; Z79.01 Long term (current) use of anticoagulants; Z79.02 Long term (current) use of antithrombotics/antiplatelets; Z79.82 Long term (current) use of aspirin; Z79.899 Other long term (current) drug therapy; Z82.49 Family history of ischemic heart disease and other diseases of the circulatory system; Z90.710 Acquired absence of both cervix and uterus; Z90.49 Acquired absence of other specified parts of digestive tract; Z88.5 Allergy status to narcotic agent; Z88.1 Allergy status to other antibiotic agents
CPT/HCPCS: 36415; 71046; 80048; 80053; 80061; 83735; 84132; 84443; 84484; 85025; 85610; 85730; 87324; 92978; 93005; 93458; 96365; 96367; 96368; 99291